=== PATIENT | female | born 1945 | race Caucasian/White ===

== ENCOUNTER 2021-07-06 14:01 | Emergency (ER) | payer MEDICARE, OTHER, SELFPAY ==
--- NOTE | ~2021-07-06 | XR_ITS ---
EXAMINATION: XR chest 2V DATE: 07/06/2021 14:33 INDICATION: Shortness of breath and wheezing TECHNIQUE: PA and lateral views of the chest are obtained. COMPARISON: None available FINDINGS: There are patchy opacities throughout all lung zones. More focal airspace opacity is seen i n the left lung base. Small pleural effusions are present. There is thorax. The cardiomediastinal carlos houette is normal. There is exaggerated kyphosis and moderate thoracic spondylosis. IMPRESSION: 1. Diffuse lung disease reflect atelectasis versus pneumonia versus pulmonary edema. 2. Left lower lobe airspace opacities likely reflect pneumonia. 3. Small pleural effusions. Reviewed, dictated and finalized at location A. IMPRESSION: 1. Diffuse lung disease reflect atelectasis versus pneumonia versus pulmonary e brian. 2. Left lower lobe airspace opacities likely reflect pneumonia. 3. Small pleural effusions.
--- NOTE | 2021-07-06 14:03 | ED.SOB ---
HPI - SOB/Dyspnea General Chief Complaint: Shortness of Breath/Dyspnea Stated Complaint: Shortness of Breath Time Seen by Provider: 07/06/21 14:03 Source: patient and RN notes reviewed Limitations: no limitations History of Present Illness HPI Narrative: The patient, who is a continued smoker/nondrinker, presents with shortness of breath. Patient states she was hospitalized last year for COPD, cardiac stent [ at [facility]] ; today she has a short onset of shortness of breath unresponsive to 4 updraft treatments . No fever, precordial chest pain, recent steroids, calf pain/edema; symptoms are moderate associated with wheezing. She has a recent diagnosis of Covid beginning the May, which was treated as an outpatient . Related Data Home Medications Medication Instructions Recorded Confirmed albuterol sulfate 2 puff INHALATION QID PRN 07/06/21 07/06/21 aspirin 81 mg PO DAILY 07/06/21 07/06/21 atorvastatin 40 mg PO DAILY 07/06/21 07/06/21 buspirone 5 mg PO DAILY 07/06/21 07/06/21 clopidogrel 75 mg PO DAILY 07/06/21 07/06/21 diphenhydramine HCl [Benadryl] 25 mg PO HS 07/06/21 07/06/21 fluoxetine 40 mg PO DAILY 07/06/21 07/06/21 fluticasone propionate [Flonase] 2 spray INTRANASAL DAILY 07/06/21 07/06/21 [id number] See Rx Instructions .ROUTE .COMPLEX 07/06/21 07/06/21 [Trelegy Ellipta] lisinopril 5 mg PO DAILY 07/06/21 07/06/21 metoprolol succinate 50 mg PO DAILY 07/06/21 07/06/21 omeprazole 40 mg PO DAILY 07/06/21 07/06/21 rosuvastatin 5 mg PO DAILY 07/06/21 07/06/21 Allergies Allergy/AdvReac Type Severity Reaction Status Date / Time Sulfa (Sulfonamide AdvReac Intermediate Rash Verified 07/06/21 14:13 Antibiotics) Review of Systems Review of Systems: General/Constitutional: No weight loss,fever Eyes: N0: Redness,discharge Ears/Nose/Throat: No: Epistaxis,ear discharge Respiratory: Denies: Hemoptysis Gastrointestinal: No Vomiting, Bleeding-rectal Skin: No Lumps, eruption Neurologic: No Focal Weakness,Sz Hematologic: Denies: Petechiae/Purpura Psychiatric: No: Suicida ideationl All Other Systems: Reviewed and Negative [facility] Past Medical History Medical History (Updated 07/07/21 @ 14:20 by Dinesh Ledbetter MD) Chronic anticoagulation COPD exacerbation Depression High cholesterol Hypertension Surgical History Surgical History (Updated 07/06/21 @ 14:22 by Dinesh Ledbetter MD) History of heart artery stent Comments At time of signature, agree with nursing past medical, surgical, social and family history. There is no relevant family history pertinent to the presenting complaint Exam Narrative: General Appearance: Thin, lean EYE: PERRLA, Conjunctiva clear Ears: Auditory canal normal, TM normal Nose: Rhinorrhea, Mucousal erythema Mouth/Throat: MM moist, Uvula midline, Pharyngeal erythema Neck: Supple, No adenopathy Respiratory: Tachypneic, increased AP diameter, decreased BS at bases, scattered wheezing Cardiovascular: RRR, No JVD Musculoskeletal: Non tender, Normal strength Skin: Warm, Dry Neurological: A&O x3, CN II-XII intact Psychiatric: Normal mood, Normal affect Course Course Emergency Course: Films visualized, interpreted by radiologist, agree, ABnormal see report Patient comes in respiratory distress on way to [facility] she has had for breathing treatments at home and has continued to get worse; when she arrived at [facility] her O2 sats were 98% with bilateral basilar wheezing Given prednisone 60 mg and a DuoNeb Chest x-ray shows patchy infiltrates with left lower lobe pneumonia Plan is to transfer to [facility] when she stabilized-based on presentation the results chest x-ray called [facility] and transferred patient to their ER- accepting doctor is Dr. Aguayo, it was a discharge with a respiratory rate of 24 Vital Signs Vital signs: Vital Signs Temperature 98.3 F 07/06/21 14:05 Pulse Rate 88 07/06/21 14:05 Respiratory Rate 40 H 07/06/21
[2021-07-06 14:05] VITALS: BP 171/113; PULSE 88; RESP 40; TEMP 36.8; O2SAT 99
[2021-07-06] MEDS: ALBUTEROL SULFATE NEB 2.5 MG/3 ML INH INHALATION (14:05)
[2021-07-06] MEDS: predniSONE 20 MG TABLET 60 MG PO (14:05)
[2021-07-06] MEDS: IPRATROPIUM BR 0.02% INH SOLN 0.5 MG/2.5 ML VIAL INHALATION (14:05)
[2021-07-06 14:40] VITALS: BP 150/85; PULSE 70; RESP 22; O2SAT 98
[2021-07-06 14:45] VITALS: RESP 22; O2SAT 97
== END 2021-07-06 14:45 | disposition short-term general hospital (02) ==
PROVIDERS: Emergency Provider Emergency Medicine
DX: J44.1 Chronic obstructive pulmonary disease with (acute) exacerbation (principal); J18.9 Pneumonia, unspecified organism; F32.A Depression, unspecified; E78.00 Pure hypercholesterolemia, unspecified; Z79.01 Long term (current) use of anticoagulants; Z95.5 Presence of coronary angioplasty implant and graft; F17.200 Nicotine dependence, unspecified, uncomplicated
CPT/HCPCS: 71046; 99203; G0463; J7512

== ENCOUNTER 2025-03-14 11:29 | Emergency (ER) | payer MEDICARE, OTHER, SELFPAY ==
--- OUTSIDE RECORDS SUMMARY | 2025-03-14 11:31 | XMS_ITS | Encounter Summary ---
Author Organization [facility] Address [address] [place] [address] Care Team Providers Care Trim Master Operator Name Role Phone Gerry LIANG MD, Joseph Anthony Unavailable [phone] Lamberto Faria MD Primary Care Provider Vineet Sellers MD Unavailable Kalpesh Gong MD Unavailable Kaitlin Pascual NP Unavailable Kin Ch MD Unavailable [phone] Sisi Rich MD Unavailable [phone] Lamberto Faria MD Primary Care Provider Jake Castellano RN Unavailable [phone] Encounter Details Date Type Department Care Team (Late st Contact Info) Description 01/13/2025 Telephone [facility] [address] [facility] [address] [place] [address] Kayley Membreno MA Social History Tobacco Use Types Packs/Day Years Used Date Smoking Tobacco: Every Day Cigarettes 1 65.5 Started: 1961 Passive Smoke Exposure: Current Smokeless Tobacco: Never Alcohol Use Standard Drinks/Week Comments Yes 0 (1 standard drink = 0.6 oz pur e alcohol) rare use she states Humiliation, Afraid, Rape, and Kick questionnair e Answer Date Recorded Fear of Current or Ex-Partner Not on file Within the last year, have y ou been humiliated or emotionally abused in other ways by your partner or ex-partner? No 01/29/2023 Within the last year, have y ou been kicked, hit, slapped, or otherwise physically hurt by your partner or ex-partner? No 01/29/2023 Within the last year, have y ou been raped or forced to have any kind of sexual activity by your partner or ex-partner? No 01/29/2023 Social Connection and Isolat ion Panel [NHANES] Answer Date Recorded In a typical week, how many times do you talk on the phone with family, friends, or neighbors? More than three times a week 11/29/2021 How often do you get togethe r with friends or relatives? Once a week 11/29/2021 How often do you attend [facility] or sikhism services? More than 4 times per year 11/29/2021 Do you belong to any clubs o r organizations such as yazidism groups, unions, fraternal or athletic groups, or school groups? Yes 11/29/2021 How often do you attend meet ings of the clubs or organizations you belong to? Never 11/29/2021 Are you , , di vorced, , never , or living with a partner? 11/29/2021 AUDIT-C Answer Date Recorded Q1: How often do you have a drink containing alcohol? Never 09/17/2024 Q2: How many drinks containi ng alcohol do you have on a typical day when you are drinking? Patient does not drink Q3: How often do you have si x or more drinks on one occasion? Never 09/17/2024 Overall Financial Resource Strain (CARDIA) Answe r Date Recorded How hard is it for you to pa y for the very basics like food, housing, medical care, and heating? Not very hard 11/29/2021 PHQ-2 Answer Date Recorded PHQ-2 Total Score (If total score is 3 or more points, staff should administer the PHQ-9) 0 12/29/2024 PRAPARE - Transportation Answer Date Re corded In the past 12 months, has l ack of transportation kept you from medical appointments or from getting medications? No 11/09 In the past 12 months, has l ack of transportation kept you from meetings, work, or from getting things needed for daily living? No 11/29/2021 Housing Stability Vital Sign Answer Alfonso e Recorded In the last 12 months, was t here a time when you were not able to pay the mortgage or rent on time? No 11/29/2021 In the last 12 months, how many places have you lived? 1 11/29/2021 In the last 12 months, was t here a time when you did not have a steady place to sleep or slept in a residential (including now)? No 11/29/2021 PHQ-9 Answer Date Recorded PHQ-9 Total Score 17 10/21/2024 Personal Safety Answer Date Recorded Have you ever been in or are you currently in a harmful physical or emotional relationship or is someone making you feel afraid or unsafe? 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 SCIENCE INSTRUCTOR documented as of this encounter Plan of Treatment Not on file documented as of this encounter Visit Diagnoses Not on filedocumented in this encounter Care Teams Trim Master Operator Relationship Specialty Start Date End Date Lamberto Faria MD [address] [facility] [address] [address] PCP - General Family Medicine 12/18/23 02/16/25 Lamberto Faria MD [address] [address] PCP - General Family Medicine 02/17/25 Artie Garrett III, MD [address] [facility] [address] [address] Consulting Physician Cardiology 11/07/22 Vineet Sellers MD [address] [facility] [address] [place] [address] Consulting Physician Pulmonary Disease 12/18/23 Kalpesh Gong MD [address] [facility] [address] [place] [address] Consulting Physician Vascular Surgery 12/18/23 Kaitlin Pascual NP [address] [facility] [address] [place] [address] Nurse Practitioner Family Medicine 06/09/24 Kin Ch MD [address] [facility] [address] [place] [address] Consulting Physician Cardiology 06/09/24 Sisi Rich MD [address] [facility] [address] [place] [address] Consulting Physician Obstetrics and Gynecology 02/13/25 Jake Castellano, RAJINDER [address] [place] [address] [address] [place] [address] Supervisory Historian 02/19/25 documented as of this encounter
--- OUTSIDE RECORDS SUMMARY | 2025-03-14 11:31 | XMS_ITS | Clinical Summary ---
Author Organization [facility] Address [address] [place] [address] Care Team Providers Care Production Designer Name Role Phone Gerry LIANG MD, Joseph Anthony Unavailable [phone] Vineet Sellers MD Unavailable Kalpesh Gong MD Unavailable Kaitlin Pascual NP Unavailable [phone] Kin Ch MD Unavailable [phone] Sisi Rich MD Unavailable [phone] Lamberto Faria MD Primary Care Provider Jake Castellano RN Unavailable [phone] Allergies Active Allergy Reactions Criticality Noted Date Comments Atenolol Other (See comments) Low 11/07/2022 Bad shakes Duloxetine Other (See comments) Low 11/07/2022 Bad shakes Methylprednisolone Itching Low 11/07/2022 [place] likes ants crawling on my skin Brexpiprazole Other (See comments) Low 11/07/2022 Bad shakes Risperidone Other (See comments) Low 11/07/2022 Bad shakes Sulfa (Sulfonamide Antibiotics) Hives Medium Sulfanilamide Hives,Rash Medium Reaction: Hives, Skin Rash, Temazepam Other (See comments) Low 11/07/2022 Bad shakes Venlafaxine Other (See comments) Low 11/07/2022 Bad shakes Medications fluticasone propionate (FLONASE) 50 mcg/actuation nasal spray 1 spray daily 5 019 Active albuterol 2.5 mg /3 mL (0.083 %) nebulizer solution 3 mL (2.5 mg total) every 4 (four) hours as needed 020 Active cholecalciferol (VITAMIN D-3) 2000 unit tablet Take 1 tablet (2,000 Units total) by mouth daily 022 Active clopidogreL (PLAVIX) 75 mg tablet TAKE 1 TABLET BY MOUTH EVERY DAY 90 tablet 4 022 Active potassium chloride ER 20 mEq CR tablet Take 1 tablet (20 mEq total) by mouth daily 90 tablet 3 024 Active omeprazole (PriLOSEC) 40 mg capsuleIndicatio ns:Gastroesophag eal reflux disease without esophagitis Take 1 capsule (40 mg total) by mouth daily 90 capsule 3 024 2024 Active furosemide (LASIX) 40 mg tablet Take 1 tablet (40 mg total) by mouth every other day Takes on opposite days of 20mg 024 Active nitroglycerin (NITROSTAT) 0.[address] 1 tablet (0.4 mg total) under the tongue as needed for chest pain 90 tablet 024 Active FLUoxetine (PROzac) 40 mg capsule TAKE 1 CAPSULE BY MOUTH DAILY 100 capsule 1 025 Active atorvastatin (LIPITOR) 80 mg tablet Take 1 tablet (80 mg total) by mouth daily 90 tablet 3 025 2025 Active albuterol HFA (PROVENTIL HFA,VENTOLIN HFA,PROAIR HFA) 90 mcg/actuation inhaler Inhale 2 puffs every 6 (six) hours as needed for wheezing 8.5 each 2 025 Active traMADoL (ULTRAM) 50 mg tabletIndication s:Spondylosis of lumbar region without myelopathy or radiculopathy,Muriel mbar radiculopathy Take 1 tablet (50 mg total) by mouth daily as needed for pain 30 tablet 2 025 Active fluticasone-umec lidin-vilanter (Trelegy Ellipta) 200-62.5-25 mcg inhaler INHALE 1 PUFF BY MOUTH DAILY 60 each 025 Active pyridoxine (VITAMIN B6) 25 mg tabletIndication s:Vitamin B6 deficiency Take 1 tablet (25 mg total) by mouth daily 60 tablet 025 Active pregabalin (LYRICA) 50 mg capsuleIndicatio ns:Lumbar radiculopathy Take 1 capsule (50 mg total) by mouth 3 (three) times a day 180 capsule 1 025 2024 Active Additional Information Patient not taking.Reported on 03/04/2025 spironolactone (ALDACTONE) 25 mg tablet Take 1 tablet (25 mg total) by mouth daily 90 tablet 3 025 2025 Active acetaminophen ER (TYLENOL) 650 mg 8 hr tablet Take 1 tablet (650 mg total) by mouth every 8 (eight) hours as needed for pain Active furosemide (LASIX) 20 mg tablet Take 1 tablet (20 mg total) by mouth every other day Takes on opposite days of 40 mg 023 2024 Discontinued(T herapy completed) spironolactone (ALDACTONE) 25 mg tablet Take 1 tablet (25 mg total) by mouth daily 024 2024 Discontinued(R eorder) metoprolol XL (TOPROL-XL) 25 mg extended release tablet Take 1 tablet (25 mg total) by mouth daily 90 tablet 3 024 2024 Discontinued(T herapy completed) pregabalin (LYRICA) 25 mg capsuleIndicatio ns:Lumbar radiculopathy Take 2 capsules (50 mg total) by mouth 2 (two) times a day Take 1 capsule in mornings and 2 capsules at night 025 2024 Discontinued(T herapy completed) amoxicillin-clav ulanate (AUGMENTIN) 875-125 mg per tabletIndication s:Abdominal/Pelv ic Infection Take 1 tablet (875 mg of amoxicillin total) by mouth 2 (two) times a day for 17 doses 17 tablet 025 2024 Discontinued(P atient Reported) acetaminophen (TYLENOL) suspension 325 mg/10.15 mL Take 10.15 mL (325 mg total) by mouth every 6 (six) hours as needed for pain 2024 Discontinued Active Problems Problem Noted Date Diagnosed Date Acute blood loss anemia 02/27/2025 Assessment & Plan (02/27/2025 5:34 AM CDT): Post-surgical anemia likely contributing to fatigue and cold intolerance. Hemoglobin levels to be rechecked to guide management, especially regarding the restart of blood thinners. Iron supplementation recommended to build up blood levels and improve oxygen carrying capacity. - Order hemoglobin test to assess current anemia status. - Start iron supplementation with iron sulfate, 325 mg every other day to avoid constipation. Lab Results Component Value Date WBC 10.10 (H) 02/25/2025 HGB 8.3 (L) 02/25/2025 HCT 27.1 (L) 02/25/2025 MCV 92.8 02/25/2025 LABPLAT 371 02/25/2025 Lab Results Component Value Date IRON 28 (L) 02/25/2025 TIBC 272 02/25/2025 FERRITIN 125 02/25/2025 S/P laparoscopic cholecystectomy 02/26/2025 Chest pain 02/15/2025 Vitamin B6 deficiency 01/30/2025 Overview (01/30/2025): Noted 02/01 as part of memory panel done for cognitive concern Pyridoxal phosphate (Vit B6) 5 - 50 mcg/L <2 Low Spondylosis of lumbar region without myelopathy or radiculopathy 10/21/2024 Bilateral carotid artery stenosis 10/09/2024 Assessment & Plan (10/09/2024 10:37 AM MINERAL INDUSTRY TEACHER): Currently remains asymptomatic. Duplex shows bilateral moderate carotid stenosis and would recommend continued aspirin statin therapy and follow up in 6 months for routine surveillance with carotid duplex. Healthcare maintenance 06/09/2024 Overview (01/26/2025): Does not want to do - breast cancer screening mammogram, osteoporosis screening Assessment & Plan (06/09/2024 11:46 AM CDT): - patient has many outstanding health maintenance items including breast cancer screening mammogram, osteoporosis screening and lung cancer screening test that she does not want to do Abnormality of gait due to impairment of balance 03/24/2024 Assessment & Plan (03/24/2024 12:27 AM CDT): - has handicap pavel - has known gait disturbance - has walker at home - recommend regular use of walker and ambulatory aid to minimize risk of falls and injury CKD stage 3a, GFR 45-59 ml/min 03/24/2024 Assessment & Plan (01/27/2025 6:05 AM CDT): - chronic condition, stable - advanced age - avoid NSAIDs, Bactrim, Contrast, PPI - continue with low phos diet and low K diet - renally dose medications Lab Results Component Value Date CREATININE 1.03 01/26/2025 CREATININE 0.93 05/23/2024 CREATININE 1.05 03/03/2024 CREATININE 0.92 03/23/2023 Assessment & Plan (03/24/2024 12:35 AM CDT): - new diagnosis - noted to have declining renal function - need repeated measurement, order placed Cognitive decline 03/12/2024 Overview (06/09/2024): - scored 20/30 on SLUMS 03/12/2024 Assessment & Plan (03/12/2024 3:46 PM CDT): - new diagnosis - scored 20/30 on SLUMS - makes her sad that she is not doing very well on these score - recommend repeat evaluation on next visit - will check for reversible cause of dementia Lab Results Component Value Date TSH 1.21 03/03/2024 No results found for: FOLATE No results found for: VITB12 Umbilical hernia without obstruction and without gangrene 10/16/2023 Assessment & Plan (03/24/2024 12:18 AM CDT): - chronic condition, stable status - aware cardinal signs to look for with strangulation. Patient is agreeable and aware that if the protrusion becomes hard tender and is not able to be reduced to present to the emergency room. Assessment & Plan (10/16/2023 11:57 AM MINERAL INDUSTRY TEACHER): Small umbilical hernia which is reducible on exam. She denies any nausea vomiting or constipation or diarrhea. States earlier today the protrusion was hard and tender now it soft and not protruding as much. Educated what an umbilical hernia was and cardinal signs to look for with strangulation. Patient is agreeable and aware that if the protrusion becomes hard tender and is not able to be reduced to present to the emergency room. Plan: Follow-up as scheduled for her routine monitoring of her AAA. Dermatitis 05/28/2023 Assessment & Plan (11/04/2023 10:07 PM MINERAL INDUSTRY TEACHER): Continue clobetasol follow up with Dermatology as they direct Assessment & Plan (05/28/2023 2:32 PM CDT): Topical steroid solution to the scalp and triamcinolone to skin areas. Dermatology referral if no improvement. Postmenopausal bleeding 01/29/2023 Assessment & Plan (02/13/2025 12:41 PM CDT): The patient would like to have hysterectomy Less invasive D and C was discussed She is wanting definitive management Route of hysterectomy was also discussed We discussed that she would have to be in steep Trendelenburg for robotic hysterectomy She believes that since she has had her procedures that she should be able to get cardiac clearance As pathology was concerned that there could be underlying malignancy that was obscured by the numerous white blood cells, I do think some type of additional treatment needs to be done. She has she does not see the buildings and grounds supervisor until July she will call and arrange for it. Risks benefits alternatives were discussed including infection bleeding damage to other organs the patient voices understanding desires to proceed Assessment & Plan (01/29/2025 2:46 PM CDT): She is not seeing any more blood States it looks like straight pus Addendum of second opinion on path is not back To finish antibiotics Will repeat usg after Will see her after to decide course of treatment If surgery, she will need cardiac clearance. Assessment & Plan (02/21/2023 11:11 AM CDT): Will hold on emb as actual lining is thin. Pap done. I will send the results to the portal. If she has not heard in a week, to call the office. To usg in 6m to check stripe To call if she has bleeding. Assessment & Plan (01/29/2023 1:56 PM CDT): Will send her for pelvic usg rto after She will take ibu( she takes for her back) prior to her next visit in anticipation for EMB. Well woman exam 01/29/2023 Overview (01/29/2023): Lab: Pap:all normal Labs with Dr. Grady. Melissa:2018 Colonoscopy: more than 10 years ago BMD:2018 Assessment & Plan (01/29/2023 1:58 PM CDT): Will do pap at her next visit. AAA (abdominal aortic aneurysm) without rupture 11/14/2022 Overview (09/17/2024): Following with vascular surgery Assessment & Plan (01/01/2024 4:27 AM CDT): - chronic, stable - s/p abdominal aortic aneurysm 5.3 cm status post EVAR on 11/14/2022 - follows with vascular surgery Dr. Kalpesh gong - getting monitored regularly with imaging - no ongoing symptoms Assessment & Plan (12/22/2022 1:10 PM CDT): History of abdominal aortic aneurysm 5.3 cm status post EVAR on 11/14/2022. She is following up today postoperatively. States she has been recovering well denies any current symptoms of pain to the groins abdomen back or flank or claudication pain. Seen with Kalpesh Gong. Plan: Follow-up in 1 month with CTA abdomen and pelvis. Assessment & Plan (12/14/2022 4:49 AM CDT): Seems to have tolerated her surgical repair well and should follow-up with her vascular surgeon as they direct. S/P endovascular aneurysm repair 11/14/2022 Assessment & Plan (10/09/2024 10:35 AM MINERAL INDUSTRY TEACHER): Status post EVAR 2022 for an aneurysm of 5.3 cm originally. Currently measures 4.2 cm on aortic duplex. No endoleak noted. Recommend continued Plavix, statin medication and recommended smoking cessation. She continues to smoke 3/4 pack per day. She has not show any interest in quitting. Follow-up in 1 year for aortic duplex. Infrarenal abdominal aortic aneurysm (AAA) witho ut rupture 10/11/2022 Assessment & Plan (03/26/2024 9:29 AM CDT): Impression: Status post endovascular repair of 5.3 cm AAA. She remains asymptomatic. Recent CTA of abdomen and pelvis reveals a patent endograft repair with no endoleak seen. [place] aneurysm sac is measuring 4.4 cm. Plan: Continue ongoing risk factor modifications. -patient to follow-up in 6 months for re-evaluation with abdominal duplex. Encouraged patient to make a sooner appointment if she develops any symptoms. Assessment & Plan (09/14/2023 1:20 PM MINERAL INDUSTRY TEACHER): Status post EVAR 11/14/2022. Currently measuring 4.4 cm on current CTA. No evidence of leak. Patient continues to do well. Plan: Follow-up in 6 months for repeat CTA of the abdomen and pelvis Assessment & Plan (02/01/2023 7:23 AM CDT): Status post percutaneous endovascular abdominal aortic aneurysm repair now with no endoleak. Continue risk factor modification with ASA statin therapy in good blood pressure control. Will plan for repeat CT abdomen pelvis in 6 months. Assessment & Plan (10/25/2022 2:19 PM MINERAL INDUSTRY TEACHER): 5.3 cm infrarenal abdominal aortic aneurysms as well as a 2.3 cm right common iliac artery aneurysms. Risks benefits alternatives to endovascular aneurysm repair discussed, risks including bleeding, infection, perforation, contrast induced nephropathy, dissection, distal embolization/thrombosis, mesenteric ischemia, renal failure, ischemia of the pelvis or lower extremities, stroke, DC or . She wished to proceed. We will get her scheduled after cardiac risk assessment. Continue ASA in good blood pressure control. Assessment & Plan (10/11/2022 4:19 PM MINERAL INDUSTRY TEACHER): 5 cm AAA found on aortoiliac duplex. Discussed at length the recommendation for surgical intervention if her aneurysms indeed [address] abdomen pelvis ordered for further evaluation, pending this she may need repair versus continued surveillance. Lumbar radiculopathy 12/21/2021 Overview (03/04/2025): Following with pain management 03/04 - am taking Iron supplements every day, But I quit taking Pregqabalin (50mg) it gave me the shakes inside and out. Assessment & Plan (02/25/2025 1:16 PM CDT): - chronic condition, not at goal with progressive pain, worse lately - this affects her sleep as well - radiated down her legs - reports pain with prolonged walking or standing - uses extra strength tylenol PRN - prison active tobacco smoker, recommend tobacco smoking cessation - has known osteoporosis, declines treatment for it - currently on Lyrica 50 mg pm and 25 mg am --> increase Lyrica 50 mg BID if needed - currently on Tramadol 50 mg daily PRN via pain mangement, she has not been using her trazodone lately so I have asked her to start taking it as prescribed for the next 5 days - most recent XR lumbar spine as shown below - continue current management MRI Lumbar spine 12/2024 IMPRESSION: 1. Acute to subacute T11 vertebral body compression fracture. Minimal retropulsion of the posteroinferior corner without significant spinal canal stenosis. 2. The T12 vertebral body status post augmentation procedure as seen on the lumbar spine MRI dated 07/12/2022. 3. The T10 vertebral body compression deformity is new when compared to the thoracic spine MRI dated 05/18/2022 but seen on the CTA abdomen and pelvis dated 03/12/2024. Minimal STIR hyperintense signal about the superior endplate could be degenerative in nature. Please correlate with point tenderness to exclude acute on chronic injury. 4. Postoperative changes at L2-L3 and L3-L4 are again seen. 5. Lumbar disc degeneration ranging up to severe with thickened ligamentum flavum and facet arthropathy as above. The spinal canal narrowing is most noticeable at L3-L4. 6. Varying degrees of bilateral neural foraminal stenosis ranging up to severe and additional findings as described. XR Lumbar spine 09/2024 IMPRESSION: 1. Lumbar spondylosis with multilevel degenerative disc disease and endplate osteophyte formation. Changes at L3-4 are favored to be related to progression of degenerative changes. If there is any clinical concern for superimposed infection/discitis, MRI with and without contrast can be performed for further evaluation. 2. Kyphoplasty changes at T12, stable. 3. Compression deformity at T10, similar to prior CT study. There is a mild compression deformity at T11 favored to be chronic though correlate with point tenderness. MRI can be considered if further evaluation is warranted clinically. Assessment & Plan (01/26/2025 3:53 PM CDT): - chronic condition, not at goal with progressive pain, worse lately - this affects her sleep as well - radiated down her legs - reports pain with prolonged walking or standing - uses extra strength tylenol PRN - prison active tobacco smoker, recommend tobacco smoking cessation - has known osteoporosis, declines treatment for it - currently on Lyrica 50 mg pm and 25 mg am --> increase Lyrica 50 mg BID if needed - currently on Tramadol 50 mg daily PRN via pain mangement, she has not been using her trazodone lately so I have asked her to start taking it as prescribed for the next 5 days - most recent XR lumbar spine as shown below - continue current management MRI Lumbar spine 12/2024 IMPRESSION: 1. Acute to subacute T11 vertebral body compression fracture. Minimal retropulsion of the posteroinferior corner without significant spinal canal stenosis. 2. The T12 vertebral body status post augmentation procedure as seen on the lumbar spine MRI dated 07/12/2022. 3. The T10 vertebral body compression deformity is new when compared to the thoracic spine MRI dated 05/18/2022 but seen on the CTA abdomen and pelvis dated 03/12/2024. Minimal STIR hyperintense signal about the superior endplate could be degenerative in nature. Please correlate with point tenderness to exclude acute on chronic injury. 4. Postoperative changes at L2-L3 and L3-L4 are again seen. 5. Lumbar disc degeneration ranging up to severe with thickened ligamentum flavum and facet arthropathy as above. The spinal canal narrowing is most noticeable at L3-L4. 6. Varying degrees of bilateral neural foraminal stenosis ranging up to severe and additional findings as described. XR Lumbar spine 09/2024 IMPRESSION: 1. Lumbar spondylosis with multilevel degenerative disc disease and endplate osteophyte formation. Changes at L3-4 are favored to be related to progression of degenerative changes. If there is any clinical concern for superimposed infection/discitis, MRI with and without contrast can be performed for further evaluation. 2. Kyphoplasty changes at T12, stable. 3. Compression deformity at T10, similar to prior CT study. There is a mild compression deformity at T11 favored to be chronic though correlate with point tenderness. MRI can be considered if further evaluation is warranted clinically. Assessment & Plan (12/29/2024 4:47 PM CDT): - chronic condition, not at goal with progressive pain, worse lately - this affects her sleep as well - radiated down her legs - reports pain with prolonged walking or standing - uses extra strength tylenol PRN - prison active tobacco smoker, recommend tobacco smoking cessation - has known osteoporosis, declines treatment for it - currently on Lyrica 25 mg BID --> increase nighttime Lyrica 50 mg nightly while continuing the 25 mg morning dose - currently on Tramadol 50 mg daily PRN via pain mangement, she has not been using her trazodone lately so I have asked her to start taking it as prescribed for the next 5 days - most recent XR lumbar spine as shown below XR Lumbar spine 09/2024 IMPRESSION: 1. Lumbar spondylosis with multilevel degenerative disc disease and endplate osteophyte formation. Changes at L3-4 are favored to be related to progression of degenerative changes. If there is any clinical concern for superimposed infection/discitis, MRI with and without contrast can be performed for further evaluation. 2. Kyphoplasty changes at T12, stable. 3. Compression deformity at T10, similar to prior CT study. There is a mild compression deformity at T11 favored to be chronic though correlate with point tenderness. MRI can be considered if further evaluation is warranted clinically. Assessment & Plan (09/17/2024 1:36 PM MINERAL INDUSTRY TEACHER): - chronic condition, not at goal with progressive pain - will review records - this affects her sleep as well - radiated down her legs - reports pain with prolonged walking or standing - uses extra strength tylenol PRN - she was seen by Pain management few years ago and had an injection which did help initially - prison active tobacco smoker, recommend tobacco smoking cessation - has known osteoporosis, declines treatment for it - start Lyrica 25 mg BID and can up titrate (sensitive to medications) - obtain XR lumbar spine, order placed to evaluate for any acute changes XR Lumbar spine 04/2022 IMPRESSION: 1. Interval appearance, since December 2021 radiographic evaluation, of age-indeterminate compression deformity of the T12 vertebral body with approximately 40% central maximal vertebral body height loss; no retropulsion of the posterior cortical margin. 2. Otherwise, levoscoliosis in association with spondylosis and degenerative disc disease of the lumbar spine. XR Lumbar spine 04/2022 IMPRESSION: 1. Interval appearance, since December 2021 radiographic evaluation, of age-indeterminate compression deformity of the T12 vertebral body with approximately 40% central maximal vertebral body height loss; no retropulsion of the posterior cortical margin. 2. Otherwise, levoscoliosis in association with spondylosis and degenerative disc disease of the lumbar spine. Assessment & Plan (03/12/2024 3:51 PM CDT): - chronic condition, not at goal - will review records - reports pain with prolonged walking or standing - uses extra strength tylenol PRN XR Lumbar spine 04/2022 IMPRESSION: 1. Interval appearance, since December 2021 radiographic evaluation, of age-indeterminate compression deformity of the T12 vertebral body with approximately 40% central maximal vertebral body height loss; no retropulsion of the posterior cortical margin. 2. Otherwise, levoscoliosis in association with spondylosis and degenerative disc disease of the lumbar spine. 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 Currently trying to hold opiate therapy for nausea.. Assessment & Plan (12/21/2021 9:25 AM CDT): X-rays of her lumbar spine and call back for results. Physical therapy referral. [facility] Dosepak. Call back if no improvement in a few weeks for MRI and pain management referral. Primary hypertension 11/26/2021 Assessment & Plan (01/27/2025 6:04 AM CDT): Blood Pressure Management BP Readings from Last 3 Encounters: 01/26/25 110/68 01/14/25 100/52 12/29/24 116/68 Chronic condition Status - is adequately controlled. Current medications are: currently on spironolactone 25 mg daily, Metoprolol XL 25 mg daily and furosemide 20 mg - 40 mg alternating daily through an outside provider for ischemic cardiomyopathy via Cardiology Patient is compliant with medications. Patient denies any side effects or adverse side effects from the medication/s. Follow a low salt diet Monitor blood pressure regularly at home The current medical regimen is effective; continue present plan and medications. The ASCVD Risk score (Suhail MOTA, et al., 2019) failed to calculate for the following reasons: The 2019 ASCVD risk score is only valid for ages 40 to 79 Lab Results Component Value Date LDLCALC 58 01/26/2025 Lab Results Component Value Date GLUCOSE 94 01/26/2025 CALCIUM 9.4 01/26/2025 SODIUM 136 01/26/2025 POTASSIUM 4.5 01/26/2025 CO2 21 (L) 01/26/2025 CHLORIDE 103 01/26/2025 BUNSER 30 (H) 01/26/2025 CREATININE 1.03 01/26/2025 Assessment & Plan (09/17/2024 1:26 PM MINERAL INDUSTRY TEACHER): Blood Pressure Management BP Readings from Last 3 Encounters: 09/17/24 108/64 08/06/24 133/78 06/09/24 110/60 Chronic condition Status - is adequately controlled. Current medications are: currently on spironolactone 25 mg daily, Metoprolol XL 25 mg daily and furosemide 20 mg - 40 mg alternating daily through an outside provider for ischemic cardiomyopathy via Cardiology Patient is compliant with medications. Patient denies any side effects or adverse side effects from the medication/s. Follow a low salt diet Monitor blood pressure regularly at home The current medical regimen is effective; continue present plan and medications. The ASCVD Risk score (Suhail MOTA, et al., 2019) failed to calculate for the following reasons: The 2019 ASCVD risk score is only valid for ages 40 to 79 Lab Results Component Value Date LDLCALC 124 03/03/2024 Lab Results Component Value Date GLUCOSE 116 05/23/2024 CALCIUM 9.3 05/23/2024 SODIUM 137 05/23/2024 POTASSIUM 4.7 05/23/2024 CO2 22 05/23/2024 CHLORIDE 106 05/23/2024 BUNSER 27 (H) 05/23/2024 CREATININE 0.93 05/23/2024 Assessment & Plan (03/26/2024 9:30 AM CDT): Impression: Chronic and stable. Plan: Continue spironolactone and Lasix Assessment & Plan (03/12/2024 3:42 PM CDT): Blood Pressure Management BP Readings from Last 3 Encounters: 03/12/24 126/60 01/16/24 140/60 12/18/23 138/70 Chronic condition Status - is adequately controlled. Current medications are: Already on spironolactone 25 mg daily and furosemide 20 mg - 40 mg alternating daily through an outside provider for ischemic cardiomyopathy via Cardiology Patient is compliant with medications. Patient denies any side effects or adverse side effects from the medication/s. Follow a low salt diet Monitor blood pressure regularly at home Continue current management unless change made above The 10-year ASCVD risk score (Suhail MOTA, et al., 2019) is: 38.4% Values used to calculate the score: Age: 78 years Sex: Female Is Non- : No Diabetic: No Tobacco smoker: Yes Systolic Blood Pressure: 126 mmHg Is BP treated: Yes HDL Cholesterol: 54 mg/dL Total Cholesterol: 199 mg/dL Lab Results Component Value Date LDLCALC 124 03/03/2024 Lab Results Component Value Date GLUCOSE 104 03/03/2024 CALCIUM 9.8 03/03/2024 SODIUM 137 03/03/2024 POTASSIUM 4.1 03/03/2024 CO2 23 03/03/2024 CHLORIDE 102 03/03/2024 BUNSER 26 (H) 03/03/2024 CREATININE 1.05 03/03/2024 Assessment & Plan (03/02/2023 9:37 AM CDT): Blood pressure well controlled on metoprolol, Entresto Assessment & Plan (02/04/2023 5:15 PM CDT): Blood pressure well controlled on lisinopril metoprolol. Assessment & Plan (12/14/2022 4:48 AM CDT): Blood pressure better controlled at home will continue her lisinopril. Assessment & Plan (12/07/2022 2:06 PM CDT): Blood pressure well controlled orthostatics negative. Assessment & Plan (10/25/2022 2:19 PM MINERAL INDUSTRY TEACHER): Stable continue lisinopril 30 mg. Assessment & Plan (10/11/2022 4:19 PM MINERAL INDUSTRY TEACHER): Stable 30 mg lisinopril Chronic rhinitis 01/28/2021 Assessment & Plan (01/28/2021 10:37 AM CDT): Change Benadryl to Claritin for left sedation. Use fluticasone every day. Hopefully decreasing postnasal drip will reduce her nausea. Hypokalemia 01/06/2021 Assessment & Plan (01/27/2025 6:03 AM CDT): - chronic, stable/well controlled - currently on 20 mEq of potassium daily basis - hx of furosemide via cardiology 20-40 mg alternating daily - continue current potassium supplementation, refill provided - recheck labs, order placed with results as shown below The current medical regimen is effective; continue present plan and medications. Lab Results Component Value Date GLUCOSE 94 01/26/2025 CALCIUM 9.4 01/26/2025 SODIUM 136 01/26/2025 POTASSIUM 4.5 01/26/2025 CO2 21 (L) 01/26/2025 CHLORIDE 103 01/26/2025 BUNSER 30 (H) 01/26/2025 CREATININE 1.03 01/26/2025 Assessment & Plan (03/12/2024 3:32 PM CDT): - chronic, stable/well controlled - has been taking 20 mEq of potassium daily basis - hx of furosemide via cardiology 20-40 mg alternating daily - continue current potassium supplementation, refill provided Lab Results Component Value Date GLUCOSE 104 03/03/2024 CALCIUM 9.8 03/03/2024 SODIUM 137 03/03/2024 POTASSIUM 4.1 03/03/2024 CO2 23 03/03/2024 CHLORIDE 102 03/03/2024 BUNSER 26 (H) 03/03/2024 CREATININE 1.05 03/03/2024 Assessment & Plan (12/07/2022 2:06 PM CDT): High potassium diet repeat metabolic panel today and call back for results. Assessment & Plan (01/06/2021 10:31 PM CDT): Likely secondary to the poor p.o. intake, vomiting and diarrhea. Awaiting repeat potassium after replacement. Will also check a Mag. Replace as needed. 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 Did not tolerate rosuvastatin due to feeling poorly. Did not tolerate pravastatin. zetia added 07/13/22 but no longer on it as well - not sure why she is not on a PCSK9 inhibitor? - s/p C with intervention on 06/05/2024 - most recent labs as shown below, recheck ordered - will need to review records - at one point was on metoprolol, entresto - currently on plavix 75 mg daily - currently long time smoker, recommend tobacco smoking cessation The current medical regimen is effective; continue present plan and medications. Lab Results Component Value Date LDLCALC 58 01/26/2025 [facility] 06/05/2024 Patent stents in the right coronary artery with 50-60% InStent restenosis in the proximal segment 30-40% left main stenosis 70% eccentric stenosis in the proximal left anterior descending at the origin of medium-sized diagonal which had sharp takeoff and 50% ostial stenosis 70% focal stenosis in the proximal circumflex Apical hypokinesis overall ejection fraction 50% Dilated root with moderate aortic insufficiency Endograft in the abdominal aorta with significant tortuosity of the iliac vessels distal to the graft as well as the thoracic aorta proximal to the graft PCI of the circumflex using 3.5 X 8 mm synergy stent with good results IFR of the left anterior descending was 0.84 Attempt to wire the diagonal was not successful. Shockwave angioplasty was performed of the left anterior descending followed by stenting using 4.0 X 8 mm Conce[employer]ium [employer] stent Good results along the LAD however closure of the diagonal. I was able get a wire across the ostium but not advance it distally were advanced a balloon Lab Results Component Value Date LDLCALC 124 03/03/2024 Assessment & Plan (06/09/2024 11:39 AM CDT): - chronic, stable - s/p PCI 07/2020 at [facility] - follows with outside Cardiology provider - wants to establish here locally, referral placed - has hx of statin intolerance reportedly, from prior PCP I was able to review the following Stents placed 07/2020 [facility] Did not tolerate atorvastatin due to feeling poorly. Did not tolerate rosuvastatin due to feeling poorly. Did not tolerate pravastatin. zetia added 07/13/22 but no longer on it as well - not sure why she is not on a PCSK9 inhibitor? - s/p [facility] with intervention on 06/05/2024 - most recent labs as shown below, recheck ordered - will need to review records - at one point was on metoprolol, entresto - currently on plavix 75 mg daily - currently long time smoker, recommend tobacco smoking cessation [facility] 06/05/2024 Patent stents in the right coronary artery with 50-60% InStent restenosis in the proximal segment 30-40% left main stenosis 70% eccentric stenosis in the proximal left anterior descending at the origin of medium-sized diagonal which had sharp takeoff and 50% ostial stenosis 70% focal stenosis in the proximal circumflex Apical hypokinesis overall ejection fraction 50% Dilated root with moderate aortic insufficiency Endograft in the abdominal aorta with significant tortuosity of the iliac vessels distal to the graft as well as the thoracic aorta proximal to the graft PCI of the circumflex using 3.5 X 8 mm synergy stent with good results IFR of the left anterior descending was 0.84 Attempt to wire the diagonal was not successful. Shockwave angioplasty was performed of the left anterior descending followed by stenting using 4.0 X 8 mm [employer] stent Good results along the LAD however closure of the diagonal. I was able get a wire across the ostium but not advance it distally were advanced a balloon Lab Results Component Value Date LDLCALC 124 03/03/2024 Assessment & Plan (01/01/2024 4:38 AM CDT): - chronic, stable - s/p PCI 07/2020 at [facility] - follows with outside Cardiology provider - wants to establish here locally, referral placed - has hx of statin intolerance reportedly, from prior PCP I was able to review the following Stents placed 07/2020 [facility] Did not tolerate atorvastatin due to feeling poorly. Did not tolerate rosuvastatin due to feeling poorly. Did not tolerate pravastatin. zetia added 07/13/22 but no longer on it as well - not sure why she is not on a PCSK9 inhibitor? - most recent labs as shown below, recheck ordered - will need to review records - at one point was on metoprolol, entresto - currently on plavix 75 mg daily - currently long time smoker, recommend tobacco smoking cessation Lab Results Component Value Date LDLCALC 87 01/05/2023 Assessment & Plan (02/04/2023 5:16 PM CDT): Continue her ezetimibe aspirin, clopidogrel, metoprolol and follow up with Cardiology as they direct Assessment & Plan (07/13/2022 10:09 AM CDT): Continue current medication regimen. Add Zetia for cholesterol. Statin intolerant. Assessment & Plan (06/14/2022 2:20 PM CDT): She needs to see her buildings and grounds supervisor carine for stress testing. She should go to the ER for any return of chest pain. Nausea could be atypical presentation of angina in elderly woman. Assessment & Plan (01/02/2022 10:47 AM CDT): Would prefer patient be on statin given her coronary artery disease and stent history. Try pravastatin 20 mg Sunday. Call back if develops side effects. Consider Zetia next visit if needed. Assessment & Plan (06/28/2021 2:55 PM CDT): Hold atorvastatin. Replace with rosuvastatin 5 mg once nightly. Discussed side effects and call back if any develop. Check lipids and LFTs before next visit. Continue other medications such as Plavix aspirin lisinopril metoprolol and follow up with buildings and grounds supervisor as they direct. Assessment & Plan (01/06/2021 10:32 PM CDT): Continue aspirin, statin and Plavix. Continue metoprolol with hold parameters. Holding lisinopril due to creatinine lower than last month but does not meet ILYA criteria. Assessment & Plan (12/27/2020 4:35 PM CDT): Continue current medication regimen follow up with buildings and grounds supervisor as they direct. Assessment & Plan (08/21/2020 10:12 AM MINERAL INDUSTRY TEACHER): Continue current medication regimen and follow up with buildings and grounds supervisor for repeat cardiac catheterization as they direct. To the ER if she develops any chest pain. Ischemic cardiomyopathy 06/30/2020 Overview (07/15/2020): Echo 05/2020 - mild LVE, EF 45% w/ global hypokinesis, mild LVH, mild LAE, nl RVEF, mild to mod MR, mild AI, mild TR, RVSP 48 mmHg Assessment & Plan (01/06/2021 10:32 PM CDT): Continue beta-woody. Holding lisinopril, Lasix and Aldactone due to renal function being lower than last month but does not meet ILYA criteria. Systolic CHF 06/13/2020 Overview (01/28/2021): EF 45% 06/01/20. Diastolic dysfunction present as well. Furosemide 40mg M/W/F/Sat per Dr Interiano Assessment & Plan (02/04/2023 5:15 PM CDT): Continue furosemide, lisinopril, metoprolol and follow up with buildings and grounds supervisor as they direct. Assessment & Plan (11/14/2022 4:10 PM MINERAL INDUSTRY TEACHER): Decrease sodium, increase exercise. Continue her lisinopril metoprolol and consider increasing furosemide if swelling worsens. Assessment & Plan (06/14/2022 2:17 PM CDT): Most recent ejection fraction normal. Continue metoprolol. Assessment & Plan (01/02/2022 10:47 AM CDT): Continue current medication regimen follow up with buildings and grounds supervisor as they direct. Assessment & Plan (06/28/2021 2:55 PM CDT): Remains well compensated on her lisinopril metoprolol and currently holding furosemide per her buildings and grounds supervisor instructions. Follow-up with him as they direct. Assessment & Plan (01/28/2021 10:35 AM CDT): Reduce her furosemide if symptoms of orthostasis worsen especially when she has increased fluid losses. Assessment & Plan (12/27/2020 4:35 PM CDT): Well compensated on current medical regimen and should follow up with buildings and grounds supervisor as they direct. Assessment & Plan (08/21/2020 10:12 AM MINERAL INDUSTRY TEACHER): Doing better after diuresis and should continue current medication regimen and follow up with buildings and grounds supervisor as they direct. Assessment & Plan (08/08/2020 8:10 PM MINERAL INDUSTRY TEACHER): Continue her metoprolol and spironolactone and follow-up with buildings and grounds supervisor regarding starting ERLIN-inhibitor verses Entresto. Pulmonary nodules 05/19/2019 Overview (05/19/2019): Followed by pulm, ct due 02/2020 per pulm. Assessment & Plan (08/08/2020 8:09 PM MINERAL INDUSTRY TEACHER): Follow-up with her roustabout pusher for repeat CT scans as they direct. Assessment & Plan (06/09/2020 10:04 PM CDT): Call back for CT results. IFG (impaired fasting glucose) 11/08/2018 Assessment & Plan (01/27/2025 6:03 AM CDT): - chronic condition, stable - will continue to monitor - most recent labs as shown below - recheck labs, order placed with results as shown below Lab Results Component Value Date HGBA1C 5.8 (H) 01/26/2025 HGBA1C 5.5 03/03/2024 HGBA1C 5.4 01/05/2023 Lab Results Component Value Date LDLCALC 58 01/26/2025 CREATININE 1.03 01/26/2025 Assessment & Plan (03/12/2024 3:31 PM CDT): - chronic condition, stable - will continue to monitor - most recent labs as shown below Lab Results Component Value Date HGBA1C 5.5 03/03/2024 HGBA1C 5.4 01/05/2023 HGBA1C 5.7 (H) 12/26/2021 Lab Results Component Value Date LDLCALC 124 03/03/2024 CREATININE 1.05 03/03/2024 Assessment & Plan (01/01/2024 4:28 AM CDT): - chronic condition - will continue to monitor - most recent labs as shown below Lab Results Component Value Date HGBA1C 5.4 01/05/2023 HGBA1C 5.7 (H) 12/26/2021 HGBA1C 5.4 11/15/2020 Lab Results Component Value Date LDLCALC 87 01/05/2023 CREATININE 0.92 03/23/2023 Assessment & Plan (02/04/2023 5:16 PM CDT): Patient should reduce sugar and carbs, increase exercise, maintain proper body weight, and will check an A1c once or twice yearly. Assessment & Plan (07/13/2022 10:09 AM CDT): Patient should reduce sugar and carbs, increase exercise, maintain proper body weight, and will check an A1c once or twice yearly. Assessment & Plan (01/02/2022 10:46 AM CDT): Patient should reduce sugar and carbs, increase exercise, maintain proper body weight, and will check an A1c once or twice yearly. Assessment & Plan (06/28/2021 2:55 PM CDT): Patient should reduce sugar and carbs, increase exercise, maintain proper body weight, and will check an A1c once or twice yearly. Assessment & Plan (12/27/2020 4:35 PM CDT): Patient should reduce sugar and carbs, increase exercise, maintain proper body weight, and will check an A1c once or twice yearly. Assessment & Plan (06/09/2020 10:04 PM CDT): Patient should reduce sugar and carbs, increase exercise, maintain proper body weight, and will check an A1c once or twice yearly. Assessment & Plan (12/09/2019 3:55 PM CDT): Patient should reduce sugar and carbs, increase exercise, maintain proper body weight, and will check an A1c once or twice yearly. Assessment & Plan (05/19/2019 10:16 AM CDT): Patient should reduce sugar and carbs, increase exercise, maintain proper body weight, and will check an A1c once or twice yearly. Assessment & Plan (11/08/2018 9:43 AM MINERAL INDUSTRY TEACHER): Patient should reduce sugar and carbs, increase exercise, maintain proper body weight, and will check an A1c once or twice yearly. Vitamin D deficiency 04/29/2018 Assessment & Plan (01/27/2025 6:05 AM CDT): Chronic condition, well controlled Most recent lab result as shown below Continue current supplementation with Vitamin D3 OTC The current medical regimen is effective; continue present plan and medications. Lab Results Component Value Date 25HYDROVITD 77 01/26/2025 25HYDROVITD 72 03/03/2024 25HYDROVITD 44 01/05/2023 25HYDROVITD 25 (L) 07/12/2022 25HYDROVITD 12 (L) 12/26/2021 Assessment & Plan (01/01/2024 4:30 AM CDT): Chronic condition, well controlled Most recent lab result as shown below Continue current supplementation with Vitamin D3 OTC Lab Results Component Value Date 25HYDROVITD 44 01/05/2023 25HYDROVITD 25 (L) 07/12/2022 25HYDROVITD 12 (L) 12/26/2021 25HYDROVITD 7 (L) 11/15/2020 25HYDROVITD 11 (L) 11/06/2019 Assessment & Plan (02/04/2023 5:14 PM CDT): Continue current supplementation and check level in 1 year. Assessment & Plan (01/02/2022 10:47 AM CDT): Start 2000 units daily. Check level before next visit. Assessment & Plan (06/28/2021 2:55 PM CDT): Continue current supplementation and check level in 6 months. Assessment & Plan (12/09/2019 3:55 PM CDT): Vitamin-D 2000 units daily and check level once or twice yearly. Assessment & Plan (05/19/2019 10:15 AM CDT): Try different [id number] formulation of her vitamin-D at the lowest dose possible and check level before next visit. Assessment & Plan (11/08/2018 9:43 AM MINERAL INDUSTRY TEACHER): Start vitamin-D 1000 units daily and increase to 1000 units every week until not tolerated. Stop at 5000 units daily. Check level before next visit Assessment & Plan (04/29/2018 9:53 AM CDT): Continue 5000 units daily and check level before next visit. Tobacco use disorder 01/15/2018 Overview (06/09/2024): Active smoker Assessment & Plan (01/29/2025 2:47 PM CDT): The patient was encouraged to stop smoking. Techniques for smoking cessation were discussed to the patient's level of interest. Assessment & Plan (01/26/2025 3:42 PM CDT): Social History Tobacco Use Smoking Status Every Day Current packs/day: 1.00 Average packs/day: 1 pack/day for 65.4 years (65.4 ttl pk-yrs) Types: Cigarettes Start date: 1960 Passive exposure: Current Smokeless Tobacco Never - chronic condition, not at goal/persistent, back to 1pk/day - assessed patient readiness for tobacco smoking cessation - discussed the importance of tobacco smoking cessation with goal of being tobacco free, not ready to quit smoking - has known coronary artery disease, osteoporosis - follows with Pulmonology for COPD - Lung cancer screening - last done 04/2023, declines future assessment Assessment & Plan (12/29/2024 4:46 PM CDT): Social History Tobacco Use Smoking Status Every Day Current packs/day: 1.00 Average packs/day: 1 pack/day for 65.3 years (65.3 ttl pk-yrs) Types: Cigarettes Start date: 1960 Passive exposure: Current Smokeless Tobacco Never - chronic condition, not at goal/persistent - assessed patient readiness for tobacco smoking cessation - discussed the importance of tobacco smoking cessation with goal of being tobacco free, not ready to quit smoking - has known coronary artery disease, osteoporosis - has cut down to 3/4 pk/day - follows with Pulmonology - Lung cancer screening - last done 04/2023, declines Assessment & Plan (10/09/2024 10:36 AM MINERAL INDUSTRY TEACHER): Patient with history of tobacco abuse who is a current everyday 3/4 pack per day smoker. I had a greater than 3 minute discussion with the patient on the importance of smoking cessation and the negative affects on their cardiovascular health. Patient voiced her understanding however also unwilling to quit at this time. Assessment & Plan (06/09/2024 11:45 AM CDT): Social History Tobacco Use Smoking Status Every Day Current packs/day: 1.00 Average packs/day: 1 pack/day for 64.7 years (64.7 ttl pk-yrs) Types: Cigarettes Start date: 1960 Passive exposure: Current Smokeless Tobacco Never - chronic condition, not at goal - assessed patient readiness for tobacco smoking cessation - discussed the importance of tobacco smoking cessation with goal of being tobacco free - has known coronary artery disease, osteoporosis - has cut down to 1/2 pk/day keep it up - follows with Pulmonology - Lung cancer screening - last done 04/2023, declines Assessment & Plan (03/12/2024 3:30 PM CDT): Social History Tobacco Use Smoking Status Every Day Current packs/day: 1.00 Average packs/day: 1 pack/day for 64.5 years (64.5 ttl pk-yrs) Types: Cigarettes Start date: 1960 Passive exposure: Current Smokeless Tobacco Never - chronic condition, not at goal - assessed patient readiness for tobacco smoking cessation - discussed the importance of tobacco smoking cessation with goal of being tobacco free - Lung cancer screening - up to date 04/2023 Assessment & Plan (01/01/2024 4:34 AM CDT): Social History Tobacco Use Smoking Status Every Day Current packs/day: 1.00 Average packs/day: 1 pack/day for 64.3 years (64.3 ttl pk-yrs) Types: Cigarettes Start date: 1960 Passive exposure: Current Smokeless Tobacco Never - chronic condition, not at goal - assessed patient readiness for tobacco smoking cessation - discussed the importance of tobacco smoking cessation with goal of being tobacco free - Lung cancer screening - up to date 04/2023 Assessment & Plan (02/04/2023 5:14 PM CDT): Nicotine replacement therapy and smoking cessation counseling discussed at length. The long-term risks posed to his health with continued usage were discussed at length. Assessment & Plan (01/29/2023 1:50 PM CDT): The patient was encouraged to stop smoking. Techniques for smoking cessation were discussed to the patient's level of interest. Assessment & Plan (10/11/2022 4:20 PM MINERAL INDUSTRY TEACHER): I strongly recommended smoking cessation. Assessment & Plan (01/02/2022 10:46 AM CDT): Nicotine replacement therapy and smoking cessation counseling discussed at length. The long-term risks posed to his health with continued usage were discussed at length. Assessment & Plan (12/21/2021 9:25 AM CDT): Nicotine replacement therapy and smoking cessation counseling discussed at length. The long-term risks posed to his health with continued usage were discussed at length. Assessment & Plan (10/31/2021 12:16 PM MINERAL INDUSTRY TEACHER): She was advised to quit smoking; the risks of continued tobacco use discussed. Assessment & Plan (01/06/2021 10:29 PM CDT): Patient smokes 1 pack per day but has been smoking half a pack per day since she has not been feeling well. Will order nicotine patch. Assessment & Plan (12/27/2020 4:35 PM CDT): Nicotine replacement therapy and smoking cessation counseling discussed at length. The long-term risks posed to his health with continued usage were discussed at length. Assessment & Plan (08/21/2020 10:10 AM MINERAL INDUSTRY TEACHER): Nicotine replacement therapy and smoking cessation counseling discussed at length. The long-term risks posed to his health with continued usage were discussed at length. Assessment & Plan (08/08/2020 8:09 PM MINERAL INDUSTRY TEACHER): Must stop smoking immediately. Assessment & Plan (06/09/2020 10:03 PM CDT): Stop smoking immediately Assessment & Plan (12/09/2019 3:55 PM CDT): Nicotine replacement therapy and smoking cessation counseling discussed at length. The long-term risks posed to his health with continued usage were discussed at length. Assessment & Plan (05/19/2019 10:16 AM CDT): Nicotine replacement therapy and smoking cessation counseling discussed at length. The long-term risks posed to his health with continued usage were discussed at length. Assessment & Plan (11/08/2018 9:42 AM [employer]DUSTRY TEACHER): Unfortunately not ready to discuss smoking cessation. She knows to call back when ready. Assessment & Plan (04/29/2018 9:52 AM CDT): Nicotine replacement therapy and smoking cessation counseling discussed for 5 min. The long-term risks posed to his health with continued usage were discussed at length. Major depressive disorder 01/15/2018 Overview (06/21/2020): Didn't tolerate buproprion(x2), venlafaxine(itching) Assessment & Plan (01/26/2025 3:38 PM CDT): - chronic condition, stable with persistent symptoms - has known conditions of anxiety and depression - reports irritability/agitation with her only - currently on Fluoxetine 40 mg daily - in the past was on Buspirone but reportedly states had skin breakout and is no longer on it - tried wellbutrin but no longer on it - continue present plan and medications. Assessment & Plan (09/17/2024 1:21 PM MINERAL INDUSTRY TEACHER): - chronic condition, not at goal with persistent symptoms - has known conditions of anxiety and depression - reports irritability/agitation with her only - currently on Fluoxetine 40 mg daily - in the past was on Buspirone but reportedly states had skin breakout and is no longer on it - did not tolerate Wellbutrin, in past Venalfaxine did not tolerate it as well Assessment & Plan (06/09/2024 11:44 AM CDT): - chronic condition, not at goal - has known conditions of anxiety and depression - reports irritability/agitation with her only - currently on Fluoxetine 40 mg daily - in the past was on Buspirone but reportedly states had skin breakout and is no longer on it - started Wellbutrin XL 150 mg daily on last visit --> increase to Wellbutrin XL 300 mg daily, script sent in Assessment & Plan (01/02/2022 10:46 AM CDT): Stable on fluoxetine. Recommended counseling but declined. She denies any suicidal homicidal ideations. Could try switching to another medication but currently decline. Assessment & Plan (01/06/2021 10:29 PM CDT): Continue SSRI Assessment & Plan (12/27/2020 4:36 PM CDT): Stable on fluoxetine but could do better. She denies any suicidal homicidal ideations. Discussed changing medication which she declined. Discussed counseling which she also declined. Call back if she changes her mind. Assessment & Plan (06/09/2020 10:03 PM CDT): She wants to retry bupropion and will add this to her fluoxetine for her depression. Assessment & Plan (12/09/2019 3:55 PM CDT): Stable on fluoxetine. Follow-up with psychiatrist as they direct. Assessment & Plan (05/19/2019 10:16 AM CDT): Stable on fluoxetine and follow up with her psychiatrist as they direct. Assessment & Plan (11/08/2018 9:42 AM MINERAL INDUSTRY TEACHER): [facility] and on her fluoxetine and should follow up with Dr. Pacheco as he directs. Assessment & Plan (04/29/2018 9:52 AM CDT): Does not appear to be tolerating duloxetine. Discuss with Dr. Pacheco about discontinuation. Continue fluoxetine for now. Continue counseling. Assessment & Plan (01/15/2018 3:42 PM CDT): Continue Prozac but add bupropion 150 mg once daily for week and then twice daily thereafter. Side effects discussed will call back if any develop. Patient would like to be on this only few months. Maintain her activities and hobbies. Recommend senior renewal for counseling. I believe most of her symptoms to be related to depression and not her Prolia injection. Age-related osteoporosis wit hout current pathological fracture 10/29/2017 Assessment & Plan (09/17/2024 1:29 PM MINERAL INDUSTRY TEACHER): - chronic, not at goal - reviewed prior PCP noted - Cannot take fosamax, boniva due to esophagitis. Left femur fracture 2013. Called to decline prolia 01/2018. - aware the risks this poses to her health. - make sure there is adequate Calcium , and vitamin-D, weight-bearing exercise also recommended - recommend tobacco smoking cessation - declines further testing Assessment & Plan (01/01/2024 4:26 AM CDT): - chronic, not at goal - reviewed prior PCP noted - Cannot take fosamax, boniva due to esophagitis. Left femur fracture 2013. Called to decline prolia 01/2018. - aware the risks this poses to her health. - make sure there is adequate Calcium , and vitamin-D, weight-bearing exercise also recommended Assessment & Plan (02/04/2023 5:16 PM CDT): Calcium , vitamin-D, weight-bearing exercise and recommended Prolia which she declines and is aware the risks this poses to her health. Assessment & Plan (06/14/2022 2:18 PM CDT): Continue holding narcotic pain medication as pain from T12 compression fracture improved and opiates may be causing her nausea and decreased oral intake. Assessment & Plan (01/02/2022 10:45 AM CDT): Declines monitoring her pharmacotherapy and is aware the risks this poses to her health. Assessment & Plan (12/27/2020 4:35 PM CDT): Continue calcium and vitamin-D and weight-bearing exercise but declines bone density scanning and treatment of her osteoporosis and is aware the risks that fragility fractures posed her health which can be life altering if not life ending events. Assessment & Plan (06/09/2020 10:03 PM CDT): She declines intervention is aware the risks this poses to her health. Assessment & Plan (12/09/2019 3:55 PM CDT): She is aware the risks posed her health with failure to treat and continues to decline intervention. Assessment & Plan (05/19/2019 10:16 AM CDT): Patient declines all forms of pharmacological therapy and is aware the risks this poses to her health. Assessment & Plan (11/08/2018 9:42 AM MINERAL INDUSTRY TEACHER): Patient continues to decline all forms of pharmacological therapy and is aware the risks that fragility fractures pose to her health including premature and other poor outcomes. Assessment & Plan (04/29/2018 9:52 AM CDT): Continue calcium and vitamin-D and weight-bearing exercise. Patient declines all forms of pharmacological treatment and is aware the risks this poses to her health. Assessment & Plan (01/25/2018 9:10 PM CDT): Calcium, vitamin-D, weight-bearing exercise. Baseline bone density scan. Will likely order Prolia once results obtained. Assessment & Plan (01/15/2018 3:42 PM CDT): Continue calcium, vitamin-D, weight-bearing exercise. Next Prolia injections not due until May 2018. Hopefully treating her depression will improve her symptoms and she will be willing to go forward with next injection in May. Assessment & Plan (11/12/2017 10:16 AM MINERAL INDUSTRY TEACHER): Should try and take and 1000 mg of calcium through diet daily. Needs vitamin-D supplementation. Check levels periodically. Weight-bearing exercise recommended. Intolerant to oral bisphosphonates. Trial of Prolia with potential side effects discussed and will call back if any develop. Repeat bone density scan November 10, 2019. Psychophysiological insomnia 10/29/2017 Overview (01/02/2022): Trazodone ineffective. Nathan fell out of bed multiple times. Assessment & Plan (03/12/2024 3:37 PM CDT): - chronic condition, not at goal - sleep maintenance, interrupted sleeps - previous PCP documented the following - Trazodone ineffective. Nathan fell out of bed multiple times - previous PCP referred her to sleep medicine but she does not want to Assessment & Plan (12/07/2022 2:06 PM CDT): Recommend sleep medicine referral for frequent episodes of falling while sleeping. Discontinue Advil p.m. for now Assessment & Plan (07/13/2022 10:09 AM CDT): Retry Belsomra call back if too expensive. Assessment & Plan (01/02/2022 10:46 AM CDT): Trial of Belsomra. Discussed side effects and call back if any develop. CHRISTIANO (generalized anxiety disorder) 08/15/2017 Assessment & Plan (01/26/2025 3:39 PM CDT): - chronic condition, stable with persistent symptoms - has known conditions of anxiety and depression - reports irritability/agitation with her only - currently on Fluoxetine 40 mg daily - in the past was on Buspirone but reportedly states had skin breakout and is no longer on it - tried wellbutrin but no longer on it - continue present plan and medications Assessment & Plan (06/09/2024 11:44 AM CDT): - chronic condition, not at goal - has known conditions of anxiety and depression - reports irritability/agitation with her only - currently on Fluoxetine 40 mg daily - in the past was on Buspirone but reportedly states had skin breakout and is no longer on it - started Wellbutrin XL 150 mg daily on last visit --> increase to Wellbutrin XL 300 mg daily, script sent in Assessment & Plan (03/12/2024 3:38 PM CDT): - chronic condition, not at goal, worse - has known conditions of anxiety and depression - reports irritability/agitation - currently on Fluoxetine 40 mg daily - in the past was on Buspirone but reportedly states had skin breakout and is no longer on it - started Wellbutrin XL 150 mg daily on last visit but is currently not taking the medication --> does not recall, new script sent in Assessment & Plan (01/01/2024 4:32 AM CDT): - chronic condition, not at goal, worse - has known conditions of anxiety and depression - reports irritability - currently on Fluoxetine 40 mg daily - in the past was on Buspirone but reportedly states had skin breakout and is no longer on it - start Wellbutrin XL 150 mg daily, script sent in Assessment & Plan (03/02/2023 9:37 AM CDT): Continue her fluoxetine 40 mg daily but increase buspirone to 7.5 mg 3 times a day. Call back for new prescription if it helps or increase in dose further if no improvement. Assessment & Plan (02/04/2023 5:17 PM CDT): Continue buspirone for now. Assessment & Plan (03/06/2021 6:39 PM CDT): Continue buspirone for now. Assessment & Plan (04/29/2018 9:51 AM CDT): Would suggest stopping her duloxetine get back to her baseline medication regimen which includes fluoxetine only. Continue counseling and see if her increased anxiety resolves. Assessment & Plan (01/25/2018 9:07 PM CDT): Continue fluoxetine and try to decrease alprazolam use Assessment & Plan (08/15/2017 3:00 PM MINERAL [employer]DUSTRY TEACHER): Continue Prozac 40 mg q.day as patient remained stable on medication along with use of Xanax 1 mg tablet 1 to 2 times a day as needed. I also advised her that she should be taking half a tablet to a full tablet 1 his diseases she is on a very high strength of Xanax which she understands. She understands the need to come in every 3 months regarding condition to maintain prescription and our goal would be to eventually come off this medication. We will see her here in 3 months regarding condition or certainly sooner as indicated. Gastroesophageal reflux disease without esophagi tis 08/15/2017 Assessment & Plan (03/12/2024 3:42 PM CDT): - chronic condition, stable status - currently on Omepraozle 40 mg daily - continue current management Assessment & Plan (05/28/2023 2:32 PM CDT): Much improved with PPI. EGD unremarkable. Assessment & Plan (03/28/2023 12:03 PM CDT): Restart omeprazole and check EGD for early satiety. Assessment & Plan (01/06/2021 10:26 PM CDT): Continue PPI Assessment & Plan (08/08/2020 8:09 PM [employer]DU[employer] TEACHER): Well controlled on omeprazole. Assessment & Plan (06/09/2020 10:03 PM CDT): Well controlled on omeprazole. Assessment & Plan (12/09/2019 3:56 PM CDT): No complaints today. Assessment & Plan (11/08/2018 9:41 AM [employer]AL [employer]DU[employer]Y TEACHER): Continue current PPI and the patient is aware of the long-term risks posed by chronic PPI usage. Magnesium level will be checked periodically. Calcium supplementation recommended. Assessment & Plan (04/29/2018 9:51 AM CDT): Continue current PPI and the patient is aware of the long-term risks posed by chronic PPI usage. Magnesium level will be checked periodically. Calcium supplementation recommended. Assessment & Plan (01/25/2018 9:07 PM CDT): Continue current PPI and the patient is aware of the long-term risks posed by chronic PPI usage. Magnesium level will be checked periodically. Calcium supplementation recommended. Assessment & Plan (08/15/2017 3:00 PM MINERAL INDUSTRY TEACHER): Continue with dietary management for control of symptoms along with Prilosec 10 mg q.day. Follow-up in office in 2 months as scheduled and certainly sooner as advised COPD (chronic obstructive pulmonary disease) 02/2017 Overview (01/15/2018): Anoro - Pruritis. Assessment & Plan (09/17/2024 1:15 PM MINERAL INDUSTRY TEACHER): - chronic, stable - still active smoker, recommend tobacco smoking cessation - established with Pulmonology - Dr. Sellers - currently on Trelegy inhaler and has rescue albuterol inhaler - Lung cancer screening - up to date done 04/2023 PFT 11/2023 SPIROMETRY: FEV1/FVC ratio is decreased at 67% FEV1 is 53% Forced vital capacity is 61% There is no significant response to bronchodilator administration. This does not preclude the use of bronchodilator therapy if clinically indicated. FLOW VOLUME LOOPS: Scooping of expiratory limb LUNG VOLUMES via plethysmography: Total lung capacity is normal DIFFUSION CAPACITY: DLCO unadjusted for Hb and COHb is 56% IMPRESSION: Moderate obstructive ventilatory limitation Moderately decreased uncorrected DLCO Normal lung volumes exception of decreased expiratory reserve volume Patient walk for 6 minutes on room air covered a total distance of 213 meters which is below the lower limit of normal for this patient. Lowest SpO2 was 96% Assessment & Plan (01/01/2024 4:34 AM CDT): - chronic, stable - still active smoker, recommend tobacco smoking cessation - established with Pulmonology - Dr. Sellers - currently on Trelegy inhaler and has rescue albuterol inhaler - Lung cancer screening - up to date done 04/2023 Assessment & Plan (11/04/2023 10:08 PM MINERAL INDUSTRY TEACHER): Has appointment with Dr. Sellers in December and should use albuterol as needed and Trelegy daily until then. Assessment & Plan (02/04/2023 5:16 PM CDT): Stable on Trelegy and use albuterol as needed. Assessment & Plan (12/14/2022 4:49 AM CDT): Refrain from smoking. Continue Trelegy. Albuterol as needed. Assessment & Plan (07/13/2022 10:09 AM CDT): Continue current medication regimen follow up with her roustabout pusher as they direct. Assessment & Plan (01/02/2022 10:45 AM CDT): Continue current medication regimen and follow-up with her roustabout pusher as they direct. Assessment & Plan (12/21/2021 9:25 AM CDT): Seems to be improving from her recent exacerbation should continue current medication regimen and follow-up with roustabout pusher as they direct. Stop smoking immediately. Assessment & Plan (06/28/2021 2:54 PM CDT): Stable on current medication regimen. Refrain from smoking. Assessment & Plan (03/06/2021 6:39 PM CDT): Stable on current medication regimen. Assessment & Plan (01/28/2021 10:36 AM CDT): Stable on current medication regimen. Assessment & Plan (01/06/2021 10:28 PM CDT): Continue breathing treatment Assessment & Plan (12/27/2020 4:34 PM CDT): Continue Trelegy and use albuterol as needed and follow-up with roustabout pusher as they direct. Assessment & Plan (08/21/2020 10:13 AM MINERAL INDUSTRY TEACHER): Continue Trelegy use albuterol p.r.n. Assessment & Plan (08/08/2020 8:09 PM MINERAL INDUSTRY TEACHER): Continue Trelegy. Use nebulizers as needed but try to wean down if able. Must stop smoking immediately. Follow-up with her roustabout pusher as they direct. Assessment & Plan (06/09/2020 10:03 PM CDT): Continue Trelegy. Stop smoking immediately. Assessment & Plan (12/09/2019 3:56 PM CDT): Seems to be improving clinically and on her physical examination. Continue her Breo Singulair Flonase and albuterol p.r.n. Assessment & Plan (11/14/2019 1:41 PM MINERAL INDUSTRY TEACHER): Complete course of antibiotics as well as steroids. Continue with inhalers daily and albuterol as needed. Notify office with absolutely any concerns or worsening symptoms. Patient verbalized understanding agreed to plan of care at this time will notify office with absolutely any changes. Assessment & Plan (11/03/2019 10:47 AM MINERAL INDUSTRY TEACHER): Continue Breo and liberalize her albuterol to 3-4 times daily for next week. Z- Sorin and Medrol Dosepak. Call back if no improvement. Assessment & Plan (05/19/2019 10:17 AM CDT): Continue Breo and follow-up with her roustabout pusher as they direct. Assessment & Plan (11/08/2018 9:41 AM MINERAL INDUSTRY TEACHER): Well controlled on Advair only for now. Patient declines discussion of other inhalers. Assessment & Plan (04/29/2018 9:51 AM CDT): Continue Advair only for now. When patient is back to her baseline physical status, recommend either trying Bevespi or adding incruse. Stop smoking immediately. Assessment & Plan (01/25/2018 9:09 PM CDT): Stop smoking immediately. Start Anoro for chronic shortness of breath. Use albuterol as needed. Assessment & Plan (08/15/2017 3:00 PM MINERAL INDUSTRY TEACHER): Stable. Continue Advair twice daily along with use of ProAir p.r.n. follow-up as scheduled in [address] Grady or certainly sooner as indicated She is not interested in smoking cessation methods at this time but we of course will continue to address Migraine without aura or status migrainosus 02/2017 Assessment & Plan (08/21/2020 10:12 AM MINERAL INDUSTRY TEACHER): Sumatriptan p.r.n. Assessment & Plan (11/08/2018 9:41 AM MINERAL INDUSTRY TEACHER): Sumatriptan p.r.n.. Assessment & Plan (08/15/2017 3:01 PM MINERAL INDUSTRY TEACHER): Asymptomatic at this time and notes that she has not had any migraines in about 1-2 years. I advised to follow up in our office if any acute migraines are present that do not seem to be adequately controlled with Imitrex which she does have as a p.r.n. medication. And certainly will follow up in 2 months regarding condition as scheduled Chronic combined systolic an d diastolic congestive heart failure Overview (02/27/2025): Follows with Cardiology Assessment & Plan (03/12/2024 3:52 PM CDT): - chronic, stable - follows with cardiology - she wants to establish care with cardiology locally, referral placed - has Lasix 40 mg and Lasix 20 mg alternating every other day, takes Spironolactone 25 mg daily (recently started on this about a month ago) - she is on potassium supplementation currently - will review records for most recent Echocardiogram Echo 11/2023 CONCLUSIONS: Mild concentric left ventricular hypertrophy. Normal left ventricular size. Moderate global left ventricular systolic dysfunction. Impaired diastolic relaxation Grade I. Ejection fraction is visually estimated at 35-40 %. Mild mitral valve regurgitation. Mild to moderate aortic valve regurgitation. Normal right ventricular systolic pressure. Estimated peak RVSP is 30 mmHg. Mild tricuspid regurgitation. Assessment & Plan (01/01/2024 4:41 AM CDT): - chronic, stable - follows with cardiology - has Lasix for use as needed only - will review records for most recent Echocardiogram Assessment & Plan (07/13/2022 10:09 AM CDT): Stable on metoprolol and uses furosemide as needed. Assessment & Plan (06/14/2022 2:19 PM CDT): Very mild swelling on examination currently. Continue metoprolol. May add Lasix if worsens. Reduce salt and try compression hose. Assessment & Plan (12/21/2021 9:25 AM CDT): Continue metoprolol patient currently holding furosemide and potassium and should restart her breathing worsens or gains weight Assessment & Plan (12/01/2021 8:49 AM CDT): Improved Echo w/ normal systolic and diastolic function and EF of 50-55% on 11/28 Continue lasix at 20mg daily until Sunday then go back to how buildings and grounds supervisor recommend Recommend following up with her buildings and grounds supervisor Resolved Problems Problem Noted Date Diagnosed Date Resolved Date Moderate malnutrition 06/06/20242023 CAD (coronary artery disease) 06/05/2024 06/09/2024 Angina pectoris, unstable 05/14/2024 Stable angina 05/14/2024 01/27/2025 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 Did not tolerate rosuvastatin due to feeling poorly. Did not tolerate pravastatin. Was on zetia but no longer as well Hypersomnia 10/10/2023 03/12/2024 Assessment & Plan (11/04/2023 10:07 PM MINERAL INDUSTRY TEACHER): Sleep study rule out sleep apnea recommended but declined. Early satiety 05/04/2023 01/01/2024 Nausea and vomiting 05/04/2023 09/14/19 24 Weight loss 03/28/2023 03/12/2024 Assessment & Plan (05/28/2023 2:32 PM CDT): He is to have her TSH done and call back for results. EGD and CT chest without signs of malignancy. Weight up with increased caloric intake Assessment & Plan (03/28/2023 12:04 PM CDT): Repeat TSH and call back for results. Increase caloric intake. Check EGD for early satiety. CT chest to rule out malignancy in a patient with weight loss and extensive smoking history. Eventually will need colonoscopy if weight loss continues and no etiology found. Urolith 02/26/2023 03/12/2024 Assessment & Plan (03/02/2023 9:38 AM CDT): Patient acceptable risk for her proposed surgery and may proceed as planned. From my perspective, may stop her Plavix with her last stent being placed June 2020 but must have buildings and grounds supervisor blessing as well. Hematuria 12/07/2022 01/01/2024 Assessment & Plan (12/07/2022 2:07 PM CDT): Continue Keflex and return to urology office today for repeat evaluation. Low back strain 11/14/2022 01/01/2024 Assessment & Plan (11/14/2022 4:14 PM MINERAL INDUSTRY TEACHER): Trial of tizanidine with potential sedating side effects discussed. Rest stretching exercises heating pad call back if no improvement. Abdominal aortic aneurysm (A AA) without rupture 10/25/2022 09/14/2023 Overview (10/25/2022): Added automatically from request for surgery [id number] Syncope 12/21/2021 01/01/2024 Assessment & Plan (12/21/2021 9:26 AM CDT): Unclear but may represent syncopal episodes. Echocardiogram recently done unremarkable. Recommended sleep study/sleep medicine referral for possible narcolepsy and hall monitor to rule out cardiac arrhythmia. Patient declines all options and is aware the risks this poses to her health. Hospitalization within last 30 days 12/01/2021 01/01/2024 Assessment & Plan (12/01/2021 8:56 AM CDT): Hospital course reviewed Med rec reviewed See copd exacerbation and acute on chronic diastolic heart failure a/p COPD exacerbation 11/26/2021 12/21/2021 Assessment & Plan (12/01/2021 8:50 AM CDT): Resolved Complete the medrol dose sorin as prescribed Continue with albuterol prn Has f/u with roustabout pusher in December F/u prn Diarrhea 01/28/2021 09/14/2023 Assessment & Plan (01/28/2021 10:35 AM CDT): Seems to be functional diarrhea currently or just lingering viral gastroenteritis symptoms.. Keep a food diary. Try probiotic. Avoid dairy. Decrease her food intake slightly. Try Imodium as needed. Stool studies if worsens. Severe malnutrition 01/07/2021 01/01/20 24 Nausea, vomiting and diarrhea 01/06/2021 09/14/2023 Assessment & Plan (03/06/2021 6:40 PM CDT): Probable viral gastritis which is currently resolved. Follow-up if symptoms return. Assessment & Plan (01/06/2021 10:31 PM CDT): Suspect viral gastroenteritis. Patient has not been able to tolerate p.o. prior to admission. She has tolerated some p.o. intake air. Will order some IV fluids. Will change diet to brat diet and advance as tolerated. Use supportive care. P.r.kely Gleason. Check C diff and stool cultures. Acute systolic CHF (congestive heart failure) 06/30/20 20 12/27/2020 Medicare annual wellness visit, initial 12/09/2019 01/02/2022 Assessment & Plan (12/09/2019 3:57 PM CDT): We discussed a comprehensive list of medical conditions and proposed recommendations for each. We discussed the importance of increased exercise, fall prevention, proper nutrition, and suggested joining [facility] to accomplish most of these goals. Patient was given an age appropriate Medicare preventive services checklist. Please see the EMR regarding details of their health risk assessment and preventive services checklist. Will see her back in 6 months sooner if needed. At low risk for fall 12/09/2019 024 Assessment & Plan (02/04/2023 5:17 PM CDT): Timed get up and go test normal. Assessment & Plan (01/02/2022 10:47 AM CDT): Timed get up and go test normal. Assessment & Plan (12/27/2020 4:35 PM CDT): Timed get up and go test normal. Assessment & Plan (12/09/2019 3:57 PM CDT): Timed get up and go test normal. Major depressive disorder, r ecurrent episode, moderate 01/24/2018 11/08/2018 Medicare annual wellness visit, subsequent 10/29/2017 06/09/2024 Assessment & Plan (02/04/2023 5:17 PM CDT): We discussed a comprehensive list of medical conditions and proposed recommendations for each. We discussed the importance of increased exercise, fall prevention, proper nutrition, and suggested joining [facility] to accomplish most of these goals. Patient was given an age appropriate Medicare preventive services checklist. Please see the EMR regarding details of their health risk assessment and preventive services checklist. Will see her back in 6 months with lab sooner if needed. Assessment & Plan (01/02/2022 10:47 AM CDT): We discussed a comprehensive list of medical conditions and proposed recommendations for each. We discussed the importance of increased exercise, fall prevention, proper nutrition, and suggested joining [facility] to accomplish most of these goals. Patient was given an age appropriate Medicare preventive services checklist. Please see the EMR regarding details of their health risk assessment and preventive services checklist. Will see her back in 6 months with lab sooner if needed. Assessment & Plan (12/27/2020 4:35 PM CDT): We discussed a comprehensive list of medical conditions and proposed recommendations for each. We discussed the importance of increased exercise, fall prevention, proper nutrition, and suggested joining [facility] to accomplish most of these goals. Patient was given an age appropriate Medicare preventive services checklist. Please see the EMR regarding details of their health risk assessment and preventive services checklist. Will see her back in 6 months with lab sooner if needed. 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 We discussed the importance of increased exercise, fall prevention, proper nutrition, and suggested joining [facility] to accomplish most of these goals. Patient was given an age appropriate Medicare preventive services checklist. Please see the EMR regarding details of their health risk assessment and preventive services checklist. Patient declines all forms of colon cancer screening and is aware the risks this poses to her health including the failure to detect colon cancer and other colonic pathology that can lead to premature and other poor outcomes. She also declines flu shots and is aware the risks this poses to her health. She will look into getting the Shingrix and will update her tetanus booster today. Will see her back in 6 months for blood sugar, vitamin-D, repeat evaluation, sooner if needed. Assessment & Plan (01/25/2018 9:12 PM CDT): We discussed a comprehensive list of medical conditions and proposed recommendations for each. We discussed the importance of increased exercise, fall prevention, proper nutrition, and suggested joining [facility] to accomplish most of these goals. Patient was given an age appropriate Medicare preventive services checklist. Please see the EMR regarding details of their health risk assessment and preventive services checklist. Declines CT lung cancer screening and is aware the pros and cons of this decision. Will see her back in 6 months with lab sooner if needed. BMI 28.0-28.9,adult 08/15/2017 04/04/20 Assessment & Plan (11/14/2019 1:41 PM MINERAL INDUSTRY TEACHER): Recommended patient to continue to increase heart healthy diet with adequate fruits, vegetables, and plenty of water along with mild-moderate daily exercise as tolerated. Assessment & Plan (08/15/2017 3:00 PM MINERAL INDUSTRY TEACHER): Recommended patient to continue to increase heart healthy diet with adequate fruits, vegetables, and plenty of water along with mild-moderate daily exercise as tolerated. Arrhythmia 08/15/2017 01/01/2024 Assessment & Plan (08/15/2017 3:13 PM MINERAL INDUSTRY TEACHER): EKG in office indicated normal sinus rhythm with anterior infarct, ST and T changes in anterior leads to which patient has history of based upon previous EKG in March 2014 (please refer to EKG from OV). Therefore clinical assessment of in a regular rhythm is likely to be more of a normal variance with PVCs during inspiration. Client uncertain as to why patient is on a full-dose aspirin but were still awaiting for the records from Dr. Red so the interim until she sees Dr. Grady I advised her to take aspirin 81 mg considering she does have a pretty significant history of GERD. On potassium sparing diuretic therapy 01/01/2024 Encounters Date Type Department Care Team Description 03/09/2025 Telephone [facility] Primary Care at [address] [phone] Lamberto Faria MD Symptom Based Call 03/04/2025 Telephone [facility] Pulmonary at [address] [place] [phone] Nancie Church LPN Test Results 03/02/2025 10:00 AM CDT Office Visit [facility] Pulmonary at [address] [place] [phone] Vineet Sellers MD Chronic obstructive pulmonary disease, unspecified COPD type (HCC) (Primary Dx); Chronic systolic heart failure (HCC); Coronary artery disease involving grand ronde tribes heart, unspecified vessel or lesion type, unspecified whether angina present; Pulmonary nodule; Cigarette nicotine dependence without complication 02/27/2025 Telephone [facility] Primary Care at [address] [phone] Lamberto Faria MD Symptom Based Call 02/26/2025 10:50 AM CDT Office Visit [facility] [address] [facility] [address] [place] [phone] Zuleyma Leung NP S/P laparoscopic cholecystectomy (Primary Dx) 02/26/2025 Results Follow-Up [facility] Primary Care at [address] [phone] Lamberto Faria MD Vitamin B12, Folate, CBC with auto differential, Additional followed-up results: 5 02/25/2025 1:45 PM CDT Lab [facility] Outpatient Lab at [address] [phone] 02/25/2025 1:41 PM CDT - 02/25/2025 11:59 PM CDT Hospital Encounter [place] [id number] Acute blood loss anemia; S/P laparoscopic cholecystectomy Discharge Disposition: Discharge to home or self care 02/25/2025 1:00 PM CDT Office Visit [facility] Primary Care at [address] [phone] Lamberto Faria MD Hospital discharge follow-up (Primary Dx); Lumbar radiculopathy; S/P laparoscopic cholecystectomy; Acute blood loss anemia; Peripheral edema; Chronic combined systolic and diastolic congestive heart failure (HCC) 02/20/2025 [facility] Post Discharge Follow up phone call [facility] 1 [place] [address] Makayla Monge 02/19/2025 Telephone [facility] Primary Care at [address] [phone] Lamberto Faria MD Additional Services Or Orders 02/18/2025 Telephone [facility] Medical [facility] Primary Care at [address] [phone] Lamberto Faria MD Medical Question/Miscellaneous 02/17/2025 Telephone [facility] [address] [facility] [place] [phone] Esme Benitez MA admitted 02/16/2025 3:15 PM CDT Anesthesia Event [facility] Operating Room 1 [place] [address] Billy Chambers DO [place], Neal P., CRNA 02/16/2025 3:15 PM CDT - 02/16/2025 4:45 PM CDT Surgery [facility] Operating Room 1 [place] [address] Dinesh Mahajan MD LAPAROSCOPIC CHOLECYSTECTOMY 02/15/2025 10:35 AM CDT - 02/18/2025 4:04 PM CDT Hospital Encounter [facility] 1 [place] [address] Rosa Claudio MD Fasick, Victoria Rose, DO Chest pain, unspecified type (Primary Dx); Congestive heart failure, unspecified HF chronicity, unspecified heart failure type (HCC); Urinary tract infection associated with catheterization of urinary tract, unspecified indwelling urinary catheter type, initial encounter; Cholecystitis, acute; General weakness; Gangrenous cholecystitis Discharge Disposition: Discharge to home, home health skilled care 02/15/2025 10:16 AM CDT - 02/15/2025 11:59 PM CDT Hospital Encounter [facility] Emergency, Room R Discharge Disposition: Discharge to home or self care 02/13/2025 Telephone [facility] Medical [facility] Primary Care at [address] [phone] Lamberto Faria MD Medical Question/Miscellaneous 02/13/2025 Telephone Oscar Medina [address] [facility] [address] [place] [phone] Sisi Rich MD 02/12/2025 2:15 PM CDT Office Visit Oscar Medina [address] [facility] [address] [place] [phone] Sisi Rich MD Postmenopausal bleeding (Primary Dx) 02/12/2025 1:30 PM CDT Ancillary Procedure Oscar Medina [address] [facility] [address] [place] [phone] Postmenopausal bleeding 02/12/2025 Telephone [facility] [address] [place] [phone] Kayley Millan MA Hysterectomy Clearance 01/29/2025 2:15 PM CDT Office Visit Oscar Medina [address] [place] [address] [address] [place] [phone] Sisi Rich MD Postmenopausal bleeding (Primary Dx); Tobacco use disorder 01/27/2025 Results Follow-Up [facility] Group Primary Care at [address] [phone] Lamberto Faria MD Vitamin D 25 hydroxy, Thyroid Function [place], Hemoglobin A1c, Additional followed-up results: 8 01/26/2025 4:00 PM CDT Lab [facility] Outpatient Lab at [address] [phone] CHRISTIANO (generalized anxiety disorder) (Primary Dx) 01/26/2025 3:59 PM CDT - 01/26/2025 11:59 PM CDT Hospital Encounter 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 (CMS/HCC) (HCC); Primary hypertension; Hypokalemia; Cognitive decline Discharge Disposition: Discharge to home or self care 01/26/2025 3:30 PM CDT Office Visit [facility] Group Primary Care at [address] [phone] Lamberto Faria MD CHRISTIANO (generalized anxiety disorder) (Primary Dx); Primary hypertension; Lumbar radiculopathy; Tobacco use disorder; Moderate episode of recurrent major depressive disorder (HCC); PMB (postmenopausal bleeding); Vitamin D deficiency; Hypokalemia; IFG (impaired fasting glucose); 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 ([facility]/HCC) (HCC); CKD stage 3a, GFR 45-59 ml/min ([facility]) 01/20/2025 Telephone Oscar Medina [address] [facility] [address] [place] [address] Rossana Greer NP 01/14/2025 11:59 AM CDT - 01/14/2025 11:59 PM CD[place] [address] PMB (postmenopausal bleeding) Discharge Disposition: Discharge to home or self care 01/14/2025 11:30 AM CDT Procedure visit Oscar Medina [address] [facility] [address] [place] [address] Rossana Greer, RG PMB (postmenopausal bleeding) (Primary Dx) 01/13/2025 Telephone [facility]ak[facility] Medina [address] [facility] [address] [place] [address] Rossana Greer NP 01/13/2025 Telephone [place] [facility] [address] [place] [address] Kayley Membreno MA 01/07/2025 8:30 AM CDT Ancillary Procedure Oscar Medina [address] [place] [address] [address] [place] [address] Postmenopausal bleeding 01/05/2025 Telephone [facility] Care at [address] [phone] Sisi Rich MD brown spotting 01/01/2025 Results Follow-Up [facility] Primary Care at [address] [phone] Lamberto Faria MD Vaginitis panel Vaginal, Urinalysis reflex to microscopic and culture Urine, bladder, Urinalysis, microscopic only 12/29/2024 3:34 PM CDT - 12/29/2024 11:59 PM CDT Hospital Encounter [address] [address] Vaginal discharge Discharge Disposition: Discharge to home or self care 12/29/2024 2:30 PM CDT Office Visit [facility] Group Primary Care at [address] [phone] Lamberto Faria MD Vaginal discharge (Primary Dx); Lumbar radiculopathy; Tobacco use disorder 12/17/2024 11:04 AM CDT - 12/17/2024 11:59 PM CDT Hospital Encounter [facility] [address] [place] [address] Lumbar radiculopathy Discharge Disposition: Discharge to home or self care from Last 3 Months Immunizations Immunization Administration Dates Next Due Influenza, Split 06/29/2010,06/10/2009 Influenza, Unspecified 09/17/2024(Deferr ed: Patient Refused),10/10/2023(Deferred: Patient Refused),05/28/2023(Deferred: Patient Refused),04/10/2023(Deferred: Patient Refused),11/23/2022(Deferred: Patient Refused),05/11/2022(Deferred: Patient Refused),06/03/2021(Deferred: Patient Refused),01/28/2021(Deferred: Patient Refused),12/27/2020(Deferred: Patient Refused),10/01/2020(Deferred: Patient Refused),07/15/2020(Deferred: Patient Refused),06/21/2020(Deferred: Patient Refused),06/10/2020(Deferred: Patient Refused),05/24/2020(Deferred: Patient Refused),04/10/2020(Deferred: Patient Refused),11/20/2019(Deferred: Patient Refused),11/14/2019(Deferred: Patient Refused),11/11/2019(Deferred: Patient Refused),06/10/2019(Deferred: Patient Refused),06/10/2019(Deferred: Patient Refused),06/10/2019(Deferred: Patient Refused),05/19/2019(Deferred: Patient Refused),11/08/2018(Deferred: Patient Refused),06/10/2018(Deferred: Patient Refused),06/10/2018(Deferred: Patient Refused) Pfizer SARS-CoV-2 Monovalent Vaccination (12+ Yrs) PURPLE 12/26/2020,12/05/2020 Pneumococcal Conjugate PCV 13 10/29/2017 Pneumococcal Polysaccharide PPV23 06/13/2011 Td, adsorbed 11/08/2018 Surgical History Surgery Date Site/Laterality Comments KIDNEY STONE SURGERY 1989' FEMUR FRACTURE SURGERY 09/10/2012 - 09/09/2013 Left OOPHORECTOMY Right ovary removed 1971 CARDIAC CATHETERIZATION 07/2020 with 3 stents SPINE SURGERY lumbar; EYE SURGERY Bilateral 2020; cataracts COLONOSCOPY more than 10 years ago FRACTURE SURGERY 5 years ago SHUNT EXTERNALIZATION AORTA SURGERY CHOLECYSTECTOMY 02/16/2025 laparascopic Medical History Medical History Date Comments Osteoporosis COPD (chronic obstructive pu lmonary disease) ([facility]) Covid positive 2020; n ot hospitalized History of pneumonia Infrarenal abdominal aortic aneurysm (AAA) without rupture Ischemic cardiomyopathy Allergic rhinitis Wears glasses GERD (gastroesophageal reflux disease) History of kidney stones had pro cedure; can't remember what type Arthritis Depression Wears dentures Hypertension CHF (congestive heart failure) (HCC) CAD (coronary artery disease) Pulmonary nodules Migraine headaches Chronic back pain Fractured hip and femur left 201 3 Current every day smoker H/O heart artery stent x 3; 07/12 020 Clotting disorder Chronic bronchitis (HCC) Heart disease Asthma Family History Medical History Relation Name Comments Diabetes type II Father Diabetes -T ype 2; COPD Mother Amparo Rodriguez ( Passed) C OPD; Cause of : COPD Coronary artery disease Mother Amparo Rodriguez ( Passed) Coronary artery disease; Depression Mother Amparo Rodriguez ( Passed) Diabetes Other 2 Family history of diabetes; Lung disease Other 3 Family history of lung problems; Cancer Sister 2 Charis Basilio (passed) Hodgkin's lymphoma Sister 2 Charis Basilio (pass ed) No history of Lymphoma; Chemical Dependency Son 1 Chemical Dependency Son 2 Relation Name Status Comments Father Mother Amparo Rodriguez ( Passed) (Age 90) Other 1 Other 2 Other 3 Sister 1 Alive Sister 2 Charis Basilio (passed) Son 1 Son 2 Social History Tobacco Use Types Packs/Day Years Used Date Smoking Tobacco: Every Day Cigarettes 1 65.5 Started: 1960 Passive Smoke Exposure: Current Smokeless Tobacco: Never Tobacco Cessation:Ready to Q uit: No; Counseling Given: Yes Alcohol Use Standard Drinks/Week Comments Yes 0 (1 standard drink = 0.6 oz pur e alcohol) rare use she states [facility] Utilities Answer Date Recorded In the past 12 months has th e electric, gas, oil, or water company threatened to shut off services in your home? No 02/19/2025 Humiliation, Afraid, Rape, and Kick questionnair e Answer Date Recorded Fear of Current or Ex-Partner Not on file Within the last year, have y ou been humiliated or emotionally abused in other ways by your partner or ex-partner? No 02/19/2025 Within the last year, have y ou been kicked, hit, slapped, or otherwise physically hurt by your partner or ex-partner? No 02/19/2025 Within the last year, have y ou been raped or forced to have any kind of sexual activity by your partner or ex-partner? No 02/19/2025 Social Connection and Isolat ion Panel [NHANES] Answer Date Recorded In a typical week, how many times do you talk on the phone with family, friends, or neighbors? More than three times a week 02/19/2025 How often do you get togethe r with friends or relatives? Once a week 02/19/2025 How often do you attend chur or hindu services? Never 02/19/2025 Do you belong to any clubs o r organizations such as restorationism groups, unions, fraternal or athletic groups, or school groups? No 02/19/2025 How often do you attend meet ings of the clubs or organizations you belong to? Never 02/19/2025 Are you , , di vorced, , never , or living with a partner? 02/19/2025 AUDIT-C Answer Date Recorded Q1: How often do you have a drink containing alcohol? Never 02/15/2025 Q2: How many drinks containi ng alcohol do you have on a typical day when you are drinking? Patient does not drink Q3: How often do you have si x or more drinks on one occasion? Never 02/15/2025 Overall Financial Resource Strain (CARDIA) Answe r Date Recorded How hard is it for you to pa y for the very basics like food, housing, medical care, and heating? Not very hard 02/19/2025 PHQ-2 Answer Date Recorded PHQ-2 Total Score (If total score is 3 or more points, staff should administer the PHQ-9) 0 02/25/2025 Hunger Vital Sign Answer Date Recorded Within the past 12 months, y ou worried that your food would run out before you got the money to buy more. Never true 02/20/20 25 Within the past 12 months, t he food you bought just didn't last and you didn't have money to get more. Never true 02/19/2025 PRAPARE - Transportation Answer Date Re corded In the past 12 months, has l ack of transportation kept you from medical appointments or from getting medications? No 02/08 In the past 12 months, has l ack of transportation kept you from meetings, work, or from getting things needed for daily living? No 02/19/2025 Housing Stability Vital Sign Answer Alfonso e [...] place to sleep or slept in a usp (including now)? No 11/29/2021 PHQ-9 Answer Date Recorded PHQ-9 Total Score 17 10/21/2024 Housing Stability Vital Sign Answer Alfonso e Recorded In the last 12 months, was t here a time when you were not able to pay the mortgage or rent on time? No 02/19/2025 In the past 12 months, how m any times have you moved where you were living? 0 02/19/2025 At any time in the past [address] [facility], were you homeless or living in a usp (including now)? No 02/19/2025 Personal Safety Answer Date Recorded Have you ever been in or are you currently in a harmful physical or emotional relationship or is someone making you feel afraid or unsafe? 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 Obstetrics History Para Term AB IAB SAB Ectopic Multiple Livin g Live Births 4 3 3 1 1 Date Outcome GA Total Labor Labor/2nd/3rd Weight Sex Type Anes PTL Jessica A1 A5 Name Clin Term Term Term SAB Last Filed Vital Signs Vital Sign Reading Time Taken Comments Blood Pressure 110/62 03/02/2025 9:59 AM CDT Pulse 82 03/02/2025 9:59 AM CDT Temperature 37 C (98.6 F) 03/02/2025 9:59 AM CDT Respiratory Rate 18 02/18/2025 3:43 PM CDT Oxygen Saturation 95% 03/02/2025 9:59 AM CDT Inhaled Oxygen Concentration - - Weight 51.7 kg (114 lb) 03/02/2025 9:59 AM CDT Height 157.5 cm (5' 2) 03/02/2025 9:59 AM CDT Body Mass Index 20.85 03/02/2025 9:59 AM CDT Plan of Treatment Health Maintenance Due Date Last Done Comments Zoster Vaccine (1 of 2) 1994 Colon Cancer Screening-Colonoscopy 04/10/2013 04/10/2008, 02/01/2006 DTaP/Tdap/Td Vaccine (1 - Tdap) 11/09/2018 11/08/2018 Osteoporosis Screening-Bone Density Scan 11/09/2019 11/08/2017, 04/12/2011, 04/10/2007 Lung Cancer Screening 06/01/2021 06/01/2020 , 03/08/2020, 03/06/2019 Covid-19 Vaccine ( season) 2024 04/08/2022, 12/26/2020, 12/05/2020 Well Visit 65+ 03/12/2025 03/12/2024, 0512/2022, 01/02/2022, Additional history exists Influenza Vaccine (#1) 2025 06/29/2010, 2008 Breast Cancer Screening-Mammogram 06/24/2025 11/08/2017, 01/18/2006 Postponed from 11/08/2018 (Patient declined, but will receive in the future) Depression Screening 02/25/2026 02/25/2025, 02/12/2025, 01/26/2025, Additional history exists Fall Risk Assessment 02/25/2026 02/25/2025, 02/18/2025, 01/26/2025, Additional history exists Pneumococcal vaccine 65+ Completed 10/29/2017, 12/2010 Hepatitis B Screening Completed 03/03/2024 Goals Goal Patient Goal Type Associated Problems Recent Progress Patient-Stated? Author BENJAMIN General Goal - Patient schedules and keeps appointments with all recommended providers [facility] Care Management On track(2024 11:39 AM CDT) Jake Corbin RN Note: Problem: Potential for medical complications and readmission if follow-up appointments are not scheduled Interventions: - Ensure all follow-up appointments are scheduled, all prescribed medications have been received. - Address any barriers for keeping scheduled appointment. - Coordinate with patient/caregiver(s) to ensure patient is able to keep scheduled appointment. - Emphasize importance of keeping scheduled appointments. - Identify and discuss questions for next provider visit. - Follow up with patient after scheduled appointment(s) to review any new orders or changes made to medication regimen. Medical Devices Implanted Type Area Pipe Fitter Welding Device Identifier Shelf Expiration Date Model / Serial / Lot [employer] Excluder 14.5mm 28.5mm 12cm 5.5cm Conformable Active Control Trunk [id number] - [id number] - [id number] Implanted:Qty: 1 on 11/14/2022 by Kalpesh Gong MD at [facility] Endoprosthesis N/A: Aorta [employer] [id number] 07/24/2025 [id number] / [id number] / [employer] Stent Drug Eluting S Megatron Us Mr 4.00x8mm [id number] - [id number] Implanted:Qty: 1 on 06/05/2024 by Kin Ch MD at [facility] Other - see comments [employer] 07/02/2025 [id number] / / [id number] [employer] Angio-Seal Vip 6fr Closere Device [id number] - [id number] Implanted:Qty: 1 on 06/05/2024 by Kin Ch MD at [facility] Other - see comments [employer]ino 01/03/2025 [id number] / / [id number] [employer] Synergy Xd Monorail 3.5mm 8mm 144cm Delivery System 1 Access Port [id number] - [id number] Implanted:Qty: 1 on 06/05/2024 by Kin Ch MD at [facility] Stent [employer] 02/27/2025 [id number] / / [id number] Titanium Left: Hip Cope Vascular Perclose 6fr Vascular Closure [id number] - [id number] - [id number] Implanted:Qty: 4 on 11/14/2022 by Kalpesh Gong MD at [facility] N/A: Femoral [employer] V[employer] 04/09/2024 [id number] / [id number] / [employer] [place] Excluder 12mm 12cm Contralateral Leg Graft Endovascular [id number] - [id number] - [id number] Implanted:Qty: 1 on 11/14/2022 by [facility] [place] Right: Aorta [employer] [id number] 06/25/2025 [id number] / [id number] / [employer] Excluder 16mm 13.5-14.5mm 9.5cm Stent Abrasion Resistant [id number] - [id number] - [id number] Implanted:Qty: 1 on 11/14/2022 by Kalpesh Gong MD at [facility] [place] Right: Aorta [employer] [id number] 10/02/2025 [id number] / [id number] / Procedures Procedure Name Priority Date/Time Associated Diagnosis Comments EGFR Routine 02/25/2025 1:41 PM CDT S/P laparoscopic cholecystectomy Acute blood loss anemia DIFFERENTIAL AUTO Routine 02/25/2025 1:4 1 PM CDT Acute blood loss anemia IRON PROFILE W/ IBC Routine 02/25/2025 1 :41 PM CDT Acute blood loss anemia COMPREHENSIVE METABOLIC PANEL Routine 02/25/2025 1:41 PM CDT S/P laparoscopic cholecystectomy Acute blood loss anemia FERRITIN Routine 02/25/2025 1:41 PM CDT Acute blood loss anemia CBC WITH AUTO DIFFERENTIAL Routine 02/25/2025 1:41 PM CDT Acute blood loss anemia FOLATE Routine 02/25/2025 1:41 PM CDT Acute blood loss anemia VITAMIN B12 Routine 02/25/2025 1:41 PM CDT Acute blood loss anemia HEMOGLOBIN AND HEMATOCRIT Timed 02/18/2025 11:38 AM CDT EGFR Routine 02/18/2025 3:23 AM CDT DIFFERENTIAL AUTO Routine 02/18/2025 3:2 3 AM CDT MAGNESIUM Routine 02/18/2025 3:23 AM CDT PHOSPHORUS Routine 02/18/2025 3:23 AM CDT COMPREHENSIVE METABOLIC PANEL Routine 02/18/2025 3:23 AM CDT CBC WITH AUTO DIFFERENTIAL Routine 02/18/2025 3:23 AM CDT EGFR Routine 02/17/2025 4:17 AM CDT DIFFERENTIAL AUTO Routine 02/17/2025 4:1 7 AM CDT MAGNESIUM Routine 02/17/2025 4:17 AM CDT PHOSPHORUS Routine 02/17/2025 4:17 AM CDT COMPREHENSIVE METABOLIC PANEL Routine 02/17/2025 4:17 AM CDT CBC WITH AUTO DIFFERENTIAL Routine 02/17/2025 4:17 AM CDT MT AN ELECTIVE ENDOTRACHEAL AIRWAY Routine 02/16/2025 3:35 PM CDT LAPAROSCOPIC CHOLECYSTECTOMY 02/16/2025 3:00 PM CDT Pancreatitis TRANSTHORACIC ECHO (TTE) COMPLETE W DOPPLER/CF WO CONTRAST Routine 02/16/2025 12:21 PM CDT STRESS TEST FOR DUAL READ IP Routine 02/16/2025 12:21 PM CDT NM MPI SPECT (REST AND/OR STRESS) MULTIPLE STUDIES Critical/Life- Threatening 02/16/2025 12:21 PM CDT SURGICAL PATHOLOGY Routine 02/16/2025 9: 11 AM CDT Cholecystitis, acute US RUQ IP Routine 02/16/2025 8:[address] ABDOMEN PELVIS W CONTRAST IP Routine 02/16/2025 4:40 AM CDT EGFR Routine 02/16/2025 3:49 AM CDT DIFFERENTIAL AUTO Routine 02/16/2025 3:4 9 AM CDT TROPONIN T HIGH-SENSITIVITY Routine 02/16/2025 3:49 AM CDT MAGNESIUM Routine 02/16/2025 3:49 AM CDT PHOSPHORUS Routine 02/16/2025 3:49 AM CDT COMPREHENSIVE METABOLIC PANEL Routine 02/16/2025 3:49 AM CDT CBC WITH AUTO DIFFERENTIAL Routine 02/16/2025 3:49 AM CDT TROPONIN T HIGH-SENSITIVITY 6-HOUR Timed 02/15/2025 4:32 PM CDT URINALYSIS, MICROSCOPIC ONLY STAT 02/15/2025 1:08 PM CDT TROPONIN T HIGH-SENSITIVITY 2-HOUR Timed 02/15/2025 1:08 PM CDT URINALYSIS AND REFLEX TO MICROSCOPIC AND CULTURE STAT 02/15/2025 1:[address] CHEST PE W CONTRAST ED 02/15/2025 12:48 PM CDT SEPSIS LACTATE WITH REFLEX STAT 02/15/2025 11:52 AM CDT BLOOD CULTURE STAT 02/15/2025 11:52 AM CDT BLOOD CULTURE STAT 02/15/2025 11:52 AM CDT MT CRITICAL CARE ILL/INJURED PATIENT INIT 30-74 MIN Routine 02/15/2025 11:09 AM CDT EGFR STAT 02/15/2025 10:47 AM CDT PRO B-TYPE NATRIURETIC PEPTIDE STAT 02/15/2025 10:47 AM CDT PROTIME-INR STAT 02/15/2025 10:47 AM CDT DIFFERENTIAL AUTO STAT 02/15/2025 10:47 AM CDT TROPONIN T HIGH-SENSITIVITY SERIES (BASELINE, 2HR, 4HR, 6HR) STAT 02/15/2025 10:47 AM CDT COMPREHENSIVE METABOLIC PANEL STAT 02/15/2025 10:47 AM CDT CBC WITH AUTO DIFFERENTIAL STAT 02/15/2025 10:47 AM CDT XR CHEST 1 VIEW ED 02/15/2025 10:45 AM CDT ECG 12-LEAD STAT 02/15/2025 10:38 AM CDT US TRANSVAGINAL Schedule Routine, Read Routine (OP Routine) 02/12/2025 1:36 PM CDT Postmenopausal bleeding EGFR Routine 01/26/2025 3:59 PM CDT Primary hypertension Hypokalemia DIFFERENTIAL AUTO Routine 01/26/2025 3:5 9 PM CDT Primary hypertension VITAMIN B6 Routine 01/26/2025 3:59 PM CDT Cognitive decline VITAMIN B12 Routine 01/26/2025 3:59 PM CDT Cognitive decline FOLATE Routine 01/26/2025 3:59 PM CDT Cognitive decline CBC WITH AUTO DIFFERENTIAL Routine 01/26/2025 3:59 PM CDT Primary hypertension COMPREHENSIVE METABOLIC PANEL Routine 01/26/2025 3:59 PM CDT Primary hypertension Hypokalemia LIPID PANEL Routine 01/26/2025 3:59 PM CDT 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 (CMS/HCC) (HCC) HEMOGLOBIN A1C Routine 01/26/2025 3:59 PM CDT IFG (impaired fasting glucose) THYROID FUNCTION CASCADE Routine 01/26/2025 3:59 PM CDT CHRISTIANO (generalized anxiety disorder) VITAMIN D 25 HYDROXY Routine 01/26/2025 3:59 PM CDT Vitamin D deficiency MISCELLANEOUS LAB TEST Routine 01/14/2025 3:39 PM CDT SURGICAL PATHOLOGY Routine 01/14/2025 1: 25 PM CDT PMB (postmenopausal bleeding) MT ENDOMETRIAL BX W/WO ENDOCERVIX BX W/O DILAT SPX Routine 01/14/2025 11:30 AM CDT PMB (postmenopausal bleeding) US TRANSVAGINAL Routine 01/07/2025 9:11 AM CDT Postmenopausal bleeding URINALYSIS, MICROSCOPIC ONLY Routine 12/29/2024 3:34 PM CDT Vaginal discharge URINALYSIS AND REFLEX TO MICROSCOPIC AND CULTURE Routine 12/29/2024 3:34 PM CDT Vaginal discharge VAGINITIS PANEL Routine 12/29/2024 3:34 PM CDT Vaginal discharge MRI LUMBAR SPINE WO CONTRAST Schedule Routine, Read Routine (OP Routine) 12/17/2024 11:54 AM CDT Lumbar radiculopathy CT CHEST WO CONTRAST F/U LUNG SCREEN PROTOCOL Schedule Routine, Read Routine (OP Routine) 06/01/2020 11:30 AM CDT Pulmonary nodule DEXA AXIAL SKELETON BONE DENSITY 1 OR MORE SITES Schedule Routine, Read Routine (OP Routine) 11/08/2017 1:31 PM [employer] Osteoporosis, unspecified osteoporosis type, unspecified pathological fracture presence SCREENING MAMMOGRAM BILATERAL W BILLY Schedule Routine, Read Routine (OP Routine) 11/08/2017 1:01 PM [employer] Screening mammogram, encounter for HM COLONOSCOPY Routine 04/10/2008 from Last 3 Months or Most Recently Relevant to Health Maintenance Results * (ABNORMAL) eGFR (02/25/2025 1:41 PM CDT) eGFR 56(L) >=60 mL/min/1. 73 m2 Comment: Interpretive Data Reference Interval Normal >/= 90 mL/min/1.73m2 Mildly decreased* 60 - 89 mL/min/1.73m2 Mildly to moderately decreased 45 - 59 mL/min/1.73m2 Moderately to severely decreased 30 - 44 mL/min/1.73m2 Severely decreased 15 - 29 mL/min/1.73m2 Kidney Failure < 15 mL/min/1.73m2 *Relative to young adult level Estimated glomerular filtration rate is determined by the 2020 CKD-EPI equation recommended by the National Kidney Foundation (A Unifying Approach to GFR Estimation: Recommendations of the NKF-ASK Task Force on Reassessing the Inclusion of Race in Diagnosing Kidney Disease, JASN 202). The CKD-EPI equation should not be used for patients with unstable renal function and has not been validated in children and those over 70. Current interpretive data was last reviewed 2021. Blood 02/25/2025 1:41 PM CDT 02/25/2025 5:02 PM CDT Lamberto Faria MD LAB BLOOD ORDERABLES Fi nal Result [facility] [id number] Department [place] [address] * (ABNORMAL) Differential, auto (02/25/2025 1:41 PM CDT) Neutrophil abs 7.43(H) 1.50 - 6.50 K/cumm Imm gran abs 0.05 0.00 - 0.10 K/cumm [facility] Lymphocyte abs 1.37 0.80 - 3.30 K/cumm [facility] Monocyte abs 0.78 0.20 - 0.80 K/cumm [facility] Eosinophil abs 0.40 0.00 - 0.50 K/cumm [facility] Basophil abs 0.07 0.00 - 0.10 K/cumm [facility] Neutrophil pct 73.5 % [facility] Comment: Interpretive Data Percent cell count reference ranges are not reported, since discordance with absolute values may lead to misinterpretation of CBC data. Current Interpretive Data was last revised on 2017. Imm gran pct 0.5 % [facility] Comment: Interpretive Data Percent cell count reference ranges are not reported, since discordance with absolute values may lead to misinterpretation of CBC data. Current Interpretive Data was last revised on 2017. Lymphocyte pct 13.6 % [facility] Comment: Interpretive Data Percent cell count reference ranges are not reported, since discordance with absolute values may lead to misinterpretation of CBC data. Current Interpretive Data was last revised on 2017. Monocyte pct 7.7 % [facility] Comment: Interpretive Data Percent cell count reference ranges are not reported, since discordance with absolute values may lead to misinterpretation of CBC data. Current Interpretive Data was last revised on 2017. Eosinophil pct 4.0 % [facility] Comment: Interpretive Data Percent cell count reference ranges are not reported, since discordance with absolute values may lead to misinterpretation of CBC data. Current Interpretive Data was last revised on 2017. Basophil pct 0.7 % [facility] Comment: Interpretive Data Percent cell count reference ranges are not reported, since discordance with absolute values may lead to misinterpretation of CBC data. Current Interpretive Data was last revised on 2017. Blood 02/25/2025 1:41 PM CDT 02/25/2025 4:55 PM CDT Lamberto Faria MD LAB BLOOD ORDERABLES Fi nal Result Performing Organization Address [facility] Co de Phone Number [facility] [phone] [place] [address] * (ABNORMAL) Iron profile w/ IBC (02/25/2025 1:41 PM CDT) Pathologist [facility] Iron 28(L) 35 - 145 mcg/dl TIBC 272 250 - 400 mcg/dL [facility] Transferrin saturation 10(L) 20 - 50 % [facility] Blood 02/25/2025 1:41 PM CDT 02/25/2025 4:55 PM CDT Lamberto Faria MD LAB BLOOD ORDERABLES Fi nal Result Performing Organization Address City/[facility]/ZIP Co de Phone Number [facility] [phone] Department of [place] [place], [place] [id number] * (ABNORMAL) CBC with auto differential (02/25/2025 1:41 PM CDT) Pathologist [facility] WBC 10.10(H) 3.80 - 9.90 K/cumm Hgb 8.3(L) 11.9 - 15.5 g/dL [facility] Hct 27.1(L) 35.6 - 45.5 % [facility] Plt 371 150 - 400 K/cumm [facility] MPV 9.7 9.1 - 12.3 fL [facility] RBC 2.92(L) 3.90 - 5.20 M/cumm [facility] MCV 92.8 81.3 - 96.4 fL [facility] MCH 28.4 27.1 - 33.3 pg [facility] MCHC 30.6(L) 32.3 - 35.7 g/dL [facility] CH RDW CV 15.5(H) 11.1 - 14.9 % [facility] RDW SD 52.0(H) 35.7 - 48.1 fL [facility] NRBC abs 0.00 0.00 - 0.01 K/cumm [facility] Blood 02/25/2025 1:41 PM CDT 02/25/2025 4:55 PM CDT Lamberto Faria MD LAB BLOOD ORDERABLES Fi nal Result Performing Organization Address City/[facility] Co de Phone Number [facility] [phone] [employer] [place] [address] * Folate (02/25/2025 1:41 PM CDT) Pathologist [facility] Folic acid 7.7 >=5.0 ng/mL Blood 02/25/2025 1:41 PM CDT 02/25/2025 4:55 PM CDT Lamberto Faria MD LAB BLOOD ORDERABLES Fi nal Result Performing Organization Address City/[facility]/ZIP Co de Phone Number [facility] [phone] [address] [facility] [place] [address] * Ferritin (02/25/2025 1:41 PM CDT) [facility] Ferritin 125 13 - 150 ng/mL Blood 02/25/2025 1:41 PM CDT 02/25/2025 4:55 PM CDT Lamberto Faria MD LAB BLOOD ORDERABLES Fi nal Result [facility] [phone] [address] [place] [address] * Vitamin B12 (02/25/2025 1:41 PM CDT) Pathologist [facility] Vitamin B12 504 230 - 1,250 pg/mL Blood 02/25/2025 1:41 PM CDT 02/25/2025 4:55 PM CDT Lamberto Faria MD LAB BLOOD ORDERABLES Fi nal Result Performing Organization Address [facility] Co de Phone Number [facility] [phone] [address] [place] [address] * (ABNORMAL) Comprehensive metabolic panel (02/25/2025 1:41 PM CDT) [facility] Sodium 139 135 - 145 mmol/L Potassium, pl 4.4 3.3 - 4.9 mmol/L [facility] Chloride 102 97 - 110 mmol/L [facility] CO2 28 22 - 32 mmol/L [facility] Anion gap 9 2 - 15 mmol/L [facility] BUN 15 6 - 25 mg/dL [facility] Creatinine 1.01 0.60 - 1.10 mg/dL [facility] Glucose 87 70 - 199 mg/dL [facility] Comment: Interpretive Data Fasting glucose >/= 126 mg/dl is diagnostic for diabetes. Fasting is defined as no caloric intake for at least 8 hours. Fasting glucose between 100 mg/dl to 125 mg/dl is diagnostic of prediabetes. In a patient with classic symptoms of hyperglycemia or hyperglycemic crisis, a random glucose >/= 200 mg/dl is diagnostic for diabetes. In the absence of unequivocal hyperglycemia, results should be confirmed by repeat testing. The classification and Diagnosis of Diabetes Diabetes Care 2021; 46: S19-S40. Current interpretive data was last revised 2022. Calcium 9.2 8.5 - 10.3 mg/dL [facility] Bilirubin, total <0.2 0.1 - 1.2 mg/dL [facility] Protein, pl 5.9(L) 6.5 - 8.5 g/dL [facility] Albumin 3.4(L) 3.5 - 5.0 g/dL [facility] Alk phos 127 40 - 130 Units/L [facility] ALT 13 7 - 45 Units/L [facility] AST 21 10 - 45 Units/L [facility] Blood 02/25/2025 1:41 PM CDT 02/25/2025 4:55 PM CDT us Lamberto Faria MD LAB BLOOD ORDERABLES Fi nal Result [facility] [phone] [address] Department [place] [address] * (ABNORMAL) Hemoglobin and hematocrit (02/18/2025 11:38 AM CDT) Hgb 8.1(L) 11.9 - 15.5 g/dL Hct 25.4(L) 35.6 - 45.5 % [facility] ([facility]) Blood 02/18/2025 11:3 8 AM CDT 02/18/2025 11:48 AM CDT us Kyle Elliott DO LAB BLOOD ORDERABLES Fin al Result [facility] ([facility]) 1 [facility] Department [place] [address] * eGFR (02/18/2025 3:23 AM CDT) eGFR 64 >=60 mL/min/1. 73 m2 Comment: Interpretive Data Reference Interval Normal >/= 90 mL/min/1.73m2 Mildly decreased* 60 - 89 mL/min/1.73m2 Mildly to moderately decreased 45 - 59 mL/min/1.73m2 Moderately to severely decreased 30 - 44 mL/min/1.73m2 Severely decreased 15 - 29 mL/min/1.73m2 Kidney Failure < 15 mL/min/1.73m2 *Relative to young adult level Estimated glomerular filtration rate is determined by the 2020 CKD-EPI equation recommended by the National Kidney Foundation (A Unifying Approach to GFR Estimation: Recommendations of the NKF-ASK Task Force on Reassessing the Inclusion of Race in Diagnosing Kidney Disease, JASN 2020). The CKD-EPI equation should not be used for patients with unstable renal function and has not been validated in children and those over 70. Current interpretive data was last reviewed 2021. Blood 02/18/2025 3:23 AM CDT 02/18/2025 3:41 AM CDT Kyle Elliott DO LAB BLOOD ORDERABLES Fin al Result [facility] ([place]) 1 [facility] Department [place] [address] * Differential, auto (02/18/2025 3:23 AM CDT) Neutrophil abs 6.34 1.50 - 6.50 K/cumm Imm gran abs 0.05 0.00 - 0.10 K/cumm [facility] ([facility]) Lymphocyte abs 1.02 0.80 - 3.30 K/cumm [facility] ([facility]) Monocyte abs 0.65 0.20 - 0.80 K/cumm [facility] ([facility]) Eosinophil abs 0.18 0.00 - 0.50 K/cumm [facility] ([facility]) Basophil abs 0.07 0.00 - 0.10 K/cumm [facility] ([facility]) Neutrophil pct 76.3 % [facility] ([facility]) Comment: Interpretive Data Percent cell count reference ranges are not reported, since discordance with absolute values may lead to misinterpretation of CBC data. Current Interpretive Data was last revised on 2017. Imm gran pct 0.6 % [facility] ([facility]) Comment: Interpretive Data Percent cell count reference ranges are not reported, since discordance with absolute values may lead to misinterpretation of CBC data. Current Interpretive Data was last revised on 2017. Lymphocyte pct 12.3 % [facility] ([facility]) Comment: Interpretive Data Percent cell count reference ranges are not reported, since discordance with absolute values may lead to misinterpretation of CBC data. Current Interpretive Data was last revised on 2017. Monocyte pct 7.8 % [facility] ([facility]) Comment: Interpretive Data Percent cell count reference ranges are not reported, since discordance with absolute values may lead to misinterpretation of CBC data. Current Interpretive Data was last revised on 2017. Eosinophil pct 2.2 % [facility] ([facility]) Comment: Interpretive Data Percent cell count reference ranges are not reported, since discordance with absolute values may lead to misinterpretation of CBC data. Current Interpretive Data was last revised on 2017. Basophil pct 0.8 % [facility] ([facility]) Comment: Interpretive Data Percent cell count reference ranges are not reported, since discordance with absolute values may lead to misinterpretation of CBC data. Current Interpretive Data was last revised on 2017. Blood 02/18/2025 3:23 AM CDT 02/18/2025 3:36 AM CDT us Kyle Elliott DO LAB BLOOD ORDERABLES Fin al Result [facility] ([facility]) 1 [facility] Department [place] [address] * (ABNORMAL) CBC with auto differential (02/18/2025 3:23 AM CDT) WBC 8.31 3.80 - 9.90 K/cumm Hgb 7.7(L) 11.9 - 15.5 g/dL [facility] ([facility]) Hct 24.5(L) 35.6 - 45.5 % [facility] ([facility]) Plt 239 150 - 400 K/cumm [facility] ([facility]) MPV 9.4 9.1 - 12.3 fL [facility] ([facility]) RBC 2.69(L) 3.90 - 5.20 M/cumm [facility] ([facility]) MCV 91.1 81.3 - 96.4 fL [facility] ([facility]) MCH 28.6 27.1 - 33.3 pg [facility] ([facility]) MCHC 31.4(L) 32.3 - 35.7 g/dL [facility] ([facility]) RDW CV 14.7 11.1 - 14.9 % [facility] ([facility]) RDW SD 49.4(H) 35.7 - 48.1 fL [facility] ([facility]) NRBC abs 0.00 0.00 - 0.01 K/cumm [facility] ([facility]) Blood 02/18/2025 3:23 AM CDT 02/18/2025 3:36 AM CDT Kyle Elliott DO LAB BLOOD ORDERABLES Fin al Result Performing Organization Address City/[facility] Co de Phone Number [facility] ([place]) 1 [facility] [place] [employer] [place] [address] * (ABNORMAL) Phosphorus (02/18/2025 3:23 AM CDT) Phosphorus, pl 1.8(L) 2.3 - 4.5 mg/dL Blood 02/18/2025 3:23 AM CDT 02/18/2025 3:41 AM CDT Kyle Elliott DO LAB BLOOD ORDERABLES Fin al Result Performing Organization Address City/[facility] Co de Phone Number [facility] ([place]) 1 [facility] [place] [place] [address] * Magnesium (02/18/2025 3:23 AM CDT) Magnesium 1.9 1.4 - 2.5 mg/dL Blood 02/18/2025 3:23 AM CDT 02/18/2025 3:41 AM CDT Kyle [employer] DO LAB BLOOD ORDERABLES Fin al Result [facility] ([place]) 1 [facility] [place] [address] * (ABNORMAL) Comprehensive metabolic panel (02/18/2025 3:23 AM CDT) Sodium 140 135 - 145 mmol/L Potassium, pl 3.3 3.3 - 4.9 mmol/L [facility] ([facility]) Chloride 106 97 - 110 mmol/L [facility] ([facility]) CO2 22 22 - 32 mmol/L [facility] ([facility]) Anion gap 12 2 - 15 mmol/L [facility] ([facility]) BUN 16 6 - 25 mg/dL [facility] ([facility]) Creatinine 0.91 0.60 - 1.10 mg/dL [facility] ([facility]) Glucose 97 70 - 199 mg/dL [facility] ([facility]) Comment: Interpretive Data Fasting glucose >/= 126 mg/dl is diagnostic for diabetes. Fasting is defined as no caloric intake for at least 8 hours. Fasting glucose between 100 mg/dl to 125 mg/dl is diagnostic of prediabetes. In a patient with classic symptoms of hyperglycemia or hyperglycemic crisis, a random glucose >/= 200 mg/dl is diagnostic for diabetes. In the absence of unequivocal hyperglycemia, results should be confirmed by repeat testing. The classification and Diagnosis of Diabetes Diabetes Care 2021; 46: S19-S40. Current interpretive data was last revised 2022. Calcium 8.3(L) 8.5 - 10.3 mg/dL [facility] ([facility]) Bilirubin, total <0.2 0.1 - 1.2 mg/dL [facility] ([facility]) Protein, pl 4.8(L) 6.5 - 8.5 g/dL [facility] ([facility]) Albumin 2.6(L) 3.5 - 5.0 g/dL [facility] ([facility]) Alk phos 95 40 - 130 Units/L [facility] ([facility]) ALT 45 7 - 45 Units/L [facility] ([facility]) AST 24 10 - 45 Units/L [facility] ([facility]) Blood 02/18/2025 3:23 AM CDT 02/18/2025 3:41 AM CDT Kyle Elliott DO LAB BLOOD ORDERABLES Fin al Result Performing Organization Address City/[facility]/ZIP Co de Phone Number [facility] ([place]) 1 [facility] Department [place] [address] * eGFR (02/17/2025 4:17 AM CDT) eGFR 71 >=60 mL/min/1. 73 m2 Comment: Interpretive Data Reference Interval Normal >/= 90 mL/min/1.73m2 Mildly decreased* 60 - 89 mL/min/1.73m2 Mildly to moderately decreased 45 - 59 mL/min/1.73m2 Moderately to severely decreased 30 - 44 mL/min/1.73m2 Severely decreased 15 - 29 mL/min/1.73m2 Kidney Failure < 15 mL/min/1.73m2 *Relative to young adult level Estimated glomerular filtration rate is determined by the 2020 CKD-EPI equation recommended by the National Kidney Foundation (A Unifying Approach to GFR Estimation: Recommendations of the NKF-ASK Task Force on Reassessing the Inclusion of Race in Diagnosing Kidney Disease, JASN 2020). The CKD-EPI equation should not be used for patients with unstable renal function and has not been validated in children and those over 70. Current interpretive data was last reviewed 2021. Blood 02/17/2025 4:17 AM CDT 02/17/2025 5:24 AM CDT Kyle Elliott DO LAB BLOOD ORDERABLES Fin al Result Performing Organization Address City/[facility]/ZIP Co de Phone Number [facility] ([facility]) 1 [facility] Department [place] [address] * (ABNORMAL) Differential, auto (02/17/2025 4:17 AM CDT) Neutrophil abs 8.12(H) 1.50 - 6.50 K/cumm Imm gran abs 0.05 0.00 - 0.10 K/cumm [facility] ([facility]) Lymphocyte abs 0.89 0.80 - 3.30 K/cumm [facility] ([facility]) Monocyte abs 0.99(H) 0.20 - 0.80 K/cumm [facility] ([facility]) Eosinophil abs 0.09 0.00 - 0.50 K/cumm [facility] ([facility]) Basophil abs 0.04 0.00 - 0.10 K/cumm [facility] ([facility]) Neutrophil pct 79.8 % [facility] ([facility]) Comment: Interpretive Data Percent cell count reference ranges are not reported, since discordance with absolute values may lead to misinterpretation of CBC data. Current Interpretive Data was last revised on 2017. Imm gran pct 0.5 % [facility] ([facility]) Comment: Interpretive Data Percent cell count reference ranges are not reported, since discordance with absolute values may lead to misinterpretation of CBC data. Current Interpretive Data was last revised on 2017. Lymphocyte pct 8.7 % [facility] ([facility]) Comment: Interpretive Data Percent cell count reference ranges are not reported, since discordance with absolute values may lead to misinterpretation of CBC data. Current Interpretive Data was last revised on 2017. Monocyte pct 9.7 % [facility] ([facility]) Comment: Interpretive Data Percent cell count reference ranges are not reported, since discordance with absolute values may lead to misinterpretation of CBC data. Current Interpretive Data was last revised on 2017. Eosinophil pct 0.9 % [facility] ([facility]) Comment: Interpretive Data Percent cell count reference ranges are not reported, since discordance with absolute values may lead to misinterpretation of CBC data. Current Interpretive Data was last revised on 2017. Basophil pct 0.4 % [facility] ([facility]) Comment: Interpretive Data Percent cell count reference ranges are not reported, since discordance with absolute values may lead to misinterpretation of CBC data. Current Interpretive Data was last revised on 2017. Blood 02/17/2025 4:17 AM CDT 02/17/2025 5:23 AM CDT us Kyle Elliott DO LAB BLOOD ORDERABLES Fin al Result [facility] ([place]) 1 [facility] [place] [address] * (ABNORMAL) CBC with auto differential (02/17/2025 4:17 AM CDT) WBC 10.18(H) 3.80 - 9.90 K/cumm Hgb 9.5(L) 11.9 - 15.5 g/dL [facility] ([facility]) Hct 30.3(L) 35.6 - 45.5 % [facility] ([facility]) Plt 275 150 - 400 K/cumm [facility] ([facility]) MPV 9.7 9.1 - 12.3 fL [facility] ([facility]) RBC 3.33(L) 3.90 - 5.20 M/cumm [facility] ([facility]) MCV 91.0 81.3 - 96.4 fL [facility] ([facility]) MCH 28.5 27.1 - 33.3 pg [facility] ([facility]) MCHC 31.4(L) 32.3 - 35.7 g/dL [facility] ([facility]) RDW CV 14.8 11.1 - 14.9 % [facility] ([facility]) RDW SD 49.6(H) 35.7 - 48.1 fL [facility] ([facility]) NRBC abs 0.00 0.00 - 0.01 K/cumm [facility] ([facility]) Blood 02/17/2025 4:17 AM CDT 02/17/2025 5:23 AM CDT Dinesh Mahajan MD LAB BLOOD ORDERA BLES Final Result Performing Organization Address City/State/[facility] Co de Phone Number [facility] ([facility]) 1 [facility] Department of [place] [address] * Phosphorus (02/17/2025 4:17 AM CDT) Phosphorus, pl 2.3 2.3 - 4.5 mg/dL Blood 02/17/2025 4:17 AM CDT 02/17/2025 5:24 AM CDT Dinesh Mahajan MD LAB BLOOD ORDERA BLES Final Result MICAH LAI (OSCAR) 1 [facility] [place] [address] * Magnesium (02/17/2025 4:17 AM CDT) Pathologist [facility] Magnesium 1.9 1.4 - 2.5 mg/dL Blood 02/17/2025 4:17 AM CDT 02/17/2025 5:24 AM CDT Dinesh Mahajan MD LAB BLOOD ORDERA BLES Final Result Performing Organization Address City/[facility]/ZIP Co de Phone Number MICAH LAI (OSCAR) 1 [facility] [place] [address] * (ABNORMAL) Comprehensive metabolic panel (02/17/2025 4:17 AM CDT) Sodium 137 135 - 145 mmol/L Potassium, pl 3.8 3.3 - 4.9 mmol/L [facility] (OSCAR) Chloride 101 97 - 110 mmol/L [facility] ([facility]) CO2 25 22 - 32 mmol/L [facility] ([facility]CAR) Anion gap 11 2 - 15 mmol/L [facility] ([facility]CAR) BUN 14 6 - 25 mg/dL [facility] (OSCAR) Creatinine 0.83 0.60 - 1.10 mg/dL [facility] ([facility]CAR) Glucose 94 70 - 199 mg/dL [facility] (OSCAR) Comment: Interpretive Data Fasting glucose >/= 126 mg/dl is diagnostic for diabetes. Fasting is defined as no caloric intake for at least 8 hours. Fasting glucose between 100 mg/dl to 125 mg/dl is diagnostic of prediabetes. In a patient with classic symptoms of hyperglycemia or hyperglycemic crisis, a random glucose >/= 200 mg/dl is diagnostic for diabetes. In the absence of unequivocal hyperglycemia, results should be confirmed by repeat testing. The classification and Diagnosis of Diabetes Diabetes Care 2021; 46: S19-S40. Current interpretive data was last revised 2022. Calcium 8.7 8.5 - 10.3 mg/dL [facility] (OSCAR) Bilirubin, total 0.4 0.1 - 1.2 mg/dL [facility] (OSCAR) Protein, pl 5.3(L) 6.5 - 8.5 g/dL [facility] (OSCAR) Albumin 2.7(L) 3.5 - 5.0 g/dL [facility] (OSCAR) Alk phos 134(H) 40 - 130 Units/L [facility] (OSCAR) ALT 72(H) 7 - 45 Units/L [facility] (OSCAR) AST 44 10 - 45 Units/L [facility] (OSCAR) Blood 02/17/2025 4:17 AM CDT 02/17/2025 5:24 AM CDT us Dinesh Mahajan MD LAB BLOOD ORDERA BLES Final Result [facility] (OSCAR) 1 [facility] [place] [address] * MT AN ELECTIVE ENDOTRACHEAL AIRWAY (02/16/2025 3:35 PM CDT) Narrative Amrita Chan CRNA - 02/16/2025 3:35 PM CDT Amrita Chan CRNA 02/16/2025 3:35 PM Airway Patient location: OR Urgency: elective Date/time: 02/16/2025 3:21 PM Indications for airway management: anesthesia Difficult airway: no Staff: Placed by: ENVIRONMENTAL SERVICES ASSOCIATE: Amrita Chan CRNA Emergent airway documentation: Risks and benefits discussed: yes Consent obtained: yes Consent given by: patient Airway prep: Preoxygenated: yes Mask difficulty assessment: 1 - vent by mask Spontaneous ventilation during airway: absent Sedation level during airway: GA Final airway details: Final airway type: endotracheal airway Tube type: ETT ETT size: 6.5 mm Cuffed: yes Technique used for successful ETT placement: direct laryngoscopy Insertion site: oral Blade type: Mariscal Blade size: 2 Cormack-Lehane (direct): grade I - full view of glottis Cuff volume: 6 mL Cuff inflated with: air ETT to lips: 20 cm Placement verified by: auscultation and CO2 detection Airway secured with: silk tape Number of attempts: 1 Billy Chambers DO ANESTHESIA ORDERABL ES Final Result * NM MPI SPECT (Rest and/or Stress) Multiple Studies (02/16/2025 12:21 PM CDT) Anatomical Region Laterality Modality Body N/A Nuclear Medicine 02/16/2025 1:48 PM CDT Narrative 02/16/2025 1:50 PM CDT EXAM DESCRIPTION: NM MPI SPECT (REST AND/OR STRESS) MULTIPLE STUDIES RADIOPHARMACEUTICAL: Rest: 11.2 mCi Tc-99m tetrofosmin via a right arm IV site Pharmacologic Stress: 30.7 mCi Tc-99m tetrofosmin via a right forearm IV site REASON FOR STUDY: chest pain TECHNIQUE: Standard myocardial perfusion SPECT images were obtained after resting tracer injection. Subsequently, an intravenous infusion of regadenoson was performed. Standard myocardial perfusion images were obtained after tracer injection at the peak effect of the drug. COMPARISON: None FINDINGS: There is decreased perfusion to the anteroapical wall during stress. Images at rest are not significantly changed. Findings are consistent with myocardial infarct. No reversible perfusion defect to suggest myocardial ischemia. Gated post-stress images demonstrate mild hypokinesia of the anteroapical wall. The left ventricular volume is normal and the left ventricular ejection fraction is 56% (normal >45%). IMPRESSION: Fixed perfusion defects in the anteroapical wall consistent with myocardial infarct. No reversible perfusion defects to suggest myocardial ischemia. Normal left ventricular size and systolic function. THIS IS AN ELECTRONICALLY VERIFIED FINAL REPORT 02/16/2025 1:50 PM - Electronically signed by Gosia Kearns M.D. FT: FT Report ID: [id number] Reading Location: [id number] Procedure Note Gosia Peters MD - 02/16/2025 EXAM DESCRIPTION: NM MPI SPECT (REST AND/OR STRESS) MULTIPLE STUDIES RADIOPHARMACEUTICAL: Rest: 11.2 mCi Tc-99m tetrofosmin via a rightarm IV site Pharmacologic Stress: 30.7 mCi Tc-99m tetrofosmin via a rightforearm IV site REASON FOR STUDY: chest pain TECHNIQUE: Standard myocardial perfusion SPECT images were obtained after resting tracer injection. Subsequently, an intravenous infusion of regadenoson was performed. Standard myocardial perfusion images wereobtained after tracer injection at the peak effect of the drug. COMPARISON: None FINDINGS: There is decreased perfusion to the anteroapical wall during stress.Images at rest are not significantly changed. Findings are consistent with myocardial infarct. No reversible perfusion defect to suggest myocardial ischemia. Gated post-stress images demonstrate mild hypokinesia of the anteroapical wall. The left ventricular volume is normal and the left ventricular ejection fraction is 56% (normal >45%). IMPRESSION: Fixed perfusion defects in the anteroapical wall consistent withmyocardial infarct. No reversible perfusion defects to suggest myocardial ischemia. Normal left ventricular size and systolic function. THIS IS AN ELECTRONICALLY VERIFIED FINAL REPORT 02/16/2025 1:50 PM - Electronically signed by Gosia Kearns M.D. FT: FT Report ID: [id number] Reading Location: [id number] us Kyle Elliott DO IMG NM PROCEDURES Final Result * TRANSTHORACIC ECHO (TTE) COMPLETE W DOPPLER/CF WO CONTRAST (02/16/2025 12:21 PM CDT) Estimated EF 60 % CONS SCIMAGE Anatomical Region Laterality Modality Ultrasound 02/16/2025 12:1 9 PM CDT Narrative 02/16/2025 2:16 PM CDT [address] [address] Echocardiogram Report Patient Name: VIKKI SIERRA : 1945 Study Date: 02/16/2025 12:19:19 PM Gender: F Tech: AA Location: [id number] Ref Provider: KYLE ELLIOTT Height(Cm): BSA: Weight(Kg): Quality: Good Order Provider: KYLE ELLIOTT PROCEDURES: Echocardiographic Report: Transthoracic echocardiogram with complete 2D, M-Mode, and color Doppler examination. INDICATIONS: Chest Pain. MEASUREMENTS: 2D/MM Value Range Doppler Value Range EF Teich 2D 69.3 % [ 54.0 - 74.0 ] MARY Vmax 3.02 cm2 Estimated EF 60 to 65 % AV Mean PG 8 mmHg LVIDd 2D 4.91 cm [ 3.80 - 5.20 ] AV Peak Attila 2.12 m/s [ 1.00 - 1.70 ] LVIDs 2D 2.99 cm [ 2.20 - 3.50 ] AV VTI 42.94 cm LVPWd 2D 1.22 cm [ 0.60 - 0.90 ] LVOT Diam 2.24 cm IVSd 2D 1.27 cm [ 0.60 - 0.90 ] LVOT Peak Attila 1.62 m/s [ 0.70 - 1.10 ] LA Dimension MM 2.99 cm [ 2.70 - 3.80 ] LVOT VTI 35.56 cm AoR Diam MM 3.73 cm [ 2.70 - 3.70 ] MV E Peak Attila 0.82 m/s [ 0.60 - 1.30 ] ACS MM 2.25 cm MV A Peak Attila 0.96 m/s [ 1.00 - 1.20 ] MV Mean PG 2 mmHg MV PHT 72 msec [ 20 - 100 ] MVA 3.00 MV Decel Time 249 msec [ 104 - 258 ] PV Peak Attila 1.28 m/s [ 0.40 - 0.80 ] TR Peak Attila 2.91 m/s [ 1.00 - 2.80 ] TR Peak PG 34 mmHg RVSP 39.00 mmHg [ 10.00 - 36.00 ] E` 0.06 m/s E/E` 13.80 [ <= 10.00 ] PA Pressure 5.00 mmHg [ 10.00 - 36.00 ] 2D/MM Value Range Doppler Value Range - FINDINGS: Atrial Septum: Normal atrial septum. Left Ventricle: Normal global left ventricular systolic function. Diastolic dysfunction is present. Ejection Fraction is estimated to be 60 to 65 %. These segments of the LV are hypokinetic anterior segment. Left Atrium: There is mild enlargement of left atrium. Right Ventricle: Normal right ventricular size. Normal right ventricular systolic function. Right Atrium: The right atrium is normal in size. Aortic Valve: Normal structure of the aortic valve. Mild to moderate aortic valve regurgitation. Mitral Valve: Normal structure of the mitral valve. Mild to moderate mitral valve regurgitation. Pulmonic Valve: Normal structure of the pulmonic valve. Tricuspid Valve: Normal structure of the tricuspid valve. Pericardium: Normal pericardium with no significant pericardial effusion. Aorta: Normal aortic root. IVC: Normal size and normal respiratory collapse consistent with normal right atrial pressure (<5 mmHg). CONCLUSIONS: Normal global left ventricular systolic function. Diastolic dysfunction is present. Ejection Fraction is estimated to be 60 to 65 %. These segments of the LV are hypokinetic anterior segment. There is mild enlargement of left atrium. Normal structure of the mitral valve. Mild to moderate mitral valve regurgitation. Normal structure of the aortic valve. Mild to moderate aortic valve regurgitation. Normal structure of the tricuspid valve. Technically difficult study with limited views. Electronically Signed By: Dr Neville Luciano 02/16/2025 2:15:39 PM CDT Procedure Note Neville Luciano MD - 02/16/[address] [place] [address] Echocardiogram Report Patient Name: VIKKI SIERRA : 1945 Study Date: 02/16/2025 12:19:19 PM Gender: F Tech: Location: [place] [address] Ref Provider: KYLE ELLIOTT Height(Cm): BSA: Weight(Kg): Quality: Good Order Provider: KYLE ELLIOTT PROCEDURES: Echocardiographic Report: Transthoracic echocardiogram with complete 2D, M-Mode, and color Dopplerexamination. INDICATIONS: Chest Pain. MEASUREMENTS: 2D/MM Value Range Doppler ValueRange EF Teich 2D 69.3 % [ 54.0 - 74.0 ] MARY Vmax 3.02cm2 Estimated EF 60 to 65 % AV Mean PG 8mmHg LVIDd 2D 4.91 cm [ 3.80 - 5.20 ] AV Peak Attila 2.12m/s [ 1.00 - 1.70 ] LVIDs 2D 2.99 cm [ 2.20 - 3.50 ] AV VTI 42.94cm LVPWd 2D 1.22 cm [ 0.60 - 0.90 ] LVOT Diam 2.24cm IVSd 2D 1.27 cm [ 0.60 - 0.90 ] LVOT Peak Attila 1.62m/s [ 0.70 - 1.10 ] LA Dimension MM 2.99 cm [ 2.70 - 3.80 ] LVOT VTI 35.56cm AoR Diam MM 3.73 cm [ 2.70 - 3.70 ] MV E Peak Attila 0.82m/s [ 0.60 - 1.30 ] ACS MM 2.25 cm MV A Peak Attila 0.96m/s [ 1.00 - 1.20 ] MV Mean PG 2 mmHg MV PHT 72 msec [ 20 - 100 ] MVA 3.00 MV Decel Time 249 msec [ 104 - 258 ] PV Peak Attila 1.28 m/s [ 0.40 - 0.80 ] TR Peak Attila 2.91 m/s [ 1.00 - 2.80 ] TR Peak PG 34 mmHg RVSP 39.00 mmHg [ 10.00 - 36.00 ] E` 0.06 m/s E/E` 13.80 [ <= 10.00 ] PA Pressure 5.00 mmHg [ 10.00 - 36.00 ] 2D/MM Value Range Doppler ValueRange - FINDINGS: Atrial Septum: Normal atrial septum. Left Ventricle: Normal global left ventricular systolic function. Diastolic dysfunction ispresent. Ejection Fraction is estimated to be 60 to 65 %. These segments of the LVare hypokinetic anterior segment. Left Atrium: There is mild enlargement of left atrium. Right Ventricle: Normal right ventricular size. Normal right ventricular systolicfunction. Right Atrium: The right atrium is normal in size. Aortic Valve: Normal structure of the aortic valve. Mild to moderate aortic valveregurgitation. Mitral Valve: Normal structure of the mitral valve. Mild to moderate mitral valveregurgitation. Pulmonic Valve: Normal structure of the pulmonic valve. Tricuspid Valve: Normal structure of the tricuspid valve. Pericardium: Normal pericardium with no significant pericardial effusion. Aorta: Normal aortic root. IVC: Normal size and normal respiratory collapse consistent with normal rightatrial pressure (<5 mmHg). CONCLUSIONS: Normal global left ventricular systolic function. Diastolic dysfunction ispresent. Ejection Fraction is estimated to be 60 to 65 %. These segments of the LVare hypokinetic anterior segment. There is mild enlargement of left atrium. Normal structure of the mitral valve. Mild to moderate mitral valveregurgitation. Normal structure of the aortic valve. Mild to moderate aortic valveregurgitation. Normal structure of the tricuspid valve. Technically difficult study with limited views. Electronically Signed By: Dr Neville Luciano 02/16/2025 2:15:39 PM CDT us Kyle Elliott DO CV ECHO PROCEDURES Final Result * Stress Test for Myocardial Perfusion (02/16/2025 12:21 PM CDT) Anatomical Region Laterality Modality Nuclear Medicine 02/16/2025 10:2 5 AM CDT Narrative 02/16/2025 1:32 PM CDT [address] [place] [address] [employer] Report Patient Name: VIKKI SIRERA M : 1945 Study Date: 02/16/2025 10:25:00 AM Gender: F Tech: stella garcia Location: [id number] Ref Provider: KYLE ELLIOTT Height(Cm): 157 BSA: 2.27 Weight(Kg): 118 Heart Rate: 119 Order Provider: KYLE ELLIOTT PROCEDURES: Pharmacologic SPECT Report.: Myocardial perfusion imaging with Sestamibi SPECT at rest and post regadenoson (Lexiscan) infusion. INDICATIONS: Chest Pain and Coronary Artery Disease. FINDINGS: Procedure Data: Resting HR 68 bpm Peak HR: 115 bpm Predicted Maximal HR 140 bpm Target HR: 119 bpm Percent Max Predicted HR Achieved: 82.14 % Baseline BP: 111/37 mmHg Peak BP: 105/63 mmHg Exercise Time: 00:12 Medications: Free Text. Performed By: Supervising Physician: The Supervising Physician is neville luciano. Reason for Termination: Lexiscan protocol complete. Resting ECG: Normal sinus rhythm at 67 beats per minute, normal axis, poor R-wave progression, inferolateral ST changes, PVC. Post Pharm ECG: No diagnostic ST changes. Minor additional changes noted inferiorly. Arrhythmia: Rare PVCs. Cardiac Symptoms With Stress: Symptoms with stress were None. Exam Interpreted: Read by . CONCLUSIONS: 1. Negative Lexiscan pharmacologic stress test for chest pain or EKG changes. 2. Nuclear images are pending and they will be reported separately. Electronically Signed By: Dr Neville Luciano 02/16/2025 12:31:20 PM CDT Procedure Note Neville Luciano MD - 02/16/[address] [place] [address] Lexiscan Report Patient Name: VIKKI SIERRA M : 1945 Study Date: 02/16/2025 10:25:00 AM Gender: F Tech: stella websternes Location: [id number] Ref Provider: KYLE ELLIOTT Height(Cm): 157 BSA: 2.27 Weight(Kg): 118 Heart Rate: 119 Order Provider: KYLE ELLIOTT PROCEDURES: Pharmacologic SPECT Report.: Myocardial perfusion imaging with Sestamibi SPECT at rest and postregadenoson (Lexiscan) infusion. INDICATIONS: Chest Pain and Coronary Artery Disease. FINDINGS: Procedure Data: Resting HR 68 bpm Peak HR: 115 bpm Predicted Maximal HR 140 bpm Target HR: 119 bpm Percent Max Predicted HR Achieved: 82.14 % Baseline BP: 111/37 mmHg Peak BP: 105/63 mmHg Exercise Time: 00:12 Medications: Free Text. Performed By: Supervising Physician: The Supervising Physician is neville luciano. Reason for Termination: Lexiscan protocol complete. Resting ECG: Normal sinus rhythm at 67 beats per minute, normal axis, poor R-waveprogression, inferolateral ST changes, PVC. Post Pharm ECG: No diagnostic ST changes. Minor additional changes noted inferiorly. Arrhythmia: Rare PVCs. Cardiac Symptoms With Stress: Symptoms with stress were None. Exam Interpreted: Read by . CONCLUSIONS: 1. Negative Lexiscan pharmacologic stress test for chest pain or EKGchanges. 2. Nuclear images are pending and they will be reported separately. Electronically Signed By: Dr Neville Luciano 02/16/2025 12:31:20 PM CDT Kyle Elliott DO CV STRESS PROCEDURES Fin al Result * Surgical pathology (02/16/2025 9:11 AM CDT) Tissue (Gallbladder) 02/16/2025 3:43 PM CDT Narrative [facility]Y [facility] (OSCAR) - 02/18/2025 1:44 PM CDT EPIC results best viewed via link to PDF [facility] Department of Pathology [address] [place] [id number] Note to Patients: This report may contain a detailed description of human tissue sent by a health care provider to the laboratory for pathologic evaluation. The content of this report is essential for diagnosis and may provide important critical findings. This information may be unfamiliar to patients to review without a medical professional present. It is advised that the patient review this report in the presence of a health care provider who can answer questions and explain the details. Final Report Patient Name: VIKKI SIERRA Address: [address] [place] [address]- Gender: F : 1945 (Age: 79) Service: Surgery Location: [facility] Hospital #: [id number] Patient Type: [facility] Taken: 02/16/2025 Received: 02/17/2025 Accessioned: 02/17/2025 Reported: 02/18/2025 Physician(s):Dinesh Mahajan MD Diagnosis: Gallbladder, cholecystectomy: - Acute gangrenous cholecystitis. - Cholelithiasis. Ranjan Hughes M.D. Report Electronically Reviewed and Signed Out By Ranjan Hughes M.D. 02/18/2025 13:44:04 Specimen(s) Received: A: Gallbladder Microscopic Description: Sections show an acute gangrenous cholecystitis characterized by a marked increase in acute inflammation seen throughout the gallbladder wall. There is associated gangrenous necrosis present. No definitive features of dysplasia are present, however, some areas do show some marked reactive atypia. Clinical History: Acute cholecystitis. Laparoscopic cholecystectomy. Gross Description: The specimen is received in a single container labeled VIKKI SIERRA and gallbladder. It is a gallbladder that measures 10 x 3 cm. The serosa is congested with multiple tears. The wall measures up to 0.2 cm in thickness. The lumen contains green brown bile and multiple yellow faceted stone and stone fragments measuring up to 5 mm. The mucosa is pink-wilson to green wilson with erosion and greenish-jeronimo discoloration. The bile duct margin is inked blue. Represented in one cassette. Smith Britton R.N., P.A./Kendell Moreno M.D. REPORT IMAGES AND SCANNED DOCUMENTS, IF INCLUDED, ONLY VIEWABLE IN PDF VERSION OF REPORT The performance characteristics of some immunohistochemical stains, fluorescence in-situ hybridization tests and immunophenotyping by flow cytometry cited in this report (if any) were determined by the Surgical Pathology Department at [facility] as part of an ongoing it quality assurance analyst program and in compliance with federally mandated regulations drawn from the Clinical Laboratory Improvement Act of 1988 (CLIA '88). Some of these tests rely on the use of analyte specific reagents and are subject to specific labeling requirements by the US Food and Drug Administration. Such diagnostic tests may only be performed in a facility that is certified by the Department of Health and Human Services as a high complexity laboratory under CLIA '88. The FDA has determined that such clearance or approval is not necessary. This test is used for clinical purposes. It should not be regarded as investigational or for research. Nevertheless, federal rules concerning the medical use of analyte specific reagents require that the following disclaimer be attached to the report: This test was developed and its performance characteristics determined by the Surgical Pathology Department [facility]. It has not been cleared or approved by the U. S. Food and Drug Administration. Note for decalcified specimens: This assay has not been validated on decalcified tissues. Results should be interpreted with caution given the possibility of false negativity on decalcified specimens Dinesh Mahajan MD LAB PATHOLOGY OR DERABLES Final Result PATHOLOGY [facility] [address] [place] [address] * US RUQ (02/16/2025 8:41 AM CDT) Anatomical Region Laterality Modality Abdomen N/A Ultrasound 02/16/2025 9:03 AM CDT Narrative 02/16/2025 9:07 AM CDT EXAM DESCRIPTION: US RUQ REASON FOR STUDY: Abnormal ct gallbladder today. Abdominal pain acute today. TECHNIQUE: Ultrasound of the right upper quadrant of the abdomen was performed with grayscale and color doppler. COMPARISON: 02/16/2025 CT FINDINGS: PANCREAS: Visualized portions of the pancreas are within normal limits. Portions of the pancreatic body and tail are obscured due to bowel gas. LIVER: The liver appears normal in echotexture and echogenicity. No focal lesion identified. The main portal vein is patent with antegrade flow. GALLBLADDER: The gallbladder is distended with wall thickening measuring 0.33 cm. Posterior shadowing identified with dependent numerous stones within the gallbladder. Scanning over the fundus elicits tenderness. Findings are concerning for acute cholecystitis. This correlates with CT concerns. Please correlate clinically. BILIARY: The common bile duct is dilated. Common bile duct measures 0.93 cm in diameter. Intrahepatic ducts demonstrate mild dilatation. RIGHT KIDNEY: Normal size. Normal echogenicity. No solid mass or cyst. No hydronephrosis. Measures 10.15 cm in length. OTHER: No other significant findings. IMPRESSION: Gallstones with wall thickening and tenderness over the gallbladder fundus concerning for acute cholecystitis. Dilated common bile duct and intrahepatic ducts. THIS IS AN ELECTRONICALLY VERIFIED FINAL REPORT 02/16/2025 9:07 AM - Electronically signed by Neville Nova M.D. RB: SALLY Report ID: [id number] Reading Location: [id number] Procedure Note Neville Nova MD - 02/16/2025 EXAM DESCRIPTION: US RUQ REASON FOR STUDY: Abnormal ct gallbladder today. Abdominal pain acute today. TECHNIQUE: Ultrasound of the right upper quadrant of the abdomen wasperformed with grayscale and color doppler. COMPARISON: 02/16/2025 CT FINDINGS: PANCREAS: Visualized portions of the pancreas are within normal limits. Portions of the pancreatic body and tail are obscured due to bowel gas. LIVER: The liver appears normal in echotexture and echogenicity. Nofocal lesion identified. The main portal vein is patent with antegrade flow. GALLBLADDER: The gallbladder is distended with wall thickening measuring 0.33 cm. Posterior shadowing identified with dependent numerous stoneswithin the gallbladder. Scanning over the fundus elicits tenderness. Findingsare concerning for acute cholecystitis. This correlates with CT concerns.Please correlate clinically. BILIARY: The common bile duct is dilated. Common bile duct measures0.93 cm in diameter. Intrahepatic ducts demonstrate mild dilatation. RIGHT KIDNEY: Normal size. Normal echogenicity. No solid mass or cyst.No hydronephrosis. Measures 10.15 cm in length. OTHER: No other significant findings. IMPRESSION: Gallstones with wall thickening and tenderness over the gallbladderfundus concerning for acute cholecystitis. Dilated common bile duct and intrahepatic ducts. THIS IS AN ELECTRONICALLY VERIFIED FINAL REPORT 02/16/2025 9:07 AM - Electronically signed by Neville Nova M.D. RB: SALLY Report ID: [id number] Reading Location: [id number] us Anu Eyers CABLE MOCK UP ASSEMBLER IMG US PROCEDURES Final Result * CT Abdomen Pelvis W Contrast (02/16/2025 4:40 AM CDT) Anatomical Region Laterality Modality Body N/A Computed Tomogra phy 02/16/2025 5:14 AM CDT Narrative 02/16/2025 5:26 AM CDT EXAM DESCRIPTION: CT ABDOMEN PELVIS W CONTRAST REASON FOR STUDY: Abdominal pain, acute, nonlocalized Lower right quadrant pain, Vomiting after medication TECHNIQUE: CT scan of the abdomen and pelvis performed with intravenous and without oral contrast using helical scanning technique with dynamic intravenous contrast injection. Reconstructed coronal and sagittal MPR images reviewed. All images stored on PACS. Automated exposure control was used as a dose optimization technique for this examination. CONTRAST TYPE/DOSE: 75mL of IOVERSOL 350 MG IODINE/ML INTRAVENOUS SYRINGE injected via intravenous COMPARISON: 03/12/2024 FINDINGS: LOWER CHEST: No consolidation or effusion. Heart size is enlarged. Coronary arterial calcifications are present. Small hiatal hernia. LIVER: Normal size. No identified cystic or solid masses. GALLBLADDER: Markedly distended gallbladder with subtle wall thickening and surrounding induration extending along adjacent peritoneal reflections and omentum could indicate changes of acute cholecystitis. This extends to the adjacent hepatic flexure of colon. Colitis probably less likely or secondary in nature. BILE DUCTS: Auxv-zc-hwtvzvbl intrahepatic biliary ductal dilatation. Extrahepatic ducts mildly prominent without a calcification identified. SPLEEN: Normal size. No focal lesions. PANCREAS: No identified cystic or solid masses. No significant calcifications. No adjacent inflammation or peripancreatic fluid collections. Pancreatic duct not dilated. ADRENALS: Left adrenal thickening unchanged. KIDNEYS/URINARY TRACT: No hydronephrosis. Cortical hypodensities left kidney most consistent with simple cysts no follow-up required per guidelines. Generally similar to previous. Urinary bladder is distended with excreted contrast material. Tiny air bubble within the bladder may be related to instrumentation. Please correlate clinically. GI: The stomach and transverse duodenum appear normal. Loops of small bowel and terminal ileum appear unremarkable. Cecum is unremarkable. The appendix is not well visualized. The hepatic flexure and proximal transverse colon demonstrates adjacent induration of mesenteric and omental surfaces near the gallbladder as discussed above. No focal fluid collections. Moderate stool burden diffusely. PERITONEUM: No ascites or free air. RETROPERITONEUM: No mass or adenopathy. REPRODUCTIVE: The uterus demonstrates a central low-density measuring 3.6 x 2.5 cm in transverse dimension on image 113 of series 2. This measures 2.9 cm on sagittal image 69. This appears more prominent than previous. Please correlate for trapped fluid in the endometrium. VASCULATURE: Stent graft device is demonstrated with the greatest transverse dimension of 4.0 cm unchanged. No surrounding induration or fluid. MUSCULOSKELETAL: Chronic appearing T12 compression deformity with bone cement identified. T11 fracture is moderate in severity, without retropulsed fragment and new from 03/12/2024. T10 fracture is generally unchanged. OTHER: No other abnormality. IMPRESSION: Markedly distended gallbladder with wall thickening and surrounding induration suggesting acute cholecystitis. Consider ultrasound to confirm. Lmvi-xx-gtydbltj intrahepatic biliary ductal dilatation. A degree of biliary obstruction is difficult to exclude. Central low-density within the uterus measures up to 3.6 cm and appears more prominent than previous. Please correlate for trapped fluid in the endometrium. T11 compression fracture is new from 03/12/2024 exam. THIS IS AN ELECTRONICALLY VERIFIED FINAL REPORT 02/16/2025 5:26 AM - Electronically signed by Neville Nova M.D. RB: SALLY Report ID: [id number] Reading Location: [id number] Procedure Note Neville Nova MD - 02/16/2025 EXAM DESCRIPTION: CT ABDOMEN PELVIS W CONTRAST REASON FOR STUDY: Abdominal pain, acute, nonlocalized Lower right quadrant pain, Vomiting after medication TECHNIQUE: CT scan of the abdomen and pelvis performed with intravenousand without oral contrast using helical scanning technique with dynamic intravenous contrast injection. Reconstructed coronal and sagittal MPRimages reviewed. All images stored on PACS. Automated exposure control was usedas a dose optimization technique for this examination. CONTRAST TYPE/DOSE: 75mL of IOVERSOL 350 MG IODINE/ML INTRAVENOUSSYRINGE injected via intravenous COMPARISON: 03/12/2024 FINDINGS: LOWER CHEST: No consolidation or effusion. Heart size is enlarged. Coronary arterial calcifications are present. Small hiatal hernia. LIVER: Normal size. No identified cystic or solid masses. GALLBLADDER: Markedly distended gallbladder with subtle wall thickeningand surrounding induration extending along adjacent peritoneal reflections and omentum could indicate changes of acute cholecystitis. This extends tothe adjacent hepatic flexure of colon. Colitis probably less likely orsecondary in nature. BILE DUCTS: Vfrx-bi-bqwcoere intrahepatic biliary ductal dilatation. Extrahepatic ducts mildly prominent without a calcification identified. SPLEEN: Normal size. No focal lesions. PANCREAS: No identified cystic or solid masses. No significant calcifications. No adjacent inflammation or peripancreatic fluidcollections. Pancreatic duct not dilated. ADRENALS: Left adrenal thickening unchanged. KIDNEYS/URINARY TRACT: No hydronephrosis. Cortical hypodensities left kidney most consistent with simple cysts no follow-up required perguidelines. Generally similar to previous. Urinary bladder is distended with excreted contrast material. Tinyair bubble within the bladder may be related to instrumentation. Pleasecorrelate clinically. GI: The stomach and transverse duodenum appear normal. Loops of smallbowel and terminal ileum appear unremarkable. Cecum is unremarkable. Theappendix is not well visualized. The hepatic flexure and proximal transverse colon demonstrates adjacent induration of mesenteric and omental surfaces near the gallbladder as discussed above. No focal fluid collections. Moderate stool burden diffusely. PERITONEUM: No ascites or free air. RETROPERITONEUM: No mass or adenopathy. REPRODUCTIVE: The uterus demonstrates a central low-density measuring3.6 x 2.5 cm in transverse dimension on image 113 of series 2. This measures2.9 cm on sagittal image 69. This appears more prominent than previous. Please correlate for trapped fluid in the endometrium. VASCULATURE: Stent graft device is demonstrated with the greatesttransverse dimension of 4.0 cm unchanged. No surrounding induration or fluid. MUSCULOSKELETAL: Chronic appearing T12 compression deformity with bone cement identified. T11 fracture is moderate in severity, without retropulsed fragment and new from 03/12/2024. T10 fracture is generally unchanged. OTHER: No other abnormality. IMPRESSION: Markedly distended gallbladder with wall thickening and surrounding induration suggesting acute cholecystitis. Consider ultrasound toconfirm. Gfly-sg-gwjxwxjy intrahepatic biliary ductal dilatation. A degree ofbiliary obstruction is difficult to exclude. Central low-density within the uterus measures up to 3.6 cm and appearsmore prominent than previous. Please correlate for trapped fluid in theendometrium. T11 compression fracture is new from 03/12/2024 exam. THIS IS AN ELECTRONICALLY VERIFIED FINAL REPORT 02/16/2025 5:26 AM - Electronically signed by Neville Nova M.D. RB: RB Report ID: [id number] Reading Location: [place] [id number] us Xiao Barksdale MD IMG CT PROCEDURES Final Result * (ABNORMAL) Troponin T high-sensitivity (02/16/2025 3:49 AM CDT) Trop T hs 19(H) <=14 ng/L Comment: Interpretive Data For further hscTnT resources including the diagnostic algorithm and an aid in interpretation, copy and paste this link: https://nrl.testcatalog.org/show/hsTrop Current Interpretive Data last revised 2020. Blood 02/16/2025 3:49 AM CDT 02/16/2025 5:15 AM CDT us Xiao Barksdale MD LAB BLOOD ORDERABLES Final Resul t [facility] ([place]) 5 [facility] [place] [address] * eGFR (02/16/2025 3:49 AM CDT) eGFR 67 >=60 mL/min/1. 73 m2 Comment: Interpretive Data Reference Interval Normal >/= 90 mL/min/1.73m2 Mildly decreased* 60 - 89 mL/min/1.73m2 Mildly to moderately decreased 45 - 59 mL/min/1.73m2 Moderately to severely decreased 30 - 44 mL/min/1.73m2 Severely decreased 15 - 29 mL/min/1.73m2 Kidney Failure < 15 mL/min/1.73m2 *Relative to young adult level Estimated glomerular filtration rate is determined by the 2020 CKD-EPI equation recommended by the National Kid[employer] (A Unifying Approach to GFR Estimation: Recommendations of the NKF-ASK Task Force on Reassessing the Inclusion of Race in Diagnosing Kidney Disease, JASN 2020). The CKD-EPI equation should not be used for patients with unstable renal function and has not been validated in children and those over 70. Current interpretive data was last reviewed 2021. Blood 02/16/2025 3:49 AM CDT 02/16/2025 5:14 AM CDT us Kyle Elliott DO LAB BLOOD ORDERABLES Fin al Result [facility] ([place]) 1 [facility] Department [place] [address] * (ABNORMAL) Differential, auto (02/16/2025 3:49 AM CDT) Neutrophil abs 14.01(H) 1.50 - 6.50 K/cumm Imm gran abs 0.09 0.00 - 0.10 K/cumm [facility] ([place]) Lymphocyte abs 0.96 0.80 - 3.30 K/cumm [facility] ([place]) Monocyte abs 1.15(H) 0.20 - 0.80 K/cumm [facility] ([place]) Eosinophil abs 0.01 0.00 - 0.50 K/cumm [facility] ([place]) Basophil abs 0.04 0.00 - 0.10 K/cumm [facility] ([place]) Neutrophil pct 86.1 % [facility] ([place]) Comment: Interpretive Data Percent cell count reference ranges are not reported, since discordance with absolute values may lead to misinterpretation of CBC data. Current Interpretive Data was last revised on 2017. Imm gran pct 0.6 % [facility] ([place]) Comment: Interpretive Data Percent cell count reference ranges are not reported, since discordance with absolute values may lead to misinterpretation of CBC data. Current Interpretive Data was last revised on 2017. Lymphocyte pct 5.9 % [facility] ([place]) Comment: Interpretive Data Percent cell count reference ranges are not reported, since discordance with absolute values may lead to misinterpretation of CBC data. Current Interpretive Data was last revised on 2017. Monocyte pct 7.1 % [facility] ([place]) Comment: Interpretive Data Percent cell count reference ranges are not reported, since discordance with absolute values may lead to misinterpretation of CBC data. Current Interpretive Data was last revised on 2017. Eosinophil pct 0.1 % [facility] ([place]) Comment: Interpretive Data Percent cell count reference ranges are not reported, since discordance with absolute values may lead to misinterpretation of CBC data. Current Interpretive Data was last revised on 2017. Basophil pct 0.2 % [facility] ([place]) Comment: Interpretive Data Percent cell count reference ranges are not reported, since discordance with absolute values may lead to misinterpretation of CBC data. Current Interpretive Data was last revised on 2017. Blood 02/16/2025 3:49 AM CDT 02/16/2025 5:14 AM CDT us Kyle Elliott DO LAB BLOOD ORDERABLES Fin al Result [facility] ([place]) 1 [facility] Department [place] [address] * (ABNORMAL) CBC with auto differential (02/16/2025 3:49 AM CDT) WBC 16.26(H) 3.80 - 9.90 K/cumm Hgb 10.7(L) 11.9 - 15.5 g/dL [facility] ([place]) Hct 33.4(L) 35.6 - 45.5 % [facility] ([place]) Plt 291 150 - 400 K/cumm [facility] ([place]) MPV 9.6 9.1 - 12.3 fL [facility] ([place]) RBC 3.71(L) 3.90 - 5.20 M/cumm [facility] ([place]) MCV 90.0 81.3 - 96.4 fL [facility] ([place]) MCH 28.8 27.1 - 33.3 pg [facility] ([place]) MCHC 32.0(L) 32.3 - 35.7 g/dL [facility] RDW CV 14.6 11.1 - 14.9 % [facility] ([place]) RDW SD 48.1 35.7 - 48.1 fL [facility] NRBC abs 0.00 0.00 - 0.01 K/cumm [facility] Blood 02/16/2025 3:49 AM CDT 02/16/2025 5:14 AM CDT Kyle Elliott DO LAB BLOOD ORDERABLES Fin al Result [facility] ([place]) 1 [facility] [place] [address] * Phosphorus (02/16/2025 3:49 AM CDT) Phosphorus, pl 3.1 2.3 - 4.5 mg/dL Blood 02/16/2025 3:49 AM CDT 02/16/2025 5:14 AM CDT Kyle Elliott DO LAB BLOOD ORDERABLES Fin al Result Performing Organization Address City/[facility]/ZIP Co de Phone Number [facility] ([place]) 1 [facility] [place] [address] * Magnesium (02/16/2025 3:49 AM CDT) Magnesium 1.7 1.4 - 2.5 mg/dL Blood 02/16/2025 3:49 AM CDT 02/16/2025 5:14 AM CDT Kyle Elliott DO LAB BLOOD ORDERABLES Fin al Result [facility] ([place]) 1 [facility] [place] [address] * (ABNORMAL) Comprehensive metabolic panel (02/16/2025 3:49 AM CDT) Sodium 136 135 - 145 mmol/L Potassium, pl 4.0 3.3 - 4.9 mmol/L [facility] ([place]) Chloride 101 97 - 110 mmol/L [facility] ([place]) CO2 21(L) 22 - 32 mmol/L [facility] ([place]) Anion gap 14 2 - 15 mmol/L [facility] ([place]) BUN 17 6 - 25 mg/dL [facility] ([place]) Creatinine 0.87 0.60 - 1.10 mg/dL [facility] ([place]) Glucose 84 70 - 199 mg/dL [facility] ([place]) Comment: Interpretive Data Fasting glucose >/= 126 mg/dl is diagnostic for diabetes. Fasting is defined as no caloric intake for at least 8 hours. Fasting glucose between 100 mg/dl to 125 mg/dl is diagnostic of prediabetes. In a patient with classic symptoms of hyperglycemia or hyperglycemic crisis, a random glucose >/= 200 mg/dl is diagnostic for diabetes. In the absence of unequivocal hyperglycemia, results should be confirmed by repeat testing. The classification and Diagnosis of Diabetes Diabetes Care 2021; 46: S19-S40. Current interpretive data was last revised 2022. Calcium 8.7 8.5 - 10.3 mg/dL [facility] ([place]) Bilirubin, total 0.2 0.1 - 1.2 mg/dL [facility] ([place]) Protein, pl 5.6(L) 6.5 - 8.5 g/dL [facility] ([place]) Albumin 3.0(L) 3.5 - 5.0 g/dL [facility] ([place]) Alk phos 137(H) 40 - 130 Units/L [facility] ([place]) ALT 36 7 - 45 Units/L [facility] ([place]) AST 29 10 - 45 Units/L [facility] ([place]) Blood 02/16/2025 3:49 AM CDT 02/16/2025 5:14 AM CDT us Kyle Elliott DO LAB BLOOD ORDERABLES Fin al Result [facility] ([place]) 1 [facility] [place] [address] * Troponin T high-sensitivity 6-hour (02/15/2025 4:32 PM CDT) Trop T hs 14 <=14 ng/L Comment: Interpretive Data For further hscTnT resources including the diagnostic algorithm and an aid in interpretation, copy and paste this link: [email or web address]/[email or web address] Current Interpretive Data last revised 2020. Trop T hs delta -3 ng/L [facility] ([place]) Trop T hs interp Insignificant [facility] ([place]) Blood 02/15/2025 4:32 PM CDT 02/15/2025 4:35 PM CDT Rosa Claudio MD LAB BLOOD ORDERABLE S Final Result Performing Organization Address [facility] Co de Phone Number [facility] ([place]) 1 [facility] [place] [address] * (ABNORMAL) Troponin T high-sensitivity 2-hour (02/15/2025 1:08 PM CDT) Trop T hs 15(H) <=14 ng/L Comment: Interpretive Data For further hscTnT resources including the diagnostic algorithm and an aid in interpretation, copy and paste this link: [email or web address].[email or web address]/show/[email or web address] Current Interpretive Data last revised 2020. Trop T hs delta -2 ng/L [facility] ([place]) Trop T hs interp Insignificant [facility] ([place]) Blood 02/15/2025 1:08 PM CDT 02/15/2025 1:15 PM CDT Rosa Claudio MD LAB BLOOD ORDERABLE S Final Result Performing Organization Address City/[facility]/ZIP Co de Phone Number [facility] ([place]) [address] Department [place] [address] * (ABNORMAL) Urinalysis reflex to microscopic and culture Urine (02/15/2025 1:08 PM CDT) Color, ur Yellow Yellow Clarity, ur Clear Clear [facility] ([place]) Specific gravity, ur 1.043(H) 1.003 - 1.030 [facility] ([place]) pH, urine 6.0 [facility] ([place]) Comment: Interpretive Data U rine pH is affected by diet, medications, systemic acid-base disturbances, and renal tubular function. pH may affect urinary stone formation. For example, urine pH below 6.0 may help reduce the tendency for calcium phosphate stones and pH greater than 6.0 may reduce the tendency for uric acid stone formation. Source: [facility] [place] Current Interpretive Data was last revised on 2017 Protein, ur ql Negative Negative [facility] ([place]) Glucose, ur ql Negative Negative [facility] ([place]) Ketones, ur Trace Negative [facility] ([place]) Bilirubin, ur Negative Negative [facility] ([place]) Blood, ur Negative Negative [facility] ([place]) Urobilinogen, ur <2.0 <2.0 mg/dL [facility] ([place]) Nitrite, ur Positive(A) Negative [facility] ([place]) Leukocyte esterase, ur Negative Negative [facility] ([place]) UA reflex comment Reflex to microscopic UA will be performed. [facility] ([place]) Urine 02/15/2025 1:08 PM CDT 02/15/2025 1:15 PM CDT us Rosa Claudio MD LAB MICROBIOLOGY - GENERAL ORDERABLES Final Result [facility] ([place]) 1 [facility] [place] [address] * (ABNORMAL) Urinalysis, microscopic only (02/15/2025 1:08 PM CDT) WBC, ur 0-5 0 - 5 /HPF RBC, ur 0-2 0 - 2 /HPF [facility] ([place]) Bacteria, ur Trace(A) [facility] ([place]) Mucous, ur Present(A) MIC[facility] ([place]) Hyaline casts, ur 6-10 0 - 10 /LPF [facility] ([place]) Culture Reflex Comment Reflex conditions for urine culture (WBC >10) not met. [facility] ([place]) Urine 02/15/2025 1:08 PM CDT 02/15/2025 1:15 PM CDT us Rosa Claudio MD LAB URINE ORDERABLE S Final Result [facility] ([place]) 1 [facility] [place] [address] * CT Chest PE (CTA) W Contrast (02/15/2025 12:48 PM CDT) Anatomical Region Laterality Modality Body N/A Computed Tomogra phy 02/15/2025 1:13 PM CDT Narrative 02/15/2025 1:38 PM CDT EXAM DESCRIPTION: CT CHEST PE (CTA) W CONTRAST REASON FOR STUDY: chest pain' Difficulty breathing and chest pain. Chest pain was 7/10 mid to left side of chest. Hx of stents and aneurysm repair. TECHNIQUE: CT angiogram of the chest performed with intravenous contrast using helical scanning technique with dynamic intravenous contrast injection. Reconstructed coronal and sagittal MPR images reviewed. All images stored on PACS. 3D MIP images rendered on scanning unit and reviewed at time of interpretation. Automated exposure control was used as a dose optimization technique for this examination. CONTRAST TYPE/DOSE: 75mL of IOVERSOL 350 MG IODINE/ML INTRAVENOUS SYRINGE injected via intravenous COMPARISON: Prior CT 04/14/2023 and 05/30/2020. MRI lumbar spine 12/17/2024. FINDINGS: VASCULATURE: There is good opacification of the pulmonary arteries. No evidence of pulmonary embolism the main pulmonary artery is mildly enlarged at 3.3 cm. This may reflect a component of pulmonary hypertension. The thoracic aorta demonstrates atherosclerotic change. No aneurysmal dilatation. LUNGS: The central airway is patent. No confluent infiltrate. Minimal cystic change posterior aspect left upper lobe unchanged from prior. Trivial dependent opacities favoring atelectasis. 6.4 mm nodule right upper lobe towards the apex centrally, image 18 of 90 series 5 lung windows. This is new from the prior exam. PLEURA: No effusion. No pneumothorax. MEDIASTINUM/ROSENDA: Subtle windows demonstrate no adenopathy by size criteria. Thyroid gland appears normal. HEART: There is cardiomegaly. No pericardial effusion. There is coronary artery calcification. AXILLA: No adenopathy. CHEST WALL: No masses. No subcutaneous air. HARDWARE/LINES/TUBES: None. UPPER ABDOMEN: Limited views through the more extreme upper abdomen again demonstrates thickening of the left adrenal gland similar to prior. The prior exam was performed without IV contrast and measured 5 Hounsfield units indicating benign etiology such as an adenoma. MUSCULOSKELETAL: Again seen is a compression fracture and vertebroplasty of T12 similar to the prior exam. There is a compression fracture of T11 with cortical irregularity along the anterior inferior endplate. As was seen on the MRI of 12/17/2024. Prominent central compression fracture T10 is also seen similar to the MRI of 12/17/2024. There is a compression fracture of T7 which is above the level of the previous MRI of the lumbar spine. This is not seen on 04/14/2023. Depression of the superior endplate with areas of sclerosis along the endplates. No definite cortical break. Exact chronicity of this compression fracture is unknown. No retropulsion. Correlate clinically for pain over this area. If clinically warranted. Follow-up MRI could be obtained to evaluate for marrow edema over this area in terms of evaluating for chronicity. OTHER: No significant abnormality. IMPRESSION: No evidence of pulmonary embolism. No confluent infiltrate of the chest. There is a 6.4 mm nodule of the right upper lobe towards the apex centrally. This is new from the prior exam. Per Fleischner Society Guidelines, non-contrast chest CT in 6 months is recommended. If the nodule is stable at time of repeat CT, then future CT at 18 to 24 months (from todays scan) is considered optional for low-risk patients, but is recommended for high-risk patients. There is a compression fracture of T7 which is above the level of the previous MRI of the lumbar spine. This is not seen on 04/14/2023. Depression of the superior endplate with areas of sclerosis along the endplates. No definite cortical break. Exact chronicity of this compression fracture is unknown. No retropulsion. Correlate with pain to this area. If clinically warranted, follow-up MRI could be obtained to evaluate for marrow edema over this area in terms of evaluating for chronicity. Again seen is a compression fracture and vertebroplasty of T12 similar to the prior exam. Again seen is a compression fracture of T11 with cortical irregularity along the anterior inferior endplate as was seen on the MRI of 12/17/2024. Prominent central compression fracture T10 is also seen similar to the MRI of 12/17/2024. Cardiomegaly with coronary artery calcification. Mild enlargement of the main pulmonary artery. This may reflect a component of pulmonary hypertension. THIS IS AN ELECTRONICALLY VERIFIED FINAL REPORT 02/15/2025 1:38 PM - Electronically signed by Ranjan Peters M.D. MJ: LIBAN Report ID: [id number] Reading Location: [id number] Procedure Note Ranjan Peters MD - 02/15/2025 EXAM DESCRIPTION: CT CHEST PE (CTA) W CONTRAST REASON FOR STUDY: chest pain' Difficulty breathing and chest pain. Chest pain was 7/10 mid to left sideof chest. Hx of stents and aneurysm repair. TECHNIQUE: CT angiogram of the chest performed with intravenous contrastusing helical scanning technique with dynamic intravenous contrast injection. Reconstructed coronal and sagittal MPR images reviewed. All images storedon PACS. 3D MIP images rendered on scanning unit and reviewed at time of interpretation. Automated exposure control was used as a doseoptimization technique for this examination. CONTRAST TYPE/DOSE: 75mL of IOVERSOL 350 MG IODINE/ML INTRAVENOUSSYRINGE injected via intravenous COMPARISON: Prior CT 04/14/2023 and 05/30/2020. MRI lumbar spine 12/17/2024. FINDINGS: VASCULATURE: There is good opacification of the pulmonary arteries. No evidence of pulmonary embolism the main pulmonary artery is mildly enlarged at 3.3 cm. This may reflect a component of pulmonary hypertension. The thoracic aorta demonstrates atherosclerotic change. No aneurysmal dilatation. LUNGS: The central airway is patent. No confluent infiltrate. Minimal cysticchange posterior aspect left upper lobe unchanged from prior. Trivial dependent opacities favoring atelectasis. 6.4 mm nodule right upper lobe towards the apex centrally, image 18 of 90 series 5 lung windows. This is new from the prior exam. PLEURA: No effusion. No pneumothorax. MEDIASTINUM/ROSENDA: Subtle windows demonstrate no adenopathy by sizecriteria. Thyroid gland appears normal. HEART: There is cardiomegaly. No pericardial effusion. There is coronary artery calcification. AXILLA: No adenopathy. CHEST WALL: No masses. No subcutaneous air. HARDWARE/LINES/TUBES: None. UPPER ABDOMEN: Limited views through the more extreme upper abdomenagain demonstrates thickening of the left adrenal gland similar to prior. Theprior exam was performed without IV contrast and measured 5 Hounsfield units indicating benign etiology such as an adenoma. MUSCULOSKELETAL: Again seen is a compression fracture and vertebroplasty of T12 similar tothe prior exam. There is a compression fracture of T11 with cortical irregularity alongthe anterior inferior endplate. As was seen on the MRI of 12/17/2024. Prominent central compression fracture T10 is also seen similar to the MRIof 12/17/2024. There is a compression fracture of T7 which is above the level of theprevious MRI of the lumbar spine. This is not seen on 04/14/2023. Depression ofthe superior endplate with areas of sclerosis along the endplates. Nodefinite cortical break. Exact chronicity of this compression fracture is unknown.No retropulsion. Correlate clinically for pain over this area. Ifclinically warranted. Follow-up MRI could be obtained to evaluate for marrow edemaover this area in terms of evaluating for chronicity. OTHER: No significant abnormality. IMPRESSION: No evidence of pulmonary embolism. No confluent infiltrate of the chest. There is a 6.4 mm nodule of the right upper lobe towards the apexcentrally. This is new from the prior exam. Per Fleischner Society Guidelines, non-contrast chest CT in 6 months is recommended. If the nodule is stableat time of repeat CT, then future CT at 18 to 24 months (from todays scan) is considered optional for low-risk patients, but is recommended forhigh-risk patients. There is a compression fracture of T7 which is above the level of the previous MRI of the lumbar spine. This is not seen on 04/14/2023.Depression of the superior endplate with areas of sclerosis along the endplates. No definite cortical break. Exact chronicity of this compression fracture is unknown. No retropulsion. Correlate with pain to this area. Ifclinically warranted, follow-up MRI could be obtained to evaluate for marrow edemaover this area in terms of evaluating for chronicity. Again seen is a compression fracture and vertebroplasty of T12 similar tothe prior exam. Again seen is a compression fracture of T11 with cortical irregularityalong the anterior inferior endplate as was seen on the MRI of 12/17/2024.Prominent central compression fracture T10 is also seen similar to the MRI of12/17/2024. Cardiomegaly with coronary artery calcification. Mild enlargement of the main pulmonary artery. This may reflect acomponent of pulmonary hypertension. THIS IS AN ELECTRONICALLY VERIFIED FINAL REPORT 02/15/2025 1:38 PM - Electronically signed by Ranjan Peters M.D. MJ: LIBAN Report ID: [id number] Reading Location: [id number] Rosa Claudio MD IMG CT PROCEDURES F inal Result * Sepsis Lactate w/ Reflex (02/15/2025 11:52 AM CDT) Sepsis Lactate 2.0 0.7 - 2.0 mmol/L Blood 02/15/2025 11:5 2 AM CDT 02/15/2025 11:55 AM CDT Rosa Claudio MD LAB BLOOD ORDERABLE S Final Result MICAH LAI [place]) 1 [facility] [place] [address] * Blood culture Blood Peripheral (02/15/2025 11:52 AM CDT) Report Final Report: No growth Comment:Testing performed by : [facility], [address] [facility], [place]., [address] Blood (Peripheral) 02/15/2025 11:52 AM CDT 02/15/2025 2:09 PM CDT Narrative MICAH LAI (OSCAR) - 02/19/2025 4:00 PM CDT From a different site than #1. Draw Blood cultures before administration of Antibiotics Collection->Peripheral 1. Blood cultures are incubated for 4 days on a continuously monitored blood culture system. The first report of a negative culture is issued within 24 hours of receipt of the specimen in the laboratory. 2. Positive culture results are reported as soon as they are detected. 3. The most important factor for detection of microbes in the setting of bloodstream infection is the volume of blood submitted for culture. Failure to collect an optimal blood volume can result in false negative blood cultures. 4. For pediatric patients, the recommended blood volume to collect follows a weight based strategy. See the electronic test catalog for collection instructions. 5. For positive blood cultures, a rapid molecular test may be performed for organism identification using the ninfa ePlex blood culture identification panel for gram positive (BCID-GP) and gram negative (BCID-GN) organisms. This nucleic acid amplification test detects microbial DNA in positive blood culture broth. This assay has been cleared by the [place] Food and Drug Administration and its performance characteristics have been verified by the [facility] Microbiology Laboratory. For questions about this culture, contact the Microbiology Laboratory at [phone]. Interpretive data was last revised on 24. Rosa Claudio MD LAB MICROBIOLOGY - GENERAL ORDERABLES Final Result KAILEYTRAVIS MING ([place]) 1 [facility] [place] [address] * Blood culture Blood Peripheral (02/15/2025 11:52 AM CDT) Report Final Report: No growth Comment:Testing performed by : [facility], [address] [facility]., [address] Blood (Peripheral) 02/15/2025 11:52 AM CDT 02/15/2025 2:09 PM CDT Narrative MICAH NICHOLSN) - 02/19/2025 4:00 PM CDT Draw Blood cultures before administration of Antibiotics Collection->Peripheral 1. Blood cultures are incubated for 4 days on a continuously monitored blood culture system. The first report of a negative culture is issued within 24 hours of receipt of the specimen in the laboratory. 2. Positive culture results are reported as soon as they are detected. 3. The most important factor for detection of microbes in the setting of bloodstream infection is the volume of blood submitted for culture. Failure to collect an optimal blood volume can result in false negative blood cultures. 4. For pediatric patients, the recommended blood volume to collect follows a weight based strategy. See the electronic test catalog for collection instructions. 5. For positive blood cultures, a rapid molecular test may be performed for organism identification using the ninfa ePlex blood culture identification panel for gram positive (BCID-GP) and gram negative (BCID-GN) organisms. This nucleic acid amplification test detects microbial DNA in positive blood culture broth. This assay has been cleared by the [place] Food and Drug Administration and its performance characteristics have been verified by the [facility] Microbiology Laboratory. For questions about this culture, contact the Microbiology Laboratory at [phone]. Interpretive data was last revised on 24. Rosa Claudio MD LAB MICROBIOLOGY - GENERAL ORDERABLES Final Result MICAH LAI ([place]) 1 [facility] [place] [address] * MT CRITICAL CARE ILL/INJURED PATIENT INIT 30-74 MIN (02/15/2025 11:09 AM CDT) Narrative Rosa Claudio MD - 02/15/2025 11:09 AM CDT Rosa Claudio MD 02/15/2025 1:58 PM Critical Care Performed by: Rosa Claudio MD Authorized by: Rosa Claudio MD Critical care provider statement: As reflected in the history, physical exam, orders, notes, and/or MDM, I was personally present while the patient was critically ill and provided critical care services for 60 minutes, excluding time involved in separately billable procedures. Critical care was necessary to treat or prevent imminent or life-threatening deterioration of the following condition(s): Critical care was time spent by me providing the following: continuous telemetry and serial bedside patient exams acute diuresis I provided emergent necessary critical care medicine services to this patient. I ordered and reviewed test results and/or imaging studies. I spent time discussing the management of this critically ill patient with consultants and the medical staff. I spent time discussing the management and therapeutic options for this critically ill patient with the patient themselves or with the appropriate designated surrogate decision-maker. I spent time documenting in the medical record. I admitted this patient to a continuous cardiac monitored bed. Rosa Claudio MD IN CLINIC/BEDSIDE O RDERABLES Final Result * (ABNORMAL) Troponin T high-sensitivity series (baseline, 2hr, 4hr, 6hr) (02/15/2025 10:47 AM CDT) Trop T hs 17(H) <=14 ng/L Comment: Interpretive Data For further hscTnT resources including the diagnostic algorithm and an aid in interpretation, copy and paste this link: https://nrl.testcatalog.org/show/hsTrop Current Interpretive Data last revised 2020. Blood 02/15/2025 10:4 7 AM CDT 02/15/2025 10:50 AM CDT Rosa Claudio MD LAB BLOOD ORDERABLE S Final Result [facility] [place] 1 [facility] [place] [address] * eGFR (02/15/2025 10:47 AM CDT) eGFR 61 >=60 mL/min/1. 73 m2 Comment: Interpretive Data Reference Interval Normal >/= 90 mL/min/1.73m2 Mildly decreased* 60 - 89 mL/min/1.73m2 Mildly to moderately decreased 45 - 59 mL/min/1.73m2 Moderately to severely decreased 30 - 44 mL/min/1.73m2 Severely decreased 15 - 29 mL/min/1.73m2 Kidney Failure < 15 mL/min/1.73m2 *Relative to young adult level Estimated glomerular filtration rate is determined by the 2020 CKD-EPI equation recommended by the National Kidney Foundation (A Unifying Approach to GFR Estimation: Recommendations of the NKF-ASK Task Force on Reassessing the Inclusion of Race in Diagnosing Kidney Disease, JASN 2020). The CKD-EPI equation should not be used for patients with unstable renal function and has not been validated in children and those over 70. Current interpretive data was last reviewed 2021. Blood 02/15/2025 10:4 7 AM CDT 02/15/2025 10:50 AM CDT us Rosa Claudio MD LAB BLOOD ORDERABLE S Final Result MICAH [facility] ([place]) 1 [facility] [place] [address] * (ABNORMAL) Differential, auto (02/15/2025 10:47 AM CDT) Neutrophil abs 13.19(H) 1.50 - 6.50 K/cumm Imm gran abs 0.07 0.00 - 0.10 K/cumm [facility] ([place]) Lymphocyte abs 0.88 0.80 - 3.30 K/cumm [facility] ([place]) Monocyte abs 0.80 0.20 - 0.80 K/cumm [facility] ([place]) Eosinophil abs 0.18 0.00 - 0.50 K/cumm [facility] ([place]) Basophil abs 0.09 0.00 - 0.10 K/cumm [facility] ([place]) Neutrophil pct 86.6 % [facility] ([place]) Comment: Interpretive Data Percent cell count reference ranges are not reported, since discordance with absolute values may lead to misinterpretation of CBC data. Current Interpretive Data was last revised on 2017. Imm gran pct 0.5 % [facility] ([place]) Comment: Interpretive Data Percent cell count reference ranges are not reported, since discordance with absolute values may lead to misinterpretation of CBC data. Current Interpretive Data was last revised on 2017. Lymphocyte pct 5.8 % [facility] ([place]) Comment: Interpretive Data Percent cell count reference ranges are not reported, since discordance with absolute values may lead to misinterpretation of CBC data. Current Interpretive Data was last revised on 2017. Monocyte pct 5.3 % [facility] ([place]) Comment: Interpretive Data Percent cell count reference ranges are not reported, since discordance with absolute values may lead to misinterpretation of CBC data. Current Interpretive Data was last revised on 2017. Eosinophil pct 1.2 % [facility] ([place]) Comment: Interpretive Data Percent cell count reference ranges are not reported, since discordance with absolute values may lead to misinterpretation of CBC data. Current Interpretive Data was last revised on 2017. Basophil pct 0.6 % [facility] ([place]) Comment: Interpretive Data Percent cell count reference ranges are not reported, since discordance with absolute values may lead to misinterpretation of CBC data. Current Interpretive Data was last revised on 2017. Blood 02/15/2025 10:4 7 AM CDT 02/15/2025 10:50 AM CDT us Rosa Claudio MD LAB BLOOD ORDERABLE S Final Result MICAH LAI ([place]) 1 [facility] [place] [address] * (ABNORMAL) Pro B-type natriuretic peptide (02/15/2025 10:47 AM CDT) NT-proBNP 1,484(H) <=450 pg/mL Comment: Interpretive Comments: A. Dyspnea in Acute Care Setting All Ages: < 300 pg/ml, acute heart failure unlikely. < 50 yrs: 300 - 450 pg/ml, further investigation warranted. > 450 pg/ml, acute heart failure likely. 50 - 74 yrs: 300 - 900 pg/ml, further investigation warranted. > 900 pg/ml, acute heart failure likely . > or = 75 yrs: 450 - 1800 pg/ml, further investigation warranted. > 1800 pg/ml, acute heart failure likely. B. Non-acute Setting < 75 yrs < 125 pg/ml, rules out heart failure. > or = 125 pg/ml, further investigation warranted. > or = 75 yrs < 450 pg/ml, rules out heart failure. > or = 450 pg/ml, further investigation warranted. - Knowledge of each individual patient's NT-proBNP range may be more useful than using similar cut-points for every patient. Please note that marked elevations in NT-proBNP levels may be observed in state other than Left Ventricular Congestive Failure, including: acute coronary syndromes, right heart strain/failure (including pulmonary embolism and cor pulmonale), critical illness, renal failure, as well as advanced age. - References: 1. Tunde AC et.al. Eur Heart J. 2006:27:330-337. 2. Estefany AKINS, Marcel SINGH. J. AM Dasha Cardiol: Cardiovasc Imag. 2009;2: 216- 225. Interpretive Data Last Revised Date: 2018. Blood 02/15/2025 10:4 7 AM CDT 02/15/2025 11:39 AM CDT us Rosa Claudio MD LAB BLOOD ORDERABLE S Final Result MICAH LAI ([place]) 1 [facility] Department of Laboratories [place], [place] [id number] * (ABNORMAL) CBC with auto differential (02/15/2025 10:47 AM CDT) WBC 15.21(H) 3.80 - 9.90 K/cumm Hgb 10.3(L) 11.9 - 15.5 g/dL [facility] ([place]) Hct 32.9(L) 35.6 - 45.5 % [facility] ([place]) Plt 296 150 - 400 K/cumm [facility] ([place]) MPV 9.3 9.1 - 12.3 fL [facility] ([place]) RBC 3.60(L) 3.90 - 5.20 M/cumm [facility] ([place]) MCV 91.4 81.3 - 96.4 fL [facility] ([place]) MCH 28.6 27.1 - 33.3 pg MICAH LAI ([place]) MCHC 31.3(L) 32.3 - 35.7 g/dL [facility] ([place]) RDW CV 14.6 11.1 - 14.9 % MICAH LAI ([place]) RDW SD 49.1(H) 35.7 - 48.1 fL MICAH LAI ([place]) NRBC abs 0.00 0.00 - 0.01 K/cumm MICAH LAI ([place]) Blood Venous blood specimen / Unknown 02/15/2025 10:47 AM CDT 02/15/2025 10:50 AM CDT Rosa Claudio MD LAB BLOOD ORDERABLE S Final Result Performing Organization Address [facility] Co de Phone Number MICAH LAI ([place]) 1 [facility] [place] [address] * Protime-INR (02/15/2025 10:47 AM CDT) PT 11.1 9.7 - 13.0 sec MICAH LAI ([place]) INR 1.03 0.90 - 1.20 MICAH LAI ([place]) Comment: Interpretive data Oral anticoagulant therapeutic ranges: Venous thromboembolism prophylaxis or treatment: 2.0-3.0 CARDIOLOGY Standard range: 2.0-3.0 High-intensity range: 2.5-3.5 Refer to indication-specific guidelines for appropriate target ranges for prosthetic heart valve replacement. Current interpretive data was last revised on 2019. Blood 02/15/2025 10:4 7 AM CDT 02/15/2025 11:39 AM CDT Rosa Claudio MD LAB BLOOD ORDERABLE S Final Result Performing Organization Address City/[facility]/ZIP Co de Phone Number MICAH LAI ([place]) 1 [facility] [place] [address] * (ABNORMAL) Comprehensive metabolic panel (02/15/2025 10:47 AM CDT) Sodium 136 135 - 145 mmol/L Potassium, pl 4.4 3.3 - 4.9 mmol/L [facility] ([place]) Chloride 103 97 - 110 mmol/L [facility] ([place]) CO2 21(L) 22 - 32 mmol/L [facility] ([place]) Anion gap 11 2 - 15 mmol/L [facility] ([place]) BUN 16 6 - 25 mg/dL [facility] ([place]) Creatinine 0.94 0.60 - 1.10 mg/dL [facility] ([place]) Glucose 115 70 - 199 mg/dL [facility] ([place]) Comment: Interpretive Data Fasting glucose >/= 126 mg/dl is diagnostic for diabetes. Fasting is defined as no caloric intake for at least 8 hours. Fasting glucose between 100 mg/dl to 125 mg/dl is diagnostic of prediabetes. In a patient with classic symptoms of hyperglycemia or hyperglycemic crisis, a random glucose >/= 200 mg/dl is diagnostic for diabetes. In the absence of unequivocal hyperglycemia, results should be confirmed by repeat testing. The classification and Diagnosis of Diabetes Diabetes Care 202; 46: S19-S40. Current interpretive data was last revised 2022. Calcium 8.6 8.5 - 10.3 mg/dL [facility] ([place]) Bilirubin, total 0.3 0.1 - 1.2 mg/dL [facility] ([place]) Protein, pl 5.1(L) 6.5 - 8.5 g/dL [facility] ([place]) Albumin 3.0(L) 3.5 - 5.0 g/dL [facility] ([place]) Alk phos 134(H) 40 - 130 Units/L [facility] ([place]) ALT 29 7 - 45 Units/L [facility] ([place]) AST 52(H) 10 - 45 Units/L [facility] ([place]) Blood 02/15/2025 10:4 7 AM CDT 02/15/2025 10:50 AM CDT us Rosa Claudio MD LAB BLOOD ORDERABLE S Final Result [facility] ([place]) 1 [facility] [place] [address] * XR Chest 1 Vw Portable (if patient condition/safety warrant portable) (02/15/2025 10:45 AM CDT) Anatomical Region Laterality Modality Body, Chest N/A Computed Radiogr aphy 02/15/2025 11:1 0 AM CDT Narrative 02/15/2025 11:18 AM CDT EXAM DESCRIPTION: XR CHEST 1 VIEW REASON FOR STUDY: chest pain Chest pain TECHNIQUE: Frontal radiographic view(s) of the chest. COMPARISON: CT of the chest dated 04/14/2023 and chest radiograph dated 12/03/2022. FINDINGS: LUNGS: No focal airspace consolidation. No pleural effusion or pneumothorax. Skin fold is seen along the left lateral chest wall. HEART/MEDIASTINUM: Cardiomegaly. Thoracic atherosclerosis. Mediastinal and hilar contours appear normal. LINES/TUBES: None. BONES: No acute osseous abnormality. IMPRESSION: Stable chest without acute cardiopulmonary abnormality. THIS IS AN ELECTRONICALLY VERIFIED FINAL REPORT 02/15/2025 11:18 AM - Electronically signed by Ranjan Krishnan M.D. MF: [email or web address] Report ID: [id number] Reading Location: [id number] Procedure Note Ranjan Krishnan, DO - 02/15/2025 EXAM DESCRIPTION: XR CHEST 1 VIEW REASON FOR STUDY: chest pain Chest pain TECHNIQUE: Frontal radiographic view(s) of the chest. COMPARISON: CT of the chest dated 04/14/2023 and chest radiograph dated 12/03/2022. FINDINGS: LUNGS: No focal airspace consolidation. No pleural effusion orpneumothorax. Skin fold is seen along the left lateral chest wall. HEART/MEDIASTINUM: Cardiomegaly. Thoracic atherosclerosis. Mediastinaland hilar contours appear normal. LINES/TUBES: None. BONES: No acute osseous abnormality. IMPRESSION: Stable chest without acute cardiopulmonary abnormality. THIS IS AN ELECTRONICALLY VERIFIED FINAL REPORT 02/15/2025 11:18 AM - Electronically signed by Ranjan Krishnan M.D. MF: [email or web address] Report ID: [id number] Reading Location: [id number] Rosa Claudio MD IMG XR PROCEDURES F inal Result * ECG 12 lead (02/15/2025 10:38 AM CDT) 02/15/2025 10:3 8 AM CDT Narrative [facility] - 02/16/2025 7:17 AM CDT Vent Rate: 55 bpm RR Interval: 1089 msec MT Interval: 152 msec QRS Duration: 101 msec QT Interval: 503 msec QTC Interval: 491 msec P-R-T [place]: 44 - -29 - 136 degrees IMPRESSION: SINUS BRADYCARDIA Leftward axis Baseline artifact Poor R-wave progression Diffuse T-wave changes Compared to prior EKG, ST changes no longer seen now Electronically Signed By: Dr Neville Luciano Rosa Claudio MD ECG ORDERABLES Fin al Result [facility] * US Transvaginal (02/12/2025 1:36 PM CDT) [place] No free fluid visualized [facility] Endometrial Thickness 29.0 mm&millim eters [facility] Anatomical Region Laterality Modality Pelvis N/A Ultrasound 02/12/2025 1:48 PM CDT Impressions 02/12/2025 1:57 PM CDT 1. There is a normal-sized uterus without evidence of fibroids. The lining of the uterus remains thickened at 29 mm. However, this is down from 51 mm on 01/07/2025. Clinical correlation is recommended. 2. Neither ovary is visualized. Narrative Procedure Note Sisi Rich MD - 02/12/2025 IMPRESSION: 1. There is a normal-sized uterus without evidence of fibroids. Thelining of the uterus remains thickened at 29 mm. However, this is downfrom 51 mm on 01/07/2025. Clinical correlation is recommended. 2. Neither ovary is visualized. Sisi Rich MD IMG US PROCEDURES F inal Result * (ABNORMAL) eGFR (01/26/2025 3:59 PM CDT) eGFR 55(L) >=60 mL/min/1. 73 m2 Comment: Interpretive Data Reference Interval Normal >/= 90 mL/min/1.73m2 Mildly decreased* 60 - 89 mL/min/1.73m2 Mildly to moderately decreased 45 - 59 mL/min/1.73m2 Moderately to severely decreased 30 - 44 mL/min/1.73m2 Severely decreased 15 - 29 mL/min/1.73m2 Kidney Failure < 15 mL/min/1.73m2 *Relative to young adult level Estimated glomerular filtration rate is determined by the 2020 CKD-EPI equation recommended by the National Kidney Foundation (A Unifying Approach to GFR Estimation: Recommendations of the NKF-ASK Task Force on Reassessing the Inclusion of Race in Diagnosing Kidney Disease, JASN 2020). The CKD-EPI equation should not be used for patients with unstable renal function and has not been validated in children and those over 70. Current interpretive data was last reviewed 2021. Blood 01/26/2025 3:59 PM CDT 01/26/2025 8:51 PM CDT Lamberto Faria MD LAB BLOOD ORDERABLES Fi nal Result MICAH [facility] [id number] [address] Department [place] [address] * (ABNORMAL) Differential, auto (01/26/2025 3:59 PM CDT) Neutrophil abs 6.29 1.50 - 6.50 K/cumm Imm gran abs 0.03 0.00 - 0.10 K/cumm [facility] Lymphocyte abs 1.49 0.80 - 3.30 K/cumm [facility] Monocyte abs 0.62 0.20 - 0.80 K/cumm [facility] Eosinophil abs 0.31 0.00 - 0.50 K/cumm [facility] Basophil abs 0.13(H) 0.00 - 0.10 K/cumm [facility] Neutrophil pct 70.9 % [facility] Comment: Interpretive Data Percent cell count reference ranges are not reported, since discordance with absolute values may lead to misinterpretation of CBC data. Current Interpretive Data was last revised on 2017. Imm gran pct 0.3 % [facility] Comment: Interpretive Data Percent cell count reference ranges are not reported, since discordance with absolute values may lead to misinterpretation of CBC data. Current Interpretive Data was last revised on 2017. Lymphocyte pct 16.8 % [facility] Comment: Interpretive Data Percent cell count reference ranges are not reported, since discordance with absolute values may lead to misinterpretation of CBC data. Current Interpretive Data was last revised on 2017. Monocyte pct 7.0 % [facility] Comment: Interpretive Data Percent cell count reference ranges are not reported, since discordance with absolute values may lead to misinterpretation of CBC data. Current Interpretive Data was last revised on 2017. Eosinophil pct 3.5 % [facility] Comment: Interpretive Data Percent cell count reference ranges are not reported, since discordance with absolute values may lead to misinterpretation of CBC data. Current Interpretive Data was last revised on 2017. Basophil pct 1.5 % [facility] Comment: Interpretive Data Percent cell count reference ranges are not reported, since discordance with absolute values may lead to misinterpretation of CBC data. Current Interpretive Data was last revised on 2017. Blood 01/26/2025 3:59 PM CDT 01/26/2025 8:48 PM CDT us Lamberto Faria MD LAB BLOOD ORDERABLES Fi nal Result [facility] [id number] [address] Department [place] [address] * Thyroid Function [place] (01/26/2025 3:59 PM CDT) TSH 1.08 0.30 - 4.20 mcIUnit/mL Blood 01/26/2025 3:59 PM CDT 01/26/2025 8:48 PM CDT Lamberto Faria MD LAB BLOOD ORDERABLES Fi nal Result Performing Organization Address City/[facility]/ZIP Co de Phone Number MICAH [facility] [id number] Department [place] [address] * (ABNORMAL) CBC with auto differential (01/26/2025 3:59 PM CDT) WBC 8.87 3.80 - 9.90 K/cumm Hgb 11.2(L) 11.9 - 15.5 g/dL [facility] Hct 36.8 35.6 - 45.5 % [facility] Plt 323 150 - 400 K/cumm [facility] MPV 9.8 9.1 - 12.3 fL [facility] RBC 3.96 3.90 - 5.20 M/cumm [facility] MCV 92.9 81.3 - 96.4 fL [facility] MCH 28.3 27.1 - 33.3 pg [facility] MCHC 30.4(L) 32.3 - 35.7 g/dL [facility] RDW CV 15.5(H) 11.1 - 14.9 % [facility] RDW SD 53.2(H) 35.7 - 48.1 fL [facility] NRBC abs 0.00 0.00 - 0.01 K/cumm [facility] Blood 01/26/2025 3:59 PM CDT 01/26/2025 8:48 PM CDT Lamberto Faria MD LAB BLOOD ORDERABLES Fi nal Result Performing Organization Address City/[facility]/ZIP Co de Phone Number MICAH GOODWIN [id number] [address] [place] [address] * Vitamin D 25 hydroxy (01/26/2025 3:59 PM CDT) Vitamin D 25-OH 77 30 - 80 ng/mL Blood 01/26/2025 3:59 PM CDT 01/26/2025 8:48 PM CDT Lamberto Faria MD LAB BLOOD ORDERABLES Fi nal Result Performing Organization Address [facility] FACILITY Co de Phone Number KAILEYTRAVIS [phone] [facility] [place] [address] * (ABNORMAL) Vitamin B6 (01/26/2025 3:59 PM CDT) Pathologist [facility] Pyridoxal phosphate (Vit B6) <2(L) 5 - 50 mcg/L Amorita ref Lab Comment: ADDITIONAL INFORMATION This test was developed and its performance characteristics determined by [facility] in a manner consistent with CLIA requirements. This test has not been cleared or approved by the U.S. Food and Drug Administration. Test Performed by: [place] [address] Janitorial Manager: Derick Galan Ph.D.; CLIA# [id number] Blood 01/26/2025 3:59 PM CDT 01/26/2025 8:48 PM CDT Lamberto Faria MD LAB BLOOD ORDERABLES Fi nal Result Performing Organization Address [facility] Co de Phone Number KAIELYTRAVIS [phone] [place] [address] [facility] Lab * (ABNORMAL) Hemoglobin A1c (01/26/2025 3:59 PM CDT) Hgb A1C 5.8(H) 4.0 - 5.6 % Estimated Average Glucose 120 mg/dL MICAH GOODWIN Comment: The ADA recommends reporting an estimated Average Glucose (eAG) with all Hemoglobin A1c results using the equation derived from a study of 507 normal and diabetic adults. Minority populations were underrepresented and children were not included. (Diabetes Care 31:9948-7525, 2008). The eAG is not equivalent to a fasting glucose. Blood 01/26/2025 3:59 PM CDT 01/26/2025 8:48 PM CDT Lamberto Faria MD LAB BLOOD ORDERABLES Fi nal Result Performing Organization Address [facility] de Phone Number MICAH GOODWIN [id number] [facility] [place], [place] [id number] * Folate (01/26/2025 3:59 PM CDT) Folic acid 8.9 >=5.0 ng/mL Comment:Hemolysis present. R esults may be affected. Blood 01/26/2025 3:59 PM CDT 01/26/2025 8:48 PM CDT Lamberto Faria MD LAB BLOOD ORDERABLES Fi nal Result Performing Organization Address [facility] de Phone Number MICAH [phone] [address] [place] [address] * Vitamin B12 (01/26/2025 3:59 PM CDT) Pathologist [facility] Vitamin B12 448 230 - 1,250 pg/mL Blood 01/26/2025 3:59 PM CDT 01/26/2025 8:48 PM CDT Lamberto Faria MD LAB BLOOD ORDERABLES Fi nal Result Performing Organization Address [facility] de Phone Number MICAH [phone] [address] [place] [address] * Lipid panel (01/26/2025 3:59 PM CDT) Cholesterol 131 30 - 199 mg/dL Comment: Interpretive Data Ages < or = 19 years Acceptable: <170 mg/dL Borderline high: 170-199 mg/dL High: >or= 200 mg/dL Ages > or = 20 years Desirable: <200 mg/dL Borderline high: 200-239 mg/dL High: >or= 240 mg/dL Literature References: 1. Expert Panel on Integrated Guidelines for Cardiovascular Health and Risk Reduction in Children and Adolescents. Pediatrics 2011;128:S213 2. NCEP Expert Panel. Circulation 2004;110:227 Current Interpretive Data was last revised on 2018. Triglycerides 94 <=149 mg/dL MICAH Comment: Interpretive Data Ages < or = 9 years Acceptable: <75 mg/dL Borderline high: 75-99 mg/dL High: >or= 100 mg/dL Ages 10 to 20 years Acceptable: <90 mg/dL Borderline high: 90-129 mg/dL High: >or= 130 mg/dL Ages > or = 20 years Desirable: <150 mg/dL Borderline high: 150-199 mg/dL High: 200-499 mg/dL Very high: >or= 499 mg/dL Literature References: 1. Expert Panel on Integrated Guidelines for Cardiovascular Health and Risk Reduction in Children and Adolescents. Pediatrics 2011;128:S213 2. NCEP Expert Panel. Circulation 2004;110:227 Current Interpretive Data was last revised on 2018. HDL 55 >=40 mg/dL MICAH GOODWIN Comment: Interpretive Data Ages < or = 19 years Acceptable: >45 mg/dL Borderline low: 40-45 mg/dL Low: <40 mg/dL Ages > or = 20 years Desirable: >or= 60 mg/dL Low: <40 mg/dL Literature References: 1. Expert Panel on Integrated Guidelines for Cardiovascular Health and Risk Reduction in Children and Adolescents. Pediatrics 2011;128:S213 2. NCEP Expert Panel. Circulation 2004;110:227 Current Interpretive Data was last revised on 2018. LDL, calculated 58 <=129 mg/dL MICAH GOODWIN Comment: Interpretive Data Ages < or = 19 years Acceptable: <110 mg/dL Borderline high: 110-129 mg/dL High: >or= 130 mg/dL Ages > or = 20 years Optimal: <100 mg/dL Near optimal: 100-129 mg/dL Borderline high: 130-159 mg/dL High: >160 mg/dL Calculated using the Betancourt LDL-C estimating equation. This equation was implemented on 2024. Prior to this date LDL-C was estimated using the Friedewald equation. Literature References: 1. Expert Panel on Integrated Guidelines for Cardiovascular Health and Risk Reduction in Children and Adolescents. Pediatrics 2011;128:S213 2. NCEP Expert Panel. Circulation 2004;110:227 3. Serafin M et al. KATE Cardiol. 2020 January 08;5(5):540-548. doi: 10.1001/jamacardio.2020.0013 Current Interpretive Data was last revised on 2024. Non-HDL Cholesterol 76 mg/dL [facility] Comment: Interpretive Data Ages < or = 19 years Acceptable: <120 mg/dL Borderline high: 120-144 mg/dL High: >145 mg/dL Ages > or = 20 years When triglycerides are >200 mg/dL, Non-HDL cholesterol is a secondary target of therapy with treatment goals that are 30 mg/dL greater than the LDL cholesterol target. Literature References: 1. Expert Panel on Integrated Guidelines for Cardiovascular Health and Risk Reduction in Children and Adolescents. Pediatrics 2011;128:S213 2. NCEP Expert Panel. Circulation 2004;110:227 Current Interpretive Data was last revised on 2018. Chol/HDL ratio 2 [facility] Blood 01/26/2025 3:59 PM CDT 01/26/2025 8:48 PM CDT Narrative [facility] - 01/26/2025 9:54 PM CDT Has the patient been fasting for 8 hours or more?->No Lamberto Faria MD LAB BLOOD ORDERABLES Fi nal Result [facility] [id number] Department [place] [address] * (ABNORMAL) Comprehensive metabolic panel (01/26/2025 3:59 PM CDT) Sodium 136 135 - 145 mmol/L Potassium, pl 4.5 3.3 - 4.9 mmol/L [facility] Chloride 103 97 - 110 mmol/L [facility] CO2 21(L) 22 - 32 mmol/L [facility] Anion gap 12 2 - 15 mmol/L [facility] BUN 30(H) 6 - 25 mg/dL [facility] Creatinine 1.03 0.60 - 1.10 mg/dL [facility] Glucose 94 70 - 199 mg/dL [facility] Comment: Interpretive Data Fasting glucose >/= 126 mg/dl is diagnostic for diabetes. Fasting is defined as no caloric intake for at least 8 hours. Fasting glucose between 100 mg/dl to 125 mg/dl is diagnostic of prediabetes. In a patient with classic symptoms of hyperglycemia or hyperglycemic crisis, a random glucose >/= 200 mg/dl is diagnostic for diabetes. In the absence of unequivocal hyperglycemia, results should be confirmed by repeat testing. The classification and Diagnosis of Diabetes Diabetes Care 2021; 46: S19-S40. Current interpretive data was last revised 2022. Calcium 9.4 8.5 - 10.3 mg/dL [facility] Bilirubin, total <0.2 0.1 - 1.2 mg/dL [facility] Protein, pl 6.1(L) 6.5 - 8.5 g/dL [facility] Albumin 3.5 3.5 - 5.0 g/dL [facility] Alk phos 122 40 - 130 Units/L [facility] ALT 5(L) 7 - 45 Units/L [facility] AST 18 10 - 45 Units/L [facility] Blood 01/26/2025 3:59 PM CDT 01/26/2025 8:48 PM CDT us Lamberto Faria MD LAB BLOOD ORDERABLES Fi nal Result Performing Organization Address [facility]/ZIP Co de Phone Number MICAH BUDDY [phone] [address] [employer] [place], [place] [id number] * - Miscellaneous Lab Test (01/14/2025 3:39 PM CDT) Pathologist [facility] lab See Comment Comment:see scanned report Miscellaneous 01/14/2025 3:3 9 PM CDT 02/04/2025 1:06 PM CDT us Jasper Lopez MD LAB BLOOD ORDERABLES Final Result Performing Organization Address [facility]/ZIP Co de Phone Number KAILEYTRAVIS GOODWIN [phone] [address] [place] [address] * Surgical pathology (01/14/2025 1:25 PM CDT) Tissue (Endometrial biopsy) 01/14/2025 1:25 PM CDT 01/15/2025 1:25 PM CDT Narrative PATHOLOGY CH - 01/19/2025 1:23 PM CDT EPIC results best viewed via link to PDF [facility] Department of Pathology [address] [place] [id number] Note to Patients: This report may contain a detailed description of human tissue sent by a health care provider to the laboratory for pathologic evaluation. The content of this report is essential for diagnosis and may provide important critical findings. This information may be unfamiliar to patients to review without a medical professional present. It is advised that the patient review this report in the presence of a health care provider who can answer questions and explain the details. Final Report with Addendum Patient Name: VIKKI SIERRA Address: [address] [place] [address]- Gender: F : 1945 (Age: 79) Service: Location: [facility] : [id number] [facility] #: [id number] Patient Type: SPECIMEN Taken: 01/14/2025 Received: 01/15/2025 Accessioned: 01/15/2025 Reported: 01/19/2025 Physician(s):AIMEE Morrow Diagnosis: Endometrium, biopsy: - Chronic and acute endometritis with abundant plasma cells and histiocytes - See microscopic description Jasper Lopez M.D. Report Electronically Reviewed and Signed Out By Jasper Lopez M.D. 01/19/2025 13:23:52 Procedure/Addenda: Addendum Addendum Comment The external consult report from [facility] ([id number]) has been finalized and is attached. For the oracle financial[employer] consultant s comment, please see scanned image of report or the report can be viewed in the Electronic Medical Record of the patient. If access to the EMR is not available, please call pathology for a hard copy of the report ([phone]). Endometrium, biopsy ([id number]; 01/14/2025): Severe acute and chronic endometritis. See comment. Jasper Lopez M.D.Report Electronically Reviewed and Signed Out By Jasper Lopez M.D. 02/02/2025 14:45:10 Specimen(s) Received: A: Endometrial biopsy Microscopic Description: Microscopic examination substantiates the above diagnosis. The histologic sections of the submitted endometrial biopsy reveals a dense inflammatory infiltrate comprised of plasma cells, histiocytes (as highlighted by CD68 immunostain), and neutrophils consistent with combined chronic and acute endometritis. Additional immunohistochemical stains were performed. Cytokeratin and ARABELLA are negative which rules out a definitive epithelial malignancy. CD45 highlights the lymphocytes. CD20 highlights the B lymphocytes in the follicles, CD38 highlights the T lymphocytes in the interfollicular area. Plasma cells are polytypic confirmed with kappa and lambda ROSEMARY. P16 shows a mosaic staining pattern, P53 and Ki 67 were performed and reviewed. AFB, PAS, GMS are negative for organisms. The reported clinical history of endometrium being 51 mm thickened is noted. Therefore, to exclude/rule out an obscured neoplastic process (including rare histiocytic or hematolymphoid neoplasm) and in order to perform additional stains/studies, the case will be sent out for a second opinion and the final diagnosis will be reported in an addendum. Clinical History: PMB Procedure: EMB Gross Description: The specimen is submitted in a single formalin filled container labeled VIKKI GROSS and endometrial biopsy. It is an approximate 2 cc aggregate of hemorrhagic mucosal tissue and blood. All in one cassette. Smith Britton R.N., P.A./Sara Ramos M.D. REPORT IMAGES AND SCANNED DOCUMENTS, IF INCLUDED, ONLY VIEWABLE IN PDF VERSION OF REPORT The performance characteristics of some immunohistochemical stains, fluorescence in-situ hybridization tests and immunophenotyping by flow cytometry cited in this report (if any) were determined by the Surgical Pathology Department at [facility] as part of an ongoing it quality assurance analyst program and in compliance with federally mandated regulations drawn from the Clinical Laboratory Improvement Act of 1988 (CLIA '88). Some of these tests rely on the use of analyte specific reagents and are subject to specific labeling requirements by the US Food and Drug Administration. Such diagnostic tests may only be performed in a facility that is certified by the Department of Health and Human Services as a high complexity laboratory under CLIA '88. The FDA has determined that such clearance or approval is not necessary. This test is used for clinical purposes. It should not be regarded as investigational or for research. Nevertheless, federal rules concerning the medical use of analyte specific reagents require that the following disclaimer be attached to the report: This test was developed and its performance characteristics determined by the Surgical Pathology Department [facility]. It has not been cleared or approved by the U. S. Food and Drug Administration. Note for decalcified specimens: This assay has not been validated on decalcified tissues. Results should be interpreted with caution given the possibility of false negativity on decalcified specimens Rossana Greer NP LAB PATHOLOGY ORDERABLES Fi nal Result PATHOLOGY [address] [place] [address] * MT ENDOMETRIAL BX W/WO ENDOCERVIX BX W/O DILAT SPX (01/14/2025 11:30 AM CDT) Narrative Rossana Greer NP - 01/14/2025 11:30 AM CDT Rossana Greer NP 01/14/2025 12:18 PM Endometrial Biopsy Only Performed by: Rossana Greer NP Authorized by: Rossana Greer NP Consent Given by: Patient Site marked: the procedure site was marked Timeout: prior to procedure the correct patient, procedure, and site was verified Verbal consent obtained: Yes Written consent obtained: Yes Risks, alternatives, and patient questions discussed: Yes Preparation: Patient was prepped using a clean technique Indication: Indications: Post-menopausal bleeding Procedure: Procedure: endometrial biopsy with Pipelle A bivalve speculum was placed in the vagina: yes Cervix cleaned and prepped: yes Uterus sounded: yes Uterus sound depth (cm): 8 Specimen collected: specimen collected and sent to pathology Patient tolerance: Patient tolerated the procedure well with no immediate complications Findings: Cervix: normal Comments: Procedure comments: Patient tolerated procedure well. Encouraged Tylenol/Ibuprofen for pain management. When to ER reviewed including severe pelvic pain, saturating a pad/hr, fever or signs of infection. Await pathology results. Call with any questions or concerns. Vaginal lidocaine jelly used for procedure. Jayla YU Rossana Greer NP IN CLINIC/BEDSIDE ORDERABLE S Final Result * US Transvaginal (01/07/2025 9:11 AM CDT) Cul de Sac No free fluid visualized [facility] Endometrial Thickness 51.0 mm&millim eters [facility] Anatomical Region Laterality Modality Pelvis N/A Ultrasound 01/07/2025 9:09 AM CDT Impressions 01/12/2025 12:54 PM CDT 1. There is a normal-sized uterus without evidence of fibroids. The endometrium is considerably thickened. Sampling is recommended. 2. Neither ovary is visualized. Narrative Procedure Note Sisi Rich MD - 01/12/2025 IMPRESSION: 1. There is a normal-sized uterus without evidence of fibroids. Theendometrium is considerably thickened. Sampling is recommended. 2. Neither ovary is visualized. Sisi Rich MD IM US PROCEDURES F inal Result * Vaginitis panel Vaginal (12/29/2024 3:34 PM CDT) Bacterial Vaginosis Not Detected Not Detected Comment:A negative result do es not preclude a possible infection. Results should be considered in conjunction with clinical presentation to determine the disease status. Frances group Not Detected Not Detected C[facility] Frances glabrata/ krusei Not Detected Not Detected [facility] Trichomonas DNA Not Detected Not Detected [facility] Vaginal 12/29/2024 3:34 PM CDT 12/29/2024 9:13 PM CDT Narrative [facility]ER CH - 12/29/2024 10:43 PM CDT The Cep[employer]al[employer] Software[employer] Xpert Xpress MVP test detects DNA targets from anaerobic bacteria associated with bacterial vaginosis, Frances species associated with vulvovaginal candidiasis, and Trichomonas vaginalis by nucleic acid amplification testing (NAAT). Results should be interpreted in conjunction with other clinical data. This test cannot be used to assess therapeutic success or failure because target nucleic acids may persist following antimicrobial therapy. This test has been cleared by the [place] Food and Drug Administration to aid in the diagnosis of vaginal infections in symptomatic women ages 14 and older. The performance characteristics of this test have been verified by the [facility] Laboratory. Lamberto Faria MD LAB MICROBIOLOGY - GENE RAL ORDERABLES Final Result MICAH GOODWIN [address] [address] Department [place] [address] CH * (ABNORMAL) Urinalysis reflex to microscopic and culture Urine, bladder (12/29/2024 3:34 PM CDT) Color, ur Yellow Yellow Clarity, ur Clear Clear [facility] Specific gravity, ur 1.010 1.003 - 1.030 [facility] pH, urine 6.0 [facility] CH Comment: Interpretive Data U rine pH is affected by diet, medications, systemic acid-base disturbances, and renal tubular function. pH may affect urinary stone formation. For example, urine pH below 6.0 may help reduce the tendency for calcium phosphate stones and pH greater than 6.0 may reduce the tendency for uric acid stone formation. Source: [facility] Current Interpretive Data was last revised on 2017 Protein, ur ql Negative Negative [facility] Glucose, ur ql Negative Negative [facility] Ketones, ur Negative Negative [facility] Bilirubin, ur Negative Negative [facility] Blood, ur Trace(A) Negative [facility] Urobilinogen, ur <2.0 <2.0 mg/dL [facility] Nitrite, ur Positive(A) Negative [facility] Leukocyte esterase, ur 4+(A) Negative [facility] UA reflex comment Reflex to microscopic UA will be performed. C[facility]ER Urine, bladder 12/29/2024 3: 34 PM CDT 12/29/2024 9:13 PM CDT Lamberto Faria MD LAB MICROBIOLOGY - GENE RAL ORDERABLES Final Result MICAH GOODWIN [address] [address] Department [place] [address] * (ABNORMAL) Urinalysis, microscopic only (12/29/2024 3:34 PM CDT) WBC, ur 6-10(A) 0 - 5 /HPF RBC, ur 3-5(A) 0 - 2 /HPF [facility] Epithelial cells, squamous, ur 1-5 0 - 5 /HPF [facility] Bacteria, ur Trace(A) [facility] Hyaline casts, ur 6-10 0 - 10 /LPF [facility] Culture Reflex Comment Reflex conditions for urine culture (WBC >10) not met. [facility] Urine, bladder 12/29/2024 3: 34 PM CDT 12/29/2024 9:13 PM CDT us Lamberto Faria MD LAB URINE ORDERABLES Fi nal Result [facility] [address] [address] Department [place] [address] * MRI Lumbar Spine WO Contrast (12/17/2024 11:54 AM CDT) Anatomical Region Laterality Modality Spine N/A Magnetic Resonan ce 12/18/2024 8:31 AM CDT Narrative 12/18/2024 8:45 AM CDT EXAM DESCRIPTION: MRI LUMBAR SPINE WO CONTRAST REASON FOR STUDY: Low back pain, symptoms persist with > 6 wks treatment, any evidence of stenosis? RLE radicular features with neurogenic claudication pattern Chronic back pain from fall years ago, worse recently to the point where she cannot stand for more than a few minutes, cannot walk distances TECHNIQUE: Sagittal and Axial imaging includes T1, T2, STIR sequences. COMPARISON: Lumbar spine MRI dated 07/12/2022. Lumbar spine radiographs dated 09/18/2024. CTA abdomen and pelvis dated 03/12/2024. FINDINGS: SEGMENTATION: The last well-formed disc space seen on series 8, image 36 to be labeled L5-S1. ALIGNMENT: Levoconvex curvature. Grade 1 retrolisthesis of T12 on L1 and L1 on L2. VERTEBRAE: The T10 severe compression deformity as seen on the previous CTA abdomen and pelvis dated 03/12/2024. Minimal STIR hyperintense signal about the superior endplate (series 7, image 3). The T11 superior endplate Schmorl's node is again seen. The T11 moderate inferior endplate compression fracture with STIR hyperintense signal in keeping with acute to subacute injury. Minimal retropulsion of the posteroinferior corner. The T12 vertebral body severe compression deformity status post augmentation procedure is again seen. The L3-L4 opposing endplate edematous type T1 hypointense, T2/STIR hyperintense marrow signal alteration has worsened when compared to the previous lumbar spine MRI dated 07/12/2022. Without significant adjacent soft tissue inflammation the findings are likely degenerative in nature/type 1 Modic changes. Elsewhere multilevel additional endplate degenerative changes and marginal spur formation ranging from moderate to severe. The L2-L3 and L3-L4 facet joint STIR hyperintense signal can be seen with synovitis in the proper clinical scenario. DISC HEIGHT: Diffuse intervertebral disc height loss ranging up to severe. HARDWARE: None in the spine. CORD/CAUDA: Conus medullaris terminates at L1. LOWER THORACIC: Incompletely imaged multilevel degenerative changes without high-grade spinal canal stenosis. Disc bulge with thickened mentum flavum and facet arthropathy contribute to varying degrees of bilateral neural foraminal narrowing. INDIVIDUAL DISC LEVELS: T12-L1: Disc bulge retropulsed posteroinferior corner of T12 fracture. Bilateral facet arthropathy. Flattening of the ventral thecal sac. Mild right and no significant left neural foraminal narrowing. L1-L2: Disc bulge with thickened ligamentum flavum and facet arthropathy. Flattening of the ventral thecal sac. Mild right and no significant left neural foraminal narrowing. L2-L3: Surgical level. Laminectomy related changes are again seen. Disc bulge with marginal spur formation. Superimposed central and right neural foraminal disc protrusion. Bilateral facet arthropathy. No significant spinal canal stenosis. Mild left and severe right neural foraminal narrowing. Mass effect on the exiting right L2 nerve root. L3-L4: Surgical level. Previous laminectomy. Disc bulge with marginal spur formation. Superimposed disc protrusion. Remaining thickened ligamentum flavum and facet arthropathy. Moderate to severe spinal canal stenosis and lateral recess narrowing. Severe bilateral neural foraminal narrowing. Mass effect on the exiting L3 nerve roots. L4-L5: Disc bulge with thickened ligamentum flavum and facet arthropathy. Mild spinal canal stenosis. Lateral recess effacement on both sides. Mild neural foraminal narrowing. L5-S1: Minor disc bulge with thickened ligamentum flavum and facet arthropathy. No significant spinal canal or neural foraminal narrowing. VISUALIZED UPPER ABDOMEN: The renal rounded T2 hyperintense foci are incompletely characterized on this MRI and could reflect a cyst. The known abdominal aortic aneurysm status post aorto bi iliac stent grafts and additional findings better evaluated on the CTA abdomen and pelvis dated 03/12/2024. OTHER: Partial fatty replacement/atrophy of the left psoas muscle. Lumbosacral posterior paraspinal soft tissue STIR hyperintense signal is nonspecific and could reflect a strain in the proper clinical scenario. IMPRESSION: 1. Acute to subacute T11 vertebral body compression fracture. Minimal retropulsion of the posteroinferior corner without significant spinal canal stenosis. 2. The T12 vertebral body status post augmentation procedure as seen on the lumbar spine MRI dated 07/12/2022. 3. The T10 vertebral body compression deformity is new when compared to the thoracic spine MRI dated 05/18/2022 but seen on the CTA abdomen and pelvis dated 03/12/2024. Minimal STIR hyperintense signal about the superior endplate could be degenerative in nature. Please correlate with point tenderness to exclude acute on chronic injury. 4. Postoperative changes at L2-L3 and L3-L4 are again seen. 5. Lumbar disc degeneration ranging up to severe with thickened ligamentum flavum and facet arthropathy as above. The spinal canal narrowing is most noticeable at L3-L4. 6. Varying degrees of bilateral neural foraminal stenosis ranging up to severe and additional findings as described. THIS IS AN ELECTRONICALLY VERIFIED FINAL REPORT 12/18/2024 8:45 AM - Electronically signed by Stanford Chaudhry D.O. AP: AP Report ID: [id number] Reading Location: [id number] Procedure Note Stanford Chaudhry, DO - 12/18/2024 EXAM DESCRIPTION: MRI LUMBAR SPINE WO CONTRAST REASON FOR STUDY: Low back pain, symptoms persist with > 6 wkstreatment, any evidence of stenosis? RLE radicular features with neurogenicclaudication pattern Chronic back pain from fall years ago, worse recently to the point whereshe cannot stand for more than a few minutes, cannot walk distances TECHNIQUE: Sagittal and Axial imaging includes T1, T2, STIR sequences. COMPARISON: Lumbar spine MRI dated 07/12/2022. Lumbar spine radiographs dated 09/18/2024. CTA abdomen and pelvis dated 03/12/2024. FINDINGS: SEGMENTATION: The last well-formed disc space seen on series 8, image 36to be labeled L5-S1. ALIGNMENT: Levoconvex curvature. Grade 1 retrolisthesis of T12 on L1and L1 on L2. VERTEBRAE: The T10 severe compression deformity as seen on the previousCTA abdomen and pelvis dated 03/12/2024. Minimal STIR hyperintense signalabout the superior endplate (series 7, image 3). The T11 superior endplate Schmorl's node is again seen. The T11 moderate inferior endplatecompression fracture with STIR hyperintense signal in keeping with acute to subacute injury. Minimal retropulsion of the posteroinferior corner. The T12 vertebral body severe compression deformity status post augmentationprocedure is again seen. The L3-L4 opposing endplate edematous type T1 hypointense, T2/STIR hyperintense marrow signal alteration has worsened when comparedto the previous lumbar spine MRI dated 07/12/2022. Without significantadjacent soft tissue inflammation the findings are likely degenerative innature/type 1 Modic changes. Elsewhere multilevel additional endplate degenerativechanges and marginal spur formation ranging from moderate to severe. The L2-L3and L3-L4 facet joint STIR hyperintense signal can be seen with synovitis inthe proper clinical scenario. DISC HEIGHT: Diffuse intervertebral disc height loss ranging up tosevere. HARDWARE: None in the spine. CORD/CAUDA: Conus medullaris terminates at L1. LOWER THORACIC: Incompletely imaged multilevel degenerative changeswithout high-grade spinal canal stenosis. Disc bulge with thickened mentum flavumand facet arthropathy contribute to varying degrees of bilateral neuralforaminal narrowing. INDIVIDUAL DISC LEVELS: T12-L1: Disc bulge retropulsed posteroinferior corner of T12 fracture. Bilateral facet arthropathy. Flattening of the ventral thecal sac. Mild right and no significant left neural foraminal narrowing. L1-L2: Disc bulge with thickened ligamentum flavum and facet arthropathy. Flattening of the ventral thecal sac. Mild right and no significant left neural foraminal narrowing. L2-L3: Surgical level. Laminectomy related changes are again seen. Disc bulge with marginal spur formation. Superimposed central and right neural foraminal disc protrusion. Bilateral facet arthropathy. No significant spinal canal stenosis. Mild left and severe right neural foraminalnarrowing. Mass effect on the exiting right L2 nerve root. L3-L4: Surgical level. Previous laminectomy. Disc bulge with marginalspur formation. Superimposed disc protrusion. Remaining thickened ligamentum flavum and facet arthropathy. Moderate to severe spinal canal stenosisand lateral recess narrowing. Severe bilateral neural foraminal narrowing.Mass effect on the exiting L3 nerve roots. L4-L5: Disc bulge with thickened ligamentum flavum and facet arthropathy. Mild spinal canal stenosis. Lateral recess effacement on both sides.Mild neural foraminal narrowing. L5-S1: Minor disc bulge with thickened ligamentum flavum and facet arthropathy. No significant spinal canal or neural foraminal narrowing. VISUALIZED UPPER ABDOMEN: The renal rounded T2 hyperintense foci are incompletely characterized on this MRI and could reflect a cyst. Theknown abdominal aortic aneurysm status post aorto bi iliac stent grafts and additional findings better evaluated on the CTA abdomen and pelvis dated 03/12/2024. OTHER: Partial fatty replacement/atrophy of the left psoas muscle. Lumbosacral posterior paraspinal soft tissue STIR hyperintense signal is nonspecific and could reflect a strain in the proper clinical scenario. IMPRESSION: 1. Acute to subacute T11 vertebral body compression fracture. Minimal retropulsion of the posteroinferior corner without significant spinalcanal stenosis. 2. The T12 vertebral body status post augmentation procedure as seen onthe lumbar spine MRI dated 07/12/2022. 3. The T10 vertebral body compression deformity is new when compared tothe thoracic spine MRI dated 05/18/2022 but seen on the CTA abdomen and pelvis dated 03/12/2024. Minimal STIR hyperintense signal about the superior endplate could be degenerative in nature. Please correlate with point tenderness to exclude acute on chronic injury. 4. Postoperative changes at L2-L3 and L3-L4 are again seen. 5. Lumbar disc degeneration ranging up to severe with thickenedligamentum flavum and facet arthropathy as above. The spinal canal narrowing is most noticeable at L3-L4. 6. Varying degrees of bilateral neural foraminal stenosis ranging up to severe and additional findings as described. THIS IS AN ELECTRONICALLY VERIFIED FINAL REPORT 12/18/2024 8:45 AM - Electronically signed by Stanford Chaudhry D.O. AP: AP Report ID: [id number] Reading Location: [id number] us Jurgen Miller MD IMG MRI PROCEDURES Sheila l Result * CT Chest WO Contrast F/U Lung Screen Protocol (06/01/2020 11:30 AM CDT) Anatomical Region Laterality Modality Chest N/A Computed Tomogra phy 06/01/2020 12:1 7 PM CDT Impressions 06/01/2020 2:51 PM CDT SIGNIFICANT CHANGE SINCE PREVIOUSLY WITH DEVELOPMENT OF BILATERAL PLEURAL EFFUSIONS LARGER LEFT WITH SMALL PATCHY INFILTRATES THIS PROCESS HAS OBSCURED A PREVIOUSLY SUSPICIOUS NODULAR DENSITY AT THE LEFT LUNG BASE ADDITIONAL NODULES ARE UNCHANGED WITH A POSSIBLE NEW GROUNDGLASS NODULE IN THE CENTRAL RIGHT LOWER LOBE. Electronically signed by: Vineet Paiz M.D. Narrative 06/01/2020 2:51 PM CDT EXAMINATION: CT CHEST WO CONTRAST F/U LUNG SCREEN PROTOCOL DATE OF EXAM 06/01/2020 11:00 AM HISTORY: 74-year-old woman lung cancer screening. History of tobacco use, COPD. 60 pack year history. TECHNIQUE: Low-dose noncontrast spiral CT of multiplanar reconstructions FINDINGS: Comparison is made with the study of 03/08/2020.. Unchanged COPD. Detailed evaluation of the right lung demonstrates an unchanged nodule anteromedially subpleural image #57 previously #50 measuring 3 mm. The pleural-based nodule in the mid axillary line on image 110 previously image #102 is reidentified and unchanged. There is a more groundglass 3 mm not definitely seen on previous study located in the central right lower lobe on image #174. There is a small patch of infiltrate adjoining the major fissure in the posterior right upper lobe and another in the posterior costophrenic sulcus region along with a small right pleural effusion. Left lung demonstrates a stable pleural plaque with nodular configuration on image 128 previously on 114 unchanged. Unchanged left upper lobe persists anterior laterally measuring 4 mm. There is a small focus of infiltrate/atelectasis and nodular configuration the left lung base anteriorly in the inferior lingula segment of the left upper lobe which has more than doubled in size compared with previous extending more anteriorly and inferiorly than previous.. This is seen on image # 142. A small left pleural effusion larger than right has developed since the previous exam in addition to the basal infiltrate and this fluid may be somewhat loculated along the lateral aspect of the descending thoracic aorta as it extends caudally into the broader collection in the medial left lung base. Mediastinal windows demonstrate normal thoracic inlet. Atherosclerosis within the aorta without aneurysmal dilatation. Extensive coronary artery calcifications are noted. Pretracheal lymph node long axis 12 mm short axis and 8 mm are unchanged. There is cardiomegaly without pericardial fluid. Normal adrenal glands. Thoracic spine demonstrates degenerative changes Schmorl's nodes and minor wedge deformities. Procedure Note Vineet Paiz MD - 06/01/2020 EXAMINATION: CT CHEST WO CONTRAST F/U LUNG SCREEN PROTOCOL DATE OF EXAM 06/01/2020 11:00 AM HISTORY: 74-year-old woman lung cancer screening. History of tobacco use, COPD. 60 pack year history. TECHNIQUE: Low-dose noncontrast spiral CT of multiplanar reconstructions FINDINGS: Comparison is made with the study of 03/08/2020.. Unchanged COPD. Detailed evaluation of the right lung demonstrates an unchanged nodule anteromedially subpleural image #57 previously #50 measuring 3 mm. The pleural-based nodule in the mid axillary line on image 110 previously image #102 is reidentified and unchanged. There is a more groundglass 3 mm not definitely seen on previous study located in the central right lower lobe on image #174. There is a small patch of infiltrate adjoining the major fissure in the posterior right upper lobe and another in the posterior costophrenic sulcus region along with a small right pleural effusion. Left lung demonstrates a stable pleural plaque with nodular configuration on image 128 previously on 114 unchanged. Unchanged left upper lobe persists anterior laterally measuring 4 mm. There is a small focus of infiltrate/atelectasis and nodular configuration the left lung base anteriorly in the inferior lingula segment of the left upper lobe which has more than doubled in size compared with previous extending more anteriorly and inferiorly than previous.. This is seen on image # 142. A small left pleural effusion larger than right has developed since the previous exam in addition to the basal infiltrate and this fluid may be somewhat loculated along the lateral aspect of the descending thoracic aorta as it extends caudally into the broader collection in the medial left lung base. Mediastinal windows demonstrate normal thoracic inlet. Atherosclerosis within the aorta without aneurysmal dilatation. Extensive coronary artery calcifications are noted. Pretracheal lymph node long axis 12 mm short axis and 8 mm are unchanged. There is cardiomegaly without pericardial fluid. Normal adrenal glands. Thoracic spine demonstrates degenerative changes Schmorl's nodes and minor wedge deformities. IMPRESSION: SIGNIFICANT CHANGE SINCE PREVIOUSLY WITH DEVELOPMENT OF BILATERAL PLEURAL EFFUSIONS LARGER LEFT WITH SMALL PATCHY INFILTRATES THIS PROCESS HAS OBSCURED A PREVIOUSLY SUSPICIOUS NODULAR DENSITY AT THE LEFT LUNG BASE ADDITIONAL NODULES ARE UNCHANGED WITH A POSSIBLE NEW GROUNDGLASS NODULE IN THE CENTRAL RIGHT LOWER LOBE. Electronically signed by: Vineet Paiz M.D. 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 Osteoporosis in the right hip region. 2. Osteopenia in the lumbar spine region. COMMENT: W.H.O. defines the T-score of between -1 and -2.5 as osteopenia, the level at which there may be an increased risk of developing osteoporosis and fractures in the future. Osteoporosis is defined as T-score lower than -2.5 (significantly increased risk of fracture due to osteoporosis). T-score is a comparison to peak bone mineral density of young adult reference population. Z-score is a comparison to bone mineral density of sex and age group population. Electronically signed by: Mati Aly M.D. Narrative 11/08/2017 1:34 PM MINERAL INDUSTRY TEACHER EXAM: DEXA Bone Density Axial HISTORY: Age-related osteoporosis without current pathological fracture Assess bone density COMPARISON: 05/10/2011 FINDINGS: The mean bone mineral content of the lumbar spine is 0.827 g/cm2, previously 0.765. The T-score is -2.0 consistent with osteopenia. The mean bone mineral content of the right hip region is 0.527 g/cm2 . The T-score is -2.9 consistent with osteoporosis. Bone mineral density of the prior study measured the left hip region. Procedure Note Mati Aly MD - 11/08/2017 EXAM: DEXA Bone Density Axial HISTORY: Age-related osteoporosis without current pathological fracture Assess bone density COMPARISON: 05/10/2011 FINDINGS: The mean bone mineral content of the lumbar spine is 0.827 g/cm2, previously 0.765. The T-score is -2.0 consistent with osteopenia. The mean bone mineral content of the right hip region is 0.527 g/cm2 . The T-score is -2.9 consistent with osteoporosis. Bone mineral density of the prior study measured the left hip region. IMPRESSION: 1. Osteoporosis in the right hip region. 2. Osteopenia in the lumbar spine region. COMMENT: W.H.O. defines the T-score of between -1 and -2.5 as osteopenia, the level at which there may be an increased risk of developing osteoporosis and fractures in the future. Osteoporosis is defined as T-score lower than -2.5 (significantly increased risk of fracture due to osteoporosis). T-score is a comparison to peak bone mineral density of young adult reference population. Z-score is a comparison to bone mineral density of sex and age group population. Electronically signed by: Mati Aly M.D. us Sameer Grady MD IMG DXA PROCEDURES Final Res ult * Screening Mammogram Bilateral W Billy (11/08/2017 1:01 PM MIN[employer]DU[employer] TE[employer]ER) Anatomical Region Laterality Modality Breast Bilateral Mammography Impressions 11/08/2017 1:04 PM MINERAL INDUSTRY TEACHER BI-RADS CATEGORY 2: BENIGN FINDINGS. RECOMMEND ROUTINE FOLLOW-UP. Electronically signed by: Luis Ramachandran M.D. Narrative 11/08/2017 1:04 PM MINERAL INDUSTRY TEACHER SCREENING MAMMOGRAM BILATERAL W BILLY HISTORY: Routine screening, no current complaints. COMPARISON: Prior exams are unavailable for comparison. FINDINGS: Breast density: Scattered fibroglandular densities. No significant mammographic abnormalities are present. Scattered punctate calcifications are present. There are no suspicious masses, microcalcifications, or architectural distortions. Tomographic images demonstrate no additional findings. Digital technology was employed plus computer aided detection software (R2) was utilized in interpretation of these images. This facility utilizes a reminder system to notify patient's of yearly mammograms. Sameer Grady MD IMG MAMMO PROCEDURES Final R esult * COLONOSCOPY (04/10/2008) Colonoscopy Normal Historical Provider MD HEALTH MAINTENANCE Final Result from Last 3 Months or Most Recently Relevant to Health Maintenance Insurance MEDICARE [facility] Address: [address] [address] [facility] MEDICARE [facility] MEDICARE Advance Directives For more information, please contact: [phone] Documents on File Type Date Recorded Patient Childcare Attendant Expl anation Power of Time Piece Repairer 11/14/2022 6:07 AM * Full Code (Latest Code Status on File) Date Activated Date Inactivated Comments 02/16/2025 2:31 AM 02/18/2025 8:04 PM * Full Code Date Activated Date Inactivated Comments 02/15/2025 1:51 PM 02/16/2025 2:31 AM * Full Code Date Activated Date Inactivated Comments 06/05/2024 3:40 PM 06/06/2024 4:20 PM * Full Code Date Activated Date Inactivated Comments 05/08/2023 10:03 AM 05/08/2023 4:57 PM * Full Code Date Activated Date Inactivated Comments 05/08/2023 10:03 AM 05/08/2023 10:03 AM Healthcare Agents on File Name Relationship Healthcare Agent Relationshi p Communication Jeovanny Gross Spouse Health Care Agent [id number] (Mobile) Care Teams Production Designer Relationship Specialty Start Date End Date Lamberto Faria MD [address] [facility] [address] [place] [address] PCP - General Family Medicine 02/17/25 Artie Garrett III, MD [address] [facility] [address] [facility] [address] [place] [address] Consulting Physician Cardiology 11/07/22 Vineet Sellers MD [address] [facility] [place] [address] Consulting Physician Pulmonary Disease 12/18/23 Kalpesh Gong MD [address] [place] [address] Consulting Physician Vascular Surgery 12/18/23 Kaitlin Pascual NP [address] [place] [address] Nurse Practitioner Family Medicine 06/09/24 Kin Ch MD [address] [facility] [facility] [address] [place] [address] Consulting Physician Cardiology 06/09/24 Sisi Rich MD [address] [place] [address] [address] [place] [address] Consulting Physician Obstetrics and Gynecology 02/13/25 Jake Castellano, RAJINDER [address] [place] [address] [address] [place] [address] Rn Labor Delivery 02/19/25
--- OUTSIDE RECORDS SUMMARY | 2025-03-14 11:32 | XMS_ITS | Clinical Summary ---
Author Organization [facility] Address [address] [place] [address] Care Team Providers Care Air Drier Machine Operator Name Role Phone Sameer Grady MD Primary Care Provider [phone] Source Comments [facility],non-owned Affiliates and Associated Physician Practices is amultiple site organization consisting of ambulatory clinics and hospital sitesin [place], [place], [place] and [place]. This disclosure is being madepursuant to the Care Everywhere program and may not contain all information available regarding this patient. Last updated 18.[facility] Allergies Active Allergy Reactions Criticality Noted Date Comments Sulfa Drugs Unknown Sulfanilamide Urticaria Medium Medications * Be aware that medications may not be up to date on this document. Alwaysverify current medications with the patient. omeprazole (PRILOSEC) 40 MG capsule Take 40 mg by mouth daily before breakfast Active spironolactone (ALDACTONE) 25 MG tablet Take 25 mg by mouth once daily Active FLUoxetine (PROZAC) 40 MG capsule Take 40 mg by mouth once daily Active Metoprolol Succinate 50 MG CS24 Take 50 mg by mouth once daily Active Fluticasone-Umec lidin-Vilant (TRELEGY) 100-62.5-25 MCG/INH Inhale 1 puff by mouth once daily Active Albuterol Sulfate 2.5 MG/0.5ML NEBU Inhale 3 mL by mouth 3 times daily Active aspirin (ASPIRIN) 81 MG chew tablet Take 1 tablet by mouth once daily 0 0 Active atorvastatin (LIPITOR) 40 MG tablet Take 40 mg by mouth at bedtime Active clopidogrel (PLAVIX) 75 MG tablet Take 75 mg by mouth once daily Active lisinopril (PRINIVIL;ZESTRI L) 5 MG tablet Take 5 mg by mouth once daily Active Albuterol Sulfate 108 (90 Base) MCG/ACT Inhale 1 puff by mouth as needed Active fluticasone propionate (FLONASE) 50 MCG/ACT nasal spray [place] 1 spray into each nostril once daily Active Acetaminophen (TYLENOL PO) Take by mouth as needed Active isosorbide mononitrate CR 24hr (IMDUR) 30 MG tablet Take 0.5 tablets by mouth once daily 15 tablet 5 0 Active furosemide (LASIX) 40 MG tablet Take 1 tablet by mouth every Sunday, Sunday, Sunday & Sunday 75 tablet 5 0 Active Active Problems Problem Noted Date Diagnosed Date 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 Moderate stenosis of prox LAD 60%. 50-70% stenosis of ostial major diagonal branch. 40% prox LCx. LVEF 40%. LVEDP 30 mmHg. PCI 06/2020 - Successful stenting of the RCA. iFR of the proximal LAD was not hemodynamically significant and was not stented. S/P coronary artery stent placement 07/19/2020 Ischemic cardiomyopathy 06/30/2020 Overview (06/30/2020): Echo 05/2020 - mild LVE, EF 45% w/ global hypokinesis, mild LVH, mild LAE, nl RVEF, mild to mod MR, mild AI, mild TR, RVSP 48 mmHg Systolic and diastolic CHF, acute 06/30/2020 COPD (chronic obstructive pulmonary disease) Pulmonary nodule 06/30/2020 Smoking 06/30/2020 Overview (12/10/2024): IMO 12/10/2024 Resolved Problems Problem Noted Date Diagnosed Date Resolved Date Coronary artery calcification seen on CT scan 06/30/20 20 07/19/2020 Family History Medical History Relation Name Comments CAD (Coronary Artery Disease) Father Diabetes - Type 2 Father CAD (Coronary Artery Disease) Mother COPD - Chronic Obstructive Pulmonary Disease Mother Depression Mother Cancer Sister Relation Name Status Comments Brother 1 Alive Brother 2 Alive Father Maternal Grandfather Maternal Grandmother Mother Paternal Grandfather Paternal Grandmother Sister Social History Tobacco Use Types Packs/Day Years Used Date Smoking Tobacco: Every Day Cigarettes 1 60 Smokeless Tobacco: Never Tobacco Cessation:Ready to Q uit: Yes; Counseling Given: Yes Alcohol Use Standard Drinks/Week Comments Yes 0 (1 standard drink = 0.6 oz pur e alcohol) Very seldom Comments Unknown Sex and Gender Information Value Date Recorded Sex Assigned at Not on file Legal Sex Female 9:47 AM CDT Gender Identity Not on file Sexual Orientation Not on file Last Filed Vital Signs Vital Sign Reading Time Taken Comments Blood Pressure 112/58 07/27/2020 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 Pulse 64 07/27/2020 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 Temperature - - Respiratory Rate 25 07/06/2020 7:51 AM CDT Oxygen Saturation 96% 07/27/2020 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 Inhaled Oxygen Concentration - - Weight 62.1 kg (137 lb) 07/27/2020 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 Height 160 cm (5' 3) 07/27/2020 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 Body Mass Index 24.27 07/27/2020 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 Plan of Treatment Health Maintenance Due Date Last Done Comments BONE DENSITY TESTING 1944 DTAP/TDAP/TD VACCINES (1 - Tdap) 1963 PNEUMOCOCCAL VACCINE 50+ (1 of 2 - PCV) 1963 LUNG CANCER SCREENING 1994 ZOSTER VACCINE (1 of 2) 1994 Respiratory Syncytial Virus (RSV) Vaccine Pt: or over 60 yrs (1 - 1-dose 75+ series) 2019 COVID-19 VACCINE (2023-2 5 season) 2024 DEPRESSION SCREENING 09/10/2024 INFLUENZA VACCINE (#1) 2025 0, 06/10/2009 HEPATITIS B VACCINE Aged Out No longe r eligible based on patient's age to complete this topic HIB VACCINE Aged Out No longer eligi ble based on patient's age to complete this topic HPV VACCINE Aged Out No longer eligi ble based on patient's age to complete this topic MENINGOCOCCAL (Group B) VACCINE SHARED DECISION-MAKING Aged Out No longer eligible based on patient's age to complete this topic MENINGOCOCCAL GROUPS A/C/Y/W VACCINE Aged Out No longer eligible b ased on patient's age to complete this topic Insurance MEDICARE [facility] [place] [address] Care Teams Air Drier Machine Operator Relationship Specialty Start Date End Date Sameer Grady MD PCP - General Internal Medicine 06/15/20
--- OUTSIDE RECORDS SUMMARY | 2025-03-14 11:32 | XMS_ITS | Referral Summary ---
Author Organization [facility] Address [address] [place] [address] Care Team Providers Care Diesel Power Mechanic Name Role Phone Gerry LIANG MD, Joseph Anthony Unavailable [phone] Vineet Sellers MD Unavailable Kalpesh Gong MD Unavailable Kaitlin Pascual NP Unavailable [phone] Kin Ch MD Unavailable [phone] Sisi Rich MD Unavailable [phone] Lamberto Faria MD Primary Care Provider Jake Castellano RN Unavailable [phone] Encounters Date Type Department Care Team Description 03/09/2025 Telephone [facility] Primary Care at [address] [phone] Lamberto Faria MD Symptom Based Call 03/04/2025 Telephone [facility] Pulmonary at [address] [phone] Nancie Church LPN Test Results 03/02/2025 10:00 AM CDT Office Visit [facility] Pulmonary at [address] [place] [address] Vineet Sellers MD Chronic obstructive pulmonary disease, unspecified COPD type (HCC) (Primary Dx); Chronic systolic heart failure (HCC); 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, unspecified vessel or lesion type, unspecified whether angina present; Pulmonary nodule; Cigarette nicotine dependence without complication 02/27/2025 Telephone [facility] Primary Care at [address] [phone] Lamberto Faria MD Symptom Based Call 02/26/2025 Results Follow-Up [facility] Primary Care at [address] [phone] Lamberto Faria MD Vitamin B12, Folate, CBC with auto differential, Additional followed-up results: 5 02/26/2025 10:50 AM CDT Office Visit [address] [place] [phone] Zuleyma Leung NP S/P laparoscopic cholecystectomy (Primary Dx) 02/25/2025 1:41 PM CDT - 02/25/2025 11:59 PM CDT [place] [address] Acute blood loss anemia; S/P laparoscopic cholecystectomy Discharge Disposition: Discharge to home or self care 02/25/2025 1:45 PM CDT Lab [facility] Outpatient Lab at [address] [phone] 02/25/2025 1:00 PM CDT Office Visit [facility] Primary Care at [address] [phone] Lamberto Faria MD Hospital discharge follow-up (Primary Dx); Lumbar radiculopathy; S/P laparoscopic cholecystectomy; Acute blood loss anemia; Peripheral edema; Chronic combined systolic and diastolic congestive heart failure (HCC) 02/20/2025 [facility] Post Discharge Follow up phone call [facility] [address] [place] [address] Makayla Monge 02/19/2025 Telephone [facility] Medical [facility] Primary Care at [address] [phone] Lamberto Faria MD Additional Services Or Orders 02/18/2025 Telephone [facility] Primary Care at [address] [phone] Lamberto Faria MD Medical Question/Miscellaneous 02/15/2025 10:35 AM CDT - 02/18/2025 4:04 PM CDT Hospital Encounter [facility] [address] [place] [address] Rosa Claudio MD Fasick, Victoria Rose, DO Chest pain, unspecified type (Primary Dx); Congestive heart failure, unspecified HF chronicity, unspecified heart failure type (HCC); Urinary tract infection associated with catheterization of urinary tract, unspecified indwelling urinary catheter type, initial encounter; Cholecystitis, acute; General weakness; Gangrenous cholecystitis Discharge Disposition: Discharge to home, home health skilled care 02/17/2025 Telephone [place] [facility] [employer] [address] [place] [address] [place] [phone] Esme Benitez MA admitted 02/16/2025 3:15 PM CDT Anesthesia Event [facility] [address] [place] [address] Billy Chambers DO [place], Neal P., SANKET 02/16/2025 3:15 PM CDT - 02/16/2025 4:45 PM CDT Surgery [facility] [address] [place] [address] Dinesh Mahajan MD LAPAROSCOPIC CHOLECYSTECTOMY 02/15/2025 10:16 AM CDT - 02/15/2025 11:59 PM CDT Hospital Encounter [facility] Emergency, Room R Discharge Disposition: Discharge to home or self care 02/13/2025 Telephone [facility] Primary Care at [address] [phone] Lamberto Faria MD Medical Question/Miscellaneous 02/13/2025 Telephone [place] [facility] [address] [place] [address] Sisi Rich MD 02/12/2025 Telephone [place] [employer] [address] [place] [phone] Kayley Millan MA Hysterectomy Clearance 02/12/2025 2:15 PM CDT Office Visit [facility] [address] [place] [address] [address] [place] [address] Sisi Rich MD Postmenopausal bleeding (Primary Dx) 02/12/2025 1:30 PM CDT Ancillary Procedure [facility] [address] [place] [address] [address] [place] [address] Postmenopausal bleeding 01/29/2025 2:15 PM CDT Office Visit [facility] [address] [place] [address] [address] [place] [phone] Sisi Rich MD Postmenopausal bleeding (Primary Dx); Tobacco use disorder 01/27/2025 Results Follow-Up [facility] Primary Care at [address] [phone] Lamberto Faria MD Vitamin D 25 hydroxy, Thyroid Function [place], Hemoglobin A1c, Additional followed-up results: 8 01/26/2025 3:59 PM CDT - 01/26/2025 11:59 PM CDT Hospital Encounter [address] [address] Vitamin D deficiency; CHRISTIANO (generalized anxiety disorder); IFG (impaired fasting glucose); 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 (CMS/HCC) (HCC); Primary hypertension; Hypokalemia; Cognitive decline Discharge Disposition: Discharge to home or self care 01/26/2025 4:00 PM CDT Lab [facility] Outpatient Lab at [address] [phone] CHRISTIANO (generalized anxiety disorder) (Primary Dx) 01/26/2025 3:30 PM CDT Office Visit [facility] Primary Care at [address] [phone] Lamberto Faria MD CHRISTIANO (generalized anxiety disorder) (Primary Dx); Primary hypertension; Lumbar radiculopathy; Tobacco use disorder; Moderate episode of recurrent major depressive disorder (HCC); PMB (postmenopausal bleeding); Vitamin D deficiency; Hypokalemia; IFG (impaired fasting glucose); 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 (CMS/HCC) (HCC); CKD stage 3a, GFR 45-59 ml/min (HCC) 01/20/2025 Telephone [facility] [address] [place] [address] Rossana Greer NP 01/14/2025 11:59 AM CDT - 01/14/2025 11:59 PM CDT Hospital Encounter [address] [address] PMB (postmenopausal bleeding) Discharge Disposition: Discharge to home or self care 01/14/2025 11:30 AM CDT Procedure visit [facility] [address] [place] [address] Rossana Greer, RG PMB (postmenopausal bleeding) (Primary Dx) 01/13/2025 Telephone [facility] [address] [place] [address] Rossana Greer NP 01/13/2025 Telephone [place] [employer] [facility] [address] [place] [address] [address] [place] [address] Kayley Membreno MA 01/07/2025 8:30 AM CDT Ancillary Procedure [facility] [address] [facility] [address] [place] [address] Postmenopausal bleeding 01/05/2025 Telephone [facility] at [address] [phone] Sisi Rich MD [facility] 01/01/2025 Results Follow-Up [facility] Primary Care at [address] [phone] Lamberto Faria MD Vaginitis panel Vaginal, Urinalysis reflex to microscopic and culture Urine, bladder, Urinalysis, microscopic only 12/29/2024 3:34 PM CDT - 12/29/2024 11:59 PM CDT Hospital Encounter [address] [address] Vaginal discharge Discharge Disposition: Discharge to home or self care 12/29/2024 2:30 PM CDT Office Visit [facility] Primary Care at [address] [phone] Lamberto Faria MD Vaginal discharge (Primary Dx); Lumbar radiculopathy; Tobacco use disorder 12/17/2024 11:04 AM CDT - 12/17/2024 11:59 PM CDT Hospital Encounter [facility] [address] [place] [address] Lumbar radiculopathy Discharge Disposition: Discharge to home or self care from Last 3 Months Allergies Active Allergy Reactions Criticality Noted Date Comments Atenolol Other (See comments) Low 11/07/2022 Bad shakes Duloxetine Other (See comments) Low 11/07/2022 Bad shakes Methylprednisolone Itching Low 11/07/2022 [place] likes ants crawling on my skin Brexpiprazole [...] tablet (2,000 Units total) by mouth daily Active clopidogreL (PLAVIX) 75 mg tablet TAKE 1 TABLET BY MOUTH EVERY DAY 90 tablet 4 Active potassium chloride ER 20 mEq CR [...] day Takes on opposite days of 20mg Active nitroglycerin (NITROSTAT) 0.[address] 1 tablet (0.4 mg total) under the tongue as needed for chest pain 90 tablet 024 Active FLUoxetine (PROzac) 40 mg capsule TAKE 1 CAPSULE BY MOUTH DAILY 100 capsule 1 Active atorvastatin (LIPITOR) 80 mg tablet Take [...] 10/09/2024 Assessment & Plan (10/09/2024 10:37 AM POLICE MAGISTRATE): Currently remains asymptomatic. Duplex shows bilateral moderate [...] (03/24/2024 12:27 AM CDT): - has handicap placard - has known gait disturbance - has [...] room. Assessment & Plan (10/16/2023 11:57 AM POLICE MAGISTRATE): Small umbilical hernia which is reducible on [...] 05/28/2023 Assessment & Plan (11/04/2023 10:07 PM POLICE MAGISTRATE): Continue clobetasol follow up with Dermatology as [...] She has she does not see the manager garden until July she will call and arrange [...] 11/14/2022 Assessment & Plan (10/09/2024 10:35 AM POLICE MAGISTRATE): Status post EVAR 2022 for an aneurysm [...] patent endograft repair with no endoleak seen. [place] aneurysm sac is measuring 4.4 cm. Plan: Continue ongoing risk factor modifications. -patient to follow-up in 6 months for re-evaluation with abdominal duplex. Encouraged patient to make a sooner appointment if she develops any symptoms. Assessment & Plan (09/14/2023 1:20 PM POLICE MAGISTRATE): Status post EVAR 11/14/2022. Currently measuring 4.4 [...] months. Assessment & Plan (10/25/2022 2:19 PM POLICE MAGISTRATE): 5.3 cm infrarenal abdominal aortic aneurysms as well as a 2.3 cm right common iliac artery aneurysms. Risks benefits alternatives to endovascular aneurysm repair discussed, risks including bleeding, infection, perforation, contrast induced nephropathy, dissection, distal embolization/thrombosis, mesenteric ischemia, renal failure, ischemia of the pelvis or lower extremities, stroke, LA or . She wished to proceed. We will get her scheduled after cardiac risk assessment. Continue ASA in good blood pressure control. Assessment & Plan (10/11/2022 4:19 PM POLICE MAGISTRATE): 5 cm AAA found on aortoiliac duplex. [...] - uses extra strength tylenol PRN - shelter active tobacco smoker, recommend tobacco smoking cessation [...] - uses extra strength tylenol PRN - shelter active tobacco smoker, recommend tobacco smoking cessation [...] - uses extra strength tylenol PRN - mover helper active tobacco smoker, recommend tobacco smoking cessation [...] clinically. Assessment & Plan (09/17/2024 1:36 PM POLICE MAGISTRATE): - chronic condition, not at goal with progressive pain - will review records - this affects her sleep as well - radiated down her legs - reports pain with prolonged walking or standing - uses extra strength tylenol PRN - she was seen by Pain management few years ago and had an injection which did help initially - mover helper active tobacco smoker, recommend tobacco smoking cessation [...] CDT): Discuss right lumbar pain with her sandblaster paint sprayer for consideration of injection therapy. Currently trying to hold opiate therapy for nausea.. Assessment & Plan (12/21/2021 9:25 AM CDT): X-rays of her lumbar spine and call back for results. Physical therapy referral. Medrol Dosepak. Call back if no improvement in [...] 01/26/2025 Assessment & Plan (09/17/2024 1:26 PM POLICE MAGISTRATE): Blood Pressure Management BP Readings from Last [...] negative. Assessment & Plan (10/25/2022 2:19 PM POLICE MAGISTRATE): Stable continue lisinopril 30 mg. 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 Did not tolerate rosuvastatin due to feeling poorly. Did not tolerate pravastatin. zetia added 07/13/22 but no longer on it as well - not sure why she is not on a PCSK9 inhibitor? - s/p [facility] with intervention on 06/05/2024 - most recent labs as shown below, recheck ordered - will need to review records - at one point was on metoprolol, entresto - currently on plavix 75 mg daily - currently long time smoker, recommend tobacco smoking cessation The current medical regimen is effective; continue present plan and medications. Lab Results Component Value Date LDLCALC 58 01/26/2025 [facility] 06/05/2024 Patent stents in the right coronary [...] by stenting using 4.0 X 8 mm Zivitytronic stent Good results along the LAD however closure of the diagonal. I was able get a wire across the ostium but not advance it distally were advanced a balloon Lab Results Component Value Date LDLCALC 124 03/03/2024 Assessment & Plan (06/09/2024 11:39 AM CDT): - chronic, stable - s/p PCI 07/2020 at [facility] - follows with outside Cardiology provider - wants to establish here locally, referral placed - has hx of statin intolerance reportedly, from prior PCP I was able to review the following Stents placed 07/2020 [facility] Did not tolerate atorvastatin due to feeling poorly. Did not tolerate rosuvastatin due to feeling poorly. Did not tolerate pravastatin. zetia added 07/13/22 but no longer on it as well - not sure why she is not on a PCSK9 inhibitor? - s/p [facility] with intervention on 06/05/2024 - most recent labs as shown below, recheck ordered - will need to review records - at one point was on metoprolol, entresto - currently on plavix 75 mg daily - currently long time smoker, recommend tobacco smoking cessation [facility] 06/05/2024 Patent stents in the right coronary [...] by stenting using 4.0 X 8 mm Medtronic stent Good results along the LAD however closure of the diagonal. I was able get a wire across the ostium but not advance it distally were advanced a balloon Lab Results Component Value Date LDLCALC 124 03/03/2024 Assessment & Plan (01/01/2024 4:38 AM CDT): - chronic, stable - s/p PCI 07/2020 at [facility] - follows with outside Cardiology provider - wants to establish here locally, referral placed - has hx of statin intolerance reportedly, from prior PCP I was able to review the following Stents placed 07/2020 [facility] Did not tolerate atorvastatin due to feeling [...] PM CDT): She needs to see her manager garden carine for stress testing. She should go [...] aspirin lisinopril metoprolol and follow up with manager garden as they direct. Assessment & Plan (01/06/2021 10:32 PM CDT): Continue aspirin, statin and Plavix. Continue metoprolol with hold parameters. Holding lisinopril due to creatinine lower than last month but does not meet ILYA criteria. Assessment & Plan (12/27/2020 4:35 PM CDT): Continue current medication regimen follow up with manager garden as they direct. Assessment & Plan (08/21/2020 10:12 AM POLICE MAGISTRATE): Continue current medication regimen and follow up with manager garden for repeat cardiac catheterization as they direct. [...] furosemide, lisinopril, metoprolol and follow up with manager garden as they direct. Assessment & Plan (11/14/2022 4:10 PM POLICE MAGISTRATE): Decrease sodium, increase exercise. Continue her lisinopril metoprolol and consider increasing furosemide if swelling worsens. Assessment & Plan (06/14/2022 2:17 PM CDT): Most recent ejection fraction normal. Continue metoprolol. Assessment & Plan (01/02/2022 10:47 AM CDT): Continue current medication regimen follow up with manager garden as they direct. Assessment & Plan (06/28/2021 2:55 PM CDT): Remains well compensated on her lisinopril metoprolol and currently holding furosemide per her manager garden instructions. Follow-up with him as they direct. Assessment & Plan (01/28/2021 10:35 AM CDT): Reduce her furosemide if symptoms of orthostasis worsen especially when she has increased fluid losses. Assessment & Plan (12/27/2020 4:35 PM CDT): Well compensated on current medical regimen and should follow up with manager garden as they direct. Assessment & Plan (08/21/2020 10:12 AM POLICE MAGISTRATE): Doing better after diuresis and should continue current medication regimen and follow up with manager garden as they direct. Assessment & Plan (08/08/2020 8:10 PM POLICE MAGISTRATE): Continue her metoprolol and spironolactone and follow-up with manager garden regarding starting ERLIN-inhibitor verses Entresto. Pulmonary nodules 05/19/2019 Overview (05/19/2019): Followed by pulm, ct due 02/2020 per pulm. Assessment & Plan (08/08/2020 8:09 PM POLICE MAGISTRATE): Follow-up with her electric locomotive firer/fireman for repeat CT scans as they direct. [...] yearly. Assessment & Plan (11/08/2018 9:43 AM POLICE MAGISTRATE): Patient should reduce sugar and carbs, increase [...] Plan (05/19/2019 10:15 AM CDT): Try different [id number] formulation of her vitamin-D at the lowest dose possible and check level before next visit. Assessment & Plan (11/08/2018 9:43 AM POLICE MAGISTRATE): Start vitamin-D 1000 units daily and increase [...] declines Assessment & Plan (10/09/2024 10:36 AM POLICE MAGISTRATE): Patient with history of tobacco abuse who [...] interest. Assessment & Plan (10/11/2022 4:20 PM POLICE MAGISTRATE): I strongly recommended smoking cessation. Assessment & [...] length. Assessment & Plan (10/31/2021 12:16 PM POLICE MAGISTRATE): She was advised to quit smoking; the [...] length. Assessment & Plan (08/21/2020 10:10 AM POLICE MAGISTRATE): Nicotine replacement therapy and smoking cessation counseling discussed at length. The long-term risks posed to his health with continued usage were discussed at length. Assessment & Plan (08/08/2020 8:09 PM POLICE MAGISTRATE): Must stop smoking immediately. Assessment & Plan [...] length. Assessment & Plan (11/08/2018 9:42 AM POLICE MAGISTRATE): Unfortunately not ready to discuss smoking cessation. [...] medications. Assessment & Plan (09/17/2024 1:21 PM POLICE MAGISTRATE): - chronic condition, not at goal with [...] direct. Assessment & Plan (11/08/2018 9:42 AM POLICE MAGISTRATE): Doing well at [facility] and on her fluoxetine and should follow [...] not her Prolia injection. Age-related osteoporosis wit elina current pathological fracture 10/29/2017 Assessment & Plan (09/17/2024 1:29 PM POLICE MAGISTRATE): - chronic, not at goal - reviewed [...] health. Assessment & Plan (11/08/2018 9:42 AM POLICE MAGISTRATE): Patient continues to decline all forms of [...] May. Assessment & Plan (11/12/2017 10:16 AM POLICE MAGISTRATE): Should try and take and 1000 mg [...] use Assessment & Plan (08/15/2017 3:00 PM POLICE MAGISTRATE): Continue Prozac 40 mg q.day as patient [...] PPI Assessment & Plan (08/08/2020 8:09 PM POLICE MAGISTRATE): Well controlled on omeprazole. Assessment & Plan (06/09/2020 10:03 PM CDT): Well controlled on omeprazole. Assessment & Plan (12/09/2019 3:56 PM CDT): No complaints today. Assessment & Plan (11/08/2018 9:41 AM POLICE MAGISTRATE): Continue current PPI and the patient is [...] recommended. Assessment & Plan (08/15/2017 3:00 PM POLICE MAGISTRATE): Continue with dietary management for control of symptoms along with Prilosec 10 mg q.day. Follow-up in office in 2 months as scheduled and certainly sooner as advised COPD (chronic obstructive pulmonary disease) 02/2017 Overview (01/15/2018): Anoro - Pruritis. Assessment & Plan (09/17/2024 1:15 PM POLICE MAGISTRATE): - chronic, stable - still active smoker, [...] 04/2023 Assessment & Plan (11/04/2023 10:08 PM POLICE MAGISTRATE): Has appointment with Dr. Sellers in December and should use albuterol as needed and Trelegy daily until then. Assessment & Plan (02/04/2023 5:16 PM CDT): Stable on Trelegy and use albuterol as needed. Assessment & Plan (12/14/2022 4:49 AM CDT): Refrain from smoking. Continue Trelegy. Albuterol as needed. Assessment & Plan (07/13/2022 10:09 AM CDT): Continue current medication regimen follow up with her electric locomotive firer/fireman as they direct. Assessment & Plan (01/02/2022 10:45 AM CDT): Continue current medication regimen and follow-up with her electric locomotive firer/fireman as they direct. Assessment & Plan (12/21/2021 9:25 AM CDT): Seems to be improving from her recent exacerbation should continue current medication regimen and follow-up with electric locomotive firer/fireman as they direct. Stop smoking immediately. Assessment [...] use albuterol as needed and follow-up with electric locomotive firer/fireman as they direct. Assessment & Plan (08/21/2020 10:13 AM POLICE MAGISTRATE): Continue Trelegy use albuterol p.r.n. Assessment & Plan (08/08/2020 8:09 PM POLICE MAGISTRATE): Continue Trelegy. Use nebulizers as needed but try to wean down if able. Must stop smoking immediately. Follow-up with her electric locomotive firer/fireman as they direct. Assessment & Plan (06/09/2020 10:03 PM CDT): Continue Trelegy. Stop smoking immediately. Assessment & Plan (12/09/2019 3:56 PM CDT): Seems to be improving clinically and on her physical examination. Continue her Breo Singulair Flonase and albuterol p.r.n. Assessment & Plan (11/14/2019 1:41 PM POLICE MAGISTRATE): Complete course of antibiotics as well as steroids. Continue with inhalers daily and albuterol as needed. Notify office with absolutely any concerns or worsening symptoms. Patient verbalized understanding agreed to plan of care at this time will notify office with absolutely any changes. Assessment & Plan (11/03/2019 10:47 AM POLICE MAGISTRATE): Continue Breo and liberalize her albuterol to 3-4 times daily for next week. Z- Sorin and Medrol Dosepak. Call back if no improvement. Assessment & Plan (05/19/2019 10:17 AM CDT): Continue Breo and follow-up with her electric locomotive firer/fireman as they direct. Assessment & Plan (11/08/2018 9:41 AM POLICE MAGISTRATE): Well controlled on Advair only for now. [...] needed. Assessment & Plan (08/15/2017 3:00 PM POLICE MAGISTRATE): Stable. Continue Advair twice daily along with use of ProAir p.r.n. follow-up as scheduled in [address] Grady or certainly sooner as indicated She is not interested in smoking cessation methods at this time but we of course will continue to address Migraine without aura or status migrainosus 02/2017 Assessment & Plan (08/21/2020 10:12 AM POLICE MAGISTRATE): Sumatriptan p.r.n. Assessment & Plan (11/08/2018 9:41 AM POLICE MAGISTRATE): Sumatriptan p.r.n.. Assessment & Plan (08/15/2017 3:01 PM POLICE MAGISTRATE): Asymptomatic at this time and notes that [...] until Sunday then go back to how manager garden recommend Recommend following up with her manager garden Resolved Problems Problem Noted Date Diagnosed Date [...] 03/12/2024 Assessment & Plan (11/04/2023 10:07 PM POLICE MAGISTRATE): Sleep study rule out sleep apnea recommended [...] being placed June 2020 but must have manager garden blessing as well. Hematuria 12/07/2022 01/01/2024 Assessment & Plan (12/07/2022 2:07 PM CDT): Continue Keflex and return to urology office today for repeat evaluation. Low back strain 11/14/2022 01/01/2024 Assessment & Plan (11/14/2022 4:14 PM POLICE MAGISTRATE): Trial of tizanidine with potential sedating side effects discussed. Rest stretching exercises heating pad call back if no improvement. Abdominal aortic aneurysm (A AA) without rupture 10/25/2022 09/14/2023 Overview (10/25/2022): Added automatically from request for surgery [id number] Syncope 12/21/2021 01/01/2024 Assessment & Plan (12/21/2021 9:26 AM CDT): Unclear but may represent syncopal episodes. Echocardiogram recently done unremarkable. Recommended sleep study/sleep medicine referral for possible narcolepsy and cardiac catheterization technologist to rule out cardiac arrhythmia. Patient declines [...] Continue with albuterol prn Has f/u with electric locomotive firer/fireman in December F/u prn Diarrhea 01/28/2021 09/14/2023 [...] and advance as tolerated. Use supportive care. P.r.n. Zofran. Check C diff and stool cultures. Acute systolic CHF (congestive heart failure) 06/30/20 20 12/27/2020 Medicare annual wellness visit, initial 12/09/2019 01/02/2022 Assessment & Plan (12/09/2019 3:57 PM CDT): We discussed a comprehensive list of medical conditions and proposed recommendations for each. We discussed the importance of increased exercise, fall prevention, proper nutrition, and suggested joining [facility] to accomplish most of these goals. [...] needed. Assessment & Plan (11/08/2018 9:51 AM POLICE MAGISTRATE): We discussed a comprehensive list of medical [...] sooner if needed. BMI 28.0-28.9,adult 08/15/2017 04/04/20 21 Assessment & Plan (11/14/2019 1:41 PM POLICE MAGISTRATE): Recommended patient to continue to increase heart healthy diet with adequate fruits, vegetables, and plenty of water along with mild-moderate daily exercise as tolerated. Assessment & Plan (08/15/2017 3:00 PM POLICE MAGISTRATE): Recommended patient to continue to increase heart healthy diet with adequate fruits, vegetables, and plenty of water along with mild-moderate daily exercise as tolerated. Arrhythmia 08/15/2017 01/01/2024 Assessment & Plan (08/15/2017 3:13 PM POLICE MAGISTRATE): EKG in office indicated normal sinus rhythm [...] GERD. On potassium sparing diuretic therapy 01/01/2024 Immunizations Immunization Administration Dates Next Due Influenza, [...] Pneumococcal Polysaccharide PPV23 06/13/2011 Td, adsorbed 11/08/2018 Social History Tobacco Use Types Packs/Day Years Used Date Smoking Tobacco: Every Day Cigarettes 1 65.5 Started: 1960 Passive Smoke Exposure: Current Smokeless Tobacco: Never Tobacco Cessation:Ready to Q uit: No; Counseling Given: Yes Alcohol Use Standard Drinks/Week Comments Yes 0 (1 standard drink = 0.6 oz pur e alcohol) rare use she states [facility] [employer] Answer Date Recorded In the past 12 months has e [employer], gas, oil, or water [employer] threatened to shut off services in your [...] 02/19/2025 How often do you attend chur ch or bahai services? Never 02/19/2025 Do you belong to any clubs o r organizations such as judaism groups, unions, fraternal or athletic groups, or [...] place to sleep or slept in a penitentiary (including now)? No 11/29/2021 PHQ-9 Answer Date [...] any time in the past 12 m [facility], were you homeless or living in a penitentiary (including now)? No 02/19/2025 Personal Safety Answer Date Recorded Have you ever been in or are you currently in a harmful physical or emotional relationship or is someone making you feel afraid or unsafe? Denies 02/15/2025 Comments No Sex and Gender Information Value Date Recorded Sex Assigned at Not on file Legal Sex Female 9:27 AM POLICE MAGISTRATE Gender Identity Not on file Sexual Orientation Straight 10/14/2020 7: 58 AM POLICE MAGISTRATE Last Filed Vital Signs Vital Sign Reading [...] 03/02/2025 9:59 AM CDT Plan of Treatment Not on file Goals Goal Patient Goal Type Associated Problems Recent Progress Patient-Stated? Author BENJAMIN General Goal - Patient schedules and keeps appointments with all recommended providers [facility]CO Care Management On track(2024 11:39 AM CDT) Jake Corbin, RAJINDER Note: Problem: Potential for medical complications and [...] medication regimen. Medical Devices Implanted Type Area Buyer Device Identifier Shelf Expiration Date Model / Serial / Lot [employer] Excluder 14.5mm 28.5mm 12cm 5.5cm Conformable Active Control Trunk [id number] - [id number] - [id number] Implanted:Qty: 1 on 11/14/2022 by Kalpesh Gong MD at [facility] Endoprosthesis N/A: Aorta [employer] [id number] 07/24/2025 [id number] / [employer] Constantino Stent Drug Eluting S Megatron Mr 4.00x8mm [id number] - [id number] Implanted:Qty: 1 on 06/05/2024 by Kin Ch MD at [facility] Other - see comments [employer] 07/02/2025 [id number] / / [id number] [employer] Constantino Angio-Seal Vip 6fr Closere Device [id number] - [id number] Implanted:Qty: 1 on 06/05/2024 by Kin Ch MD at [facility] Other - see comments [employer] Constantino 01/03/2025 [id number] / / [id number] [employer] Synergy Xd Monorail 3.5mm 8mm 144cm Delivery System 1 Access Port [id number] - [id number] Implanted:Qty: 1 on 06/05/2024 by Kin Ch MD at [facility] Stent [employer] 02/27/2025 [id number] / / [id number] Titanium Left: Hip Cope Vascular Perclose 6fr Vascular Closure [id number] - [id number] - [id number] Implanted:Qty: 4 on 11/14/2022 by Kalpesh Gong MD at [facility] N/A: Femoral Cope Vascular 04/09/2024 [id number] / [id number] / W[employer] Belton Excluder 12mm 12cm Contralateral Leg Graft Endovascular [id number] - [id number] - [id number] Implanted:Qty: 1 on 11/14/2022 by Kalpesh Gong MD at [facility] Right: Aorta [employer] [id number] 06/25/2025 [id number] / [id number] / [employer] Excluder 16mm 13.5-14.5mm 9.5cm Stent Abrasion Resistant [id number] - [id number] - [id number] Implanted:Qty: 1 on 11/14/2022 by Kalpesh Gong MD at [facility] Right: Aorta [employer] [id number] 10/02/2025 [id number] / [id number] / Procedures Procedure Name Priority Date/Time [...] AUTO DIFFERENTIAL Routine 02/17/2025 4:17 AM CDT MO AN ELECTIVE ENDOTRACHEAL AIRWAY Routine 02/16/2025 3:35 [...] BLOOD CULTURE STAT 02/15/2025 11:52 AM CDT MO CRITICAL CARE ILL/INJURED PATIENT INIT 30-74 MIN [...] 3:59 PM CDT 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 (CMS/HCC) (HCC) HEMOGLOBIN A1C Routine 01/26/2025 3:59 PM CDT IFG (impaired fasting glucose) THYROID FUNCTION CASCADE Routine 01/26/2025 3:59 PM CDT CHRISTIANO (generalized anxiety disorder) VITAMIN D 25 HYDROXY Routine 01/26/2025 3:59 PM CDT Vitamin D deficiency MISCELLANEOUS LAB TEST Routine 01/14/2025 3:39 PM CDT SURGICAL PATHOLOGY Routine 01/14/2025 1: 25 PM CDT PMB (postmenopausal bleeding) MO ENDOMETRIAL BX W/WO ENDOCERVIX BX W/O DILAT [...] Read Routine (OP Routine) 11/08/2017 1:31 PM POLICE MAGISTRATE Osteoporosis, unspecified osteoporosis type, unspecified pathological fracture presence SCREENING MAMMOGRAM BILATERAL W BILLY Schedule Routine, Read Routine (OP Routine) 11/08/2017 1:01 PM POLICE MAGISTRATE Screening mammogram, encounter for HM COLONOSCOPY Routine [...] 1:41 PM CDT 02/25/2025 5:02 PM CDT us Lamberto Faria MD LAB BLOOD ORDERABLES Fi nal Result MICAH GOODWIN [id number] [address] Department [place] [address] * (ABNORMAL) Differential, auto (02/25/2025 1:41 PM CDT) Neutrophil abs 7.43(H) 1.50 - 6.50 K/cumm Imm gran abs 0.05 0.00 - 0.10 K/cumm [facility] Lymphocyte abs 1.37 0.80 - 3.30 K/cumm [facility] Monocyte abs 0.78 0.20 - 0.80 K/cumm [facility] Eosinophil abs 0.40 0.00 - 0.50 K/cumm [facility] Basophil abs 0.07 0.00 - 0.10 K/cumm [facility] Neutrophil pct 73.5 % [facility] Comment: Interpretive Data Percent cell count reference ranges are not reported, since discordance with absolute values may lead to misinterpretation of CBC data. Current Interpretive Data was last revised on 2017. Imm gran pct 0.5 % [facility] Comment: Interpretive Data Percent cell count reference ranges are not reported, since discordance with absolute values may lead to misinterpretation of CBC data. Current Interpretive Data was last revised on 2017. Lymphocyte pct 13.6 % [facility] Comment: Interpretive Data Percent cell count reference ranges are not reported, since discordance with absolute values may lead to misinterpretation of CBC data. Current Interpretive Data was last revised on 2017. Monocyte pct 7.7 % [facility] Comment: Interpretive Data Percent cell count reference ranges are not reported, since discordance with absolute values may lead to misinterpretation of CBC data. Current Interpretive Data was last revised on 2017. Eosinophil pct 4.0 % [facility] Comment: Interpretive Data Percent cell count reference ranges are not reported, since discordance with absolute values may lead to misinterpretation of CBC data. Current Interpretive Data was last revised on 2017. Basophil pct 0.7 % [facility] Comment: Interpretive Data Percent cell count reference ranges are not reported, since discordance with absolute values may lead to misinterpretation of CBC data. Current Interpretive Data was last revised on 2017. Blood 02/25/2025 1:41 PM CDT 02/25/2025 4:55 PM CDT us Lamberto Faria MD LAB BLOOD ORDERABLES Fi nal Result MICAH [address] [address] [place] [address] * (ABNORMAL) Iron profile w/ IBC (02/25/2025 1:41 PM CDT) Pathologist [facility] Iron 28(L) 35 - 145 mcg/dl TIBC 272 250 - 400 mcg/dL [facility] Transferrin saturation 10(L) 20 - 50 % [facility] Blood 02/25/2025 1:41 PM CDT 02/25/2025 4:55 PM CDT Lamberto Faria MD LAB BLOOD ORDERABLES Fi nal Result Performing Organization Address City/State/[facility] Co de Phone Number [facility] [phone] [address] [facility] [place] [address] * (ABNORMAL) CBC with auto differential (02/25/2025 1:41 PM CDT) Pathologist [facility] WBC 10.10(H) 3.80 - 9.90 K/cumm Hgb 8.3(L) 11.9 - 15.5 g/dL [facility] Hct 27.1(L) 35.6 - 45.5 % [facility] Plt 371 150 - 400 K/cumm [facility] MPV 9.7 9.1 - 12.3 fL [facility] RBC 2.92(L) 3.90 - 5.20 M/cumm [facility] MCV 92.8 81.3 - 96.4 fL [facility] MCH 28.4 27.1 - 33.3 pg [facility] MCHC 30.6(L) 32.3 - 35.7 g/dL [facility] RDW CV 15.5(H) 11.1 - 14.9 % [facility] RDW SD 52.0(H) 35.7 - 48.1 fL [facility] NRBC abs 0.00 0.00 - 0.01 K/cumm [facility] Blood 02/25/2025 1:41 PM CDT 02/25/2025 4:55 PM CDT Lamberto Faria MD LAB BLOOD ORDERABLES Fi nal Result Performing Organization Address City/State/[facility] Co de Phone Number MICAH GOODWIN [phone] [address] [facility] [place] [address] * Folate (02/25/2025 1:41 PM CDT) Pathologist [facility] Folic acid 7.7 >=5.0 ng/mL Blood 02/25/2025 1:41 PM CDT 02/25/2025 4:55 PM CDT Lamberto Faria MD LAB BLOOD ORDERABLES Fi nal Result Performing Organization Address [facility] de Phone Number KAILEYTRAVIS GOODWIN [phone] [address] [facility] [place] [address] * Ferritin (02/25/2025 1:41 PM CDT) [facility] Ferritin 125 13 - 150 ng/mL Blood 02/25/2025 1:41 PM CDT 02/25/2025 4:55 PM CDT Lamberto Faria MD LAB BLOOD ORDERABLES Fi nal Result Performing Organization Address [facility] Co de Phone Number [facility]TR[facility] GOODWIN [address] [address] [facility] [place] [address] * Vitamin B12 (02/25/2025 1:41 PM CDT) [facility] Vitamin B12 504 230 - 1,250 pg/mL Blood 02/25/2025 1:41 PM CDT 02/25/2025 4:55 PM CDT Lamberto Faria MD LAB BLOOD ORDERABLES Fi nal Result Performing Organization Address [facility] Co de Phone Number MICAH GOODWIN [address] [address] [facility] [place] [address] * (ABNORMAL) Comprehensive metabolic panel (02/25/2025 1:41 PM CDT) [facility] Sodium 139 135 - 145 mmol/L Potassium, pl 4.4 3.3 - 4.9 mmol/L [facility] Chloride 102 97 - 110 mmol/L [facility] CO2 28 22 - 32 mmol/L [facility] Anion gap 9 2 - 15 mmol/L [facility] BUN 15 6 - 25 mg/dL [facility] Creatinine 1.01 0.60 - 1.10 mg/dL [facility] Glucose 87 70 - 199 mg/dL [facility] Comment: [...] MD LAB BLOOD ORDERABLES Fi nal Result [facility] [address] [address] Department [place] [address] * (ABNORMAL) Hemoglobin and hematocrit (02/18/2025 11:38 AM CDT) Hgb 8.1(L) 11.9 - 15.5 g/dL Hct 25.4(L) 35.6 - 45.5 % [facility] ([facility]) Blood 02/18/2025 11:3 8 AM CDT 02/18/2025 11:48 AM CDT Kyle Elliott DO LAB BLOOD ORDERABLES Fin al Result MICAH LAI ([place]) 1 [facility] [place] [address] * eGFR (02/18/2025 3:23 AM CDT) eGFR [...] AM CDT 02/18/2025 3:41 AM CDT Kyle Chelle Nimo DO LAB BLOOD ORDERABLES Fin al Result MICAH LAI ([place]) 1 [facility] [place] [address] * Differential, auto (02/18/2025 3:23 AM CDT) [...] Fin al Result [facility] ([facility]) 1 [facility] [place] [address] * (ABNORMAL) CBC with auto differential (02/18/2025 [...] ([facility]) MCH 28.6 27.1 - 33.3 pg [facility] ([facility]) MCHC 31.4(L) 32.3 - 35.7 g/dL [facility] ([facility]) RDW CV 14.7 11.1 - 14.9 % [facility] ([facility]) RDW SD 49.4(H) 35.7 - 48.1 fL [facility] ([facility]) NRBC abs 0.00 0.00 - 0.01 K/cumm [facility] ([facility]) Blood 02/18/2025 3:23 AM CDT 02/18/2025 3:36 AM CDT Kyle Elliott DO LAB BLOOD ORDERABLES Fin al Result MICAH LAI ([place]) 1 [facility] Department [place] [address] * (ABNORMAL) Phosphorus (02/18/2025 3:23 AM CDT) Pathologist [facility] Phosphorus, pl 1.8(L) 2.3 - 4.5 mg/dL Blood 02/18/2025 3:23 AM CDT 02/18/2025 3:41 AM CDT Kyle Elliott DO LAB BLOOD ORDERABLES Fin al Result MICAH LAI ([place]) 1 [place] [address] * Magnesium (02/18/2025 3:23 AM CDT) Magnesium 1.9 1.4 - 2.5 mg/dL Blood 02/18/2025 3:23 AM CDT 02/18/2025 3:41 AM CDT Kyle Elliott DO LAB BLOOD ORDERABLES Fin al Result Performing Organization Address [facility] de Phone Number MICAH LAI ([place]) 1 [place] [address] * (ABNORMAL) Comprehensive metabolic panel (02/18/2025 3:23 AM CDT) Sodium 140 135 - 145 mmol/L Potassium, pl 3.3 3.3 - 4.9 mmol/L [facility] ([facility]) Chloride 106 97 - 110 mmol/L [facility] ([facility]) CO2 22 22 - 32 mmol/L [facility] Anion gap 12 2 - 15 mmol/L [facility] ([facility]) BUN 16 6 - 25 mg/dL [facility] ([facility]) Creatinine 0.91 0.60 - 1.10 mg/dL [facility] ([facility]) Glucose 97 70 - 199 mg/dL [facility] ([facility] Comment: Interpretive Data Fasting glucose [...] Fin al Result [facility]AH [facility] ([facility]) 1 [facility] Department [place] [address] * eGFR (02/17/2025 4:17 AM CDT) eGFR [...] Fin al Result [facility] ([facility]) 1 [facility] Department [place] [address] * (ABNORMAL) Differential, auto (02/17/2025 4:17 AM [...] DO LAB BLOOD ORDERABLES Fin al Result [facility] ([facility]) 1 [facility] Department [place] [address] * (ABNORMAL) CBC with auto differential (02/17/2025 [...] ORDERA BLES Final Result Performing Organization Address City/[facility]/ZIP Co de Phone Number MICAH LAI ([place]) 1 [facility] [place] [address] * Phosphorus (02/17/2025 4:17 AM CDT) [facility] Phosphorus, pl 2.3 2.3 - 4.5 mg/dL Blood 02/17/2025 4:17 AM CDT 02/17/2025 5:24 AM CDT Dinesh Mahajan MD LAB BLOOD ORDERA BLES Final Result Performing Organization Address [facility] de Phone Number MICAH LAI ([place]) 1 [facility] [place] [address] * Magnesium (02/17/2025 4:17 AM CDT) [facility] Magnesium 1.9 1.4 - 2.5 mg/dL Blood 02/17/2025 4:17 AM CDT 02/17/2025 5:24 AM CDT Dinesh Mahajan MD LAB BLOOD ORDERA BLES Final Result Performing Organization Address [facility] de Phone Number MICAH LAI ([place]) [address] [place] [address] * (ABNORMAL) Comprehensive metabolic panel (02/17/2025 4:17 AM CDT) [facility] Sodium 137 135 - 145 mmol/L Potassium, pl 3.8 3.3 - 4.9 mmol/L [facility] ([facility]) Chloride 101 97 - 110 mmol/L [facility] ([facility]) CO2 25 22 - 32 mmol/L [facility] ([facility]) Anion gap 11 2 - 15 mmol/L [facility] ([facility]) BUN 14 6 - 25 mg/dL [facility] ([facility]) Creatinine 0.83 0.60 - 1.10 mg/dL [facility] ([facility]) Glucose 94 70 - 199 mg/dL [facility] ([facility]) [...] BLES Final Result [facility] ([facility]) 1 [facility] [place] [address] * MO AN ELECTIVE ENDOTRACHEAL AIRWAY (02/16/2025 3:35 PM CDT) Narrative Amrita Chan CRNA - 02/16/2025 3:35 PM CDT Amrita Chan CRNA 02/16/2025 3:35 PM Airway Patient location: OR Urgency: elective Date/time: 02/16/2025 3:21 PM Indications for airway management: anesthesia Difficult airway: no Staff: Placed by: ART MODEL: Amrita Chan CRNA Emergent airway documentation: Risks [...] Gosia Kearns M.D. FT: FT Report ID: [id number] Reading Location: [id number] Procedure Note Gosia Peters MD - 02/16/2025 [...] Gosia Kearns M.D. FT: FT Report ID: [id number] Reading Location: [place] [address] Kyle Elliott DO IMG NM PROCEDURES Final Result * TRANSTHORACIC ECHO (TTE) COMPLETE W DOPPLER/CF WO CONTRAST (02/16/2025 12:21 PM CDT) Estimated EF 60 % CONS SCIMAGE Anatomical Region Laterality Modality Ultrasound 02/16/2025 12:1 9 PM CDT Narrative 02/16/2025 2:16 PM CDT [address] [address] Echocardiogram Report Patient Name: VIKKI DUMONT : 1945 Study Date: 02/16/2025 12:19:19 PM Gender: F Tech: Location: [id number] Ref Provider: KYLE ELLIOTT Height(Cm): BSA: Weight(Kg): [...] limited views. Electronically Signed By: Dr Neville Pichardo 02/16/2025 2:15:39 PM CDT Procedure Note Neville Pichardo MD - 02/16/[address] [place] [address] Echocardiogram Report Patient Name: VIKKI DUMONT : 1945 Study Date: 02/16/2025 12:19:19 PM Gender: F Tech: Location: [id number] [facility] Provider: KYLE ELLIOTT Height(Cm): BSA: Weight(Kg): Quality: [...] limited views. Electronically Signed By: Dr Neville Pichardo 02/16/2025 2:15:39 PM CDT Kyle Elliott DO CV ECHO PROCEDURES Final Result * Stress Test for Myocardial Perfusion (02/16/2025 12:21 PM CDT) Anatomical Region Laterality Modality Nuclear Medicine 02/16/2025 10:2 5 AM CDT Narrative 02/16/2025 1:32 PM CDT [address] [place] [address] Lexiscan Report Patient Name: VIKKI DUMONT M : 1945 Study Date: 02/16/2025 10:25:00 AM Gender: F Tech: stella garcia Location: [id number] Ref Provider: KYLE ELLIOTT Height(Cm): 157 BSA: [...] Supervising Physician: The Supervising Physician is neville pichardo. Reason for Termination: Lexiscan protocol complete. Resting [...] reported separately. Electronically Signed By: Dr Neville Pichardo 02/16/2025 12:31:20 PM CDT Procedure Note Neville Pichardo MD - 02/16/[address] [place] [address] Lexiscan Report Patient Name: VIKKI DUMONT M : 1945 Study Date: 02/16/2025 10:25:00 AM Gender: F Tech: stella garcia Location: [id number] Ref Provider: KYLE ELLIOTT Height(Cm): 157 BSA: [...] Supervising Physician: The Supervising Physician is neville ipchardo. Reason for Termination: Lexiscan protocol complete. Resting [...] reported separately. Electronically Signed By: Dr Neville Pichardo 02/16/2025 12:31:20 PM CDT Kyle Elliott DO CV STRESS PROCEDURES Fin al Result * Surgical pathology (02/16/2025 9:11 AM CDT) Tissue (Gallbladder) 02/16/2025 3:43 PM CDT Narrative [facility] - 02/18/2025 1:44 PM CDT EPIC results best viewed via link to PDF [facility] Department of Pathology [address] [place] [address] Note to Patients: This report may contain [...] the details. Final Report Patient Name: VIKKI DUMONT Address: [address] [place] [address]- Gender: F : 1945 (Age: 79) Service: Surgery Location: [facility] Hospital #: [id number] Patient Type: [facility] Taken: 02/16/2025 Received: 02/17/2025 Accessioned: 02/17/2025 Reported: [...] received in a single container labeled VIKKI GROSS and gallbladder. It is a gallbladder that [...] blue. Represented in one cassette. Smith Britton R.N. P.A./Kendell Moreno M.D. REPORT IMAGES AND SCANNED DOCUMENTS, IF INCLUDED, ONLY VIEWABLE IN PDF VERSION OF REPORT The performance characteristics of some immunohistochemical stains, fluorescence in-situ hybridization tests and immunophenotyping by flow cytometry cited in this report (if any) were determined by the Surgical Pathology Department at [facility] as part of an ongoing quality assurance project manager program and in compliance with federally mandated [...] characteristics determined by the Surgical Pathology Department [facility]. It has not been cleared or approved by the U. S. Food and Drug Administration. Note for decalcified specimens: This assay has not been validated on decalcified tissues. Results should be interpreted with caution given the possibility of false negativity on decalcified specimens us Dinesh Mhaajan MD LAB PATHOLOGY OR DERABLES Final Result [facility]Y [facility] ([place]) 1 [place] [address] * US RUQ (02/16/2025 8:41 AM CDT) [...] Neville Nova M.D. RB: SALLY Report ID: [id number] Reading Location: [id number] Procedure Note Neville Nova MD - 02/16/2025 [...] Neville Nova M.D. RB: SALLY Report ID: [id number] Reading Location: [place] [address] us Anu Eyers CONTRACTING MANAGER IMG US PROCEDURES Final Result * CT [...] likely or secondary in nature. BILE DUCTS: Kybd-bi-rydmpwsz intrahepatic biliary ductal dilatation. Extrahepatic ducts mildly [...] suggesting acute cholecystitis. Consider ultrasound to confirm. Dqnm-mg-nlxakqgn intrahepatic biliary ductal dilatation. A degree of [...] Neville Nova M.D. RB: SALLY Report ID: [id number] Reading Location: [id number] Procedure Note Neville Nvoa MD - 02/16/2025 EXAM DESCRIPTION: CT ABDOMEN [...] less likely orsecondary in nature. BILE DUCTS: Qruk-uv-veijivfw intrahepatic biliary ductal dilatation. Extrahepatic ducts mildly [...] induration suggesting acute cholecystitis. Consider ultrasound toconfirm. Fyvj-nf-qjhzgwec intrahepatic biliary ductal dilatation. A degree ofbiliary obstruction is difficult to exclude. Central low-density within the uterus measures up to 3.6 cm and appearsmore prominent than previous. Please correlate for trapped fluid in theendometrium. T11 compression fracture is new from 03/12/2024 exam. THIS IS AN ELECTRONICALLY VERIFIED FINAL REPORT 02/16/2025 5:26 AM - Electronically signed by Neville Nova M.D. RB: SALLY Report ID: [id number] Reading Location: [place] [address] Xiao Barksdale MD IM CT PROCEDURES Final Result * (ABNORMAL) Troponin [...] MD LAB BLOOD ORDERABLES Final Resul t Performing Organization Address City/[facility]/ZIP Co de Phone Number MICAH LAI ([place]) [address] [place] [address] * eGFR (02/16/2025 3:49 AM CDT) eGFR [...] BLOOD ORDERABLES Fin al Result MICAH LAI ([place]) [address] [place] [address] * (ABNORMAL) Differential, auto (02/16/2025 3:49 AM CDT) Neutrophil abs 14.01(H) 1.50 - 6.50 K/cumm Imm gran abs 0.09 0.00 - 0.10 K/cumm MICAH MING ([place]) Lymphocyte abs 0.96 0.80 - 3.30 [...] Fin al Result [facility] ([facility]) [address] [place] [address] * (ABNORMAL) CBC with auto differential (02/16/2025 [...] (OSCAR) MCHC 32.0(L) 32.3 - 35.7 g/dL [facility] ([place]) RDW CV 14.6 11.1 - 14.9 % [facility] ([facility]) RDW SD 48.1 35.7 - 48.1 fL [facility] ([place]) NRBC abs 0.00 0.00 - 0.01 K/cumm [facility] ([facility]) Blood 02/16/2025 3:49 AM CDT 02/16/2025 5:14 AM CDT Kyle Elliott DO LAB BLOOD ORDERABLES Fin al Result MICAH LAI ([place]) [address] [place] [address] * Phosphorus (02/16/2025 3:49 AM CDT) Pathologist [facility] Phosphorus, pl 3.1 2.3 - 4.5 mg/dL Blood 02/16/2025 3:49 AM CDT 02/16/2025 5:14 AM CDT Kyle Elliott LAB BLOOD ORDERABLES Fin al Result Performing Organization Address City/[facility]/ZIP Co de Phone Number MICAH LAI ([place]) [address] [place] [address] * Magnesium (02/16/2025 3:49 AM CDT) Magnesium 1.7 1.4 - 2.5 mg/dL Blood 02/16/2025 3:49 AM CDT 02/16/2025 5:14 AM CDT Kyle Elliott LAB BLOOD ORDERABLES Fin al Result Performing Organization Address [facility] de Phone Number MICAH LAI ([place]) 1 [facility] [place] [address] * (ABNORMAL) Comprehensive metabolic panel (02/16/2025 3:49 AM CDT) Sodium 136 135 - 145 mmol/L Potassium, pl 4.0 3.3 - 4.9 mmol/L [facility] ([facility]) Chloride 101 97 - 110 mmol/L [facility] ([facility]) CO2 21(L) 22 - 32 mmol/L [facility] ([facility]) Anion gap 14 2 - 15 mmol/L [facility] ([facility]) BUN 17 6 - 25 mg/dL [facility] ([facility]) Creatinine 0.87 0.60 - 1.10 mg/dL [facility] ([facility]) Glucose 84 70 - 199 mg/dL [facility] ([facility]) Comment: Interpretive Data Fasting [...] ORDERABLES Fin al Result Performing Organization Address City/[facility]/ZIP Co de Phone Number [facility] ([place]) [address] [place] [address] * Troponin T high-sensitivity 6-hour (02/15/2025 4:32 PM CDT) Trop T hs 14 <=14 ng/L Comment: Interpretive Data For further hscTnT resources including the diagnostic algorithm and an aid in interpretation, copy and paste this link: https://nrl.testcatalog.org/show/hsTrop Current Interpretive Data last revised 2020. Trop T hs delta -3 ng/L [facility] ([facility]) Trop T hs interp Insignificant [facility] ([facility]) Blood 02/15/2025 4:32 PM CDT 02/15/2025 4:35 PM CDT us Rosa Claudio MD LAB BLOOD ORDERABLE S Final Result [facility] [address] [place] [address] * (ABNORMAL) Troponin T high-sensitivity 2-hour (02/15/2025 1:08 PM CDT) Trop T hs 15(H) <=14 ng/L Comment: Interpretive Data For further hscTnT resources including the diagnostic algorithm and an aid in interpretation, copy and paste this link: https://nrl.testcatalog.org/show/hsTrop Current Interpretive Data last revised 2020. Trop T hs delta -2 ng/L [facility] ([facility]) Trop T hs interp Insignificant [facility] ([facility]) Blood 02/15/2025 1:08 PM CDT 02/15/2025 1:15 PM CDT us Rosa Claudio MD LAB BLOOD ORDERABLE S Final Result [facility] ([facility]) 1 [facility] [place] [address] * (ABNORMAL) Urinalysis reflex to microscopic and [...] tendency for uric acid stone formation. Source: [place] [employer] Current Interpretive Data was last revised on 2017 Protein, ur ql Negative Negative [facility] R [facility] ([facility]) Glucose, ur ql Negative Negative [facility] ([facility]) Ketones, ur Trace Negative [facility] ([facility]CAR) Bilirubin, ur Negative Negative [facility] ([facility]) Blood, ur Negative Negative [facility] ([facility]) Urobilinogen, ur <2.0 <2.0 mg/dL [facility] ([facility]) Nitrite, ur Positive(A) Negative [facility] ([facility]) Leukocyte esterase, ur Negative Negative [facility] (OSCAR) UA reflex comment Reflex to microscopic UA will be performed. MICAH LAI ([place]) Urine 02/15/2025 1:08 PM CDT 02/15/2025 1:15 PM CDT Rosa Claudio MD LAB MICROBIOLOGY - GENERAL ORDERABLES Final Result Performing Organization Address [facility] de Phone Number [facility]AH [facility] ([facility]) 1 [facility] [place] [address] * (ABNORMAL) Urinalysis, microscopic only (02/15/2025 1:08 PM CDT) WBC, ur 0-5 0 - 5 /HPF RBC, ur 0-2 0 - 2 /HPF MICAH LAI ([place]) Bacteria, ur Trace(A) [facility] ([place]) Mucous, ur Present(A) [facility]ERNER A (OS[place]) Hyaline casts, ur 6-10 0 - 10 /LPF [facility]AH [facility] (OSCAR) Culture Reflex Comment Reflex conditions for urine culture (WBC >10) not met. MICAH LAI ([place]) Urine 02/15/2025 1:08 PM CDT 02/15/2025 1:15 PM CDT Rosa Claudio MD LAB URINE ORDERABLE S Final Result Performing Organization Address [facility] Co de Phone Number MICAH LAI ([place]) 1 [facility] [place] [address] * CT Chest PE (CTA) W Contrast [...] 1:38 PM - Electronically signed by Ranjan LOUIE: LIBAN Report ID: [id number] Reading Location: [id number] Procedure Note Ranjan Peters MD - 02/15/2025 [...] 1:38 PM - Electronically signed by Ranjan LOUIE: LIBAN Report ID: [id number] Reading Location: [place] [address] us Rosa Claudio MD IMG CT PROCEDURES F inal Result * Sepsis Lactate w/ Reflex (02/15/2025 11:52 AM CDT) Sepsis Lactate 2.0 0.7 - 2.0 mmol/L Blood 02/15/2025 11:5 2 AM CDT 02/15/2025 11:55 AM CDT us Rosa Claudio MD LAB BLOOD ORDERABLE S Final Result MICAH LAI ([place]) [address] [place] [address] * Blood culture Blood Peripheral (02/15/2025 11:52 AM CDT) Report Final Report: No growth Comment:Testing performed by : [facility], [address] [place]., [address] Blood (Peripheral) 02/15/2025 11:52 AM CDT 02/15/2025 [...] performance characteristics have been verified by the [facility] Microbiology Laboratory. For questions about this culture, contact the Microbiology Laboratory at [phone]. Interpretive data was last revised on 24. Rosa Claudio MD LAB MICROBIOLOGY - GENERAL ORDERABLES Final Result MICAH LAI ([place]) [address] [place] [address] * Blood culture Blood Peripheral (02/15/2025 11:52 AM CDT) Report Final Report: No growth Comment:Testing performed by : [facility], [address] [place]., [address] Blood (Peripheral) 02/15/2025 11:52 AM CDT 02/15/2025 2:09 PM CDT Narrative MICAH LAI ([place]) - 02/19/2025 4:00 PM CDT Draw Blood [...] performance characteristics have been verified by the [facility] Microbiology Laboratory. For questions about this culture, contact the Microbiology Laboratory at [phone]. Interpretive data was last revised on 24. Rosa Claudio MD LAB MICROBIOLOGY - GENERAL ORDERABLES Final Result MICAH LAI [facility]) [address] Department of Laboratories [place] [id number] * [place] CRITICAL CARE ILL/INJURED PATIENT INIT 30-74 MIN [...] BLOOD ORDERABLE S Final Result MICAH LAI ([place]) 1 [facility] [place] [address] * eGFR (02/15/2025 10:47 AM CDT) eGFR [...] BLOOD ORDERABLE S Final Result MICAH LAI ([place]) 1 [facility] [place] [address] * (ABNORMAL) Differential, auto (02/15/2025 10:47 AM [...] MD LAB BLOOD ORDERABLE S Final Result [facility]) [address] [place] [address] * (ABNORMAL) Pro B-type natriuretic peptide (02/15/2025 [...] et.al. Eur Heart J. 2006:27:330-337. 2. Estefany RW, Marcel AM. J. AM Dasha Cardiol: Cardiovasc Imag. 2009;2: 216- 225. Interpretive Data Last Revised Date: 2018. Blood 02/15/2025 10:4 7 AM CDT 02/15/2025 11:39 AM CDT Rosa Claudio MD LAB BLOOD ORDERABLE S Final Result [facility]AH [facility] ([place]) [address] [place] [address] * (ABNORMAL) CBC with auto differential (02/15/2025 [...] (OSCAR) MCH 28.6 27.1 - 33.3 pg [facility] ([facility]) MCHC 31.3(L) 32.3 - 35.7 g/dL [facility] ([facility]) RDW CV 14.6 11.1 - 14.9 % [facility] ([facility]) RDW SD 49.1(H) 35.7 - 48.1 fL [facility] ([facility]) NRBC abs 0.00 0.00 - 0.01 K/cumm [facility] ([facility]) Blood Venous blood specimen / Unknown 02/15/2025 10:47 AM CDT 02/15/2025 10:50 AM CDT us Rosa Claudio MD LAB BLOOD ORDERABLE S Final Result MICAH LAI ([place]) [address] [place] [address] * Protime-INR (02/15/2025 10:47 AM CDT) PT 11.1 9.7 - 13.0 sec [facility] ([facility]) INR 1.03 0.90 - 1.20 [facility] ([facility]) Comment: Interpretive data Oral anticoagulant therapeutic ranges: Venous thromboembolism prophylaxis or treatment: 2.0-3.0 CARDIOLOGY Standard range: 2.0-3.0 High-intensity range: 2.5-3.5 Refer to indication-specific guidelines for appropriate target ranges for prosthetic heart valve replacement. Current interpretive data was last revised on 2019. Blood 02/15/2025 10:4 7 AM CDT 02/15/2025 11:39 AM CDT us Rosa Claudio MD LAB BLOOD ORDERABLE S Final Result MICAH MING ([place]) [address] [place] [address] * (ABNORMAL) Comprehensive metabolic panel (02/15/2025 10:47 [...] 29 7 - 45 Units/L [facility] ([facility]) AST 52(H) 10 - 45 Units/L [facility] ([facility]) Blood 02/15/2025 10:4 7 AM CDT 02/15/2025 10:50 AM CDT us Rosa Claudio MD LAB BLOOD ORDERABLE S Final Result [facility]AH [facility] ([facility]) [address] [place] [address] * XR Chest 1 Vw Portable (if [...] Ranjan Krishnan M.D. MF: [id number] Report ID: [id number] Reading Location: [id number] Procedure Note Ranjan Krishnan, - 02/15/2025 EXAM DESCRIPTION: XR CHEST 1 [...] Ranjan Krishnan M.D. MF: [id number] Report ID: [id number] Reading Location: [place] [address] Rosa Claudio MD IMG XR PROCEDURES F inal Result * ECG 12 lead (02/15/2025 10:38 AM CDT) 02/15/2025 10:3 8 AM CDT Narrative [facility] - 02/16/2025 7:17 AM CDT Vent Rate: 55 bpm RR Interval: 1089 msec [place] Interval: 152 msec QRS Duration: 101 msec QT Interval: 503 msec QTC Interval: 491 msec P-R-T Mauldin: 44 - -29 - 136 degrees IMPRESSION: SINUS BRADYCARDIA Leftward axis Baseline artifact Poor R-wave progression Diffuse T-wave changes Compared to prior EKG, ST changes no longer seen now Electronically Signed By: Dr Neville Pichardo us Rosa Claudio MD ECG ORDERABLES Fin al Result [facility] * US Transvaginal (02/12/2025 1:36 PM CDT) [...] is recommended. 2. Neither ovary is visualized. us Sisi Rich MD IMG US PROCEDURES F [...] MD LAB BLOOD ORDERABLES Fi nal Result [facility] [address] [place] [address] * (ABNORMAL) Differential, auto (01/26/2025 3:59 PM CDT) Neutrophil abs 6.29 1.50 - 6.50 K/cumm Imm gran abs 0.03 0.00 - 0.10 K/cumm [facility] Lymphocyte abs 1.49 0.80 - 3.30 K/cumm [facility] Monocyte abs 0.62 0.20 - 0.80 K/cumm [facility] Eosinophil abs 0.31 0.00 - 0.50 K/cumm [facility] Basophil abs 0.13(H) 0.00 - 0.10 K/cumm [facility] Neutrophil pct 70.9 % [facility] Comment: Interpretive Data Percent cell count reference ranges are not reported, since discordance with absolute values may lead to misinterpretation of CBC data. Current Interpretive Data was last revised on 2017. Imm gran pct 0.3 % [facility] Comment: Interpretive Data Percent cell count reference ranges are not reported, since discordance with absolute values may lead to misinterpretation of CBC data. Current Interpretive Data was last revised on 2017. Lymphocyte pct 16.8 % [facility] Comment: Interpretive Data Percent cell count reference ranges are not reported, since discordance with absolute values may lead to misinterpretation of CBC data. Current Interpretive Data was last revised on 2017. Monocyte pct 7.0 % [facility] Comment: Interpretive Data Percent cell count reference ranges are not reported, since discordance with absolute values may lead to misinterpretation of CBC data. Current Interpretive Data was last revised on 2017. Eosinophil pct 3.5 % [facility] Comment: Interpretive Data Percent cell count reference ranges are not reported, since discordance with absolute values may lead to misinterpretation of CBC data. Current Interpretive Data was last revised on 2017. Basophil pct 1.5 % [facility] Comment: Interpretive Data Percent cell count reference ranges are not reported, since discordance with absolute values may lead to misinterpretation of CBC data. Current Interpretive Data was last revised on 2017. Blood 01/26/2025 3:59 PM CDT 01/26/2025 8:48 PM CDT Lamberto Faria MD LAB BLOOD ORDERABLES Fi nal Result Performing Organization Address City/[facility]/ZIP Co de Phone Number MICAH [address] [place] [address] * Thyroid Function [place] (01/26/2025 3:59 PM CDT) Pathologist [facility] TSH 1.08 0.30 - 4.20 mcIUnit/mL Blood 01/26/2025 3:59 PM CDT 01/26/2025 8:48 PM CDT Lamberto Faria MD LAB BLOOD ORDERABLES Fi nal Result Performing Organization Address [facility] Co de Phone Number MICAH GOODWIN [address] [facility] [address] [place], [place] [id number] * (ABNORMAL) CBC with auto differential (01/26/2025 3:59 PM CDT) Pathologist [facility] WBC 8.87 3.80 - 9.90 K/cumm Hgb 11.2(L) 11.9 - 15.5 g/dL [facility] Hct 36.8 35.6 - 45.5 % [facility] Plt 323 150 - 400 K/cumm [facility] MPV 9.8 9.1 - 12.3 fL [facility] RBC 3.96 3.90 - 5.20 M/cumm [facility] MCV 92.9 81.3 - 96.4 fL [facility] MCH 28.3 27.1 - 33.3 pg [facility] MCHC 30.4(L) 32.3 - 35.7 g/dL [facility] RDW CV 15.5(H) 11.1 - 14.9 % [facility] RDW SD 53.2(H) 35.7 - 48.1 fL [facility] NRBC abs 0.00 0.00 - 0.01 K/cumm [facility] Blood 01/26/2025 3:59 PM CDT 01/26/2025 8:48 PM CDT Lamberto Faria MD LAB BLOOD ORDERABLES Fi nal Result Performing Organization Address [facility] Co de Phone Number MICAH GOODWIN [address] [facility] [address] [place], [place] [id number] * Vitamin D 25 hydroxy (01/26/2025 3:59 PM CDT) Vitamin D 25-OH 77 30 - 80 ng/mL Blood 01/26/2025 3:59 PM CDT 01/26/2025 8:48 PM CDT Lamberto Faria MD LAB BLOOD ORDERABLES Fi nal Result Performing Organization Address [facility] de Phone Number MICAH [address] [facility] [employer] [place], [place] [id number] * (ABNORMAL) Vitamin B6 (01/26/2025 3:59 PM CDT) Pyridoxal phosphate (Vit B6) <2(L) 5 - 50 mcg/L [facility] Comment: ADDITIONAL INFORMATION This test was developed and its performance characteristics determined by [facility] in a manner consistent with CLIA requirements. This test has not been cleared or approved by the U.S. Food and Drug Administration. Test Performed by: [facility] - [address] [address] Investigation Division Lieutenant: Derick Galan Ph.D.; CLIA# [id number] Blood 01/26/2025 3:59 PM CDT 01/26/2025 8:48 PM CDT Lamberto Faria MD LAB BLOOD ORDERABLES Fi nal Result Performing Organization Address [facility] Co de Phone Number MICAH GOODWIN [phone] [facility] [place] [address] [facility] * (ABNORMAL) Hemoglobin A1c (01/26/2025 3:59 PM CDT) [facility] Hgb A1C 5.8(H) 4.0 - 5.6 % Estimated Average Glucose 120 mg/dL MICAH GOODWIN Comment: The ADA recommends reporting an estimated Average Glucose (eAG) with all Hemoglobin A1c results using the equation derived from a study of 507 normal and diabetic adults. Minority populations were underrepresented and children were not included. (Diabetes Care 31:3504-1591, 2008). The eAG is not equivalent to a fasting glucose. Blood 01/26/2025 3:59 PM CDT 01/26/2025 8:48 PM CDT Lamberto Faria MD LAB BLOOD ORDERABLES Fi nal Result Performing Organization Address [facility] de Phone Number MICAH [address] [place] [address] * Folate (01/26/2025 3:59 PM CDT) [facility] Folic acid 8.9 >=5.0 ng/mL Comment:Hemolysis present. R esults may be affected. Blood 01/26/2025 3:59 PM CDT 01/26/2025 8:48 PM CDT Lamberto Faria MD LAB BLOOD ORDERABLES Fi nal Result Performing Organization Address [facility] Co de Phone Number MICAH [address] [address] [facility] [place] [address] * Vitamin B12 (01/26/2025 3:59 PM CDT) Vitamin B12 448 230 - 1,250 pg/mL Blood 01/26/2025 3:59 PM CDT 01/26/2025 8:48 PM CDT us Lamberto Faria MD LAB BLOOD ORDERABLES Fi nal Result MICAH GOODWIN [address] Department [place] [address] * Lipid panel (01/26/2025 3:59 PM CDT) [...] on 2018. Triglycerides 94 <=149 mg/dL MICAH GOODWIN Comment: Interpretive Data Ages [...] mg/dL High: >160 mg/dL Calculated using the Serafin LDL-C estimating equation. This equation was implemented on 2024. Prior to this date LDL-C was estimated using the Friedewald equation. Literature References: 1. Expert Panel on Integrated Guidelines for Cardiovascular Health and Risk Reduction in Children and Adolescents. Pediatrics 2011;128:S213 2. NCEP Expert Panel. Circulation 2004;110:227 3. Serafin Whitehead al. KATE Cardiol. 2019January 08;5(5):540-548. doi: 10.1001/jamacardio.2020.0013 Current Interpretive Data was last revised on 2024. Non-HDL Cholesterol 76 mg/dL MICAH Comment: Interpretive Data Ages < [...] last revised on 2018. Chol/HDL ratio 2 MICAH Blood 01/26/2025 3:59 PM CDT 01/26/2025 8:48 PM CDT Narrative MICAH - 01/26/2025 9:54 PM CDT Has the patient been fasting for 8 hours or more?->No Lamberto Faria MD LAB BLOOD [place] [address] [address] Department [place] [address] * (ABNORMAL) Comprehensive metabolic panel (01/26/2025 3:59 [...] BLOOD ORDERABLES Fi nal Result MICAH GOODWIN [address] [place] [address] * - Miscellaneous Lab Test (01/14/2025 3:39 PM CDT) [facility] See Comment Comment:see scanned report Miscellaneous 01/14/2025 3:3 9 PM CDT 02/04/2025 1:06 PM CDT Jasper Lopez MD LAB BLOOD ORDERABLES Final Result Performing Organization Address City/[facility] Co de Phone Number MICAH GOODWIN [address] [place] [address] * Surgical pathology (01/14/2025 1:25 PM CDT) Tissue (Endometrial biopsy) 01/14/2025 1:25 PM CDT 01/15/2025 1:25 PM CDT Narrative PATHOLOGY CH - 01/19/2025 1:23 PM CDT EPIC results best viewed via link to PDF [facility] Department of Pathology [address] [place] [id number] Note to Patients: This report may contain [...] Final Report with Addendum Patient Name: VIKKI DUMONT Address: [address] [place] [address]- Gender: F : 1945 (Age: 79) Service: Location: N : [id number] [facility] #: [id number] Patient Type: SPECIMEN Taken: 01/14/2025 Received: 01/15/2025 Accessioned: 01/15/2025 Reported: 01/19/2025 Physician(s):AIMEE Morrow Diagnosis: Endometrium, biopsy: - Chronic and acute endometritis with abundant plasma cells and histiocytes - See microscopic description Jasper Lopez M.D. Report Electronically Reviewed and Signed Out By Jasper Lopez M.D. 01/19/2025 13:23:52 Procedure/Addenda: Addendum Addendum Comment The external consult report from [facility] ([id number]) has been finalized and is attached. For the immigration consultant s comment, please see scanned image of report or the report can be viewed in the Electronic Medical Record of the patient. If access to the EMR is not available, please call pathology for a hard copy of the report ([phone]). Endometrium, biopsy ([id number]; 01/14/2025): Severe acute and chronic endometritis. See [...] All in one cassette. Smith Britton R.N., P.Karan./Sara Ramos M.D. REPORT IMAGES AND SCANNED DOCUMENTS, IF INCLUDED, ONLY VIEWABLE IN PDF VERSION OF REPORT The performance characteristics of some immunohistochemical stains, fluorescence in-situ hybridization tests and immunophenotyping by flow cytometry cited in this report (if any) were determined by the Surgical Pathology Department at [facility] as part of an ongoing quality assurance project manager program and in compliance with federally mandated [...] characteristics determined by the Surgical Pathology Department [facility]. It has not been cleared or approved by the U. S. Food and Drug Administration. Note for decalcified specimens: This assay has not been validated on decalcified tissues. Results should be interpreted with caution given the possibility of false negativity on decalcified specimens Rossana Greer NP LAB PATHOLOGY ORDERABLES Pending sale to [facility] Result PATHOLOGY [address] [place] [address] * [place] ENDOMETRIAL BX W/WO ENDOCERVIX BX W/O DILAT [...] used for procedure. Jayla YU Rossana Greer CONTRACTING MANAGER IN CLINIC/BEDSIDE ORDERABLE S Final Result * [...] Neither ovary is visualized. Sisi Rich MD [facility] US PROCEDURES F inal Result * Vaginitis panel Vaginal (12/29/2024 3:34 PM CDT) Bacterial Vaginosis Not Detected Not Detected CH Comment:A negative result do es not preclude a possible infection. Results should be considered in conjunction with clinical presentation to determine the disease status. Frances group Not Detected Not Detected [facility] Frances glabrata/ krusei Not Detected Not Detected [facility] Trichomonas DNA Not Detected Not Detected [facility] Vaginal 12/29/2024 3:34 PM CDT 12/29/2024 9:13 PM CDT Narrative [facility] - 12/29/2024 10:43 PM CDT The [email or web address] Xpert Xpress MVP test detects DNA targets [...] this test have been verified by the [facility]. Lamberto Faria MD LAB MICROBIOLOGY - [facility] ORDERABLES Final Result [facility] [address] [address] [place] [address] CH * (ABNORMAL) Urinalysis reflex to microscopic and culture Urine, bladder (12/29/2024 3:34 PM CDT) Color, ur Yellow Yellow Clarity, ur Clear Clear [facility] Specific gravity, ur 1.010 1.003 - 1.030 [facility] pH, urine 6.0 [facility] Comment: Interpretive Data U rine pH is affected by diet, medications, systemic acid-base disturbances, and renal tubular function. pH may affect urinary stone formation. For example, urine pH below 6.0 may help reduce the tendency for calcium phosphate stones and pH greater than 6.0 may reduce the tendency for uric acid stone formation. Source: [facility] Current Interpretive Data was last revised [...] Reflex to microscopic UA will be performed. [facility] Urine, bladder 12/29/2024 3: 34 PM CDT 12/29/2024 9:13 PM CDT Lamberto Faria MD LAB MICROBIOLOGY - GENE RAL ORDERABLES Final Result Performing Organization Address [facility] de Phone Number MICAH GOODWIN [id number] [place] [address] * (ABNORMAL) Urinalysis, microscopic only (12/29/2024 3:34 PM CDT) WBC, ur 6-10(A) 0 - 5 /HPF RBC, ur 3-5(A) 0 - 2 /HPF [facility] Epithelial cells, squamous, ur 1-5 0 - 5 /HPF [facility] Bacteria, ur Trace(A) [facility] Hyaline casts, ur 6-10 0 - 10 /LPF [facility] CH Culture Reflex Comment Reflex conditions for urine culture (WBC >10) not met. [facility] Urine, bladder 12/29/2024 3: 34 PM CDT 12/29/2024 9:13 PM CDT Lamberto Faria MD LAB URINE ORDERABLES Fi nal Result Performing Organization Address [facility] Co de Phone Number MICAH GOODWIN [id number] [place] [address] * MRI Lumbar Spine WO Contrast (12/17/2024 [...] Stanford Chaudhry D.O. AP: AP Report ID: [id number] Reading Location: [id number] Procedure Note Stanford Chaudhry, DO - 12/18/2024 [...] Stanford Chaudhry D.O. AP: AP Report ID: [id number] Reading Location: [place] [address] Jurgen Miller MD IM MRI PROCEDURES Sheila l Result * CT [...] 1 or 2 Site (11/08/2017 1:31 PM POLICE MAGISTRATE) Anatomical Region Laterality Modality Body N/A Other Impressions 11/08/2017 1:34 PM POLICE MAGISTRATE 1. Osteoporosis in the right hip region. [...] Mati Aly M.D. Narrative 11/08/2017 1:34 PM POLICE MAGISTRATE EXAM: DEXA Bone Density Axial HISTORY: Age-related [...] population. Electronically signed by: Mati Aly M.D. Sameer Grady MD IMG DXA PROCEDURES Final Res ult * Screening Mammogram Bilateral W Billy (11/08/2017 1:01 PM POLICE MAGISTRATE) Anatomical Region Laterality Modality Breast Bilateral Mammography Impressions 11/08/2017 1:04 PM POLICE MAGISTRATE BI-RADS CATEGORY 2: BENIGN FINDINGS. RECOMMEND ROUTINE FOLLOW-UP. Electronically signed by: Luis Ramachandran M.D. Narrative 11/08/2017 1:04 PM POLICE MAGISTRATE SCREENING MAMMOGRAM BILATERAL W BILLY HISTORY: Routine [...] R esult * COLONOSCOPY (04/10/2008) Colonoscopy Normal [facility] Provider HEALTH MAINTENANCE Final Result from Last 3 Months or Most Recently Relevant to Health Maintenance Insurance MEDICARE [facility] MEDICARE [employer] [place] [place] MEDIC[place] Advance Directives For more information, please contact: [phone] Documents on File Type Date Recorded Patient Duck Bill Operator Expl anation Power of Cinder Block Mason 11/14/2022 6:07 AM * Full Code (Latest [...] Relationship Healthcare Agent Relationshi p Communication Jeovanny Julia Spouse Health Care Agent Care Teams Diesel Power Mechanic Relationship Specialty Start Date End Date Lamberto Faria MD [address] [facility] [address] [place] [address] PCP - General Family Medicine 02/17/25 Artie Garrett III, MD [address] [facility] [address] [place] [address] Consulting Physician Cardiology 11/07/22 Vineet Sellers MD [address] [place] [address] Consulting Physician Pulmonary Disease 12/18/23 Kalpesh Gong MD [address] [facility] [address] [place] [address] Consulting Physician Vascular Surgery 12/18/23 Kaitlin Pascual NP [address] [facility] [address] [place] [address] Nurse Practitioner Family Medicine 06/09/24 Kin Ch MD [address] [facility] [address] [place] [address] Consulting Physician Cardiology 06/09/24 Sisi Rich MD [address] [place] [address] [address] [place] [address] Consulting Physician Obstetrics and Gynecology 02/13/25 Jake Castellano, RN [address] [place] [address] [address] [place] [address] Die Repair 02/19/25
--- OUTSIDE RECORDS SUMMARY | 2025-03-14 11:32 | XMS_ITS | Continuity of Care Document ---
Author Organization [employer] [facility] Address [address] [facility] [address] [place] [address] Phone Care Team Providers Care Legal Practice Manager Name Role Phone Lisbet JOSEP Frida Unavailable Unavailable Allergies, Adverse Reactions, Alerts Substance Reaction Status Criticality Sulfa (Sulfonamide Antibiotics) Active No Information Medications Medication Instructions Dosage Effective Dates (start - stop) Status Comments Trelegy Ellipta 100 mcg-62.5 mcg-25 mcg powder for inhalation inhale 1 puff by inhalation route every day at the same time each day 1.00 puff - Active albuterol sulfate HFA 90 mcg/actuation aerosol inhaler inhale 2 puff by inhalation route every 4 - 6 hours as needed 180 MCG - Active metoprolol succinate ER 50 mg tablet,extended release 24 hr take 1 tablet by oral route every day 50 MG - Active clopidogrel 75 mg tablet take 1 tablet by oral route every day 75 MG - Active lisinopril 5 mg tablet take 1 tablet by oral route every day 5 MG - Active omeprazole 40 mg capsule,delayed release take 1 capsule by oral route every day before a meal 40 MG - Active aspirin 81 mg tablet,delayed release take 1 tablet by oral route every day 81 MG - Active furosemide 40 mg tablet take 3 tablet by oral route every day 120 MG - Active fluoxetine 40 mg capsule take 1 capsule by oral route every day in the morning 40 MG - Active ketorolac 0.5 % eye drops instill 1 drop in operative eye 4 times every day for 2 weeks, then 2 times per day for 2 weeks, then stop - No Longer Active prednisolone acetate 1 % eye drops,suspension instill 1 drop by ophthalmic route 4 times every day into operative eye for 2 weeks, then 2 times per day for 2 weeks, then stop - No Longer Active Vigamox 0.5 % eye drops instill 1 drop by ophthalmic route 4 times every day into operative eye for 2 weeks, then stop - No Longer Active ok to substitute Polytrim 5ml with same directions Vigamox 0.5 % eye drops instill 1 drop by ophthalmic route 4 times every day into operative eye for 2 weeks, then stop - No Longer Active ok to substitute Polytrim 5ml with same directions ketorolac 0.5 % eye drops instill 1 drop in operative eye 4 times every day for 2 weeks, then 2 times per day for 2 weeks, then stop - No Longer Active prednisolone acetate 1 % eye drops,suspension instill 1 drop by ophthalmic route 4 times every day into operative eye for 2 weeks, then 2 times per day for 2 weeks, then stop - No Longer Active Procedures Procedure Date No Charge Refraction Post-op Follow-up Visit Post-op Follow-up Visit Remove Cataract, Post Op Care Remove Cataract, Insert Lens,Comanaged S [facility]-Professional No Charge Refraction Post-op Follow-up Visit Remove Cataract, Post Op Care 1 Remove Cataract, Insert Lens,Comanaged J [facility]OL[facility]-Professional No Charge Orbscan No Charge Optomap Fundus Photos 021 [employer]-Technical No Charge Refraction SCODI, Retina Office/outpatient Visit, [facility] Advance Directives Directive Yes / No Effective Date File Name No Information Encounters Encounter Description Practice Location Reason(s) For Visit Diagnoses Date Provider Providers Copied on Encounter [facility], [address], [place], [place], [address], [place] tel:[phone] [place] Professional 1.5 month s/p PCIOL (chief complaint) Post op visit Oct-2 0- 1 Lisbet OD Frida. [address], [address], [place], [place], [address], . tel:[phone] Referring Provider: Brenden Nat OD, [address] [place], [address]. tel:[phone] [facility], [address], [place], [place], [address], tel:[phone] [place] Professional post op (chief complaint) Post op visit Sep-1 1 Lisbet OD Frida. [address], [address], [place], [place], [address], . tel:[phone] Referring Provider: Brenden Albany OD, [address] [place], [address]. tel:[phone] [facility], [address], [place], [place], [address], [place] tel:[phone] [place] Professional post op (chief complaint) Post op visit Sep-0 1 Lisbet OD Frida. [address], [address], [place], [place], [address], [place]. tel:[phone] Referring Provider: Brenden Albany OD, [address] [place], [address]. tel:[phone] [facility], [address], [place], [place], [address], [place] tel:[phone] [facility] No Information Sep-0 1 Vick Graff. [address] [facility], [address], [place], [place], [address], [place]. tel:[phone] Referring Provider: Brenden Johns OD, [address] [place] [address], [address]. tel:[phone] [facility], [address], [place], [place], [address], tel:[phone] [place] Professional No Information 1 Vick Graff. [address], [address] [place], [address], [place]. tel:[phone] Referring Provider: Brenden Johns OD, [address] [place] [address], [address]. tel:[phone] [facility], [address] [place] [address] [address], [place], [place], [address], tel:[phone] SEC Theresa Pinto No Information 1 Vick Graff. [address], [address], [address], [place]. tel:[phone] [facility], [address], [place], [place], [address], tel:[phone] [place] Professional Post-Op (chief complaint) Post op visit 1 Vick Graff. [address], [address], [address], [place]. tel:[phone] Referring Provider: Brenden Johns OD, [address] [place] [address], [address]. tel:[phone] [facility], [address] [place] [address] [address], [place], [place], [address], tel:[phone] SEC Familia MARYCRUZ Professional No Information 1 Vcik Graff. [address], [address], [address], [place]. tel:[phone] [facility], [address], [place], [place], [address], [place] [phone] SEC Familia MARYCRU[place] Professional 1 day s/p PCIOL (chief complaint) Post op visit 1 Vick Graff. [address], [address], [address], [place]. tel:[phone] Referring Provider: Julisaalexus Nat OD, [address] [place] [address], [address]. tel:[phone] [facility], [address], [place], [place], [address], [place] [phone] [facility] No Information 1 Vick Graff. [address], [address], [address], [place]. tel:[phone] Referring Provider: Julisaalexus Albany OD, [address] [place] [address], [address]. tel:[phone] [facility], [address], [place], [place], [address], [place] tel:[phone] SEC [place]le MARYCRUZ Professional No Information 1 Vick Graff. [address], [address], [address], [place]. tel:[phone] Referring Provider: Julisaalexus Nat OD, [address] [place] [address], [address]. tel:[phone] [facility], [address], [place], [place], [address], [place] tel:[phone] SEC [place]le MARYCRUZ Professional No Information 1 Vick Graff. [address], [address], [address], [place]. tel:[phone] Office/outpa tient Visit, [facility], [address], [place], [place], [address], tel:[phone] SEC Familia JOEL Professional Cataract evaluation (chief complaint) Age-related nuclear cataract, bilateralDrus en (degenerative ) of macula, right eye 1 Vick Graff. [address], [facility] [address], [place], [place], [address], [place]. tel:[phone] Referring Provider: Brenden Johns OD, [address] [place] [address], [place], [address]. tel:[phone] [facility], [address], [place], [place], [address], [place] tel:[phone] SEC Familia JOEL Professional No Information Vick Graff. [address], [address], [place], [place], [address], [place]. tel:[phone] Family History Family Member Type Diagnosis Age At Onset Problem Family history of glaucoma Problem Family history of Diabetes jaden puri Payers Payer name Insurance type Covered libertarian ID Authoriza tion(s) No Information Social History Type Description Quantity Date Captured Comments Alcohol Use Details Caffeine Use Details Tobacco Use Status Heavy cigarette smok er (20-39 cigs/day) Smoking Status Heavy tobacco smoker Smoking Tobacco Use Details Cigarette: No Details Available Cigarette: 1 Packs per day Sex Female Chief Complaint And Reason For Visit From encounter dated '06/29/2021 13:00'. 1.5 month s/p PCIOL (chief complaint). Description: The 76 year old female presents for evaluation of 1.5 month s/p PCIOL in the left eye. Patient states [facility] seems good. Patient will need to see referring OD if glasses needed. Reason For Referral Reason For Referral No Information Plan Of Treatment Date Type Action Status Goal Tobacco cessation counseling completed Goal Tobacco cessation counseling completed Goal Tobacco cessation counseling completed Goal Tobacco cessation counseling completed Goal Tobacco cessation counseling completed Goal Tobacco cessation counseling completed Goal Tobacco cessation counseling completed Patient Education Cataracts: Care Instruc tions completed History Of Present Illness Encounter Date Complaint History Of Prese nt Illness 1.5 month s/p PCIOL The 76 year old female presents for evaluation of 1.5 month s/p PCIOL in the left eye. Patient states [facility] seems good. Patient will need to see referring OD if glasses needed. post op The 76 year old female presents for a 1 week post op CE OS. Patient is using Pred, Vigamox and Ketorolac qid OS. Patient states OS is doing good. post op The 76 year old female presents for a 1 day post op CE OS. Patient is using Pred, Vigamox and Ketorolac qid OS. Patient denies any pain or discomfort. Post-Op The 76 year old female presents for a 2 week post op CE OD 04/06/21. Patient is using Pred and Ketorolac bid OD. Patient states OD is doing ok but OD is fluttering. Patient wishes to proceed with CE OS. Patient is bothered by glare around lights at night. Patient likes to sew and is having a hard time seeing things up close. 1 day s/p PCIOL The 76 year old female presents for evaluation of 1 day s/p PCIOL in the right eye. Patient states VA is fine. Patient instructed to use Pred, Ket, and Vig as well as use of eye shield. Cataract evaluation The 75 year old female presents for a cataract evaluation per Dr. Johns. Patient is bothered by glare around lights at night x 5 years. Patient likes to sew and is having a hard time seeing the needle and a hard time reading small print. Functional Status Date Functional Assessmen t No Information Instructions Date Instruction Additional Infor kendal Impression/Plan Impression/Plan Impression/Plan Impression/Plan Fabrice-29-2021 Impression/Plan Impression/Plan Assessments Type Assessment Date assessment Post op visit Patient Care Teams Name Effective Dates (start - stop) Status Members No Information
--- OUTSIDE RECORDS SUMMARY | 2025-03-14 11:32 | XMS_ITS | Clinical Summary ---
Author Organization Unknown Care Team Providers Care Quiller Tender Name Role Phone BRENNAN MOCTEZUMA, ALVAREZ HASSAN Unavailable Misty GAINES RN, JENNIFER Unavailable Unavailable CORNELIO CALVILLO, NETO Unavailable Unavailable Payers Payer Name Policy Type Policy Number Effective Date Expira tion Date MEDICARE - [place] - PDGM [id number] Problems Condition Name Condition Details Condition Category Status Onset Date Resolution Date Last Treatment Date Treating Clinician Comments ENCNTR FOR SURGICAL AFTCR FOLLOWING SURGERY ON THE DGSTV SYS Active 09-10 00:00: 00 HYP HRT AND CHR KDNY DIS W HRT FAIL AND STG 1-4/UNSP CHR KDNY Active 09-10 00:00: 00 CHRONIC COMBINED SYSTOLIC AND DIASTOLIC HRT FAIL Active 09-10 00:00: 00 CHRONIC KIDNEY DISEASE, STAGE 3A Active 09-10 00:00: 00 INFRARENAL ABDOMINAL AORTIC ANEURYSM, WITHOUT RUPTURE Active 09-10 00:00: 00 MIGRAINE, UNSP, NOT INTRACTABLE, WITHOUT STATUS MIGRAINOSUS Active 09-10 00:00: 00 OTHER SPECIFIED CHRONIC OBSTRUCTIVE PULMONARY DISEASE Active 09-10 00:00: 00 ATHSCL HEART DISEASE OF [place] CORONARY ARTERY W/O ANG PCTRS Active 09-10 00:00: 00 MAJOR DEPRESSIVE DISORDER, SINGLE EPISODE, UNSPECIFIED Active 09-10 00:00: 00 HYPERLIPIDEM IA, UNSPECIFIED Active 09-10 00:00: 00 ELEVATED WHITE BLOOD CELL COUNT, UNSPECIFIED Active 09-10 00:00: 00 AGE-REL OSTEOPOR W CRNT PATH FX, VERTEB, 7THD Active 09-10 00:00: 00 OTHER CHRONIC PAIN Active 09-10 00:00: 00 UNSPECIFIED OSTEOARTHRIT IS, UNSPECIFIED SITE Active 09-10 00:00: 00 SPONDYLOSIS W/O MYELOPATHY OR RADICULOPATH Y, LUMBAR REGION Active 09-10 00:00: 00 OBSTRUCTIVE SLEEP APNEA (ADULT) (PEDIATRIC) Active 09-10 00:00: 00 ACUTE CHOLECYSTITI S Active 09-10 00:00: 00 GASTRO-ESOPH AGEAL REFLUX DISEASE WITHOUT ESOPHAGITIS Active 09-10 00:00: 00 GENERALIZED ANXIETY DISORDER Active 09-10 00:00: 00 RADICULOPATH Y, LUMBAR REGION Active 09-10 00:00: 00 NICOTINE DEPENDENCE, CIGARETTES, UNCOMPLICATE D Active 09-10 00:00: 00 PERSONAL HISTORY OF COVID-19 Active 09-10 00:00: 00 Problems related to health literacy Active 09-10 00:00: 00 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 Active 09-10 00:00: 00 SENIOR LIVING (CURRENT) USE OF INHALED STEROIDS Active 09-10 00:00: 00 PERSONAL HISTORY OF PNEUMONIA (RECURRENT) Active 09-10 00:00: 00 PRESENCE OF CORONARY ANGIOPLASTY IMPLANT AND GRAFT Active 09-10 00:00: 00 Allergies, Adverse Reactions, Alerts Allergy Name Allergy Type Status Severity Reaction(s) Onset Date Inactive Date Treating Clinician Comments ATENOLOL Propensity to adverse reactions Active 02-19 09:20: 55 DULOXETINE Propensity to adverse reactions Active 02-19 09:21: 22 METHYLPREDNI SOLONE Propensity to adverse reactions Active 02-19 09:22: 01 REXULTI Propensity to adverse reactions Active 02-19 09:22: 09 SULFA (SULFONAMIDE ANTIBIOTICS) Propensity to adverse reactions Active 02-19 09:22: 21 RISPERIDONE Propensity to adverse reactions Active 02-19 09:22: 32 TEMAZEPAM Propensity to adverse reactions Active 02-19 09:22: 42 VENLAFAXINE Propensity to adverse reactions Active 02-19 09:22: 52 Medications Ordered Medication Name Filled Medication Name Start Date Stop Date Current Medication? Ordering Clinician Indication Dosage Frequency Signature (SIG) Comments Components albuterol sulfate 2.5 mg/3 mL (0.083 %) solution for nebulizatio n 02-19 00:00: 00 Yes [id number] 3 mL EVERY 4 HOURS 3 mL EVERY 4 HOURS (route: inhalation ) Med Classific ation: Respirato ry Therapy Agents albuterol sulfate HFA 90 mcg/actuati on aerosol inhaler 02-19 00:00: 00 Yes [id number] 2 puff EVERY 6 HOURS 2 puff EVERY 6 HOURS (route: inhalation ) Med Classific ation: Respirato ry Therapy Agents amoxicillin 875 mg-potassiu m clavulanate 125 mg tablet 02-18 00:00: 00 02-26 23:59 :00 No [id number] 1 tablet 2 TIMES DAILY 1 tablet 2 TIMES DAILY (route: oral) Med Classific ation: Anti-Infe ctive Agents atorvastati n 80 mg tablet 02-19 00:00: 00 Yes [id number] 1 tablet DAILY 1 tablet DAILY (route: oral) Med Classific ation: Cardiovas cular Therapy Agents cholecalcif ruchi (vitamin D3) 25 mcg (1,000 unit) capsule 02-19 00:00: 00 Yes [id number] 2 capsule DAILY 2 capsule DAILY (route: oral) Med Classific ation: Electroly te Balance-N utritiona l Products fluoxetine 40 mg capsule 02-19 00:00: 00 Yes [id number] 1 capsule DAILY 1 capsule DAILY (route: oral) Med Classific ation: Central Nervous System Agents fluticasone propionate 50 mcg/actuati on nasal spray,suspe nsion 02-19 00:00: 00 Yes [id number] 1 spray DAILY 1 spray DAILY (route: nasal) Med Classific ation: Respirato ry Therapy Agents furosemide 20 mg tablet 02-19 00:00: 00 Yes [id number] 1 tablet EVERY OTHER DAY 1 tablet EVERY OTHER DAY (route: oral) Med Classific ation: Cardiovas cular Therapy Agents furosemide 40 mg tablet 02-20 00:00: 00 Yes [id number] 1 tablet EVERY OTHER DAY 1 tablet EVERY OTHER DAY (route: oral) Med Classific ation: Cardiovas cular Therapy Agents Nitrostat 0.4 mg sublingual tablet 02-19 00:00: 00 Yes [id number] 1 tablet NEEDED 1 tablet NEEDED (route: sublingual ) Med Classific ation: Cardiovas cular Therapy Agents omeprazole 40 mg capsule,del ayed release 02-19 00:00: 00 Yes [id number] 1 capsule DAILY 1 capsule DAILY (route: oral) Med Classific ation: Gastroint estinal Therapy Agents potassium chloride ER 20 mEq tablet,exte nded release 02-19 00:00: 00 Yes [id number] 1 tablet DAILY 1 tablet DAILY (route: oral) Med Classific ation: Electroly te Balance-N utritiona l Products pregabalin 25 mg capsule 02-19 00:00: 00 Yes [id number] 1 capsule EVERY AM 1 capsule EVERY AM (route: oral) Med Classific ation: Central Nervous System Agents spironolact one 25 mg tablet 02-19 00:00: 00 Yes [id number] 1 tablet DAILY 1 tablet DAILY (route: oral) Med Classific ation: Cardiovas cular Therapy Agents tramadol 50 mg tablet 02-19 00:00: 00 Yes [id number] 1 tablet DAILY 1 tablet DAILY (route: oral) Med Classific ation: Analgesic , Anti-infl ammatory or Antipyret ic Trelegy Ellipta 200 mcg-62.5 mcg-25 mcg powder for inhalation 02-19 00:00: 00 Yes [id number] 1 inhalat ion DAILY 1 inhalation DAILY (route: inhalation ) Med Classific ation: Respirato ry Therapy Agents pyridoxine (vitamin B6) 25 mg tablet 02-19 00:00: 00 Yes [id number] 1 tablet DAILY 1 tablet DAILY (route: oral) Med Classific ation: Electroly te Balance-N utritiona l Products pregabalin 25 mg capsule 02-19 00:00: 00 Yes [id number] 2 capsule EVERY PM 2 capsule EVERY PM (route: oral) Med Classific ation: Central Nervous System Agents Normal Saline Flush 0.9 % injection syringe 02-19 00:00: 00 Yes [id number] 10 mL 2 TIMES DAILY 10 mL 2 TIMES DAILY (route: injection) Med Classific ation: Electroly te Balance-N utritiona l Products Vital Signs Vital Name Observation Time Observation Value Commen ts Temperature 2025-03-11 09:14:00.000 97.9 [degF] Temperature 2025-03-10 08:30:00.000 98.6 [degF] Temperature 2025-03-06 10:00:00.000 97.1 [degF] Temperature 2025-03-04 10:20:00.000 98 [degF] Temperature 2025-02-24 11:11:00.000 97.7 [degF] Temperature 2025-02-23 09:00:00.000 99 [degF] Temperature 2025-02-19 09:23:00.000 97.9 [degF] BMI (%) 2025-02-19 09:23:00.000 21 kg/m2 Height 2025-02-19 09:23:00.000 62 [in_us] Pulse 2025-03-11 09:14:00.000 64 /min Pulse 2025-03-10 08:30:00.000 86 /min Pulse 2025-03-06 10:00:00.000 92 /min Pulse 2025-03-04 10:20:00.000 78 /min Pulse 2025-02-24 11:11:00.000 82 /min Pulse 2025-02-23 09:00:00.000 78 /min Pulse 2025-02-19 09:23:00.000 97 /min O2 Saturation (%) 2025-03-11 09:14:00.000 97 % O2 Saturation (%) 2025-03-10 08:30:00.000 96 % O2 Saturation (%) 2025-03-06 10:00:00.000 95 % O2 Saturation (%) 2025-03-04 10:20:00.000 96 % O2 Saturation (%) 2025-02-24 11:14:00.000 97 % O2 Saturation (%) 2025-02-23 09:00:00.000 95 % O2 Saturation (%) 2025-02-19 09:23:00.000 98 % Respirations 2025-03-11 09:14:00.000 17 /min Respirations 2025-03-10 08:30:00.000 18 /min Respirations 2025-03-06 10:00:00.000 18 /min Respirations 2025-03-04 10:20:00.000 17 /min Respirations 2025-02-24 11:11:00.000 18 /min Respirations 2025-02-23 09:00:00.000 18 /min Respirations 2025-02-19 09:23:00.000 16 /min Weight (lbs) 2025-03-11 09:16:00.000 111 [lb_av] Weight (lbs) 2025-03-04 10:23:00.000 114 [lb_av] Weight (lbs) 2025-02-23 09:01:00.000 117.6 [lb_av] Weight (lbs) 2025-02-19 09:23:00.000 117 [lb_av] Systolic Blood Pressure 2025-03-11 09:14:00.000 124 mm [Hg] Systolic Blood Pressure 2025-03-10 08:30:00.000 100 mm [Hg] Systolic Blood Pressure 2025-03-06 10:00:00.000 120 mm [Hg] Systolic Blood Pressure 2025-03-04 10:20:00.000 110 mm [Hg] Systolic Blood Pressure 2025-02-24 11:11:00.000 105 mm [Hg] Systolic Blood Pressure 2025-02-23 09:00:00.000 110 mm [Hg] Systolic Blood Pressure 2025-02-19 09:23:00.000 102 mm [Hg] Diastolic Blood Pressure 2025-03-11 09:14:00.000 64 mm [Hg] Diastolic Blood Pressure 2025-03-10 08:30:00.000 60 mm [Hg] Diastolic Blood Pressure 2025-03-06 10:00:00.000 70 mm [Hg] Diastolic Blood Pressure 2025-03-04 10:20:00.000 66 mm [Hg] Diastolic Blood Pressure 2025-02-24 11:11:00.000 53 mm [Hg] Diastolic Blood Pressure 2025-02-23 09:00:00.000 68 mm [Hg] Diastolic Blood Pressure 2025-02-19 09:23:00.000 60 mm [Hg] Plan of Treatment Planned Activity Planned Date Details Comments Future Scheduled Test SKILLED NU RSE TO EVALUATE PATIENT, IDENTIFY PRIMARY AND CO-MORBID CONDITIONS CODED PER CODING GUIDELINES, AND DEVELOP PATIENT SPECIFIC PLAN OF CARE THAT INCLUDES PATIENT GOAL FOR HOME HEALTH. [code = SKILLED NURSE TO EVALUATE PATIENT, IDENTIFY PRIMARY AND CO-MORBID CONDITIONS CODED PER CODING GUIDELINES, AND DEVELOP PATIENT SPECIFIC PLAN OF CARE THAT INCLUDES PATIENT GOAL FOR HOME HEALTH.] Future Scheduled Test [facility]ENC[facility] MAY ACCEPT ORDERS FROM THE FOLLOWING PHYSICIANS: LINOLEUM TILE FLOOR LAYER/TREATING PROVIDERS [code = HOME HEALTH AGENCY MAY ACCEPT ORDERS FROM THE FOLLOWING PHYSICIANS: LINOLEUM TILE FLOOR LAYER/TREATING PROVIDERS] Future Scheduled Test SKILLED NU RSE FOR O/A, TEACHING AND MANAGEMENT OF DRAIN TO RIGHT UPPER ABDOMEN SKILLED NURSE TO PROVIDE/INSTRUCT ON DRAIN CARE TO KEEP DRESSING CLEAN AND DRY. FLUSH WITH 10ML NS 2 TIMES DAILY. SKILLED NURSE TO INSTRUCT PATIENT/CAREGIVER ON EMPTYING DRAIN DAILY AND TO DOCUMENT COLOR AND AMOUNT OF DRAINAGE. SKILLED NURSE TO EDUCATE PATIENT/CAREGIVER TO MONITOR FOR SIGNS AND SYMPTOMS OF INFECTION TO REPORT. [code = SKILLED NURSE FOR O/A, TEACHING AND MANAGEMENT OF DRAIN TO RIGHT UPPER ABDOMEN SKILLED NURSE TO PROVIDE/INSTRUCT ON DRAIN CARE TO KEEP DRESSING CLEAN AND DRY. FLUSH WITH 10ML NS 2 TIMES DAILY. SKILLED NURSE TO INSTRUCT PATIENT/CAREGIVER ON EMPTYING DRAIN DAILY AND TO DOCUMENT COLOR AND AMOUNT OF DRAINAGE. SKILLED NURSE TO EDUCATE PATIENT/CAREGIVER TO MONITOR FOR SIGNS AND SYMPTOMS OF INFECTION TO REPORT.] Future Scheduled Test SKILLED NU RSE FOR O/A, TEACHING RELATED TO CHOLECYSTITIS S/P CHOLECYSTECTOMY FOR EARLY IDENTIFICATION OF EXACERBATION OF DISEASE PROCESS. [code = SKILLED NURSE FOR O/A, TEACHING RELATED TO CHOLECYSTITIS S/P CHOLECYSTECTOMY FOR EARLY IDENTIFICATION OF EXACERBATION OF DISEASE PROCESS.] Future Scheduled Test OCCUPATION AL THERAPIST TO EVALUATE PATIENT FOR EVALUATION [code = OCCUPATIONAL THERAPIST TO EVALUATE PATIENT FOR EVALUATION ] Future Scheduled Test SKILLED NU RSE FOR O/A AND SKILLED TEACHING RELATED TO SIGNS AND SYMPTOMS OF INFECTION AND INFECTION CONTROL MEASURES. [code = SKILLED NURSE FOR O/A AND SKILLED TEACHING RELATED TO SIGNS AND SYMPTOMS OF INFECTION AND INFECTION CONTROL MEASURES.] Future Scheduled Test PHYSICAL T HERAPIST TO EVALUATE PATIENT FOR EVALUATION [code = PHYSICAL THERAPIST TO EVALUATE PATIENT FOR EVALUATION ] Future Scheduled Test SKILLED NU RSE TO PROVIDE TEACHING ON SIGNS AND SYMPTOMS AND MANAGEMENT OF HYPERTENSION. [code = SKILLED NURSE TO PROVIDE TEACHING ON SIGNS AND SYMPTOMS AND MANAGEMENT OF HYPERTENSION.] Future Scheduled Test SKILLED NU RSE TO INSTRUCT PATIENT/CAREGIVER ON COPD TO INCLUDE TEACHING AND SELF-MANAGEMENT RELATED TO COPD DISEASE PROCESS, SIGNS AND SYMPTOMS, AND COMPLICATIONS. [code = SKILLED NURSE TO INSTRUCT PATIENT/CAREGIVER ON COPD TO INCLUDE TEACHING AND SELF-MANAGEMENT RELATED TO COPD DISEASE PROCESS, SIGNS AND SYMPTOMS, AND COMPLICATIONS.] Future Scheduled Test SKILLED NU RSE FOR O/A, TEACHING AND SELF-MANAGEMENT RELATED TO HEART FAILURE. INSTRUCT PATIENT/CAREGIVER ON SIGNS AND SYMPTOMS OF EXACERBATION TO REPORT AND IMPORTANCE OF OBTAINING AND RECORDING DAILY WEIGHT AND/OR MEASUREMENTS. SN OR TRAINED PATIENT/CAREGIVER TO OBTAIN WEIGHT DAILY AND WEIGHT GAIN OF 2 LBS OVERNIGHT OR 5 LBS IN 1 WEEK TO BE REPORTED TO PHYSICIAN/PROVIDER. [code = SKILLED NURSE FOR O/A, TEACHING AND SELF-MANAGEMENT RELATED TO HEART FAILURE. INSTRUCT PATIENT/CAREGIVER ON SIGNS AND SYMPTOMS OF EXACERBATION TO REPORT AND IMPORTANCE OF OBTAINING AND RECORDING DAILY WEIGHT AND/OR MEASUREMENTS. SN OR TRAINED PATIENT/CAREGIVER TO OBTAIN WEIGHT DAILY AND WEIGHT GAIN OF 2 LBS OVERNIGHT OR 5 LBS IN 1 WEEK TO BE REPORTED TO PHYSICIAN/PROVIDER. ] Future Scheduled Test SKILLED NU RSE TO INSTRUCT PATIENT/CAREGIVER ON PREVENTION OF SEPSIS, AND SIGNS AND SYMPTOMS OF SEPSIS TO REPORT. [code = SKILLED NURSE TO INSTRUCT PATIENT/CAREGIVER ON PREVENTION OF SEPSIS, AND SIGNS AND SYMPTOMS OF SEPSIS TO REPORT.] Future Scheduled Test PATIENT MILLER S A RISK OF HOSPITALIZATION AND ED USE. SKILLED NURSE TO ESTABLISH SUPPORT MEASURES TO MINIMIZE RISK OF HOSPITALIZATION AND ED USE, AND INSTRUCT PATIENT/CAREGIVER ON METHODS TO REDUCE AVOIDABLE HOSPITALIZATION AND ED USE. [code = PATIENT HAS A RISK OF HOSPITALIZATION AND ED USE. SKILLED NURSE TO ESTABLISH SUPPORT MEASURES TO MINIMIZE RISK OF HOSPITALIZATION AND ED USE, AND INSTRUCT PATIENT/CAREGIVER ON METHODS TO REDUCE AVOIDABLE HOSPITALIZATION AND ED USE.] Future Scheduled Test SKILLED NU RSE TO PROVIDE INSTRUCTION TO PATIENT/CAREGIVER RELATED TO DISCHARGE PLANNING. [code = SKILLED NURSE TO PROVIDE INSTRUCTION TO PATIENT/CAREGIVER RELATED TO DISCHARGE PLANNING.] Future Scheduled Test SKILLED NU RSE TO PERFORM ENVIRONMENTAL SAFETY RISK ASSESSMENT AND FALL RISK ASSESSMENT AND PROVIDE INSTRUCTION TO IMPLEMENT ENVIRONMENTAL SAFETY AND FALL PREVENTION STRATEGIES THROUGHOUT THE CERTIFICATION PERIOD. SKILLED NURSE WILL MAINTAIN SITUATIONAL AWARENESS AND WILL NOTIFY CLINICAL MEDICAL RECORDS CLERK AND PHYSICIAN/PROVIDER WITH ANY CHANGE IN CONDITION. [code = SKILLED NURSE TO PERFORM ENVIRONMENTAL SAFETY RISK ASSESSMENT AND FALL RISK ASSESSMENT AND PROVIDE INSTRUCTION TO IMPLEMENT ENVIRONMENTAL SAFETY AND FALL PREVENTION STRATEGIES THROUGHOUT THE CERTIFICATION PERIOD. SKILLED NURSE WILL MAINTAIN SITUATIONAL AWARENESS AND WILL NOTIFY CLINICAL MEDICAL RECORDS CLERK AND PHYSICIAN/PROVIDER WITH ANY CHANGE IN CONDITION.] Future Scheduled Test SKILLED NU RSE FOR OBSERVATION AND ASSESSMENT OF PATIENTS PAIN LEVEL AND EFFECTIVENESS OF PAIN MANAGEMENT REGIMEN. SKILLED NURSE TO INSTRUCT PATIENT/CAREGIVER REGARDING PHARMACOLOGIC AND NON-PHARMACOLOGIC PAIN CONTROL MEASURES. SKILLED NURSE TO REPORT TO PHYSICIAN IF PAIN LEVEL IS OUTSIDE OF ESTABLISHED PARAMETERS. [code = SKILLED NURSE FOR OBSERVATION AND ASSESSMENT OF PATIENTS PAIN LEVEL AND EFFECTIVENESS OF PAIN MANAGEMENT REGIMEN. SKILLED NURSE TO INSTRUCT PATIENT/CAREGIVER REGARDING PHARMACOLOGIC AND NON-PHARMACOLOGIC PAIN CONTROL MEASURES. SKILLED NURSE TO REPORT TO PHYSICIAN IF PAIN LEVEL IS OUTSIDE OF ESTABLISHED PARAMETERS.] Future Scheduled Test SKILLED NU RSE TO ASSESS PATIENT'S SKIN INTEGRITY AND INSTRUCT PATIENT/CAREGIVER ON MEASURES TO PREVENT PRESSURE ULCERS. [code = SKILLED NURSE TO ASSESS PATIENT'S SKIN INTEGRITY AND INSTRUCT PATIENT/CAREGIVER ON MEASURES TO PREVENT PRESSURE ULCERS.] Future Scheduled Test SKILLED NU RSE TO PROVIDE ASSESSMENT AND TEACHING/REINFORCEMENT OF MANAGEMENT OF DEPRESSION INCLUDING DISEASE PROCESS, MEDICATION MANAGEMENT, COPING SKILLS AND IDENTIFY CHANGES ASSOCIATED WITH DEPRESSIVE DISORDERS FOR EARLY INTERVENTION. [code = SKILLED NURSE TO PROVIDE ASSESSMENT AND TEACHING/REINFORCEMENT OF MANAGEMENT OF DEPRESSION INCLUDING DISEASE PROCESS, MEDICATION MANAGEMENT, COPING SKILLS AND IDENTIFY CHANGES ASSOCIATED WITH DEPRESSIVE DISORDERS FOR EARLY INTERVENTION. ] Future Scheduled Test SN TO INST RUCT PATIENT/CAREGIVER ON HEART FAILURE MANAGEMENT UTILIZING THE MATTERS OF THE HEART SPECIALTY PROGRAM. [code = SN TO INSTRUCT PATIENT/CAREGIVER ON HEART FAILURE MANAGEMENT UTILIZING THE MATTERS OF THE HEART SPECIALTY PROGRAM.] Future Scheduled Test SN TO INST RUCT PATIENT/CAREGIVER ON COPD MANAGEMENT UTILIZING THE BREATHING WITH CARE SPECIALTY PROGRAM. [code = SN TO INSTRUCT PATIENT/CAREGIVER ON COPD MANAGEMENT UTILIZING THE BREATHING WITH CARE SPECIALTY PROGRAM.] Future Scheduled Test SKILLED NU RSE TO REVIEW PATIENT MEDICATIONS (PRESCRIPTION/OTC). INSTRUCT PATIENT/CAREGIVER ON ALL MEDICATIONS INCLUDING PURPOSE, WHEN TO TAKE, IMPORTANCE OF MEDICATION ADHERENCE, MONITORING OF EFFECTIVENESS, ADVERSE DRUG REACTIONS, POSSIBLE SIDE EFFECTS, AND WHEN TO NOTIFY AGENCY OR PHYSICIAN/PROVIDER OF ANY CONCERNS. [code = SKILLED NURSE TO REVIEW PATIENT MEDICATIONS (PRESCRIPTION/OTC). INSTRUCT PATIENT/CAREGIVER ON ALL MEDICATIONS INCLUDING PURPOSE, WHEN TO TAKE, IMPORTANCE OF MEDICATION ADHERENCE, MONITORING OF EFFECTIVENESS, ADVERSE DRUG REACTIONS, POSSIBLE SIDE EFFECTS, AND WHEN TO NOTIFY AGENCY OR PHYSICIAN/PROVIDER OF ANY CONCERNS.] Goal Patient Goal - ABLE TO DO MO RE Goal Provider Goal - A PLAN OF CARE WILL BE ESTABLISHED THAT MEETS PATIENT'S LONG-TERM NEEDS AND INCLUDES PATIENT GOAL FOR HOME HEALTH. Goal Provider Goal - ADDITIONAL ORDERS WILL BE RECEIVED FROM ALTERNATE PHYSICIAN IN A TIMELY MANNER THROUGHOUT THE CERTIFICATION PERIOD. Goal Provider Goal - PATIENT/CAREGIVER WILL VERBALIZE/DEMONSTRATE MANAGEMENT OF DRAIN CARE. INCLUDING S/S INFECTION AND/OR COMPLICATIONS TO REPORT BY THE END OF THE CERTIFICATION PERIOD. Goal Provider Goal - EXACERBATIONS OF GASTROINTESTINAL DISEASE WILL BE PROMPTLY IDENTIFIED AND INTERVENTIONS IMPLEMENTED TO MINIMIZE RISKS TO PATIENT BY END OF EPISODE. Goal Provider Goal - OCCUPATIONAL THERAPY EVALUATION TO BE COMPLETED WITH RECOMMENDATIONS AND WRITTEN PLAN OF TREATMENT ESTABLISHED FOR THE PHYSICIANS SIGNATURE. Goal Provider Goal - PATIENT/CAREGIVER WILL VERBALIZE/DEMONSTRATE UNDERSTANDING OF S/S OF INFECTION AND INFECTION CONTROL MEASURES. SIGNS AND SYMPTOMS OF INFECTION WILL BE IDENTIFIED AND PHYSICIAN NOTIFIED FOR PROMPT INTERVENTION THROUGHOUT THE CERTIFICATION PERIOD. Goal Provider Goal - A PHYSICAL THERAPY EVALUATION TO BE COMPLETED WITH RECOMMENDATIONS AND/OR WRITTEN PLAN OF TREATMENT ESTABLISHED FOR PHYSICIANS SIGNATURE. Goal Provider Goal - PATIENT/CAREGIVER WILL VERBALIZE SIGNS AND SYMPTOMS OF HYPERTENSION AND WILL BE ABLE TO DEMONSTRATE ABILITY TO MANAGE EXACERBATION BY END OF THE EPISODE. Goal Provider Goal - PATIENT/CAREGIVER WILL VERBALIZE/DEMONSTRATE KNOWLEDGE AND MANAGEMENT OF COPD BY END OF EPISODE. Goal Provider Goal - PATIENT/CAREGIVER WILL VERBALIZE/DEMONSTRATE KNOWLEDGE AND MANAGEMENT OF HEART FAILURE DISEASE PROCESS BY END OF EPISODE. Goal Provider Goal - PATIENT WILL BE FREE FROM INFECTION AND PATIENT/CAREGIVER WILL VERBALIZE UNDERSTANDING OF SIGNS AND SYMPTOMS AND METHODS TO PREVENT SEPSIS BY END OF THE EPISODE. Goal Provider Goal - PATIENT WILL HAVE SUPPORT MEASURES ESTABLISHED TO PREVENT HOSPITALIZATION AND ED USE AND PATIENT/CAREGIVER WILL VERBALIZE/DEMONSTRATE METHODS TO REDUCE AVOIDABLE HOSPITALIZATION AND ED USE BY END OF EPISODE. Goal Provider Goal - PATIENT/CAREGIVER WILL VERBALIZE UNDERSTANDING OF DISCHARGE PLANNING INSTRUCTIONS BY DATE OF DISCHARGE. Goal Provider Goal - PATIENT/CAREGIVER WILL VERBALIZE/DEMONSTRATE EFFECTIVE ENVIRONMENTAL SAFETY AND FALL PREVENTION STRATEGIES, WILL REMAIN SAFE IN THE COMMUNITY, AND WILL BE FREE OF DANGER TO SELF AND OTHERS THROUGHOUT THE CERTIFICATION PERIOD. Goal Provider Goal - PATIENT/CAREGIVER WILL DEMONSTRATE UNDERSTANDING OF PHARMACOLOGIC AND NONPHARMACOLOGIC PAIN CONTROL MEASURES AND PATIENT WILL HAVE IMPROVEMENT IN PAIN INTERFERING WITH ACTIVITY EVIDENCED BY PAIN AT A LEVEL THAT IS ACCEPTABLE TO THE PATIENT AND PAIN LEVEL WITHIN ESTABLISHED PARAMETERS BY END OF CERTIFICATION PERIOD. Goal Provider Goal - PATIENT/CAREGIVER WILL VERBALIZE UNDERSTANDING OF PRESSURE ULCER PREVENTION BY END OF THE EPISODE. Goal Provider Goal - PATIENT/CAREGIVER WILL VERBALIZE/DEMONSTRATE UNDERSTANDING OF THE MANAGEMENT OF DEPRESSION THROUGHOUT THE CERTIFICATION PERIOD AND SYMPTOMS ARE IDENTIFIED AND MANAGED TO MAINTAIN PATIENT SAFETY IN THE HOME. Goal Provider Goal - PATIENT/CAREGIVER WILL DEMONSTRATE MANAGEMENT OF HEART FAILURE A RESULT OF PARTICIPATION IN MATTERS OF THE HEART SPECIALTY PROGRAM. Goal Provider Goal - PATIENT/CAREGIVER WILL DEMONSTRATE MANAGEMENT OF COPD A RESULT OF PARTICIPATION IN BREATHING WITH CARE SPECIALTY PROGRAM. Goal Provider Goal - PATIENT/CAREGIVER WILL VERBALIZE UNDERSTANDING OF EDUCATION PROVIDED ON MEDICATIONS BY THE END OF THE CERTIFICATION PERIOD. Progress Notes Progress Notes <paragraph>[Visit Date: 2024 by CRYSTAL SULTANA LPN]:</paragraph><paragraph>PAL WAS SEEN THIS MORNING FOR ROUTINE NURSING VISIT WITH EDUCATION. SHE ANSWERED THE DOOR TO THIS NURSE ARRIVAL WITHOUT AN ASSISTIVE DEVICE. ALERT AND ORIENTED X3 AND PLEASANT WITH TODAY'S VISIT. SHE HAD GENERALIZED COMPLAINTS OF PAIN WHICH SHE STATED SHE DOES NOT EVEN NOTICE ANYMORE SHE BLAMED IT ON ARTHRITIS. MEDICATION PROFILE WAS REVIEWED AGAINST THE MEDICATIONS IN THE HOME AND ALTHOUGH NO CHANGES HAVE BEEN MADE SHE CONTINUES TO NOT TAKE THE LYRICA. DOCTOR WAS NOTIFIED OF THIS. NO NEW ORDERS GIVEN. VITAL SIGNS WERE ASSESSED AND ALL REMAIN WITHIN NORMAL LIMITS ON ROOM AIR. LUNGS WERE SLIGHTLY DIMINISHED IN THE BASES BUT CLEAR THROUGHOUT. SHE DOES BECOME SLIGHTLY SHORT OF BREATH WITH EXERTION BUT QUICKLY RECOVERS. HEART RATE AND RHYTHM NORMAL. BOWEL SOUNDS PRESENT TIMES ALL 4 QUADRANTS. NO EDEMA PRESENT. INSERTION SITE OF THE [place]BIA DRAIN HAS COMPLETELY HEALED. SHE FOLLOWS UP WITH HER EYE DOCTOR THIS MORNING. EDUCATION TODAY WAS FOCUSED ON THE IMPORTANCE OF FLUID AND CALORIC INTAKE PATIENT IS CONCERNED SHE KEEPS LOSING WEIGHT. WE EVEN WENT OVER HIGH PROTEIN MEAL IDEAS WELL. PATIENT ENGAGED IN GOOD CONVERSATION AND SHOWED UNDERSTANDING. SHE DENIES ANY FALLS, ER VISITS, OR CHANGES IN HER CARE SINCE LAST NURSING VISIT. REVIEWED PATIENT'S CALENDAR AND SHE IS AGREEABLE WITH NEXT NURSING VISIT AND PLAN OF CARE THIS FAR. SHE IS ALSO AGREEABLE TO REACH OUT TO US WITH ANY QUESTIONS, CONCERNS, OR CHANGES IN HER CONDITION.</paragraph> Encounters Start Date/Time End Date/Time Encounter Type Admission Type Attending Clinicians Care Facility Care Department Encounter ID Discharge Date Discharge Status Discharge Condition Discharge Reason Percent Goals Met 2025-02-19 00:00:00 2025-04-19 00:00:00 Outpatient NEW ADMISSION JENNIFER GAINES [facility] [id number]
--- OUTSIDE RECORDS SUMMARY | 2025-03-14 11:35 | XMS_ITS | Clinical Summary ---
Author Organization Unknown Care Team Providers Care Buffing Wheel Presser Name Role Phone BRENNAN MOCTEZUMA, ALVAREZ HASSAN Unavailable Misty GAINES RN, JENNIFER Unavailable Unavailable CORNELIO CALVILLO, NETO Unavailable Unavailable Payers Payer Name Policy Type Policy Number Effective Date Expira tion Date MEDICARE - [place] - PDGM [id number] Problems Condition Name Condition Details Condition Category [...] 09-10 00:00: 00 ATHSCL HEART DISEASE OF [place] CORONARY ARTERY W/O ANG PCTRS Active 09-10 [...] health literacy Active 09-10 00:00: 00 OTHER DIRECTOR MACHINE (CURRENT) DRUG THERAPY Active 09-10 00:00: 00 FDC (CURRENT) USE OF INHALED STEROIDS Active 09-10 [...] for nebulizatio n 02-19 00:00: 00 Yes [id number] 3 mL EVERY 4 HOURS 3 mL EVERY 4 HOURS (route: inhalation ) Med Classific ation: Respirato ry Therapy Agents albuterol sulfate HFA 90 mcg/actuati on aerosol inhaler 02-19 00:00: 00 Yes [id number] 2 puff EVERY 6 HOURS 2 puff EVERY 6 HOURS (route: inhalation ) Med Classific ation: Respirato ry Therapy Agents amoxicillin 875 mg-potassiu m clavulanate 125 mg tablet 02-18 00:00: 00 02-26 23:59 :00 No [id number] 1 tablet 2 TIMES DAILY 1 tablet 2 TIMES DAILY (route: oral) Med Classific ation: Anti-Infe ctive Agents atorvastati n 80 mg tablet 02-19 00:00: 00 Yes [id number] 1 tablet DAILY 1 tablet DAILY (route: oral) Med Classific ation: Cardiovas cular Therapy Agents cholecalcif ruchi (vitamin D3) 25 mcg (1,000 unit) capsule 02-19 00:00: 00 Yes [id number] 2 capsule DAILY 2 capsule DAILY (route: oral) Med Classific ation: Electroly te Balance-N utritiona l Products fluoxetine 40 mg capsule 02-19 00:00: 00 Yes [id number] 1 capsule DAILY 1 capsule DAILY (route: oral) Med Classific ation: Central Nervous System Agents fluticasone propionate 50 mcg/actuati on nasal spray,suspe nsion 02-19 00:00: 00 Yes [id number] 1 spray DAILY 1 spray DAILY (route: nasal) Med Classific ation: Respirato ry Therapy Agents furosemide 20 mg tablet 02-19 00:00: 00 Yes [id number] 1 tablet EVERY OTHER DAY 1 tablet EVERY OTHER DAY (route: oral) Med Classific ation: Cardiovas cular Therapy Agents furosemide 40 mg tablet 02-20 00:00: 00 Yes [id number] 1 tablet EVERY OTHER DAY 1 tablet EVERY OTHER DAY (route: oral) Med Classific ation: Cardiovas cular Therapy Agents Nitrostat 0.4 mg sublingual tablet 02-19 00:00: 00 Yes [id number] 1 tablet NEEDED 1 tablet NEEDED (route: sublingual ) Med Classific ation: Cardiovas cular Therapy Agents omeprazole 40 mg capsule,del ayed release 02-19 00:00: 00 Yes [id number] 1 capsule DAILY 1 capsule DAILY (route: oral) Med Classific ation: Gastroint estinal Therapy Agents potassium chloride ER 20 mEq tablet,exte nded release 02-19 00:00: 00 Yes [id number] 1 tablet DAILY 1 tablet DAILY (route: oral) Med Classific ation: Electroly te Balance-N utritiona l Products pregabalin 25 mg capsule 02-19 00:00: 00 Yes [id number] 1 capsule EVERY AM 1 capsule EVERY AM (route: oral) Med Classific ation: Central Nervous System Agents spironolact one 25 mg tablet 02-19 00:00: 00 Yes [id number] 1 tablet DAILY 1 tablet DAILY (route: oral) Med Classific ation: Cardiovas cular Therapy Agents tramadol 50 mg tablet 02-19 00:00: 00 Yes [id number] 1 tablet DAILY 1 tablet DAILY (route: oral) Med Classific ation: Analgesic , Anti-infl ammatory or Antipyret ic Trelegy Ellipta 200 mcg-62.5 mcg-25 mcg powder for inhalation 02-19 00:00: 00 Yes [id number] 1 inhalat ion DAILY 1 inhalation DAILY (route: inhalation ) Med Classific ation: Respirato ry Therapy Agents pyridoxine (vitamin B6) 25 mg tablet 02-19 00:00: 00 Yes [id number] 1 tablet DAILY 1 tablet DAILY (route: oral) Med Classific ation: Electroly te Balance-N utritiona l Products pregabalin 25 mg capsule 02-19 00:00: 00 Yes [id number] 2 capsule EVERY PM 2 capsule EVERY PM (route: oral) Med Classific ation: Central Nervous System Agents Normal Saline Flush 0.9 % injection syringe 02-19 00:00: 00 Yes [id number] 10 mL 2 TIMES DAILY 10 mL [...] MAY ACCEPT ORDERS FROM THE FOLLOWING PHYSICIANS: MOBILE PARAMEDICAL EXAMINER/TREATING PROVIDERS [code = HOME HEALTH AGENCY MAY ACCEPT ORDERS FROM THE FOLLOWING PHYSICIANS: MOBILE PARAMEDICAL EXAMINER/TREATING PROVIDERS] Future Scheduled Test SKILLED NU RSE [...] MAINTAIN SITUATIONAL AWARENESS AND WILL NOTIFY CLINICAL ENGLISH DRAWER AND PHYSICIAN/PROVIDER WITH ANY CHANGE IN CONDITION. [code = SKILLED NURSE TO PERFORM ENVIRONMENTAL SAFETY RISK ASSESSMENT AND FALL RISK ASSESSMENT AND PROVIDE INSTRUCTION TO IMPLEMENT ENVIRONMENTAL SAFETY AND FALL PREVENTION STRATEGIES THROUGHOUT THE CERTIFICATION PERIOD. SKILLED NURSE WILL MAINTAIN SITUATIONAL AWARENESS AND WILL NOTIFY CLINICAL ENGLISH DRAWER AND PHYSICIAN/PROVIDER WITH ANY CHANGE IN CONDITION.] [...] CARE WILL BE ESTABLISHED THAT MEETS PATIENT'S ASSISTED NEEDS AND INCLUDES PATIENT GOAL FOR HOME [...] 2025-04-19 00:00:00 Outpatient NEW ADMISSION JENNIFER GAINES [facility] [id number] 39.13
--- OUTSIDE RECORDS SUMMARY | 2025-03-14 11:36 | XMS_ITS | Clinical Summary ---
Author Organization Unknown Care Team Providers Care And Drying Supervisor Cooking Casing Name Role Phone BRENNAN MOCTEZUMA, ALVAREZ HASSAN Unavailable Misty GAINES RN, JENNIFER Unavailable Unavailable CORNELIO CALVILLO, NETO Unavailable Unavailable Payers Payer Name Policy Type Policy Number Effective Date Expira tion Date MEDICARE - [place] - PDGM [id number] Problems Condition Name Condition Details Condition Category [...] 09-10 00:00: 00 ATHSCL HEART DISEASE OF [place] CORONARY ARTERY W/O ANG PCTRS Active 09-10 [...] health literacy Active 09-10 00:00: 00 OTHER APPLICATION SUPPORT (CURRENT) DRUG THERAPY Active 09-10 00:00: 00 INTERMEDIATE (CURRENT) USE OF INHALED STEROIDS Active 09-10 [...] for nebulizatio n 02-19 00:00: 00 Yes [id number] 3 mL EVERY 4 HOURS 3 mL EVERY 4 HOURS (route: inhalation ) Med Classific ation: Respirato ry Therapy Agents albuterol sulfate HFA 90 mcg/actuati on aerosol inhaler 02-19 00:00: 00 Yes [id number] 2 puff EVERY 6 HOURS 2 puff EVERY 6 HOURS (route: inhalation ) Med Classific ation: Respirato ry Therapy Agents amoxicillin 875 mg-potassiu m clavulanate 125 mg tablet 02-18 00:00: 00 02-26 23:59 :00 No [id number] 1 tablet 2 TIMES DAILY 1 tablet 2 TIMES DAILY (route: oral) Med Classific ation: Anti-Infe ctive Agents atorvastati n 80 mg tablet 02-19 00:00: 00 Yes [id number] 1 tablet DAILY 1 tablet DAILY (route: oral) Med Classific ation: Cardiovas cular Therapy Agents cholecalcif ruchi (vitamin D3) 25 mcg (1,000 unit) capsule 02-19 00:00: 00 Yes [id number] 2 capsule DAILY 2 capsule DAILY (route: oral) Med Classific ation: Electroly te Balance-N utritiona l Products fluoxetine 40 mg capsule 02-19 00:00: 00 Yes [id number] 1 capsule DAILY 1 capsule DAILY (route: oral) Med Classific ation: Central Nervous System Agents fluticasone propionate 50 mcg/actuati on nasal spray,suspe nsion 02-19 00:00: 00 Yes [id number] 1 spray DAILY 1 spray DAILY (route: nasal) Med Classific ation: Respirato ry Therapy Agents furosemide 20 mg tablet 02-19 00:00: 00 Yes [id number] 1 tablet EVERY OTHER DAY 1 tablet EVERY OTHER DAY (route: oral) Med Classific ation: Cardiovas cular Therapy Agents furosemide 40 mg tablet 02-20 00:00: 00 Yes [id number] 1 tablet EVERY OTHER DAY 1 tablet EVERY OTHER DAY (route: oral) Med Classific ation: Cardiovas cular Therapy Agents Nitrostat 0.4 mg sublingual tablet 02-19 00:00: 00 Yes [id number] 1 tablet NEEDED 1 tablet NEEDED (route: sublingual ) Med Classific ation: Cardiovas cular Therapy Agents omeprazole 40 mg capsule,del ayed release 02-19 00:00: 00 Yes [id number] 1 capsule DAILY 1 capsule DAILY (route: oral) Med Classific ation: Gastroint estinal Therapy Agents potassium chloride ER 20 mEq tablet,exte nded release 02-19 00:00: 00 Yes [id number] 1 tablet DAILY 1 tablet DAILY (route: oral) Med Classific ation: Electroly te Balance-N utritiona l Products pregabalin 25 mg capsule 02-19 00:00: 00 Yes [id number] 1 capsule EVERY AM 1 capsule EVERY AM (route: oral) Med Classific ation: Central Nervous System Agents spironolact one 25 mg tablet 02-19 00:00: 00 Yes [id number] 1 tablet DAILY 1 tablet DAILY (route: oral) Med Classific ation: Cardiovas cular Therapy Agents tramadol 50 mg tablet 02-19 00:00: 00 Yes [id number] 1 tablet DAILY 1 tablet DAILY (route: oral) Med Classific ation: Analgesic , Anti-infl ammatory or Antipyret ic Trelegy Ellipta 200 mcg-62.5 mcg-25 mcg powder for inhalation 02-19 00:00: 00 Yes [id number] 1 inhalat ion DAILY 1 inhalation DAILY (route: inhalation ) Med Classific ation: Respirato ry Therapy Agents pyridoxine (vitamin B6) 25 mg tablet 02-19 00:00: 00 Yes [id number] 1 tablet DAILY 1 tablet DAILY (route: oral) Med Classific ation: Electroly te Balance-N utritiona l Products pregabalin 25 mg capsule 02-19 00:00: 00 Yes [id number] 2 capsule EVERY PM 2 capsule EVERY PM (route: oral) Med Classific ation: Central Nervous System Agents Normal Saline Flush 0.9 % injection syringe 02-19 00:00: 00 Yes [id number] 10 mL 2 TIMES DAILY 10 mL [...] MAY ACCEPT ORDERS FROM THE FOLLOWING PHYSICIANS: CYBER SECURITY SPECIALIST/TREATING PROVIDERS [code = HOME HEALTH AGENCY MAY ACCEPT ORDERS FROM THE FOLLOWING PHYSICIANS: CYBER SECURITY SPECIALIST/TREATING PROVIDERS] Future Scheduled Test SKILLED NU RSE [...] MAINTAIN SITUATIONAL AWARENESS AND WILL NOTIFY CLINICAL PRODUCTION GRIP AND PHYSICIAN/PROVIDER WITH ANY CHANGE IN CONDITION. [code = SKILLED NURSE TO PERFORM ENVIRONMENTAL SAFETY RISK ASSESSMENT AND FALL RISK ASSESSMENT AND PROVIDE INSTRUCTION TO IMPLEMENT ENVIRONMENTAL SAFETY AND FALL PREVENTION STRATEGIES THROUGHOUT THE CERTIFICATION PERIOD. SKILLED NURSE WILL MAINTAIN SITUATIONAL AWARENESS AND WILL NOTIFY CLINICAL PRODUCTION GRIP AND PHYSICIAN/PROVIDER WITH ANY CHANGE IN CONDITION.] [...] CARE WILL BE ESTABLISHED THAT MEETS PATIENT'S SHELTER NEEDS AND INCLUDES PATIENT GOAL FOR HOME [...] 00:00:00 Outpatient NEW ADMISSION JENNIFER GAINES [facility] [id number] 39.13
--- OUTSIDE RECORDS SUMMARY | 2025-03-14 11:36 | XMS_ITS | Continuity of Care Document ---
Author Organization [facility] [place] [address] [place] [address] Phone Care Team Providers Care Lead Pony Rider Name Role Phone Lisbet JOSEP Frida Unavailable Unavailable Allergies, Adverse Reactions, Alerts Substance Reaction Status Criticality Sulfa (Sulfonamide Antibiotics) Active No Information Medications Medication Instructions Dosage Effective Dates (start - stop) Status Comments fluoxetine 40 mg capsule take 1 capsule by oral route every day in the morning 40 MG - Active furosemide 40 mg tablet take 3 tablet by oral route every day 120 MG - Active aspirin 81 mg tablet,delayed release take 1 tablet by oral route every day 81 MG - Active omeprazole 40 mg capsule,delayed release take 1 capsule by oral route every day before a meal 40 MG - Active lisinopril 5 mg tablet take 1 tablet by oral route every day 5 MG - Active clopidogrel 75 mg tablet take 1 tablet by oral route every day 75 MG - Active metoprolol succinate ER 50 mg tablet,extended release 24 hr take 1 tablet by oral route every day 50 MG - Active albuterol sulfate HFA 90 mcg/actuation aerosol inhaler inhale 2 puff by inhalation route every 4 - 6 hours as needed 180 MCG - Active Trelegy Ellipta 100 mcg-62.5 mcg-25 mcg powder for inhalation inhale 1 puff by inhalation route every day at the same time each day 1.00 puff - Active Vigamox 0.5 % eye drops instill 1 drop by ophthalmic route 4 times every day into operative eye for 2 weeks, then stop - No Longer Active ok to substitute Polytrim 5ml with same directions prednisolone acetate 1 % eye drops,suspension instill 1 drop by ophthalmic route 4 times every day into operative eye for 2 weeks, then 2 times per day for 2 weeks, then stop - No Longer Active ketorolac 0.5 % eye drops instill [...] to substitute Polytrim 5ml with same directions prednisolone acetate 1 % eye drops,suspension instill 1 drop by ophthalmic route 4 times every day into operative eye for 2 weeks, then 2 times per day for 2 weeks, then stop No Longer Active ketorolac 0.5 % eye drops instill [...] No Charge Refraction SCODI, Retina Office/outpatient Visit, [facility] Advance Directives Directive Yes / No Effective Date File Name No Information Encounters Encounter Description Practice Location Reason(s) For Visit Diagnoses Date Provider Providers Copied on Encounter [facility], [address], [place], [place], [id number], [place] tel:[phone] SEC [place] Professional 1.5 month s/p PCIOL (chief complaint) Post op visit Oct-2 0- 1 Lisbet OD Frida. [address], [address], [place], [place], [address], . tel:[phone] Referring Provider: Brenden Nat OD, [address] [place], [address]. tel:[phone] [facility], [address], [place], [place], [address], tel:[phone] SEC [place] Professional post op (chief complaint) Post op visit Sep-1 1 Lisbet OD Frida. [address], [address], [place], [place], [address], . tel:[phone] Referring Provider: Brenden Eden OD, [address] [place], [address]. tel:[phone] [facility], [address], [place], [place], [address], [place] tel:[phone] SEC [place] Professional post op (chief complaint) Post op visit Sep-0 1 Lisbet OD Frida. [address], [address], [place], [place], [address], [place]. tel:[phone] Referring Provider: Brenden Eden OD, [address] [place], [address]. tel:[phone] [facility], [address], [place], [place], [address], [place] tel:[phone] [facility] No Information Sep-0 1 Vick Graff. [address] [facility], [address], [place], [place], [address], [place]. tel:[phone] Referring Provider: Brenden Johns OD, [address] [place] [address], [address]. tel:[phone] [facility], [address], [place], [place], [address], tel:[phone] SEC [place] Professional No Information 1 Vick Graff. [address], [address] [place], [address], [place]. tel:[phone] Referring Provider: Brenden Johns OD, [address] [place] [address], [address]. tel:[phone] [facility], [id number] [place] [address] [address], [place], [place], [address], tel:[phone] SEC Theresa Pinto No Information 1 Vick Graff. [address], [address] [place], [address], [place]. tel:[phone] [facility], [address], [place], [place], [address], tel:[phone] SEC [place] Professional Post-Op (chief complaint) Post op visit 1 Vick Graff. [address], [address] [place], [address], [place]. tel:[phone] Referring Provider: Brenden Johns OD, [address] [place] [address], [address]. tel:[phone] [facility], [address] [place] [address] [address], [place], [place], [address], tel:[phone] SEC Familia MARYCRUZ Professional No Information 1 Vick Graff. [address], [address] [place], [address], [place]. tel:[phone] [facility], [address], [place], [place], [address], [place] [phone] SEC Familia MARYCRUZ Professional 1 day s/p PCIOL (chief complaint) Post op visit 1 Vick Graff. [email or web address], [address] [place], [address], [place]. tel:[phone] Referring Provider: Julisaalexus Nat OD, [address] [place] [address], [address]. tel:[phone] [facility], [address], [place], [place], [address], [place] [phone] [facility] No Information 1 Vick Graff. [email or web address], [address] [place], [address], [place]. tel:[phone] Referring Provider: Julisaalexus Eden OD, [address] [place] [address], [address]. tel:[phone] [facility], [address], [place], [place], [address], [place] tel:[phone] SEC Pray MARYCRUZ Professional No Information 1 Vick Graff. [email or web address], [address] [place], [address], [place]. tel:[phone] Referring Provider: Julisaalexus Nat OD, [address] [place] [address], [address]. tel:[phone] [facility], [address], [place], [place], [address], [place] tel:[phone] SEC Pray MARYCRUZ Professional No Information 1 Vick Graff. [email or web address], [place], [address], [place]. tel:[phone] Office/outpa tient Visit, [facility], [address], [place], [place], [address], tel:[phone] SEC Familia JOEL Professional Cataract evaluation (chief complaint) Age-related nuclear cataract, bilateralDrus en (degenerative ) of macula, right eye 1 Vick Graff. [email or web address], [facility] [address], [place], [place], [address], [place]. tel:[phone] Referring Provider: Brenden Johns OD, [address] [place] [address], [place], [address]. tel:[phone] [facility], [address], [place], [place], [address], [place] tel:[phone] SEC Familia JOEL Professional No Information Vick Graff. [email or web address], [address], [place], [place], [address], [place]. tel:[phone] Family History Family Member Type Diagnosis Age At Onset Problem Family history of glaucoma Problem Family history of Diabetes jaden puri Payers Payer name Insurance type Covered republican ID Authoriza tion(s) No Information Social History [...]
--- NOTE | 2025-03-14 11:38 | ED_ITS ---
HPI - Chest Pain General Chief Complaint: Chest Pain Stated Complaint: Chest Pain/Shortness of Breath Patient [facility] to [facility] by family with complaints of worsening shortness of breath, chest pain, and weakness today. Patient does note that she had a gallbladder surgery about 3 weeks ago and has had these symptoms minimally since then. Noted that she has talked with her home health providers and physician offices and was told to be evaluated today since symptoms have been worse. Patient noted she has been trying to get around her home in the weakness in her lower legs was worse. Patient reports taking her inhaler in medications today. denies fever, chills, body aches, swelling in lower legs headache or dizziness. Related Data Home Medications ?Medication ?Instructions ?Recorded ?Confirmed ?Last Taken ?Type albuterol sulfate 90 mcg/actuation 2 puff inhalation QID PRN sob 07/06/21 07/06/21 Unknown History aerosol inhaler aspirin 81 mg capsule 81 mg PO DAILY 07/06/21 07/06/21 Unknown History atorvastatin 40 mg tablet 40 mg PO DAILY 07/06/21 07/06/21 Unknown History buspirone 5 mg tablet 5 mg PO DAILY 07/06/21 07/06/21 Unknown History clopidogrel 75 mg tablet 75 mg PO DAILY 07/06/21 07/06/21 Unknown History diphenhydramine HCl 25 mg capsule 25 mg PO HS 07/06/21 07/06/21 Unknown History (Benadryl) fluoxetine 40 mg capsule 40 mg PO DAILY 07/06/21 07/06/21 Unknown History fluticasone fur. 100 mcg-umeclid See Rx Instructions .Route .COMPLEX 07/06/21 07/06/21 Unknown History 62.5 mcg-vilant 25 mcg inhalat.powder (Trelegy Ellipta) fluticasone propionate 50 2 spray intranasal DAILY 07/06/21 07/06/21 Unknown History mcg/actuation nasal spray,suspension lisinopril 5 mg tablet 5 mg PO DAILY 07/06/21 07/06/21 Unknown History metoprolol succinate 50 mg 50 mg PO DAILY 07/06/21 07/06/21 Unknown History tablet,extended release 24 hr omeprazole 40 mg capsule,delayed 40 mg PO DAILY 07/06/21 07/06/21 Unknown History release rosuvastatin 5 mg tablet 5 mg PO DAILY 07/06/21 07/06/21 Unknown History atorvastatin 80 mg tablet mg 03/14/25 Unknown History fluticasone fur. 200 mcg-umeclid inhalation 03/14/25 Unknown History 62.5 mcg-vilant 25 mcg inhalat.powder (Trelegy Ellipta) furosemide 40 mg tablet mg 03/14/25 Unknown History misoprostol 200 mcg tablet mcg 03/14/25 Unknown History nitroglycerin 0.4 mg sublingual mg 03/14/25 Unknown History tablet potassium chloride 20 mEq meq PO 03/14/25 Unknown History tablet,extended release(part/cryst) pregabalin 50 mg capsule mg 03/14/25 Unknown History spironolactone 25 mg tablet mg 03/14/25 Unknown History tramadol 50 mg tablet mg 03/14/25 Unknown History Allergies Allergy/AdvReac Type Severity Reaction Status Date / Time Sulfa (Sulfonamide AdvReac Intermediate Rash Verified 03/14/25 11:51 Antibiotics) Review of Systems Constitutional: Constitutional: Reports as per HPI, Denies chills, Reports fatigue, Denies fever(s) and Reports weakness Eyes: Eyes: Reports no additional eye complaints ENT: Reports system reviewed and no additional complaints, except as documented Cardiovascular: Cardiovascular: Reports as per HPI, Reports chest pain, Denies rapid heart rate, Denies radiating jaw, neck or arm pain and Denies slow heart rate Respiratory: Respiratory: Reports as per HPI, Denies chest congestion, Denies cough, Reports dyspnea and Denies wheezing Gastrointestinal: Gastrointestinal: Reports as per HPI, Reports abdominal pain, Denies bloating, Denies constipation, Denies heartburn, Denies diarrhea, Denies nausea and Denies vomiting Genitourinary: Genitourinary: Reports no additional female genitourinary complaints Musculoskeletal: Musculoskeletal: Reports no additional musculoskeletal complaints Integumentary/Breasts: Skin/Breast: Reports system reviewed and no additional complaints, except as docu Neurologic: Reports as per HPI, Denies dizziness, Denies syncope, Denies headache(s), Denies numbness and Reports weakness Psychiatric: Psychiatric: Reports no additional psychiatric complaints Endocrine: Endocrine: Reports no additional endocrine complaints Hematologic/Lymphatic: Hematologic/Lymphatic: Reports no additional hematologic/lymphatic complaints Allergic/Immunologic: Allergic/Immunologic: Reports no additional allergic/immunologic complaints PMFSH Past Medical History Medical History (Updated 03/14/25 @ 12:10 by Kirti Henriquez, SK[facility]) Depression Chronic anticoagulation High cholesterol Hypertension COPD exacerbation Surgical History Surgical History (Updated 07/06/21 @ 14:22 by Dinesh Ledbetter MD) History of heart artery stent Exam Const: General: No no acute distress Orientation/consciousness: patient oriented x3 Limitations: physical limitations Other: obvious shortness of breath, labored breathing HENMT: Head: normal to inspection Mouth: Yes Normal oral and palatal mucosa present and Yes lip normal Throat: posterior oropharynx normal Neck: Neck: no lymphadenopathy Chest: Chest palpation & inspection: normal inspection of the chest and no te nderness Resp: Effort & Inspection: labored, tachypneic and uses accessory muscles Auscultation: no crackles, no rales, no rhonchi, no wheezes, breath sounds present and diminished lung sounds diffuse Cardio: Rate: regular rate Rhythm: regular rhythm Heart sounds: no murmurs Skin: Rashes: no rashes Wounds: no wounds Neuro: General: patient oriented x3 and moves all extremities Speech: normal speech Gait exam (Neuro): Normal gait present Extrem: General: normal to inspection, no clubbing, cyanosis or edema and no pedal edema Psych: Mental Status: mental status grossly normal Affect: normal affect Attitude: cooperative Course Course Level of Care: Express Care Visit MDM - Chest Pain MDM Narrative Medical decision making narrative: Given patient's symptoms and recent surgical intervention with medical history recommended patient be evaluated in the emergency room for further evaluation. EKG completed clinic with no significant abnormalities. Patient declined ambulance transfer and will have family member take her by private vehicle to the emergency room. Risks and benefit of emergency room transfer explained to patient and family. Report called to [facility] CALVILLO for Dr. Silverman. Differential Diagnosis Differential diagnosis: Likely pneumothorax, stable angina, unstable angina pectoris, atypical chest pain, costochondritis and chest pain Medical Records Data Attestation: I reviewed the patient's medical records. ECG Data EKG #1: ECG completion date: 03/14/25 Prior ECG tracings: not available for review Ischemic changes: other (no acute concerns noted. ) EKG Interpretation: normal rate Discharge Plan Discharge Clinical Impression: Chest pain, Breath shortness Patient Disposition: Acute Care Hospital Condition: Unstable Patient Language: Slovenian Prescriptions: No Action fluoxetine 40 mg capsule 40 mg PO DAILY atorvastatin 40 mg tablet 40 mg PO DAILY metoprolol succinate 50 mg tablet extended release 24 hr 50 mg PO DAILY clopidogrel 75 mg tablet 75 mg PO DAILY omeprazole 40 mg capsule,delayed release(DR/EC) 40 mg PO DAILY lisinopril 5 mg tablet 5 mg PO DAILY rosuvastatin 5 mg tablet 5 mg PO DAILY Trelegy Ellipta 100-62.5-25 mcg blister with device See Rx Instructions .ROUTE .COMPLEX Rx Instructions: as prescribed buspirone 5 mg tablet 5 mg PO DAILY diphenhydramine HCl [Benadryl] 25 mg Capsule 25 mg PO HS aspirin 81 mg Capsule 81 mg PO DAILY albuterol sulfate 90 mcg/actuation Hfa Aerosol Inhaler 2 puff INHALATION QID PRN (Reason: sob) fluticasone propionate [Flonase] 50 mcg/actuation Mack,Suspension 2 spray INTRANASAL DAILY Follow-up/Referrals: Bienvenido,Lamberto Brown MD [Primary Care Provider] - Time of Disposition: 12:09
--- NOTE | 2025-03-14 11:38 | ECG_ITS ---
Test Date: 2025-03-14 11:49:01 Measurements Intervals Carmi Rate: 76 P: 40 CA: 135 QRS: -7 QRSD: 142 T: 53 QT: 431 QTc: 485 Interpretive Statements SINUS RHYTHM baseline artifact limits interpretation nonspecific ST wave changes No previous ECG available for comparison Electronically Signed On 03-14-2025 14:10:23 CDT by Jarred Griffith M.D.
[2025-03-14 11:55] VITALS: BP 116/39; PULSE 81; RESP 36; TEMP 36.5; O2SAT 98
== END 2025-03-14 12:19 | disposition short-term general hospital (02) ==
PROVIDERS: Emergency Provider Nurse Practitioner Family; PCP Family Medicine
DX: R07.9 Chest pain, unspecified (principal); R06.02 Shortness of breath; I10 Essential (primary) hypertension; E78.00 Pure hypercholesterolemia, unspecified; J44.9 Chronic obstructive pulmonary disease, unspecified; F32.A Depression, unspecified; Z95.5 Presence of coronary angioplasty implant and graft; Z79.01 Long term (current) use of anticoagulants
CPT/HCPCS: 93005; 99213; G0463